=== PATIENT | male | born 1955 | race Caucasian/White ===

== ENCOUNTER 2017-01-04 13:04 | Inpatient (IN) | payer MEDICAID ==
[~2017-01-04] VITALS: Ht 177.8 cm; Wt 81.7 kg
[~2017-01-04 13:04] MED LIST: ALBU0.086 INH; ALBU1AER INH; ASPI325T PO; CHLO.12%30 SSP; CLIN150 PO; DICL50 PO; GABA600T PO; GLUC10TA3 PO; IPRA17I INH; METF500 PO; METH500T3 PO; MS C60TA4 PO; SERT100 PO; TRAZ100 PO; Z.0.OXYGEN INH; ZOLO50TA PO
[2017-01-04] MEDS ORDERED: SODIUM CHLOR 0.9% 1000 ML INJ 1,000 ML IV SCH ×2 (13:16→17:00)
[2017-01-04 13:18] VITALS: BP 167/89; PULSE 115; RESP 20; TEMP 98.3; O2SAT 98
[2017-01-04 13:22] VITALS: O2SAT 99
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
[2017-01-04] MEDS ORDERED: ONDANSETRON HCL 4 MG/2 ML VIAL IVP ONE (13:30)
[2017-01-04] MEDS ORDERED: SODIUM CHLORIDE 0.9% FLUSH 10 ML FLUSH IV FLUSH PRN ×2 (13:30→16:30)
[2017-01-04] MEDS ORDERED: MORPHINE SULFATE 4 MG/ML INJ IV PUSH ONE (13:30)
--- NOTE | 2017-01-04 13:53 | RADRPT ---
EXAM DATE/TIME: 01/04/2017 13:48 [facility] COMPARISON: CHEST SINGLE AP, March 20, 2016, 5:01. EXTERNAL COMPARISON : INDICATIONS : Vomiting, short of breath for 2 days MEDICAL HISTORY : Chronic obstructive pulmonary disease. Diabetes mellitus type II. Hepatitis C. SURGICAL HISTORY : None. ENCOUNTER: Initial ACUITY: 2 days PAIN SCORE: 0/10 LOCATION: Bilateral chest FINDINGS: A single view of the chest demonstrates the lungs to be symmetrically aerated without evidence of mas s, infiltrate or effusion. The cardiomediastinal contours are unremarkable. Osseous structures are intact. CONCLUSION: No acute disease. Joaquin Osman MD on January 04, 2017 at 13:51 Board Certified Radiologist. This report was verified electronically.
[2017-01-04 13:57] LABS: BASOPHIL % 0.1 % (0.0-2.0); HEMATOCRIT 45.4 % (39.0-51.0); HEMO FLAGS DIFF FINAL; LYMPH % 11.9 % (9.0-44.0); LYMPHOCYTE # 1.5 TH/MM3 (1.0-4.8); MEAN CELL VOLUME 85.8 FL (80.0-100.0); MEAN CORPUSCULAR HEMOGLOBIN 28.1 PG (27.0-34.0); MEAN CORPUSCULAR HGB CONC 32.8 % (32.0-36.0); MONO % 2.6 % (0.0-8.0); NEUT % 85.4 % (16.0-70.0); PLATELET COUNT 338 TH/MM3 (150-450); RED BLOOD COUNT 5.29 MIL/MM3 (4.50-5.90); RED CELL DISTRIBUTION WIDTH 14.1 % (11.6-17.2); WHITE BLOOD COUNT 12.9 TH/MM3 (4.0-11.0)
[2017-01-04 14:04] LABS: APTT (PATIENT) 25.9 SEC (24.3-30.1); PROTHROMBIN TIME - PATIENT 10.9 SEC (9.8-11.6)
[2017-01-04 14:16] LABS: ALT (GPT) 87 U/L (12-78); ANION GAP 19 MEQ/L (5-15); AST (GOT) 43 U/L (15-37); BICARBONATE 19.5 MEQ/L (21.0-32.0); BLOOD UREA NITROGEN 22 MG/DL (7-18); CHLORIDE 94 MEQ/L (98-107); GLOMERULAR FILTRATION RATE 56 ML/MIN (>89); SODIUM (NA) 132 MEQ/L (136-145)
[2017-01-04 14:18] LABS: ALKALINE PHOSPHATASE 208 U/L (45-117); TOTAL BILIRUBIN ADULT 0.7 MG/DL (0.2-1.0)
[2017-01-04] MEDS ORDERED: CIPROFLOXACIN 400 MG PREMIX 200 ML IV ONE (14:45)
[2017-01-04] MEDS ORDERED: metroNIDAZOLE 500 MG INJ 100 ML IV ONE (14:45)
[2017-01-04] MEDS ORDERED: SODIUM CHLOR 0.9% 1000 ML INJ 1,000 ML IV ONE ×2 (14:45→16:00)
[2017-01-04] MEDS ORDERED: GLIP5TAB8 PO (15:04)
[2017-01-04] MEDS ORDERED: SERT-132 PO (15:04)
[2017-01-04] MEDS ORDERED: METF850T PO (15:04)
[2017-01-04] MEDS ORDERED: METH500T3 PO (15:04)
[2017-01-04] MEDS ORDERED: ALBU0.08 NEB (15:04)
[2017-01-04] MEDS ORDERED: ZOLO100T PO (15:04)
[2017-01-04] MEDS ORDERED: TRAZ100T4 PO (15:04)
[2017-01-04] MEDS ORDERED: IPRA17I INH (15:04)
[2017-01-04] MEDS ORDERED: ASPI325T PO (15:04)
[2017-01-04] MEDS ORDERED: ALBUAER3 INH (15:04)
[2017-01-04] MEDS ORDERED: MS C60TA2 PO (15:04)
[2017-01-04] MEDS ORDERED: GABA600T PO (15:06)
[2017-01-04] MEDS ORDERED: IOHEXOL 350 MG/ML 10 ML VIAL (for RAD DIAG) IV ONE (15:14)
--- NOTE | 2017-01-04 15:32 | RADRPT ---
EXAM DATE/TIME: 01/04/2017 15:07 [facility] COMPARISON: No previous studies available for comparison. INDICATIONS : Abdomen pain IV CONTRAST: 95 cc Omnipaque 350 (iohexol) IV ORAL CONTRAST: No oral contrast ingested. RADIATION DOSE: 9.96 CTDIvol (mGy) MEDICAL HISTORY : Hypertension. Pancreatitis. Hepatitis C.Diabetes SURGICAL HISTORY : Cholecystectomy. ENCOUNTER: Initial ACUITY: 2 days PAIN SCALE: 6/10 LOCATION: abdominal pain TECHNIQUE: Volumetric scanning of the abdomen and pelvis was performed. Using automated exposure control and ad justment of the mA and/or kV according to patient size, radiation dose was kept as low as reasonably achievable to obtain optimal diagnostic quality images. FINDINGS: LOWER LUNGS: There are tiny lung nodule seen in the lung bases bilaterally. LIVER: Homogeneous density without lesion. There is no dilation of the biliary tree. Gallbladder surgically absent.. SPLEEN: Normal size without lesion. PANCREAS: Within normal limits. KIDNEYS: Normal in size and shape. There is no mass, stone or hydronephrosis. ADRENAL GLANDS: Within normal limits. VASCULAR: No evidence of aortic aneurysm. No major vessel occlusion. Variant celiac anatomy with separate origi n of the splenic and hepatic vessels from the aorta. Mild patchy intimal calcification. BOWEL/MESENTERY: The stomach, small bowel, and colon demonstrate no acute abnormality. There is no free intraperitone al air or fluid. ABDOMINAL WALL: Within normal limits. RETROPERITONEUM: There is no lymphadenopathy. BLADDER: No wall thickening or mass. REPRODUCTIVE: Within normal limits. INGUINAL: There is no lymphadenopathy or hernia. MUSCULOSKELETAL: Within normal limits for patient age. CONCLUSION: Tiny lung base nodules. Further evaluation with CT chest recommended on an elective basis. No acute CT findings in the abdomen or pelvis. Андрей Cramer MD on January 04, 2017 at 15:27 Board Certified Radiologist. This report was verified electronically.
[2017-01-04 16:25] VITALS: BP 142/81; PULSE 105; RESP 18; O2SAT 96
[2017-01-04 16:25] LABS: BLOOD GAS BASE EXCESS -6.5 mmol/L (-2-2); BLOOD GAS CARBOXYHEMOGLOBIN 0.9 % (0-4); BLOOD GAS HCO3 18 mmol/L (22-26); BLOOD GAS O2 HGB SATURATION 96 % (90-100); BLOOD GAS OXYGEN CONTENT 17.5 Vol % (12.0-20.0); BLOOD GAS PCO2 32 mmHg (38-42); BLOOD GAS PO2 114 mmHG (61-120); BLOOD GAS TOTAL HGB 12.8 G/DL (12.0-16.0); CRITICAL VALUE NO; DRAW SITE RT RADIAL; LITER FLOW 1 L/M; NUMBER OF ARTERIAL PUNCTURES 1; OXYGEN DEVICE NASAL CANNULA; TEMP CORR TO 98.6; ULNAR PULSE PRESENT
[2017-01-04 16:26] LABS: STAT YES
[2017-01-04] MEDS ORDERED: ACETAMINOPHEN 325 MG TAB PO PRN (16:30)
[2017-01-04] MEDS ORDERED: NALOXONE HCL 0.4 MG/ML AMP IV PRN (16:30)
[2017-01-04] MEDS ORDERED: MAGNESIUM HYDROXIDE SUSP 30 ML CUP PO PRN (16:30)
[2017-01-04] MEDS ORDERED: ENOXAPARIN SODIUM 40 MG/0.4 ML SYRINGE SQ SCH (17:00)
[2017-01-04 17:47] LABS: BLOOD, URINE NEG (NEG); GLUCOSE,URINE 1000 mg/dL (NEG); KETONE, URINE 150 mg/dL (NEG); MUCUS URINE FEW /lpf (OCC); NITRITE,URINE NEG (NEG); PH, URINE 5.5 (5.0-8.5); URINE COLOR LIGHT-YELLOW (YELLW/STRAW)
[2017-01-04 17:50] LABS: COMMENT (UR) CULT NOT INDICATED; CULTURE IF INDICATED CULT NOT INDICATED
[2017-01-04] MEDS ORDERED: DEXTROSE 50% IN WATER 50 ML VIAL(D50) IV PUSH PRN (18:00)
[2017-01-04] MEDS ORDERED: GLUCAGON 1 MG/ML VIAL OTHER PRN (18:00)
--- NOTE | 2017-01-04 18:24 | EKG ---
Date Performed: 01/04/2017 Time Performed: 13:25:52 PTAGE: 61 years EKG: SINUS TACHYCARDIA POSSIBLE LEFT ATRIAL ENLARGEMENT POSSIBLE INFERIOR MYOCARDIAL INFARCTION ABNORMAL ECG PREVIOUS TRACING : 03/18/2016 05.04 No significant change from previous tracing noted. DOCTOR: Raudel Adames Interpretating Date/Time 01/04/2017 18:22:27
[2017-01-04] MEDS ORDERED: INSULIN ASPART 1,000 UNITS/10 ML VIAL SQ ONE (18:30)
[2017-01-04 19:24] VITALS: BP 162/80; PULSE 100; RESP 18; O2SAT 97
[2017-01-04 20:00] VITALS: BP 140/81; PULSE 106; RESP 17; TEMP 97.5; O2SAT 99
[2017-01-04] MEDS: ONDANSETRON HCL 4 MG/2 ML VIAL IVP PRN (20:00)
[2017-01-04] MEDS: INSULIN DETEMIR 100 UNITS/ML VIAL SQ SCH (20:48)
[2017-01-04] MEDS: METOCLOPRAMIDE HCL 10 MG/2 ML VIAL IV PUSH PRN (21:00)
[2017-01-04] MEDS ORDERED: INSULIN ASPART SUPPLEMENTAL SCALE SQ SCH (21:00)
[2017-01-04] MEDS: SODIUM CHLORIDE 0.9% FLUSH 10 ML FLUSH IV FLUSH SCH (21:00)
[2017-01-04 21:25] LABS: BICARBONATE 24.2 MEQ/L (21.0-32.0); POTASSIUM 3.6 MEQ/L (3.5-5.1)
--- NOTE | 2017-01-04 21:30 | HHI.HP ---
[facility] Primary Care Physician Miguel Garay MD Admission Diagnosis abdominal pain, intractable vomiting Diagnoses: (1) Abdominal pain (2) Hyponatremia (3) Increased anion gap metabolic acidosis (4) Type 2 diabetes mellitus Chief Complaint: nausea and vomiting with abdominal pain Travel History International Travel<30 Days: No Contact w/Intl Traveler <30 Da: No Traveled to Known Affected Are: No History of Present Illness Mr. Cortez is a 61 year-old male with a history of COPD including emphysema, asthma, and chronic bronchitis, pancreatitis, gastroesophageal reflux disease, nephrolithiasis, type 2 diabetes mellitus, depression, and anxiety who presented to the emergency room on 01/04/2017 complaining of right lower quadrant abdominal pain with vomiting. Chest x-ray in ER with no acute disease. Abdomen/pelvis CT with tiny lung base nodules noted. Further evaluation with CT chest recommended. No acute CT findings in the abdomen or pelvis. ABGs with mildly abnormal findings: Abnormalities included low HCO3 of 18, Kevin excess of -6.5, low pH at 7.36, and low PCO2 at 32 - likely chronic secondary to COPD. Beta hydroxybutyrate elevated at 9.74. Lactic acid normal at 1.3. Hyponatremia noted with sodium of 132, chloride 94, carbon dioxide somewhat low at 19.5, anion gap elevated at 19 , acute renal insufficiency: BUN elevated at 22, creatinine elevated at 1.33, and estimated GFR low at 56 - new compared to prior labs, glucose elevated at 308, calcium mildly elevated at 10.2, AST 43, ALT 87, alkaline phosphatase 208. Lipase was normal at 152. UA not consistent with UTI. Patient is seen in the CDU. He reports symptoms of nausea and vomiting with green emesis and lower abdominal pain present in both lower quadrants for 3 days. He denies constipation black or red stool, hematuria, dysuria, fever, chest pain, syncope, seizures, or blood clots: DVT, CVA, or PE. He reports symptoms are accompanied by generalized weakness. He reports chronic occasional shortness of breath and states he has been on home oxygen 2 liters via nasal cannula since 2004 for COPD. Denies any history of hypertension, CAD, CHF, or atrial fibrillation. Review of Systems Except as stated in HPI: all other systems reviewed are Neg Past Family Social History Past Medical History COPD: emphysema, asthma, and chronic bronchitis Pancreatitis GERD Nephrolithiasis Type 2 Diabetes Mellitus Depression Anxiety Hepatitis . Past Surgical History Right knee 1982 Cholecystectomy 2016 . Reported Medications Reported Meds & Active Scripts Active Reported Gabapentin 600 Mg Tab 600 Mg PO TID Albuterol Neb (Albuterol Sulfate) 2.5 Mg/3 Ml Neb 2.5 Mg NEB Q6HR PRN Proair Hfa 8.5 GM Inh (Albuterol Sulfate) 90 Mcg/Act Aer 2 Puff INH Q6H PRN 108 mcg/actuation Aspirin 325 Mg Tab 325 Mg PO DAILY Glipizide 5 Mg Tab 5 Mg PO BID Take 30 minutes before a meal Atrovent HFA 12.9 GM Inh (Ipratropium [place]) 17 Mcg/Act Aer 2 Puff INH QID Metformin (Metformin HCl) 850 Mg Tab 850 Mg PO TIDPC With meals Methocarbamol 500 Mg Tab 500 Mg PO TID Ms Contin (Morphine Sulfate) 60 Mg Tab 60 Mg PO Q12HR Sertraline (Sertraline HCl) 50 Mg Tab 50 Mg PO DAILY Zoloft (Sertraline HCl) 100 Mg Tab 100 Mg PO HS Trazodone (Trazodone HCl) 100 Mg Tab 200 Mg PO HS . Allergies: Coded Allergies: Penicillin (Verified Allergy, Severe, 01/04/17) Toradol (Verified Allergy, Severe, HALLUCINATES, 01/04/17) Active Ordered Medications Current Medications Morphine Sulfate (Morphine Inj) 2 mg ONCE ONCE IV PUSH Last administered on 13:30; Start 01/04/17 at 13:30; Stop 01/04/17 at 13:31; Status DC Ondansetron HCl 4 mg 4 mg ONCE ONCE IVP Last administered on 01/04/17 13:30; Start 01/04/17 at 13:30; Stop 01/04/17 at 13:31; Status DC Sodium Chloride (NS 1000 ml Inj) 1,000 ml @ 1,000 mls/hr Q1H IV Last administered on 01/04/17 13:16; Start 01/04/17 at 13:16; Stop 01/04/17 at 14:15; Status DC Sodium Chloride 2 ml 2 ml UNSCH PRN IV FLUSH FLUSH AFTER USING IV ACCESS; Start 01/04/17 at 13:30; Stop 01/04/17 at 16:21; Status DC Ciprofloxacin/ Dextrose 200 ml @ 200 mls/hr ONCE ONCE IV Last administered on 01/04/17 14:45; Start 01/04/17 at 14:45; Stop 01/04/17 at 15:44; Status DC Metronidazole 100 ml @ 100 mls/hr ONCE ONCE IV Last administered on 01/04/17 14:45; Start 01/04/17 at 14:45; Stop 01/04/17 at 15:44; Status DC Sodium Chloride (NS 1000 ml Inj) 1,000 ml @ 999 mls/hr BOLUS ONCE IV Last administered on 01/04/17 14:45; Start 01/04/17 at 14:45; Stop 01/04/17 at 15:45; Status DC Iohexol 95 ml 95 ml STK-MED ONCE IV Last administered on 01/04/17 15:14; Start 01/04/17 at 15:14; Stop 01/04/17 at 15:15; Status DC Sodium Chloride 1,000 ml @ 999 mls/hr BOLUS ONCE IV Last administered on 16:00; Start 01/04/17 at 16:00; Stop 01/04/17 at 17:00; Status DC Sodium Chloride (NS 1000 ml Inj) 1,000 ml @ 200 mls/hr Q5H IV Last administered on 01/04/17 17:00; Start 01/04/17 at 17:00 Sodium Chloride (NS Flush) 2 ml UNSCH PRN IV FLUSH FLUSH AFTER USING IV ACCESS ; Start 01/04/17 at 16:30 Sodium Chloride (NS Flush) 2 ml BID IV FLUSH ; Start 01/04/17 at 21:00 Acetaminophen (Tylenol) 650 mg Q4H PRN PO Fever, headache, pain 1-4; Start 01/04 at 16:30 Ondansetron HCl (Zofran Inj) 4 mg Q6H PRN IVP NAUSEA OR VOMITING Last administered on 01/04/17 20:00; Start 01/04/17 at 16:30 Magnesium Hydroxide (Milk Of Magnesia Liq) 30 ml Q12H PRN PO CONSTIPATION; Start 01/04/17 at 16:30 Enoxaparin Sodium (Lovenox Inj) 40 mg Q24H SQ Last administered on 01/04/17 17: 00; Start 01/04/17 at 17:00 Naloxone HCl (Narcan Inj) 0.4 mg UNSCH PRN IV SEE LABEL COMMENTS; Start at 16:30 Morphine Sulfate (Morphine Inj) 4 mg Q3H PRN IV PUSH PAIN SCALE 5 TO 10; Start 01/04/17 at 16:30 Dextrose (D50w (Vial) Inj) 25 ml UNSCH PRN IV PUSH HYPOGLYCEMIA-SEE COMMENTS; Start 01/04/17 at 18:00 Glucagon (Glucagon Inj) 1 mg UNSCH PRN OTHER HYPOGLYCEMIA-SEE COMMENTS; Start 01/04/17 at 18:00 Insulin Aspart (NovoLOG SUPPLEMENTAL SCALE) 1 ACHS SLIDING SCALE SQ ; Start 01/04/17 at 21:00 Insulin Aspart (NovoLOG INJ) 10 units ONCE ONCE SQ Last administered on 18:30; Start 01/04/17 at 18:30; Stop 01/04/17 at 18:31; Status DC Insulin Detemir (Levemir Inj) 10 units HS SQ Last administered on 01/04/17 20: 48; Start 01/04/17 at 21:00 Insulin Aspart (NovoLOG INJ) 4 units TIDAC SQ ; Start 01/05/17 at 08:00 Metoclopramide HCl (Reglan Inj) 5 mg Q8H PRN IV PUSH nausea Last administered on 01/04/17 21:00; Start 01/04/17 at 20:45 . Family History Brother from complications related to MS Brother with bipolar disorder . Social History Tobacco: Quit smoking at least 10 years ago Alcohol: Quit drinking alcohol 8 years ago - drinks socially now twice a year Illicit Drugs: Former marijuana use, No IVDA . Physical Exam Vital Signs Vital Signs Date Time Temp Pulse Resp B/P Pulse Ox O2 Delivery O2 Flow Rate FiO2 01/04/17 19:24 100 18 162/80 97 Nasal Cannula 2 01/04/17 16:25 105 18 142/81 96 Nasal Cannula 2 01/04/17 13:43 20 01/04/17 13:22 99 01/04/17 13:18 98.3 115 20 167/89 98 Room Air Physical Exam GENERAL: This is an older male patient, in no apparent distress. SKIN: Multiple small scabs scattered on extremities - patient reports from "bed bugs". Cool and dry. HEAD: Atraumatic. Normocephalic. EYES: No scleral icterus. No injection or drainage. ENT: Nose without bleeding, purulent drainage. NECK: Trachea midline. No JVD or lymphadenopathy. CARDIOVASCULAR: Tachycardic rate and rhythm without murmurs, gallops, or rubs. RESPIRATORY: Clear to auscultation. Breath sounds equal bilaterally. No wheezes , rales, or rhonchi. GASTROINTESTINAL: Abdomen soft, non-tender, nondistended. No guarding. MUSCULOSKELETAL: Extremities without clubbing, cyanosis, or edema. No calf tenderness. NEUROLOGICAL: Awake and alert. Motor and sensory grossly within normal limits. Normal speech. . Laboratory Laboratory Tests Test 01/04/17 01/04/17 01/04/17 01/04/17 13:30 16:21 16:45 17:00 White Blood Count 12.9 Red Blood Count 5.29 Hemoglobin 14.9 Hematocrit 45.4 Mean Corpuscular Volume 85.8 Mean Corpuscular Hemoglobin 28.1 Mean Corpuscular Hemoglobin 32.8 Concent Red Cell Distribution Width 14.1 Platelet Count 338 Mean Platelet Volume 8.3 Neutrophils (%) (Auto) 85.4 Lymphocytes (%) (Auto) 11.9 Monocytes (%) (Auto) 2.6 Eosinophils (%) (Auto) 0.0 Basophils (%) (Auto) 0.1 Neutrophils # (Auto) 11.0 Lymphocytes # (Auto) 1.5 Monocytes # (Auto) 0.3 Eosinophils # (Auto) 0.0 Basophils # (Auto) 0.0 CBC Comment DIFF FINAL Differential Comment Prothrombin Time 10.9 Prothromb Time International 1.0 Ratio Activated Partial 25.9 Thromboplast Time Sodium Level 132 Potassium Level 4.0 Chloride Level 94 Carbon Dioxide Level 19.5 Anion Gap 19 Blood Urea Nitrogen 22 Creatinine 1.30 Estimat Glomerular Filtration 56 Rate Random Glucose 308 Calcium Level 10.2 Total Bilirubin 0.7 Aspartate Amino Transf 43 (AST/SGOT) Alanine Aminotransferase 87 (ALT/SGPT) Alkaline Phosphatase 208 Total Protein 9.5 Albumin 4.5 Lipase 152 B-Hydroxybutyrate 9.74 Blood Gas Puncture Site RT RADIAL Blood Gas Patient Temperature 98.6 Blood Gas HCO3 18 Blood Gas Base Excess -6.5 Blood Gas Oxygen Saturation 96 Arterial Blood pH 7.36 Arterial Blood Partial 32 Pressure CO2 Arterial Blood Partial 114 Pressure O2 Arterial Blood Oxygen Content 17.5 Arterial Blood 0.9 Carboxyhemoglobin Arterial Blood Methemoglobin 1.0 Blood Gas Hemoglobin 12.8 Oxygen Delivery Device NASAL CANNULA Blood Gas Liter Flow 1 Lactic Acid Level 1.3 Urine Color LIGHT-YELLOW Urine Turbidity CLEAR Urine pH 5.5 Urine Specific [place] 1.044 Urine Protein NEG Urine Glucose (UA) 1000 Urine Ketones 150 Urine Occult Blood NEG Urine Nitrite NEG Urine Bilirubin NEG Urine Urobilinogen LESS THAN 2.0 Urine Leukocyte Esterase NEG Urine RBC LESS THAN 1 Urine WBC LESS THAN 1 Urine Mucus FEW Microscopic Urinalysis Comment CULT NOT INDICATED Result Diagram: 01/04/17 1330 01/04/17 1330 Imaging Last Impressions Chest X-Ray 01/04/17 1316 Signed Impressions: Service Date/Time: Wednesday, January 04, 2017 13:48 - CONCLUSION: No acute disease. Joaquin Osman MD Abdomen/Pelvis CT 01/04/17 1316 Signed Impressions: Service Date/Time: Wednesday, January 04, 2017 15:07 - CONCLUSION: Tiny lung base nodules. Further evaluation with CT chest recommended on an elective basis. No acute CT findings in the abdomen or pelvis. Андрей Cramer MD . Assessment and Plan Problem List: (1) Abdominal pain ICD Code: R10.9 Status: Acute (2) Increased anion gap metabolic acidosis ICD Code: E87.2 Status: Acute (3) Hyponatremia ICD Code: E87.1 Status: Acute (4) Type 2 diabetes mellitus ICD Code: E11.9 Status: Chronic (5) Lung nodule seen on imaging study ICD Code: R91.1 Status: Acute Assessment and Plan Mr. Cortez is a 61 year-old male with a history of COPD including emphysema, asthma, and chronic bronchitis, pancreatitis, gastroesophageal reflux disease, nephrolithiasis, diabetes mellitus, depression, and anxiety who presented to the emergency room on 01/04/2017 complaining of right lower quadrant abdominal pain with vomiting. Right lower quadrant abdominal pain - Leukocytosis with WBC 12.9 and neutrophilia noted repeat CBC in a.m. and follow trends - Admission UA is not consistent with UTI - Lipase normal at 152 - The patient received ciprofloxacin and metronidazole IV in the ER - Morphine 4 mg IV push every 3 hours as needed for pain - Zofran 4 mg IV every 6 hours as needed for nausea or vomiting - Clear liquid diet Anion Gap Metabolic Acidosis secondary to GI losses, dehydration, and impaired renal function - Beta hydroxybutyrate elevated at 9.74, carbon dioxide somewhat low at 19.5, anion gap elevated at 19 on admission - repeated BMP to r/o DKA - labs improved with IVF hydration - not DKA - glucose elevated at 308 initially; repeat 190 Hyponatremia - Sodium of 132 on admission - IV replacement with normal saline at 200 cc per hour - Recheck BMP shows sodium 137 Diabetes mellitus - Levemir 10 units subcutaneous daily at bedtime - Accu-Cheks with low-dose NovoLog sliding scale coverage subcutaneous q4h - Hypoglycemia protocol in place - Monitor trends and blood glucose and adjust treatment as needed Lung nodule on imaging study - Further evaluation with CT chest recommended on an outpatient basis DVT prophylaxis - Lovenox 40 mg subcutaneous every 24 hours Written by Mel Santana, acting as scribe for Dr. Christine on 01/04/17 at 21:29. .This note was transcribed by scribe [Mel Santana]. I, Dr. Sumanth Christine personally performed the history, physical exam, and medical decision making; and confirmed the accuracy of the information in the transcribed note. Authenticated by Dr. Sumanth Christine on 01/04/17 at 21:29. Discussed Condition With ER physician and patient . Physician Certification 2 Midnight Certification Type: Admission for Inpatient Services Order for Inpatient Services The services are ordered in accordance with Medicare regulations or non- Medicare payer requirements, as applicable. In the case of services not specified as inpatient-only, they are appropriately provided as inpatient services in accordance with the 2-midnight benchmark. Estimated LOS (days): 3 days is the estimated time the patient will need to remain in the hospital, assuming treatment plan goals are met and no additional complications. Post-Hospital Plan: Not yet determined Problem Qualifiers (1) Abdominal pain: Qualified Code: R10.31 - Right lower quadrant abdominal pain (2) Type 2 diabetes mellitus: Mel Santana January 04, 2017 21:30 Sumanth Christine MD January 05, 2017 04:49
[2017-01-04] MEDS ORDERED: DEXT 5%-NACL 0.9% 1000 ML INJ 1,000 ML IV SCH (22:00)
[2017-01-05] VITALS (7 sets, daily range): BP systolic 145–184; BP diastolic 74–92; PULSE 90–108; RESP 15–18; TEMP 98–98.6; O2SAT 96–100
[2017-01-05] MEDS ORDERED: ALBUTEROL SULFATE 90 MCG/ACT HFA 18 GM INHALER INH PRN (00:30)
[2017-01-05] MEDS ORDERED: SERTRALINE HCL 100 MG TAB PO SCH (00:30)
[2017-01-05] MEDS ORDERED: traZODone HCL 100 MG TAB PO SCH ×2 (00:30→21:00)
[2017-01-05] MEDS ORDERED: RESP: ALBUTEROL CONC 2.5 MG/0.5 ML NEB NEB PRN (00:45)
[2017-01-05] MEDS: ONDANSETRON HCL 4 MG/2 ML VIAL IVP PRN ×2 (05:09→09:57)
[2017-01-05 06:11] LABS: AUTOMATED NEUTROPHIL # 9.5 TH/MM3 (1.8-7.7); BASOPHIL % 0.4 % (0.0-2.0); EOSINOPHIL # 0.1 TH/MM3 (0-0.4); EOSINOPHIL % 0.6 % (0.0-4.0); HEMO FLAGS DIFF FINAL; LYMPH % 9.1 % (9.0-44.0); LYMPHOCYTE # 1.1 TH/MM3 (1.0-4.8); MEAN CELL VOLUME 84.3 FL (80.0-100.0); MEAN CORPUSCULAR HEMOGLOBIN 28.1 PG (27.0-34.0); MEAN CORPUSCULAR HGB CONC 33.3 % (32.0-36.0); MONO % 10.3 % (0.0-8.0); NEUT % 79.6 % (16.0-70.0); PLATELET COUNT 271 TH/MM3 (150-450); RED BLOOD COUNT 4.63 MIL/MM3 (4.50-5.90); RED CELL DISTRIBUTION WIDTH 14.1 % (11.6-17.2); WHITE BLOOD COUNT 11.9 TH/MM3 (4.0-11.0)
[2017-01-05 06:39] LABS: BICARBONATE 22.3 MEQ/L (21.0-32.0); POTASSIUM 3.5 MEQ/L (3.5-5.1)
[2017-01-05] MEDS ORDERED: INSULIN ASPART 1,000 UNITS/10 ML VIAL SQ SCH (08:00)
[2017-01-05] MEDS ORDERED: METHOCARBAMOL 500 MG TAB PO SCH (09:00)
[2017-01-05] MEDS ORDERED: SERTRALINE HCL 50 MG TAB PO SCH (09:00)
[2017-01-05] MEDS: IPRATROPIUM BROMIDE 17 MCG/ACT 12.9 GM INHALER INH SCH ×4 (09:00→21:00)
[2017-01-05] MEDS: GABAPENTIN 300 MG CAP PO SCH ×3 (09:57→18:00)
--- NOTE | 2017-01-05 09:58 | HHI.PR ---
Subjective Remarks Follow-up for nausea, vomiting, and RLQ pain. The patient complains of dry heaving overnight with persistent nausea, cannot tolerate clears. He continues to have sharp RLQ pain. The abdominal pain is worsened with dry heaving. The patient reports normal bowel movements. He denies any urinary problems and states this is not similar to past kidney stone pain. He denies any fevers, states he felt clammy last night. He does have a history of hepatitis C, not currently following gastroenterology. He denies alcohol use. Reports green vomitus yesterday. Objective Vitals Vital Signs Date Time Temp Pulse Resp B/P Pulse Ox O2 Delivery O2 Flow Rate FiO2 01/05/17 08:03 98 Nasal Cannula 2.00 01/05/17 04:00 98.6 108 15 184/90 99 01/05/17 00:00 98.5 102 16 156/79 98 01/04/17 20:00 97.5 106 17 140/81 99 01/04/17 19:24 100 18 162/80 97 Nasal Cannula 2 01/04/17 16:25 105 18 142/81 96 Nasal Cannula 2 01/04/17 13:43 20 01/04/17 13:22 99 01/04/17 13:18 98.3 115 20 167/89 98 Room Air I/O 01/04/17 01/04/17 01/04/17 01/05/17 01/05/17 01/05/17 07:00 15:00 23:00 07:00 15:00 23:00 Output Total 30 ml Balance -30 ml Emesis 30 ml Result Diagram: 01/05/17 0537 01/05/17 0527 Imaging Last Impressions Chest X-Ray 01/04/176 Signed Impressions: Service Date/Time: Wednesday, January 04, 2017 13:48 - CONCLUSION: No acute disease. Joaquin Osman MD Abdomen/Pelvis CT 01/04/176 Signed Impressions: Service Date/Time: Wednesday, January 04, 2017 15:07 - CONCLUSION: Tiny lung base nodules. Further evaluation with CT chest recommended on an elective basis. No acute CT findings in the abdomen or pelvis. Андрей Cramer MD Objective Remarks GENERAL: Well-developed well-nourished. In no acute distress. SKIN: Warm and dry. No lesions noted. HEENT: Normocephalic. Pupils equal and round. Mucous membranes pink and moist. CARDIOVASCULAR: Regular rate and rhythm. No murmur appreciated. RESPIRATORY: No accessory muscle use. Clear to auscultation. Breath sounds equal bilaterally. GASTROINTESTINAL: Abdomen soft, nondistended. Bowel sounds x4. Tender to palpation in the right lower quadrant and epigastric area. No rebound tenderness. MUSCULOSKELETAL: No obvious deformities. No clubbing or cyanosis. No edema. NEUROLOGICAL: Awake and alert. No focal neurological deficits. Moves upper and lower extremities spontaneously. Normal speech. PSYCHIATRIC: Appropriate mood and affect; insight and judgment normal. A/P Problem List: (1) Abdominal pain ICD Code: R10.9 Status: Acute (2) Increased anion gap metabolic acidosis ICD Code: E87.2 Status: Resolved (3) Hyponatremia ICD Code: E87.1 Status: Resolved (4) Type 2 diabetes mellitus ICD Code: E11.9 Status: Chronic (5) Lung nodule seen on imaging study ICD Code: R91.1 Status: Acute Assessment and Plan Mr. Cortez is a 61 year-old male with a history of COPD including emphysema, asthma, and chronic bronchitis, pancreatitis, gastroesophageal reflux disease, nephrolithiasis, diabetes mellitus, depression, and anxiety who presented to the emergency room on 01/04/2017 complaining of right lower quadrant abdominal pain with vomiting. Right lower quadrant abdominal pain Reviewed: Abdominal CT showed no acute CT findings in the abdomen or pelvis. Leukocytosis, afebrile. Lipase within normal limits. Elevated AST, ALT, alkaline phosphatase. - Morphine 4 mg IV push every 3 hours as needed for pain - Zofran 4 mg IV every 6 hours as needed for nausea or vomiting - Clear liquid diet - Repeat LFTs - Consult gastroenterology - IVF with D5 to prevent hypoglycemia as well as normal saline for volume loss Anion Gap Metabolic Acidosis secondary to GI losses, dehydration, and impaired renal function Beta hydroxybutyrate elevated at 9.74, carbon dioxide somewhat low at 19.5, anion gap elevated at 19 on admission - Repeat BMP shows improvement, anion gap has closed. Acute kidney injury - Creatinine 1.30, previously 0.77 on 03/21/16. Creatinine improved to 0.89 with IVF. Hyponatremia - Sodium of 132 on admission, improved to normal limits with IVF. Diabetes mellitus. With hyperglycemia likely reactive. - Levemir 10 units subcutaneous daily at bedtime - Hold oral hypoglycemics for now - Accu-Cheks with low-dose NovoLog sliding scale coverage subcutaneous q4h - Hypoglycemia protocol in place Incidental Lung nodule seen on abdominal CT - Radiologist recommended further evaluation with CT chest recommended on an elective basis DVT prophylaxis - Lovenox 40 mg subcutaneous every 24 hours Problem Qualifiers (1) Abdominal pain: Qualified Code: R10.31 - Right lower quadrant abdominal pain (2) Type 2 diabetes mellitus: Qualified Code: E11.65 - Type 2 diabetes mellitus with hyperglycemia, without long-term current use of insulin Herann Cannon January 05, 2017 09:58
[2017-01-05] MEDS: SODIUM CHLOR 0.9% 1000 ML INJ 1,000 ML IV SCH ×2 (10:46→20:46)
[2017-01-05] MEDS: D5-1/2 NS + KCL 20 MEQ INJ 1,000 ML IV SCH (10:46)
[2017-01-05] MEDS: MORPHINE SULFATE 60 MG CONTROLLED RELEASE TAB PO SCH ×2 (10:47→22:30)
[2017-01-05] MEDS: SODIUM CHLORIDE 0.9% FLUSH 10 ML FLUSH IV FLUSH SCH ×2 (10:47→21:00)
[2017-01-05 11:05] LABS: INDIRECT BILIRUBIN 0.3 MG/DL (0.0-0.8); TOTAL BILIRUBIN ADULT 0.5 MG/DL (0.2-1.0)
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
[2017-01-05] MEDS: METOCLOPRAMIDE HCL 10 MG/2 ML VIAL IV PUSH PRN ×2 (12:49→22:30)
[2017-01-05] MEDS: MORPHINE SULFATE 4 MG/ML INJ IV PUSH PRN (12:50)
[2017-01-05 15:57] LABS: TRANSFERRIN IRON PROFILE 305 MG/DL (200-360)
[2017-01-05 16:00] LABS: FERRITIN 108 NG/ML (26-388)
[2017-01-05] MEDS: INSULIN DETEMIR 100 UNITS/ML VIAL SQ SCH (21:00)
[2017-01-06] VITALS (10 sets, daily range): BP systolic 145–178; BP diastolic 78–89; PULSE 82–104; RESP 18–22; TEMP 97.7–98.8; O2SAT 94–99
[2017-01-06] MEDS: D5-1/2 NS + KCL 20 MEQ INJ 1,000 ML IV SCH (05:11)
[2017-01-06] MEDS: METOCLOPRAMIDE HCL 10 MG/2 ML VIAL IV PUSH PRN (05:11)
[2017-01-06] MEDS: MORPHINE SULFATE 4 MG/ML INJ IV PUSH PRN (05:39)
[2017-01-06] MEDS: SODIUM CHLOR 0.9% 1000 ML INJ 1,000 ML IV SCH ×2 (08:00→16:29)
[2017-01-06] MEDS ORDERED: RESP: ALBUTEROL 2.5 MG/3 ML NEB (PRN) INH ONE (08:08)
[2017-01-06] MEDS ORDERED: PROPOFOL 200 MG/20 ML AMP IV ONE (08:47)
--- NOTE | 2017-01-06 08:58 | GIPROC ---
[facility] [address] [facility]. [facility] [place], [address] EGD PROCEDURE REPORT EXAM DATE: 01/06/2017 PATIENT NAME: Ashutosh Cortez MR #: [id number] BIRTHDATE: 1955 ATTENDING: Noam Ware MD ORDER #: [id number] FURNACE ROOM SUPERVISOR: Doug Dotson Hogan, Darren, and Maria Guadalupe Sanchez STATUS: inpatient INDICATIONS: The patient is a 61 yr old male here for an EGD due to epigastric abdominal pain and history of esophageal reflux PROCEDURE PERFORMED: EGD w/ biopsy MEDICATIONS: None and Per Anesthesia. TOPICAL ANESTHETIC: CONSENT: The patient understands the risks and benefits of the procedure and understands that these risks include, but are not limited to: sedation, allergic reaction, infection, perforation and/or bleeding. Alternative means of evaluation and treatment include, among others: physical exam, x-rays, and/or surgical intervention. The patient elects to proceed with this endoscopic procedure. medical equipment was checked for proper function. Hand hygiene and appropriate measures for infection prevention was taken. After the risks, benefits and alternatives of the procedure were thoroughly explained, Informed consent was verified, confirmed and timeout was successfully executed by the treatment team. The patient was anesthetized with topical anesthesia and the Pentax [id number] and [id number] endoscope was introduced through the mouth and advanced to the second portion of the duodenum. Retroflexed views revealed no abnormalities The gastroscope was then slowly withdrawn and removed. ESOPHAGUS: There was LA Class A esophagitis noted. A biopsy was performed using cold forceps. Sample sent for histology. STOMACH: There was erythematous moderate gastritis in the gastric antrum. A biopsy was performed using cold forceps. Sample sent for histology. DUODENUM: The duodenal mucosa appeared normal in the bulb and second portion of the duodenum. ADVERSE EVENTS: There were no complications. IMPRESSIONS: 1. There was LA Class A esophagitis noted; biopsy was performed 2. There was erythematous gastritis in the gastric antrum; biopsy was performed 3. Normal duodenal mucosa in the bulb and second portion of the duodenum 4. Retroflexed views revealed no abnormalities RECOMMENDATIONS: 1. Await biopsy results. Biopsy results will not be ready for 7-10 days. If you don't hear from us in two weeks, call our office for biopsy results. 2. Anti-reflux regimen 3. Continue PPI 4. Avoid NSAIDS PATIENT CONDITION: stable DISPOSITION: Inpatient REPEAT EXAM: Return 1 year EGD pending biopsy results Noam Ware MD eSigned: Noam Ware MD 01/06/2017 8:58 AM cc: PATIENT NAME: Ashutosh Cortez Melisa MR#: [id number]
[2017-01-06] MEDS: IPRATROPIUM BROMIDE 17 MCG/ACT 12.9 GM INHALER INH SCH ×2 (09:00→21:00)
[2017-01-06] MEDS: SODIUM CHLORIDE 0.9% FLUSH 10 ML FLUSH IV FLUSH SCH ×2 (09:00→21:22)
[2017-01-06] MEDS: MORPHINE SULFATE 60 MG CONTROLLED RELEASE TAB PO SCH (09:00)
[2017-01-06] MEDS: GABAPENTIN 300 MG CAP PO SCH ×3 (09:36→16:12)
[2017-01-06] MEDS: SERTRALINE HCL 100 MG TAB PO SCH (09:36)
[2017-01-06] MEDS ORDERED: PNEUMOCOCCAL POLYVALENT INJ 25 MCG/0.5 ML SYR IM ONE (10:00)
[2017-01-06] MEDS ORDERED: INFLUENZA VIRUS VACCINE (QUADRIVALENT) 0.5 ML SYR IM ONE (10:00)
[2017-01-06] MEDS: ONDANSETRON HCL 4 MG/2 ML VIAL IVP PRN ×2 (10:08→21:23)
[2017-01-06] MEDS: INSULIN ASPART SUPPLEMENTAL SCALE SQ SCH ×3 (11:00→21:24)
[2017-01-06 12:02] LABS: AUTOMATED NEUTROPHIL # 4.8 TH/MM3 (1.8-7.7); BASOPHIL # 0.1 TH/MM3 (0-0.2); BASOPHIL % 0.8 % (0.0-2.0); EOSINOPHIL # 0.2 TH/MM3 (0-0.4); HEMATOCRIT 39.5 % (39.0-51.0); HEMO FLAGS DIFF FINAL; LYMPH % 28.4 % (9.0-44.0); LYMPHOCYTE # 2.3 TH/MM3 (1.0-4.8); MEAN CELL VOLUME 83.8 FL (80.0-100.0); MEAN CORPUSCULAR HEMOGLOBIN 29.6 PG (27.0-34.0); MEAN CORPUSCULAR HGB CONC 35.3 % (32.0-36.0); NEUT % 58.8 % (16.0-70.0); PLATELET COUNT 284 TH/MM3 (150-450); RED BLOOD COUNT 4.72 MIL/MM3 (4.50-5.90); RED CELL DISTRIBUTION WIDTH 14.1 % (11.6-17.2); WHITE BLOOD COUNT 8.1 TH/MM3 (4.0-11.0)
[2017-01-06 12:31] LABS: ALKALINE PHOSPHATASE 159 U/L (45-117); ALT (GPT) 151 U/L (12-78); ANION GAP 10 MEQ/L (5-15); AST (GOT) 179 U/L (15-37); BICARBONATE 27.3 MEQ/L (21.0-32.0); BLOOD UREA NITROGEN 10 MG/DL (7-18); CHLORIDE 99 MEQ/L (98-107); GLOMERULAR FILTRATION RATE 81 ML/MIN (>89); POTASSIUM 3.3 MEQ/L (3.5-5.1); SODIUM (NA) 136 MEQ/L (136-145); TOTAL BILIRUBIN ADULT 1.6 MG/DL (0.2-1.0)
[2017-01-06] MEDS ORDERED: POTASSIUM CHLORIDE 20 MEQ CONTROLLED RELEASE TAB PO ONE (14:00)
--- NOTE | 2017-01-06 14:42 | HHI.PR ---
Subjective Remarks Follow-up for abdominal pain. Patient seen after EGD today. The patient reports his abdominal pain is a little bit better today. He does complain of some acid reflux. He denies any further vomiting. He was able to tolerate some fruit for lunch. He states he had a normal bowel movement overnight. He states that he was taken off of Oramorph 1 year ago, and has not been following with pain management since then. Objective Vitals Vital Signs Date Time Temp Pulse Resp B/P Pulse Ox O2 Delivery O2 Flow Rate FiO2 01/06/17 12:00 97.9 92 20 178/86 95 01/06/17 09:06 82 18 166/83 100 01/06/17 09:00 82 16 143/76 99 01/06/17 08:56 98.0 84 16 129/71 97 01/06/17 08:02 98.3 82 20 174/83 95 01/06/17 08:00 98.3 82 20 174/83 95 01/06/17 06:30 85 01/06/17 04:38 98.6 104 20 168/89 94 01/06/17 04:00 98.0 92 18 170/83 98 01/06/17 00:50 98.8 89 18 145/78 99 01/05/17 20:44 97 Nasal Cannula 2.00 01/05/17 20:11 98.6 90 18 178/84 99 01/05/17 17:27 98.0 91 18 145/74 96 I/O 01/05/17 01/05/17 01/05/17 01/06/17 01/06/17 01/06/17 07:00 15:00 23:00 07:00 15:00 23:00 Intake Total 0 ml 150 ml Output Total 500 ml 0 ml Balance -500 ml 0 ml 150 ml Intake Oral 0 ml IV Total 150 ml Output Urine Total 500 ml 0 ml Stool Total 0 ml Result Diagram: 01/06/17 1132 01/06/17 1132 Imaging Last Impressions Chest X-Ray 01/04/17 1316 Signed Impressions: Service Date/Time: Wednesday, January 04, 2017 13:48 - CONCLUSION: No acute disease. Joaquin Osman MD Abdomen/Pelvis CT 01/04/17 1316 Signed Impressions: Service Date/Time: Xiang, January 04, 2017 15:07 - CONCLUSION: Tiny lung base nodules. Further evaluation with CT chest recommended on an elective basis. No acute CT findings in the abdomen or pelvis. Андрей Cramer MD Objective Remarks GENERAL: Well-developed well-nourished. In no acute distress. SKIN: Warm and dry. No lesions noted. HEENT: Normocephalic. Pupils equal and round. Mucous membranes pink and moist. CARDIOVASCULAR: Regular rate and rhythm. No murmur appreciated. RESPIRATORY: No accessory muscle use. Clear to auscultation. Breath sounds equal bilaterally. GASTROINTESTINAL: Abdomen soft, mild epigastric TTP, nondistended. Bowel sounds x4. MUSCULOSKELETAL: No obvious deformities. No clubbing or cyanosis. No edema. NEUROLOGICAL: Awake and alert. No focal neurological deficits. Moves upper and lower extremities spontaneously. Normal speech. PSYCHIATRIC: Appropriate mood and affect; insight and judgment normal. A/P Problem List: (1) Abdominal pain ICD Code: R10.9 Status: Acute (2) Increased anion gap metabolic acidosis ICD Code: E87.2 Status: Resolved (3) Hyponatremia ICD Code: E87.1 Status: Resolved (4) Type 2 diabetes mellitus ICD Code: E11.9 Status: Chronic (5) Lung nodule seen on imaging study ICD Code: R91.1 Status: Acute Assessment and Plan Mr. Cortez is a 61 year-old male with a history of COPD including emphysema, asthma, and chronic bronchitis, pancreatitis, gastroesophageal reflux disease, nephrolithiasis, diabetes mellitus, depression, and anxiety who presented to the emergency room on 01/04/2017 complaining of right lower quadrant abdominal pain with vomiting. Right lower quadrant abdominal pain Reviewed: Abdominal CT showed no acute CT findings in the abdomen or pelvis. Leukocytosis, afebrile. Lipase within normal limits. Elevated AST, ALT, alkaline phosphatase initially improved 5/2, but increased again today 5/3 with increasing bilirubin. - Morphine 4 mg IV push every 3 hours as needed for pain - Antiemetics as needed - Repeat LFTs - Consulted gastroenterology, performed EGD which showed esophagitis and gastritis - IVF, decrease - Diet as tolerated per GI Anion Gap Metabolic Acidosis secondary to GI losses, dehydration, and impaired renal function Beta hydroxybutyrate elevated at 9.74, carbon dioxide somewhat low at 19.5, anion gap elevated at 19 on admission - Repeat BMP shows improvement, anion gap has closed. - Resolved Acute kidney injury - Creatinine 1.30, previously 0.77 on 03/21/16. Creatinine improved to normal limits with IVF. Hyponatremia - Sodium of 132 on admission, improved to normal limits with IVF. Diabetes mellitus. With hyperglycemia, likely reactive. - Resume her glipizide - Hold home metformin for now - Accu-Cheks with low-dose NovoLog sliding scale coverage subcutaneous q4h - Hypoglycemia protocol in place Incidental Lung nodule seen on abdominal CT - Radiologist recommended further evaluation with CT chest recommended on an elective basis Suspect serotonin syndrome with hypertension/tachycardia with multiple high doses of antidepressants - Decreased sertraline and trazodone Hypertension BP has been labile and not well controlled. Possibly secondary to medication effect as above. - Clonidine as needed for now Hypokalemia, mild Potassium 3.3 - Replace orally - Follow up labs DVT prophylaxis - Lovenox held for GI procedure. - SCDs Discharge Planning Follow-up repeat LFTs and GI recommendations. Problem Qualifiers (1) Abdominal pain: Qualified Code: R10.31 - Right lower quadrant abdominal pain (2) Type 2 diabetes mellitus: Qualified Code: E11.65 - Type 2 diabetes mellitus with hyperglycemia, without long-term current use of insulin Hernan Cannon January 06, 2017 14:42 Reno Hawk MD January 06, 2017 21:37
[2017-01-06 15:20] LABS: ANA SCREEN NEG (NEG)
[2017-01-06] MEDS: cloNIDine HCL 0.1 MG TAB PO PRN (16:13)
[2017-01-06] MEDS: traZODone HCL 100 MG TAB PO SCH (21:22)
[2017-01-06] MEDS: glipiZIDE 5 MG TAB PO SCH (21:22)
[2017-01-06] MEDS: TIOTROPIUM BROMIDE 18 MCG INH INH SCH (22:39)
[2017-01-07] VITALS (9 sets, daily range): BP systolic 133–186; BP diastolic 66–87; PULSE 74–93; RESP 16–20; TEMP 97.5–98.9; O2SAT 95–96
[2017-01-07] MEDS: INSULIN ASPART SUPPLEMENTAL SCALE SQ SCH ×4 (05:43→21:00)
[2017-01-07] MEDS: MORPHINE SULFATE 4 MG/ML INJ IV PUSH PRN (06:10)
[2017-01-07 07:45] LABS: BICARBONATE 26.4 MEQ/L (21.0-32.0); INDIRECT BILIRUBIN 0.5 MG/DL (0.0-0.8); POTASSIUM 3.4 MEQ/L (3.5-5.1); TOTAL BILIRUBIN ADULT 0.8 MG/DL (0.2-1.0)
[2017-01-07] MEDS: SODIUM CHLORIDE 0.9% FLUSH 10 ML FLUSH IV FLUSH SCH ×2 (09:00→20:01)
[2017-01-07] MEDS: SERTRALINE HCL 100 MG TAB PO SCH (10:10)
[2017-01-07] MEDS: glipiZIDE 5 MG TAB PO SCH ×2 (10:10→20:00)
[2017-01-07] MEDS: GABAPENTIN 300 MG CAP PO SCH ×3 (10:10→16:27)
[2017-01-07] MEDS ORDERED: PANT40TA3 PO (11:29)
--- NOTE | 2017-01-07 11:32 | HHI.DCPOC ---
Discharge Care Plan Diagnosis: (1) Gastritis (2) Esophagitis (3) Elevated blood pressure (4) Type 2 diabetes mellitus Goals to Promote Your Health * To prevent worsening of your condition and complications * To maintain your health at the optimal level Directions to Meet Your Goals Take your medications as prescribed Follow your dietary instruction Follow activity as directed Keep your appointments as scheduled Take your immunizations and boosters as scheduled If your symptoms worsen call your PCP, if no PCP go to Urgent Care Center or Emergency Room Smoking is Dangerous to Your Health. Avoid second hand smoke Call the 24-hour hour crisis hotline for domestic abuse at Gricel Rios PA-C January 07, 2017 11:32
[2017-01-07] MEDS ORDERED: PANTOPRAZOLE SODIUM 40 MG VIAL IV PUSH ONE (11:45)
--- NOTE | 2017-01-07 11:45 | HHI.DS ---
cc: Noam Ware MD Discharge Summary Admission Date January 04, 2017 at 5:34 pm Discharge Date: January 07, 2017 Admitting Diagnosis abdominal pain, intractable vomiting (1) Abdominal pain ICD Code: R10.9 Diagnosis: Principal (2) Increased anion gap metabolic acidosis ICD Code: E87.2 Diagnosis: Secondary (3) Hyponatremia ICD Code: E87.1 Diagnosis: Secondary (4) Type 2 diabetes mellitus ICD Code: E11.9 Diagnosis: Secondary (5) Lung nodule seen on imaging study ICD Code: R91.1 Diagnosis: Secondary (6) Gastritis ICD Code: K29.70 Diagnosis: Principal (7) Esophagitis ICD Code: K20.9 Diagnosis: Principal (8) Elevated blood pressure ICD Code: I10 Diagnosis: Secondary Procedures EGD 01/06/[address] Ware showed esophagitis, gastritis. Brief History - From Admission Mr. Cortez is a 61 year-old male with a history of COPD including emphysema, asthma, and chronic bronchitis, pancreatitis, gastroesophageal reflux disease, nephrolithiasis, type 2 diabetes mellitus, depression, and anxiety who presented to the emergency room on 01/04/2017 complaining of right lower quadrant abdominal pain with vomiting. Chest x-ray in ER with no acute disease. Abdomen/pelvis CT with tiny lung base nodules noted. Further evaluation with CT chest recommended. No acute CT findings in the abdomen or pelvis. ABGs with mildly abnormal findings: Abnormalities included low HCO3 of 18, Kevin excess of -6.5, low pH at 7.36, and low PCO2 at 32 - likely chronic secondary to COPD. Beta hydroxybutyrate elevated at 9.74. Lactic acid normal at 1.3. Hyponatremia noted with sodium of 132, chloride 94, carbon dioxide somewhat low at 19.5, anion gap elevated at 19 , acute renal insufficiency: BUN elevated at 22, creatinine elevated at 1.33, and estimated GFR low at 56 - new compared to prior labs, glucose elevated at 308, calcium mildly elevated at 10.2, AST 43, ALT 87, alkaline phosphatase 208. Lipase was normal at 152. UA not consistent with UTI. Patient is seen in the CDU. He reports symptoms of nausea and vomiting with green emesis and lower abdominal pain present in both lower quadrants for 3 days. He denies constipation black or red stool, hematuria, dysuria, fever, chest pain, syncope, seizures, or blood clots: DVT, CVA, or PE. He reports symptoms are accompanied by generalized weakness. He reports chronic occasional shortness of breath and states he has been on home oxygen 2 liters via nasal cannula since 2004 for COPD. Denies any history of hypertension, CAD, CHF, or atrial fibrillation. CBC/BMP: 01/06/17 1132 01/07/17 0630 Significant Findings Laboratory Tests Test 01/04/17 01/04/17 01/04/17 01/04/17 13:30 16:21 17:00 20:20 White Blood Count 12.9 TH/MM3 (4.0-11.0) Neutrophils (%) (Auto) 85.4 % (16.0-70.0) Neutrophils # (Auto) 11.0 TH/MM3 (1.8-7.7) Sodium Level 132 MEQ/L (136-145) Chloride Level 94 MEQ/L (98-107) Carbon Dioxide Level 19.5 MEQ/L (21.0-32.0) Anion Gap 19 MEQ/L (5-15) Blood Urea Nitrogen 22 MG/DL (7-18) Estimat Glomerular Filtration 56 ML/MIN (>89) 54 ML/MIN (>89) Rate Random Glucose 308 MG/DL 190 MG/DL (74-106) (74-106) Calcium Level 10.2 MG/DL (8.5-10.1) Aspartate Amino Transf 43 U/L (15-37) (AST/SGOT) Alanine Aminotransferase 87 U/L (12-78) (ALT/SGPT) Alkaline Phosphatase 208 U/L (45-117) Total Protein 9.5 GM/DL (6.4-8.2) B-Hydroxybutyrate 9.74 MMOL/L (0.00-0.39) Blood Gas HCO3 18 mmol/L (22-26) Blood Gas Base Excess -6.5 mmol/L (-2-2) Arterial Blood pH 7.36 (7.380-7.420) Arterial Blood Partial 32 mmHg (38-42) Pressure CO2 Urine Specific [place] 1.044 (1.002-1.035) Urine Glucose (UA) 1000 mg/dL (NEG) Urine Ketones 150 mg/dL (NEG) Urine Mucus FEW /lpf (OCC) Creatinine 1.34 MG/DL (0.60-1.30) Test 01/05/17 01/05/17 01/05/17 01/06/17 05:27 05:37 14:45 00:01 Estimat Glomerular Filtration 87 ML/MIN (>89) Rate Random Glucose 240 MG/DL (74-106) Alkaline Phosphatase 147 U/L (45-117) White Blood Count 11.9 TH/MM3 (4.0-11.0) Neutrophils (%) (Auto) 79.6 % (16.0-70.0) Monocytes (%) (Auto) 10.3 % (0.0-8.0) Neutrophils # (Auto) 9.5 TH/MM3 (1.8-7.7) Monocytes # (Auto) 1.2 TH/MM3 (0-0.9) Vxeti-2-Usrdmjezkbu 200 mg/dL (100 - 190) Hepatitis C Antibody REACTIVE (NEGATIVE) Test 01/06/17 01/07/17 11:32 06:30 Monocytes (%) (Auto) 9.0 % (0.0-8.0) Potassium Level 3.3 MEQ/L 3.4 MEQ/L (3.5-5.1) (3.5-5.1) Estimat Glomerular Filtration 81 ML/MIN (>89) Rate Random Glucose 218 MG/DL (74-106) Total Bilirubin 1.6 MG/DL (0.2-1.0) Aspartate Amino Transf 179 U/L (15-37) 159 U/L (15-37) (AST/SGOT) Alanine Aminotransferase 151 U/L (12-78) 167 U/L (12-78) (ALT/SGPT) Alkaline Phosphatase 159 U/L 154 U/L (45-117) (45-117) Direct Bilirubin 0.3 MG/DL (0.0-0.2) Imaging Last Impressions Chest X-Ray 01/04/17 1316 Signed Impressions: Service Date/Time: Wednesday, January 04, 2017 13:48 - CONCLUSION: No acute disease. Joaquin Osman MD Abdomen/Pelvis CT 01/04/17 1316 Signed Impressions: Service Date/Time: Wednesday, January 04, 2017 15:07 - CONCLUSION: Tiny lung base nodules. Further evaluation with CT chest recommended on an elective basis. No acute CT findings in the abdomen or pelvis. Андрей Cramer MD PE at Discharge GENERAL: Well-developed well-nourished middle aged male patient in [facility]. SKIN: Warm and dry. No lesions noted. HEENT: Normocephalic. Pupils equal and round. Mucous membranes pink and moist. CARDIOVASCULAR: Regular rate and rhythm. No murmur appreciated. RESPIRATORY: No accessory muscle use. Clear to auscultation. Breath sounds equal bilaterally. GASTROINTESTINAL: Abdomen soft, nontender, nondistended. Bowel sounds x4. MUSCULOSKELETAL: No obvious deformities. No clubbing or cyanosis. No edema. NEUROLOGICAL: Awake and alert. No focal neurological deficits. Moves upper and lower extremities spontaneously. Normal speech. PSYCHIATRIC: Appropriate mood and affect; insight and judgment normal. Pt update on day of discharge Follow up for esophagitis, gastritis. The patient reports feeling much better today. He tolerated dinner last night and breakfast this morning. Denies any abdominal pain. Denies any nausea/vomiting overnight. He feels ready for discharge. Hospital Course Mr. Cortez is a 61 year-old male with a history of COPD including emphysema, asthma, and chronic bronchitis, pancreatitis, gastroesophageal reflux disease, nephrolithiasis, diabetes mellitus, depression, and anxiety who presented to the emergency room on 01/04/2017 complaining of right lower quadrant abdominal pain with vomiting. RLQ abdominal pain with elevated LFTs: Reviewed: Abdominal CT showed no acute CT findings in the abdomen or pelvis. Leukocytosis, afebrile. Lipase within normal limits. Elevated AST, ALT, alkaline phosphatase improved. Given IV Morphine prn and IV Zofran prn. Consulted GI, EGD 01/06/17 showed esophagitis/ gastritis, biopsies taken. Started on PPI. Advanced diet, patient tolerated well. Symptoms resolved. Anion Gap Metabolic Acidosis: secondary to GI losses, dehydration, and impaired renal function. Beta hydroxybutyrate elevated at 9.74, carbon dioxide somewhat low at 19.5, anion gap elevated at 19 on admission. Repeat BMP shows improvement , anion gap has closed. Resolved. Acute kidney injury: Creatinine 1.30, previously 0.77 on 03/21/16. Creatinine improved to normal limits with IVF. Hyponatremia: Sodium of 132 on admission, improved to normal limits with IVF. Diabetes mellitus. With hyperglycemia, likely reactive. Resumed home glipizide. Held metformin while in hospital. Monitored Accu-Cheks and covered with low-dose NovoLog SSI. Incidental Lung nodule seen on abdominal CT: Radiologist recommended further evaluation with CT chest recommended on an elective basis Suspect serotonin syndrome with hypertension/tachycardia with multiple high doses of antidepressants: Decreased sertraline and trazodone. Hypertension: BP has been labile and not well controlled. Possibly secondary to medication effect as above. Clonidine prn. Started on Norvasc 5mg daily. Discharge when SBP < 160. Hypokalemia, mild: Potassium 3.3. Replaced orally Discussed with Dr. Hawk. Pt Condition on Discharge: Stable Discharge Disposition: Discharge Home Discharge Time: > 30 minutes Discharge Instructions DIET: Follow Instructions for: Diabetic Diet Activities you can perform: Regular-No Restrictions Follow up Referrals: Gastroenterology - 10 Days with Noam Ware MD PCP Follow-up - 1 Week with Miguel Garay MD New Medications: Amlodipine (Amlodipine) 5 Mg Tab 5 MG PO DAILY Blood Pressure Management #30 Ref 0 TAB Pantoprazole (Pantoprazole) 40 Mg Tab 40 MG PO DAILY gastritis #30 Ref 0 TAB Continued Medications: Albuterol 8.5 GM Inh (Proair Hfa 8.5 GM Inh) 90 Mcg/Act Aer 2 PUFF INH Q6H 108 mcg/actuation PRN SHORTNESS OF BREATH #1 Ref 0 INHALER Albuterol Neb (Albuterol Neb) 2.5 Mg/3 Ml Neb 2.5 MG NEB Q6HR PRN SHORTNESS OF BREATH #60 Ref 0 NEBULE Aspirin (Aspirin) 325 Mg Tab 325 MG PO DAILY #30 Ref 0 TAB Gabapentin (Gabapentin) 600 Mg Tab 600 MG PO TID #90 Ref 0 TAB Glipizide (Glipizide) 5 Mg Tab 5 MG PO BID Take 30 minutes before a meal Blood Sugar Management #60 Ref 0 TAB Ipratropium HFA 12.9 GM Inh (Atrovent HFA 12.9 GM Inh) 17 Mcg/Act Aer 2 PUFF INH QID Shortness of Breath #1 Ref 0 INHALER Metformin (Metformin) 850 Mg Tab 850 MG PO TIDPC With meals Blood Sugar Management Ref 0 TAB Methocarbamol (Methocarbamol) 500 Mg Tab 500 MG PO TID Muscle Spasm #90 Ref 0 TAB Sertraline (Zoloft) 100 Mg Tab 100 MG PO HS #30 Ref 0 TAB Trazodone (Trazodone) 100 Mg Tab 200 MG PO HS Control Depression #30 Ref 0 TAB Discontinued Medications: Sertraline (Sertraline) 50 Mg Tab 50 MG PO DAILY #30 Ref 0 TAB Gricel Rios PA-C January 07, 2017 11:45
[2017-01-07] MEDS ORDERED: POTASSIUM CHLORIDE 20 MEQ CONTROLLED RELEASE TAB PO ONE (12:00)
[2017-01-07] MEDS: cloNIDine HCL 0.1 MG TAB PO PRN ×2 (12:46→20:00)
[2017-01-07] MEDS ORDERED: AMLO5TAB2 PO (13:57)
[2017-01-07] MEDS ORDERED: amLODIPine BESYLATE 5 MG TAB PO ONE (14:00)
[2017-01-07] MEDS: traZODone HCL 100 MG TAB PO SCH (20:00)
[2017-01-07] MEDS: TIOTROPIUM BROMIDE 18 MCG INH INH SCH (20:33)
[2017-01-08] VITALS (7 sets, daily range): BP systolic 130–173; BP diastolic 63–83; PULSE 78–96; RESP 17–20; TEMP 97–98.8; O2SAT 94–97
[2017-01-08] MEDS: INSULIN ASPART SUPPLEMENTAL SCALE SQ SCH ×4 (05:56→20:33)
[2017-01-08] MEDS: GABAPENTIN 300 MG CAP PO SCH ×3 (08:02→17:07)
[2017-01-08] MEDS: SERTRALINE HCL 100 MG TAB PO SCH (08:02)
[2017-01-08] MEDS: glipiZIDE 5 MG TAB PO SCH ×2 (08:03→20:32)
[2017-01-08] MEDS: SODIUM CHLORIDE 0.9% FLUSH 10 ML FLUSH IV FLUSH SCH ×2 (08:03→20:32)
[2017-01-08] MEDS ORDERED: amLODIPine BESYLATE 5 MG TAB PO SCH (09:00)
[2017-01-08 09:31] LABS: AUTOMATED NEUTROPHIL # 5.7 TH/MM3 (1.8-7.7); BASOPHIL # 0.1 TH/MM3 (0-0.2); BASOPHIL % 1.1 % (0.0-2.0); EOSINOPHIL # 0.4 TH/MM3 (0-0.4); EOSINOPHIL % 3.8 % (0.0-4.0); HEMATOCRIT 43.7 % (39.0-51.0); HEMO FLAGS DIFF FINAL; LYMPH % 29.6 % (9.0-44.0); LYMPHOCYTE # 2.9 TH/MM3 (1.0-4.8); MEAN CELL VOLUME 84.7 FL (80.0-100.0); MEAN CORPUSCULAR HEMOGLOBIN 29.2 PG (27.0-34.0); MEAN CORPUSCULAR HGB CONC 34.5 % (32.0-36.0); MONO % 7.2 % (0.0-8.0); NEUT % 58.3 % (16.0-70.0); PLATELET COUNT 279 TH/MM3 (150-450); RED BLOOD COUNT 5.15 MIL/MM3 (4.50-5.90); RED CELL DISTRIBUTION WIDTH 14.3 % (11.6-17.2); WHITE BLOOD COUNT 9.7 TH/MM3 (4.0-11.0)
[2017-01-08 09:44] LABS: BICARBONATE 26.1 MEQ/L (21.0-32.0); INDIRECT BILIRUBIN 0.5 MG/DL (0.0-0.8); MAGNESIUM 2.1 MG/DL (1.5-2.5); POTASSIUM 3.5 MEQ/L (3.5-5.1); TOTAL BILIRUBIN ADULT 0.7 MG/DL (0.2-1.0)
--- NOTE | 2017-01-08 12:34 | HHI.PR ---
Subjective Remarks Follow up for esophagitis/gastritis, and uncontrolled hypertension. The patient was discharged yesterday however discharge was held secondary to increased blood pressures. The patient's blood pressure did improve overnight however now elevated again this morning before morning medications. The patient denies any medical complaints. Denies any headache, lightheadedness, dizziness, chest pain or shortness of breath. Denies any abdominal pain, nausea/vomiting. He's tolerating oral intake. He wants to go home. Objective Vitals Vital Signs Date Time Temp Pulse Resp B/P Pulse Ox O2 Delivery O2 Flow Rate FiO2 01/08/17 09:07 Room Air 01/08/17 08:00 97.9 96 18 173/83 97 01/08/17 04:00 98.4 86 17 130/63 95 01/08/17 00:00 98.1 78 18 156/74 94 01/07/17 22:40 77 144/67 01/07/17 21:22 89 161/81 01/07/17 20:16 84 01/07/17 20:00 Room Air 01/07/17 19:40 98.7 88 20 168/81 96 176/81 01/07/17 16:00 98.9 82 16 177/87 96 I/O 01/07/17 01/07/17 01/07/17 01/08/17 01/08/17 01/08/17 07:00 15:00 23:00 07:00 15:00 23:00 Intake Total 822 ml 360 ml 240 ml 240 ml Balance 822 ml 360 ml 240 ml 240 ml Intake Oral 240 ml 360 ml 240 ml 240 ml IV Total 582 ml # Voids 2 2 0 0 # Bowel Movements 0 0 0 0 Result Diagram: 01/08/17 0821 01/08/17 0820 Imaging Last Impressions Chest X-Ray 01/04/17 1316 Signed Impressions: Service Date/Time: Wednesday, January 04, 2017 13:48 - CONCLUSION: No acute disease. Joaquin Osman MD Abdomen/Pelvis CT 01/04/17 1316 Signed Impressions: Service Date/Time: Wednesday, January 04, 2017 15:07 - CONCLUSION: Tiny lung base nodules. Further evaluation with CT chest recommended on an elective basis. No acute CT findings in the abdomen or pelvis. Андрей Cramer MD Objective Remarks GENERAL: Well-developed well-nourished middle aged male patient in [facility]. SKIN: Warm and dry. No lesions noted. HEENT: Normocephalic. Pupils equal and round. Mucous membranes pink and moist. CARDIOVASCULAR: Regular rate and rhythm. No murmur appreciated. RESPIRATORY: No accessory muscle use. Clear to auscultation. Breath sounds equal bilaterally. GASTROINTESTINAL: Abdomen soft, nontender, nondistended. Bowel sounds x4. MUSCULOSKELETAL: No obvious deformities. No clubbing or cyanosis. No edema. NEUROLOGICAL: Awake and alert. No focal neurological deficits. Moves upper and lower extremities spontaneously. Normal speech. PSYCHIATRIC: Appropriate mood and affect; insight and judgment normal. Procedures EGD 01/06/[address] Ware showed esophagitis, gastritis. Medications and IVs Current Medications Medications (Trade) Dose Ordered Sig/Lb Route Start Time Stop Time Status Last Admin (NS Flush) 2 ml UNSCH PRN IV FLUSH 01/04/17 16:30 (NS Flush) 2 ml BID IV FLUSH 01/04/17 21:00 01/08/17 08:03 (Tylenol) 650 mg Q4H PRN PO 01/04/17 16:30 (Zofran Inj) 4 mg Q6H PRN IVP 01/04/17 16:30 01/06/17 21:23 (Milk Of Magnesia Liq) 30 ml Q12H PRN PO 01/04/17 16:30 (Lovenox Inj) 40 mg Q24H SQ 01/04/17 17:00 Hold 01/04/17 17:00 (Narcan Inj) 0.4 mg UNSCH PRN IV 01/04/17 16:30 (Morphine Inj) 4 mg Q3H PRN IV PUSH 01/04/17 16:30 01/07/17 06:10 (D50w (Vial) Inj) 25 ml UNSCH PRN IV PUSH 01/04/17 18:00 (Glucagon Inj) 1 mg UNSCH PRN OTHER 01/04/17 18:00 (NovoLOG INJ) 4 units TIDAC SQ 01/05/17 08:00 Hold (Reglan Inj) 5 mg Q8H PRN IV PUSH 01/04/17 20:45 01/06/17 05:11 (Ventolin Hfa Inh) 2 puff Q6H PRN INH 01/05/17 00:30 (Neurontin) 600 mg TID PO 01/05/17 09:00 01/08/17 12:06 (Robaxin) 500 mg TID PO 01/05/17 09:00 Hold (Zoloft) 100 mg DAILY PO 01/06/17 09:00 01/08/17 08:02 (Desyrel) 100 mg HS PO 01/06/17 21:00 01/07/17 20:00 (Catapres) 0.1 mg Q6H PRN PO 01/06/17 14:45 01/07/17 20:00 (Glucotrol) 5 mg BID PO 01/06/17 21:00 01/08/17 08:03 (Spiriva Inh) 18 mcg Q24H INH 01/06/17 22:00 01/07/17 20:33 (Norvasc) 5 mg DAILY PO 01/08/17 09:00 01/08/17 08:03 A/P Problem List: (1) Abdominal pain ICD Code: R10.9 Status: Acute (2) Increased anion gap metabolic acidosis ICD Code: E87.2 Status: Resolved (3) Hyponatremia ICD Code: E87.1 Status: Resolved (4) Type 2 diabetes mellitus ICD Code: E11.9 Status: Chronic (5) Lung nodule seen on imaging study ICD Code: R91.1 Status: Acute Assessment and Plan Mr. Cortez is a 61 year-old male with a history of COPD including emphysema, asthma, and chronic bronchitis, pancreatitis, gastroesophageal reflux disease, nephrolithiasis, diabetes mellitus, depression, and anxiety who presented to the emergency room on 01/04/2017 complaining of right lower quadrant abdominal pain with vomiting. Esophagitis/Gastritis: patient presented with RLQ abdominal pain with elevated LFTs. Abdominal CT showed no acute CT findings in the abdomen or pelvis. Leukocytosis, afebrile. Lipase wnl. Elevated AST, ALT, alkaline phosphatase, now improved. Given IV Morphine prn and IV Zofran prn. Consulted GI, EGD 01/06/17 showed esophagitis/gastritis, biopsies taken. Started on PPI. Advanced diet, patient tolerated well. Symptoms resolved. Anion Gap Metabolic Acidosis: secondary to GI losses, dehydration, and impaired renal function. Beta hydroxybutyrate elevated at 9.74, carbon dioxide somewhat low at 19.5, anion gap elevated at 19 on admission. Repeat BMP shows improvement , anion gap has closed. Resolved. Acute kidney injury: Creatinine 1.30, previously 0.77 on 03/21/16. Creatinine improved to normal limits with IVF. Hyponatremia: Sodium of 132 on admission, improved to normal limits with IVF. Diabetes mellitus. With hyperglycemia, likely reactive. Resumed home glipizide. Held metformin while in hospital. Monitored Accu-Cheks and covered with low-dose NovoLog SSI. Incidental Lung nodule seen on abdominal CT: Radiologist recommended further evaluation with CT chest recommended on an elective basis. Suspect serotonin syndrome with hypertension/tachycardia with multiple high doses of antidepressants: Decreased sertraline and trazodone. Hypertension: BP has been labile and not well controlled. Possibly secondary to medication effect as above. Clonidine prn. Started on Norvasc 5mg daily. Discharge when SBP < 160. Hypokalemia, mild: Potassium 3.3. Replaced orally Discussed with Dr. Hawk. Discharge Planning Discharge held yesterday secondary to elevated blood pressure. Please see discharge summary from yesterday 01/07. Problem Qualifiers (1) Abdominal pain: Qualified Code: R10.31 - Right lower quadrant abdominal pain (2) Type 2 diabetes mellitus: Qualified Code: E11.65 - Type 2 diabetes mellitus with hyperglycemia, without long-term current use of insulin Gricel Rios PA-C January 08, 2017 12:34
[2017-01-08] MEDS ORDERED: PANTOPRAZOLE SOD 40 MG DELAYED RELEASE TAB PO SCH (13:00)
[2017-01-08 15:53] LABS: MITOCHONDRIAL ABS LESS THAN 20.0 U (())
[2017-01-08] MEDS: cloNIDine HCL 0.1 MG TAB PO PRN (16:00)
[2017-01-08] MEDS: traZODone HCL 100 MG TAB PO SCH (20:32)
[2017-01-08] MEDS: TIOTROPIUM BROMIDE 18 MCG INH INH SCH (20:33)
== END 2017-01-08 22:06 | disposition home or self-care (01) | DRG 391 ==
LOC: NEPE 13:04 → NEDA 16:20 → OBSVTOIN 17:34 → NEPHCDU 20:57 → N04B 01-06 04:54
PROVIDERS: ADMIT Family Medicine; ATTEND Family Medicine
PROC: 0DB68ZX Excision of Stomach, Via Natural or Artificial Opening Endoscopic, Diagnostic (ICD-10-PCS; 2017-01-06)
PROC: 0DB58ZX Excision of Esophagus, Via Natural or Artificial Opening Endoscopic, Diagnostic (ICD-10-PCS; principal; 2017-01-06 08:02)
DX: R10.31 Right lower quadrant pain (principal); K85.90 Acute pancreatitis without necrosis or infection, unspecified; N17.9 Acute kidney failure, unspecified; E87.2 Acidosis; E87.1 Hypo-osmolality and hyponatremia; K29.70 Gastritis, unspecified, without bleeding; E11.65 Type 2 diabetes mellitus with hyperglycemia; K21.0 Gastro-esophageal reflux disease with esophagitis; Z79.4 Long term (current) use of insulin; R91.1 Solitary pulmonary nodule; J44.9 Chronic obstructive pulmonary disease, unspecified; Z87.442 Personal history of urinary calculi; F41.8 Other specified anxiety disorders; B19.20 Unspecified viral hepatitis C without hepatic coma; E86.0 Dehydration; E87.6 Hypokalemia; I10 Essential (primary) hypertension; J45.909 Unspecified asthma, uncomplicated; Z79.82 Long term (current) use of aspirin; Z87.891 Personal history of nicotine dependence; Z99.81 Dependence on supplemental oxygen; F12.90 Cannabis use, unspecified, uncomplicated
CPT/HCPCS: 36600; 71010; 74177; 80048; 80053; 80069; 80074; 80076; 81001; 82010; 82103; 82390; 82728; 82805; 82948; 83520; 83540; 83550; 83605; 83690; 83735; 85025; 85610; 85730; 86038; 86256; 88305; 88312; 90732; 93005; 96361; 96365; 96375; C9113; J0744; J1650; J1815; J2270; J2405; J2765; J3480; J7030; J7042; J7611; J7613; Q9967

== ENCOUNTER 2017-05-31 15:12 | Inpatient (IN) | payer MEDICAID ==
[~2017-05-31 15:12] MED LIST changes: +ALBU0.08 NEB; -ALBU0.086 INH; -ALBU1AER INH; +ALBUAER3 INH; +AMLO5TAB2 PO; -CHLO.12%30 SSP; -CLIN150 PO; -DICL50 PO; +GLIP5TAB8 PO; -GLUC10TA3 PO; -METF500 PO; +METF850T PO; -MS C60TA4 PO; +PANT40TA3 PO; -SERT100 PO; -TRAZ100 PO; +TRAZ100T4 PO; -Z.0.OXYGEN INH; +ZOLO100T PO; -ZOLO50TA PO
[2017-05-31 15:43] VITALS: BP 113/56; PULSE 74; RESP 14; TEMP 98.1; O2SAT 97
[2017-05-31 18:06] VITALS: BP 130/60; PULSE 77; RESP 13; O2SAT 96
[2017-05-31] MEDS ORDERED: TRAZ100T6 PO (18:06)
[2017-05-31 19:17] LABS: BLOOD, URINE MOD (NEG); GLUCOSE,URINE NEG (NEG); KETONE, URINE NEG (NEG); NITRITE,URINE NEG (NEG); PH, URINE 5.5 (5.0-8.5); SQUAMOUS EPITHELIAL CELL URINE <1 /hpf (0-5); URINE COLOR YELLOW (YELLW/STRAW)
[2017-05-31 19:18] LABS: COMMENT (UR) CATH-CULT NOT IND; CULTURE IF INDICATED CATH CULTURE NOT IND
[2017-05-31 19:29] LABS: AUTOMATED NEUTROPHIL # 10.3 TH/MM3 (1.8-7.7); BASOPHIL # 0.1 TH/MM3 (0-0.2); BASOPHIL % 0.5 % (0.0-2.0); EOSINOPHIL # 0.8 TH/MM3 (0-0.4); EOSINOPHIL % 5.6 % (0.0-4.0); HEMATOCRIT 40.9 % (39.0-51.0); HEMO FLAGS DIFF FINAL; LYMPH % 18.9 % (9.0-44.0); LYMPHOCYTE # 2.9 TH/MM3 (1.0-4.8); MEAN CELL VOLUME 84.8 FL (80.0-100.0); MEAN CORPUSCULAR HEMOGLOBIN 28.2 PG (27.0-34.0); MEAN CORPUSCULAR HGB CONC 33.2 % (32.0-36.0); MONO % 7.1 % (0.0-8.0); NEUT % 67.9 % (16.0-70.0); PLATELET COUNT 396 TH/MM3 (150-450); RED BLOOD COUNT 4.82 MIL/MM3 (4.50-5.90); RED CELL DISTRIBUTION WIDTH 13.8 % (11.6-17.2); WHITE BLOOD COUNT 15.2 TH/MM3 (4.0-11.0)
[2017-05-31 19:45] LABS: ANION GAP 10 MEQ/L (5-15); AST (GOT) 357 U/L (15-37); BICARBONATE 26.2 MEQ/L (21.0-32.0); BLOOD UREA NITROGEN 44 MG/DL (7-18); CHLORIDE 102 MEQ/L (98-107); GLOMERULAR FILTRATION RATE 52 ML/MIN (>89); POTASSIUM 3.8 MEQ/L (3.5-5.1); SODIUM (NA) 138 MEQ/L (136-145)
[2017-05-31 19:51] VITALS: BP 114/61; PULSE 77; RESP 20; O2SAT 100
[2017-05-31 20:11] LABS: ALKALINE PHOSPHATASE 171 U/L (45-117); ALT (GPT) 108 U/L (12-78); CREATINE KINASE 10404 U/L (39-308); TOTAL BILIRUBIN ADULT 0.6 MG/DL (0.2-1.0)
[2017-05-31] MEDS ORDERED: IOHEXOL 350 MG/ML 10 ML VIAL (for RAD DIAG) IVCONTRAST ONE (20:37)
[2017-05-31 20:40] LABS: CKMB 179.8 NG/ML (0.5-3.6)
--- NOTE | 2017-05-31 20:44 | RADRPT ---
EXAM DATE/TIME: 05/31/2017 20:18 [facility] COMPARISON: CT BRAIN W/O CONTRAST, February 06, 2011, 20:57. INDICATIONS : Trauma, fall today. Altered mental status. RADIATION DOSE: 52.83 CTDIvol (mGy) MEDICAL HISTORY : Chronic obstructive pulmonary disease. Hepatitis C. Pancreatitis. SURGICAL HISTORY : Cholecystectomy. ENCOUNTER: Initial ACUITY: 1 day PAIN SCALE: Non-responsive LOCATION: Bilateral head TECHNIQUE: Multiple contiguous axial images were obtained of the head. Using automated exposure control and adj ustment of the mA and/or kV according to patient size, radiation dose was kept as low as reasonably a chievable to obtain optimal diagnostic quality images. DICOM format image data is available electro nically for review and comparison. FINDINGS: CEREBRUM: The ventricles are normal. No evidence of midline shift, mass lesion, hemorrhage or acute infarction . No extra-axial fluid collections are seen. POSTERIOR FOSSA: The cerebellum and brainstem are intact. The 4th ventricle is midline. The cerebellopontine angle i s unremarkable. EXTRACRANIAL: There is a right parietal scalp soft tissue swelling at the high convexity. SKULL: The calvaria is intact. No evidence of skull fracture. CONCLUSION: Right parietal scalp soft tissue swelling. No fracture or acute intracranial abnormality is identifie d. Андрей Hearn MD on May 31, 2017 at 20:40 Board Certified Radiologist. This report was verified electronically.
[2017-05-31] MEDS ORDERED: SODIUM CHLOR 0.9% 1000 ML INJ 1,000 ML IV SCH ×2 (20:45)
--- NOTE | 2017-05-31 20:49 | RADRPT ---
EXAM DATE/TIME: 05/31/2017 20:24 [facility] COMPARISON: CT ABDOMEN & PELVIS W CONTRAST, January 04, 2017, 15:07. INDICATIONS : Trauma, fall today. IV CONTRAST: 87 cc Omnipaque 350 (iohexol) IV ORAL CONTRAST: No oral contrast ingested. RADIATION DOSE: 16.11 CTDIvol (mGy) MEDICAL HISTORY : Hepatitis C. Pancreatitis. Chronic obstructive pulmonary disease. SURGICAL HISTORY : Cholecystectomy. ENCOUNTER: Initial ACUITY: 1 day PAIN SCALE: Non-responsive LOCATION: Bilateral abodmen TECHNIQUE: Volumetric scanning of the abdomen and pelvis was performed. Using automated exposure control and ad justment of the mA and/or kV according to patient size, radiation dose was kept as low as reasonably achievable to obtain optimal diagnostic quality images. DICOM format image data is available electro nically for review and comparison. FINDINGS: LOWER LUNGS: No acute abnormality is identified. LIVER: Homogeneous density without lesion. There is stable prominence of the central intrahepatic bile duct s in this patient post cholecystectomy. There are clips in the gallbladder fossa. SPLEEN: Normal size without lesion. PANCREAS: There multiple punctate calcifications are upper pancreas. No mass is visualized. KIDNEYS: Normal in size and shape. There is no mass, stone or hydronephrosis. There is a stable incidental 8 mm low-density lesion in the left mid kidney that is too small to characterize. ADRENAL GLANDS: Within normal limits. VASCULAR: There is no aortic aneurysm. There is severe atherosclerotic disease. BOWEL/MESENTERY: The stomach, small bowel, and colon demonstrate no acute abnormality. There is no free intraperitone al air or fluid. Appendix is normal. ABDOMINAL WALL: Within normal limits. RETROPERITONEUM: There is no lymphadenopathy. BLADDER: No wall thickening or mass. REPRODUCTIVE: Within normal limits. INGUINAL: There is no lymphadenopathy or hernia. MUSCULOSKELETAL: There are degenerative changes of the lumbar spine but no acute osseous abnormality is identified. Th ere is subcutaneous edema along the right gluteal region. It is most severe along the superior medial right gluteal cleft. CONCLUSION: 1. Right gluteal region subcutaneous edema with severe inflammatory change along the medial right sup erior gluteal cleft. 2. No other acute finding is identified in the abdomen or pelvis. Андрей Hearn MD on May 31, 2017 at 20:43 Board Certified Radiologist. This report was verified electronically.
--- NOTE | 2017-05-31 20:52 | RADRPT ---
EXAM DATE/TIME: 05/31/2017 20:18 [facility] COMPARISON: No previous studies available for comparison. INDICATIONS : Trauma, fall today. RADIATION DOSE: 42.82 CTDIvol (mGy) MEDICAL HISTORY : Pancreatitis. Hepatitis C. Chronic obstructive pulmonary disease. SURGICAL HISTORY : Cholecystectomy. ENCOUNTER: Initial ACUITY: 1 day PAIN SCALE: Non-responsive LOCATION: Bilateral neck TECHNIQUE: Volumetric scanning of the cervical spine was performed. Multiplanar reconstructions in the sagittal, coronal and oblique axial planes were performed. Using automated exposure control and adjustment o f the mA and/or kV according to patient size, radiation dose was kept as low as reasonably achievable to obtain optimal diagnostic quality images. DICOM format image data is available electronically f or review and comparison. FINDINGS: There is normal sagittal spine alignment of the cervical spine. No anterolisthesis or retrolisthesis is present. The atlantoaxial relationship is within normal limits. There is no prevertebral soft tiss ue swelling present. No fracture or dislocation is identified. There is degenerative disc disease at C3-C4 through C6-C7. There is left facet arthrosis at C4-C5. The visualized portions of the posterior fossa, paraspinous soft tissues, and upper lung zones demons trate no acute abnormality. CONCLUSION: No acute cervical spine abnormality is identified. There is degenerative disc disease at multiple lev els. Андрей Hearn MD on May 31, 2017 at 20:48 Board Certified Radiologist. This report was verified electronically.
--- NOTE | 2017-05-31 20:55 | RADRPT ---
EXAM DATE/TIME: 05/31/2017 20:24 [facility] COMPARISON: No previous studies available for comparison. INDICATIONS : Trauma, fall today. RADIATION DOSE: ; Reconstructed from previous dataset, no dose MEDICAL HISTORY : Pancreatitis. Hepatitis C. Chronic obstructive pulmonary disease. SURGICAL HISTORY : Cholecystectomy. ENCOUNTER: Initial ACUITY: 1 day PAIN SCALE: Non-responsive LOCATION: Bilateral lower back TECHNIQUE: Volumetric scanning of the lumbar spine was performed. Multiplanar reconstructions in the sagittal, coronal and oblique axial planes were performed. Using automated exposure control and adjustment of the mA and/or kV according to patient size, radiation dose was kept as low as reasonably achievable t o obtain optimal diagnostic quality images. DICOM format image data is available electronically for review and comparison. FINDINGS: VERTEBRAE: Normal vertebral body height. No fracture is visualized. ALIGNMENT: No anterolisthesis or retrolisthesis. T12-L1: No disc herniation, canal stenosis, or neural foraminal stenosis. L1-L2: No disc herniation, canal stenosis, or neural foraminal stenosis. L2-L3: No disc herniation, canal stenosis, or neural foraminal stenosis. L3-L4: There is a mild diffuse disc bulge. No canal stenosis or neural foraminal stenosis is present. L4-L5: Mild decreased disc height with vacuum disc. There is a diffuse disc bulge. No spinal canal stenosis is present. There is mild to moderate right neural foraminal narrowing. L5-S1: Mild diffuse disc bulge. No spinal canal stenosis or neural foraminal stenosis is visualized. CONCLUSION: No acute lumbar spine abnormality is identified. There are degenerative changes, as above. Андрей Hearn MD on May 31, 2017 at 20:51 Board Certified Radiologist. This report was verified electronically.
[2017-05-31] MEDS ORDERED: VANCOMYCIN INJ 1,000 MG in SODIUM CHLOR 0.9% 250 ML INJ 250 ML IV ONE (21:00)
--- NOTE | 2017-05-31 21:06 | PD ---
HPI Chief Complaint: Fall Time Seen by Provider: 18:04 Travel History International Travel<30 days: No Contact w/Intl Traveler<30days: No Traveled to known affect area: No History of Present Illness HPI This is a 61-year-old male who presents to the emergency department having had his fall last evening. He tried to help her when he fell down with her and was on the floor for a substantial amount of time. He is unable to tell me how long he was on the floor for. He says he's fallen several times this week. He is a very poor historian and he is fairly somnolent on exam. PFSH Past Medical History Hx Anticoagulant Therapy: Yes (ASPIRIN 81 MG DAILY) Arthritis: No Asthma: No Autoimmune Disease: No Blood Disorders: No Anxiety: Yes Depression: No Heart Rhythm Problems: No Cancer: No Cardiovascular Problems: No High Cholesterol: No Chemotherapy: No Chest Pain: No Congestive Heart Failure: No COPD: Yes Cerebrovascular Accident: No Diabetes: No Diminished Hearing: No Endocrine: No Gastrointestinal Disorders: No GERD: No Glaucoma: No Genitourinary: No Headaches: Yes Hepatitis: Yes (C) Hiatal Hernia: No Hypertension: Yes Immune Disorder: No Implanted Vascular Access Dvce: No Kidney Stones: No Musculoskeletal: No Neurologic: No Psychiatric: Yes Reproductive: No Respiratory: Yes Immunizations Current: Yes Migraines: No Myocardial Infarction: No Pancreatitis: Yes Radiation Therapy: No Renal Failure: No Seizures: No Sickle Cell Disease: No Sleep Apnea: No Thyroid Disease: No Ulcer: No PNEUMOCCOCAL Vaccine (Year): 2 ?: Not Past Surgical History Abdominal Surgery: Yes (gall bladder out last year and still hurts) AICD: No Arteriovenous Shunt: No Cardiac Surgery: No Cholecystectomy: Yes Ear Surgery: No Endocrine Surgery: No Eye Surgery: No Genitourinary Surgery: No Gynecologic Surgery: No Insulin Pump: No Joint Replacement: No Neurologic Surgery: No Oral Surgery: No Pacemaker: No Thoracic Surgery: No Other Surgery: Yes (right knee surg in 1981) Social History Alcohol Use: No Tobacco Use: No Substance Use: Yes (MARIJUANA ) Allergies-Medications (Allergen,Severity, Reaction): Coded Allergies: ketorolac (Unverified Allergy, Severe, HALLUCINATES, 04/20/17) penicillin G (Unverified Allergy, Severe, 04/20/17) Reported Meds & Prescriptions Reported Meds & Active Scripts Active Amlodipine (Amlodipine Besylate) 5 Mg Tab 5 Mg PO DAILY Pantoprazole (Pantoprazole Sodium) 40 Mg Tab 40 Mg PO DAILY Reported Trazodone (Trazodone HCl) 100 Mg Tablet 200 Mg PO HS Gabapentin 600 Mg Tab 600 Mg PO TID Albuterol Neb (Albuterol Sulfate) 2.5 Mg/3 Ml Neb 2.5 Mg NEB Q6HR PRN Proair Hfa 8.5 GM Inh (Albuterol Sulfate) 90 Mcg/Act Aer 2 Puff INH Q6H PRN 108 mcg/actuation Aspirin 325 Mg Tab 325 Mg PO DAILY Glipizide 5 Mg Tab 5 Mg PO BID Take 30 minutes before a meal Atrovent HFA 12.9 GM Inh (Ipratropium [place]) 17 Mcg/Act Aer 2 Puff INH QID Metformin (Metformin HCl) 850 Mg Tab 850 Mg PO TIDPC With meals Methocarbamol 500 Mg Tab 500 Mg PO TID Zoloft (Sertraline HCl) 100 Mg Tab 100 Mg PO HS Review of Systems ROS Limitations: Poor Historian Physical Exam Narrative GENERAL: Disheveled, frail elderly male SKIN: Scabbed old-appearing hematoma on the right occiput. Large area involving the right gluteal fold with purulent drainage, macerated tissue and surrounding erythema and induration not extending to the rectal area HEAD: Atraumatic. Normocephalic. EYES: Pupils equal and round. No injection or drainage. ENT: Moist mucous membranes NECK: Trachea midline. CARDIOVASCULAR: Regular rate and rhythm. No murmur appreciated. RESPIRATORY: Clear to auscultation. Breath sounds equal bilaterally. GASTROINTESTINAL: Abdomen soft, non-tender, nondistended. MUSCULOSKELETAL: No obvious deformities. NEUROLOGICAL: Oriented to person and place but not time. Slow to answer questions and tangential. No obvious cranial nerve deficits. Moving all extremities. Data Data Last Documented VS Vital Signs Date Time Temp Pulse Resp B/P (MAP) Pulse Ox O2 Delivery O2 Flow Rate FiO2 05/31/17 19:51 77 20 114/61 (78) 100 Room Air 05/31/17 15:[address] Brain W/O Iv Contrast(Rout) (05/31/17 ) Ct Cerv Spine W/O Contrast (05/31/17 ) Complete Blood Count With Diff (05/31/17 18:11) Comprehensive Metabolic Panel (05/31/17 18:11) Creatine Kinase (Cpk) (05/31/17 18:11) Urinalysis - C+S If Indicated (05/31/17 18:11) Cath For Specimen (05/31/17 18:11) Electrocardiogram (05/31/17 ) Ct Abd/Pel W Iv Contrast(Rout) (05/31/17 ) Ct Lumb Spine W/O Contrast (05/31/17 ) Drug Screen, Random Urine (05/31/17 18:20) CKMB (05/31/17 18:35) CKMB% (05/31/17 18:35) Iohexol 350 Inj (Omnipaque 350 Inj) (05/31/17 20:37) Sodium Chlor 0.9% 1000 Ml Inj (Ns 1000 M (05/31/17 20:45) Sodium Chlor 0.9% 1000 Ml Inj (Ns 1000 M (05/31/17 20:45) Urinary Catheter Insert/Apply (05/31/17 20:45) Blood Culture (05/31/17 20:45) Lactic Acid Sepsis Protocol (05/31/17 20:45) Vancomycin Inj (Vancomycin Inj) (05/31/17 21:00) Labs Laboratory Tests Test 05/31/17 18:25 05/31/17 18:35 Urine Color YELLOW Urine Turbidity HAZY Urine pH 5.5 Urine Specific [place] 1.022 Urine Protein 30 mg/dL Urine Glucose (UA) NEG mg/dL Urine Ketones NEG mg/dL Urine Occult Blood MOD Urine Nitrite NEG Urine Bilirubin NEG Urine Urobilinogen LESS THAN 2.0 MG/DL Urine Leukocyte Esterase NEG Urine RBC LESS THAN 1 /hpf Urine WBC 2 /hpf Urine Squamous Epithelial Cells <1 /hpf Urine Sperm RARE Microscopic Urinalysis Comment CATH-CULT NOT IND White Blood Count 15.2 TH/MM3 Red Blood Count 4.82 MIL/MM3 Hemoglobin 13.6 GM/DL Hematocrit 40.9 % Mean Corpuscular Volume 84.8 FL Mean Corpuscular Hemoglobin 28.2 PG Mean Corpuscular Hemoglobin Concent 33.2 % Red Cell Distribution Width 13.8 % Platelet Count 396 TH/MM3 Mean Platelet Volume 8.7 FL Neutrophils (%) (Auto) 67.9 % Lymphocytes (%) (Auto) 18.9 % Monocytes (%) (Auto) 7.1 % Eosinophils (%) (Auto) 5.6 % Basophils (%) (Auto) 0.5 % Neutrophils # (Auto) 10.3 TH/MM3 Lymphocytes # (Auto) 2.9 TH/MM3 Monocytes # (Auto) 1.1 TH/MM3 Eosinophils # (Auto) 0.8 TH/MM3 Basophils # (Auto) 0.1 TH/MM3 CBC Comment DIFF FINAL Differential Comment Blood Urea Nitrogen 44 MG/DL Creatinine 1.40 MG/DL Random Glucose 88 MG/DL Total Protein 8.7 GM/DL Albumin 3.7 GM/DL Calcium Level 9.1 MG/DL Alkaline Phosphatase 171 U/L Aspartate Amino Transf (AST/SGOT) 357 U/L Alanine Aminotransferase (ALT/SGPT) 108 U/L Total Bilirubin 0.6 MG/DL Sodium Level 138 MEQ/L Potassium Level 3.8 MEQ/L Chloride Level 102 MEQ/L Carbon Dioxide Level 26.2 MEQ/L Anion Gap 10 MEQ/L Estimat Glomerular Filtration Rate 52 ML/MIN Total Creatine Kinase 27292 U/L Creatine Kinase MB 179.8 NG/ML Creatine Kinase MB % 1.7 % [facility] Medical Decision Making Medical Screen Exam Complete: Yes Emergency Medical Condition: Yes Interpretation(s) Leukocytosis Creatinine is 1.4 BUN is 44 CPK is 10,000 Urinalysis demonstrates blood but no red blood cells Last [address] 05/31/17 0000 Signed Impressions: Service Date/Time: Wednesday, May 31, 2017 20:18 - CONCLUSION: Right parietal scalp soft tissue swelling. No fracture or acute intracranial abnormality is identified. Андрей Hearn MD Cervical Spine CT 05/31/17 0000 Signed Impressions: Service Date/Time: Wednesday, May 31, 2017 20:18 - CONCLUSION: No acute cervical spine abnormality is identified. There is degenerative disc disease at multiple levels. Андрей Hearn MD Abdomen/Pelvis CT 05/31/17 0000 Signed Impressions: Service Date/Time: Wednesday, May 31, 2017 20:24 - CONCLUSION: 1. Right gluteal region subcutaneous edema with severe inflammatory change along the medial right superior gluteal cleft. 2. No other acute finding is identified in the abdomen or pelvis. Андрей Hearn MD Differential Diagnosis Intracranial hemorrhage, electrolyte abnormality, dehydration, rhabdomyolysis, urinary tract infection, abscess, cellulitis Narrative Course This is a 61-year-old male who presents to the emergency department having had a fall when he was trying to help his . He evidently was on the floor for some amount of time. He is very disheveled appearing. He has wounds at different stages on his body and has an old hematoma on the right forehead. He has a area of macerated tissue and inflammation along the right gluteal fold and he has skin breakdown over a large amount of the buttock area suggesting that he has not been very ambulatory. He doesn't provide much history. 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 This is obviously not a safe social situation. Labs demonstrate a leukocytosis. Electrolytes demonstrate acute kidney injury suggesting dehydration as well as a CPK of 10,000 consistent with rhabdomyolysis. Patient was given 2 L of IV fluid. CTs were obtained which demonstrated inflammation along the right gluteal fold with no obvious abscess. Patient was given a dose of IV antibiotics. He will be admitted for continued IV hydration. Diagnosis Primary Impression: Rhabdomyolysis Qualified Codes: M62.82 - Rhabdomyolysis Additional Impression: Gluteal cleft wound Qualified Codes: S31.819A - Unspecified open wound of right buttock, initial encounter Admitting Information Admitting Physician Requests: it Debra Birmingham MD May 31, 2017 21:06
[2017-05-31] MEDS ORDERED: MAGNESIUM HYDROXIDE SUSP 30 ML CUP PO PRN (21:30)
[2017-05-31] MEDS ORDERED: SODIUM CHLORIDE 0.9% FLUSH 10 ML FLUSH IV FLUSH PRN (21:30)
[2017-05-31] MEDS ORDERED: DEXTROSE 50% IN WATER 50 ML VIAL(D50) IV PUSH PRN (21:30)
[2017-05-31] MEDS ORDERED: SENNOSIDES 8.6 MG TAB PO PRN (21:30)
[2017-05-31] MEDS ORDERED: ONDANSETRON HCL 4 MG/2 ML VIAL IVP PRN (21:30)
[2017-05-31] MEDS ORDERED: NALOXONE HCL 0.4 MG/ML AMP IV PUSH PRN (21:30)
[2017-05-31] MEDS ORDERED: LACTULOSE SYRUP 20 GM/30 ML CUP PO PRN (21:30)
[2017-05-31] MEDS ORDERED: BISACODYL 10 MG SUPP RECTAL PRN (21:30)
[2017-05-31] MEDS ORDERED: GLUCAGON 1 MG/ML VIAL OTHER PRN (21:30)
[2017-05-31] MEDS ORDERED: ACETAMINOPHEN 325 MG TAB PO PRN (21:30)
[2017-05-31] MEDS ORDERED: RESP: ALBUTEROL 2.5 MG/3 ML NEB (PRN) NEB (21:30)
[2017-05-31] MEDS: SODIUM CHLOR 0.9% 1000 ML INJ 1,000 ML IV SCH ×2 (22:15)
[2017-05-31 22:25] VITALS: BP 119/58; PULSE 68; RESP 20; O2SAT 99
--- NOTE | 2017-05-31 22:46 | HHI.HP ---
[facility] Unknown Admission Diagnosis rhabdomyolysis Diagnoses: Chief Complaint: Patient found down. Travel History International Travel<30 Days: No Contact w/Intl Traveler <30 Da: No Traveled to Known Affected Are: No History of Present Illness 61-year-old male who presented to the emergency room after falling down and unable to get up. Patient is very lethargic and unable to provide any history. 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 Apparently she fell and he tried to help but fell on top of her and was unable to get up. He reports to the ED that he has been falling recently. Again he is very lethargic and unable to provide any history. It is worth noting is toxicology screen is positive for opiates, benzodiazepines, and marijuana. Past history obtain from the EMR. Review of Systems ROS Limitations: Altered Mental Status Unable to obtain accurate review of systems is the patient's current mental state. Past Family Social History Past Medical History COPD Type 2 Diabetes Mellitus Depression Anxiety Hypertension Past Surgical History Right knee surgery Cholecystectomy Reported Medications Reported Meds & Active Scripts Active Amlodipine (Amlodipine Besylate) 5 Mg Tab 5 Mg PO DAILY Pantoprazole (Pantoprazole Sodium) 40 Mg Tab 40 Mg PO DAILY Reported Trazodone (Trazodone HCl) 100 Mg Tablet 200 Mg PO HS Gabapentin 600 Mg Tab 600 Mg PO TID Albuterol Neb (Albuterol Sulfate) 2.5 Mg/3 Ml Neb 2.5 Mg NEB Q6HR PRN Proair Hfa 8.5 GM Inh (Albuterol Sulfate) 90 Mcg/Act Aer 2 Puff INH Q6H PRN 108 mcg/actuation Aspirin 325 Mg Tab 325 Mg PO DAILY Glipizide 5 Mg Tab 5 Mg PO BID Take 30 minutes before a meal Atrovent HFA 12.9 GM Inh (Ipratropium [place]) 17 Mcg/Act Aer 2 Puff INH QID Metformin (Metformin HCl) 850 Mg Tab 850 Mg PO TIDPC With meals Methocarbamol 500 Mg Tab 500 Mg PO TID Zoloft (Sertraline HCl) 100 Mg Tab 100 Mg PO HS Allergies: Coded Allergies: ketorolac (Unverified Allergy, Severe, HALLUCINATES, 04/20/17) penicillin G (Unverified Allergy, Severe, 04/20/17) Family History Unable to obtain due to the patient's current condition. Social History Unable to obtain. His tox screen is positive for benzos, opiates, and cannabinoids. Physical Exam Vital Signs Vital Signs Date Time Temp Pulse Resp B/P (MAP) Pulse Ox O2 Delivery O2 Flow Rate FiO2 05/31/17 22:25 68 20 119/58 (78) 99 Room Air 05/31/17 19:51 77 20 114/61 (78) 100 Room Air 05/31/17 18:06 77 13 130/60 (83) 96 Aerosol Mask 05/31/17 15:43 98.1 74 14 113/56 (75) 97 Physical Exam GENERAL: Disheveled male. Lethargic. Complains of pain all over. SKIN: Right inner gluteal area is indurated with open sores EYES: Pupils equal round and reactive. ENT: Nose without drainage. Uvula midline. Airway patent. NECK: Trachea midline. No JVD or lymphadenopathy. Supple, nontender, no meningeal signs. CARDIOVASCULAR: Regular rate and rhythm without murmurs, gallops, or rubs. RESPIRATORY: Clear to auscultation. Breath sounds equal bilaterally. No wheezes , rales, or rhonchi. GASTROINTESTINAL: Abdomen soft, non-tender, nondistended. No guarding. MUSCULOSKELETAL: Extremities without clubbing, cyanosis, or edema. NEUROLOGICAL: Lethargic. Does not follow commands. Laboratory Laboratory Tests Test 05/31/17 18:25 05/31/17 18:35 05/31/17 21:45 Urine Color YELLOW Urine Turbidity HAZY Urine pH 5.5 Urine Specific [place] 1.022 Urine Protein 30 Urine Glucose (UA) NEG Urine Ketones NEG Urine Occult Blood MOD Urine Nitrite NEG Urine Bilirubin NEG Urine Urobilinogen LESS THAN 2.0 Urine Leukocyte Esterase NEG Urine RBC LESS THAN 1 Urine WBC 2 Urine Squamous Epithelial Cells <1 Urine Sperm RARE Microscopic Urinalysis Comment CATH-CULT NOT IND White Blood Count 15.2 Red Blood Count 4.82 Hemoglobin 13.6 Hematocrit 40.9 Mean Corpuscular Volume 84.8 Mean Corpuscular Hemoglobin 28.2 Mean Corpuscular Hemoglobin Concent 33.2 Red Cell Distribution Width 13.8 Platelet Count 396 Mean Platelet Volume 8.7 Neutrophils (%) (Auto) 67.9 Lymphocytes (%) (Auto) 18.9 Monocytes (%) (Auto) 7.1 Eosinophils (%) (Auto) 5.6 Basophils (%) (Auto) 0.5 Neutrophils # (Auto) 10.3 Lymphocytes # (Auto) 2.9 Monocytes # (Auto) 1.1 Eosinophils # (Auto) 0.8 Basophils # (Auto) 0.1 CBC Comment DIFF FINAL Differential Comment Blood Urea Nitrogen 44 Creatinine 1.40 Random Glucose 88 Total Protein 8.7 Albumin 3.7 Calcium Level 9.1 Alkaline Phosphatase 171 Aspartate Amino Transf (AST/SGOT) 357 Alanine Aminotransferase (ALT/SGPT) 108 Total Bilirubin 0.6 Sodium Level 138 Potassium Level 3.8 Chloride Level 102 Carbon Dioxide Level 26.2 Anion Gap 10 Estimat Glomerular Filtration Rate 52 Total Creatine Kinase 96989 Creatine Kinase MB 179.8 Creatine Kinase MB % 1.7 Lactic Acid Level 0.8 Date/Time Source Procedure Growth Status 05/31/17 21:45 Blood Peripheral Aerobic Blood Culture Pending Received 05/31/17 21:45 Blood Peripheral Anaerobic Blood Culture Pending Received Result Diagram: 05/31/17 1835 05/31/17 1835 Caprini VTE Risk Assessment Caprini VTE Risk Assessment: Mod/High Risk (score >= 2) Caprini Risk Assessment Model Point Value = 1 Point Value = 2 Point Value = 3 Point Value = 5 Age 41-60 Minor surgery BMI > 25 kg/m2 Swollen legs Varicose veins or History of unexplained or recurrent spontaneous Oral contraceptives or hormone replacement Sepsis (< 1 month) Serious lung disease, including pneumonia (< 1 month) Abnormal pulmonary function Acute myocardial infarction Congestive heart failure (< 1 month) History of inflammatory bowel disease Medical patient at bed rest Age 61-74 Arthroscopic surgery Major open surgery (> 45 min) Laparoscopic surgery (> 45 min) Malignancy Confined to bed (> 72 hours) Immobilizing plaster cast Central venous access Age >= 75 History of VTE Family history of VTE Factor V Leiden Prothrombin [id number] Lupus anticoagulant Anticardiolipin antibodies Elevated serum homocysteine Heparin-induced thrombocytopenia Other congenital or acquired thrombophilia Stroke (< 1 month) Elective arthroplasty Hip, pelvis, or leg fracture Acute spinal cord injury (< 1 month) Prophylaxis Regimen Total Risk Factor Score Risk Level Prophylaxis Regimen 0-1 Low Early ambulation 2 Moderate Order ONE of the following: *Sequential Compression Device (SCD) *Heparin 5000 units SQ BID 3-4 Higher Order ONE of the following medications: *Heparin 5000 units SQ TID *Enoxaparin/Lovenox 40 mg SQ daily (WT < 150 kg, CrCl > 30 mL/min) *Enoxaparin/Lovenox 30 mg SQ daily (WT < 150 kg, CrCl > 10-29 mL/min) *Enoxaparin/Lovenox 30 mg SQ BID (WT < 150 kg, CrCl > 30 mL/min) AND/OR *Sequential Compression Device (SCD) 5 or more Highest Order ONE of the following medications: *Heparin 5000 units SQ TID (Preferred with Epidurals) *Enoxaparin/Lovenox 40 mg SQ daily (WT < 150 kg, CrCl > 30 mL/min) *Enoxaparin/Lovenox 30 mg SQ daily (WT < 150 kg, CrCl > 10-29 mL/min) *Enoxaparin/Lovenox 30 mg SQ BID (WT < 150 kg, CrCl > 30 mL/min) AND *Sequential Compression Device (SCD) Assessment and Plan Problem List: (1) Rhabdomyolysis ICD Code: M62.82 - Rhabdomyolysis Status: Acute (2) Gluteal cleft wound ICD Code: S31.809A - Unspecified open wound of unspecified buttock, initial encounter Status: Acute (3) Type 2 diabetes mellitus ICD Code: E11.9 - Type 2 diabetes mellitus without complications Status: Chronic Assessment and Plan 61-year-old male who was found down admitted for rhabdomyolysis, acute renal failure, and no acute encephalopathy. Rhabdomyolysis: Secondary to fall and immobilization. Imaging including lumbar , head, and cervical CT did not show any acute abnormalities. - Aggressive hydration with IV fluid. - Repeat CK in a.m. Acute encephalopathy: I suspect polypharmacy. This may have been contributing to his recurrent falls as well. - Hold all sedating medications. Continue to monitor. - Head CT is negative. Acute kidney injury: Likely secondary to dehydration/prerenal azotemia. - IV fluid as above. Follow renal functions. Right gluteal wound: There is open drainage and the area is indurated. CT scan did not reveal a discrete abscess. - Continue IV vancomycin. Monitor closely, this may turn into an abscess or may need debridement - Consult wound care nurse. Diabetes: Sliding scale insulin with Accu-Cheks Hypertension: Resume home dose amlodipine GI prophylaxis: Stool softener PRN constipation. 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 She is currently in the hospital as well. There were both found down. It is becoming apparent the patient and his may no longer be able to live independently. Case management consulted. Discussed Condition With Dr. Birmingham. Physician Certification 2 Midnight Certification Type: Admission for Inpatient Services Order for Inpatient Services The services are ordered in accordance with Medicare regulations or non- Medicare payer requirements, as applicable. In the case of services not specified as inpatient-only, they are appropriately provided as inpatient services in accordance with the 2-midnight benchmark. Estimated LOS (days): 5 days is the estimated time the patient will need to remain in the hospital, assuming treatment plan goals are met and no additional complications. Post-Hospital Plan: Not yet determined Problem Qualifiers (1) Rhabdomyolysis: Qualified Codes: M62.82 - Rhabdomyolysis (2) Gluteal cleft wound: Qualified Codes: S31.819A - Unspecified open wound of right buttock, initial encounter Margarita Gómez MD May 31, 2017 22:46
[2017-06-01] VITALS (7 sets, daily range): BP systolic 104–139; BP diastolic 58–69; PULSE 66–83; RESP 17–20; TEMP 97.1–98.2; O2SAT 94–99
[2017-06-01] MEDS: SODIUM CHLOR 0.9% 1000 ML INJ 1,000 ML IV SCH ×7 (02:15→22:48)
[2017-06-01] MEDS ORDERED: Vancomycin Consult Pharmacy 1 EA OTHER SCH (03:30)
[2017-06-01] MEDS: INSULIN ASPART SUPPLEMENTAL SCALE SQ SCH ×4 (08:00→21:00)
[2017-06-01] MEDS ORDERED: ASPIRIN 325 MG TAB PO SCH (09:00)
[2017-06-01] MEDS ORDERED: VANCOMYCIN INJ 1,000 MG in SODIUM CHLOR 0.9% 250 ML INJ 250 ML IV SCH (09:00)
[2017-06-01] MEDS: VANCOMYCIN INJ 1,250 MG in SODIUM CHLOR 0.9% 250 ML INJ 250 ML IV SCH ×2 (09:32→22:47)
[2017-06-01] MEDS: amLODIPine BESYLATE 5 MG TAB PO SCH (09:33)
[2017-06-01] MEDS: ASPIRIN 325 MG TAB PO SCH (09:33)
[2017-06-01] MEDS: SODIUM CHLORIDE 0.9% FLUSH 10 ML FLUSH IV FLUSH SCH ×2 (09:33→21:00)
[2017-06-01] MEDS: PANTOPRAZOLE SOD 40 MG DELAYED RELEASE TAB PO SCH (09:33)
--- NOTE | 2017-06-01 10:13 | PD.WCN.NOT ---
Wound Consult Description: Received consult from Doctor Gómez for wound management of sacrum Communicated with: EZEQUIEL Grace and Doctor Gómez Recommendation: Please cleanse wound to R buttock and gluteal cleft with normal saline or wound cleanser and pat dry. Apply Maxorb eaxtra AG over wound bed and cover with ABD pad and tape or bordered gauze. Please apply skin prep to periwound before applying adhesives to skin.Change dressing daily or PRN if saturated or dislodged. until seen by General surgery for possible I&D Patient will probably need I&D of wound Additional Information: Patient seen on for evaluation of wound management of sacrum. Patient is laying on regular hospital [place] rom bed positioned on R side. Removed bordered gauze and foam dressing in place over wound to reveal full thickness wound with ~40% yellow tissue and ~60% pink tissue.Periwound presents with induration, erythema, and heat with slight fluctuance from 12 to 7 o'clock. Wound is actively draining a moderate amount cloudy sero-sanguinous drainage with mild odor. Cleansed wound with normal saline and left open to air for now. Dressing supplies ordered for patient from [facility]. ultra sorb pad in place under patient for drainage and incontinence management. EZEQUIEL Grace to apply dressing when supplies obtained.Patient will need possible I&D of wound. Dorina Kirkpatrick [facility] Jun 01, 2017 10:13
--- NOTE | 2017-06-01 12:12 | EKG ---
Date Performed: 05/31/2017 Time Performed: 18:18:23 PTAGE: 61 years EKG: Sinus rhythm NORMAL ECG Compared to prior tracing no significant change PREVIOUS TRACING : 01/04/2017 13.25 DOCTOR: Mehrdad Evans Interpretating Date/Time 06/01/2017 12:09:56
[2017-06-01 15:22] LABS: BASOPHIL # 0.1 TH/MM3 (0-0.2); BASOPHIL % 0.5 % (0.0-2.0); EOSINOPHIL # 0.6 TH/MM3 (0-0.4); EOSINOPHIL % 5.2 % (0.0-4.0); HEMATOCRIT 38.5 % (39.0-51.0); HEMO FLAGS DIFF FINAL; LYMPH % 13.9 % (9.0-44.0); LYMPHOCYTE # 1.5 TH/MM3 (1.0-4.8); MEAN CELL VOLUME 85.2 FL (80.0-100.0); MEAN CORPUSCULAR HEMOGLOBIN 28.5 PG (27.0-34.0); MEAN CORPUSCULAR HGB CONC 33.4 % (32.0-36.0); MONO % 6.4 % (0.0-8.0); PLATELET COUNT 325 TH/MM3 (150-450); RED BLOOD COUNT 4.52 MIL/MM3 (4.50-5.90); RED CELL DISTRIBUTION WIDTH 13.9 % (11.6-17.2); WHITE BLOOD COUNT 10.7 TH/MM3 (4.0-11.0)
--- NOTE | 2017-06-01 15:50 | HHI.PR ---
Subjective Remarks Follow-up rhabdomyolysis, buttock wound. The patient has no complaints today. He is angry about his diet. He reports that he is having pain from the buttock wound. Denies cough, dyspnea, chest pain. Objective Vitals Vital Signs Date Time Temp Pulse Resp B/P (MAP) Pulse Ox O2 Delivery O2 Flow Rate FiO2 06/01/17 08:00 68 06/01/17 08:00 97.3 66 18 127/67 (87) 97 06/01/17 04:25 76 06/01/17 04:00 97.2 81 17 122/60 (80) 99 06/01/17 00:00 97.1 75 18 104/58 (73) 94 06/01/17 00:00 68 05/31/17 22:25 68 20 119/58 (78) 99 Room Air 05/31/17 19:51 77 20 114/61 (78) 100 Room Air 05/31/17 18:06 77 13 130/60 (83) 96 Aerosol Mask I/O 05/31/17 05/31/17 05/31/17 06/01/17 06/01/17 06/01/17 07:00 15:00 23:00 07:00 15:00 23:00 Intake Total 1970 ml Output Total 90 ml Balance 1880 ml Intake Oral 720 ml IV Total 1250 ml Output Urine Total 90 ml Result Diagram: 06/01/17 1415 05/31/17 1835 Imaging Last Impressions Lumbar Spine CT 05/31/17 0000 Signed Impressions: Service Date/Time: Wednesday, May 31, 2017 20:24 - CONCLUSION: No acute lumbar spine abnormality is identified. There are degenerative changes, as above. Андрей Hearn MD Head CT 05/31/17 0000 Signed Impressions: Service Date/Time: Wednesday, May 31, 2017 20:18 - CONCLUSION: Right parietal scalp soft tissue swelling. No fracture or acute intracranial abnormality is identified. Андрей Hearn MD Cervical Spine CT 05/31/17 0000 Signed Impressions: Service Date/Time: Wednesday, May 31, 2017 20:18 - CONCLUSION: No acute cervical spine abnormality is identified. There is degenerative disc disease at multiple levels. Андрей Hearn MD Abdomen/Pelvis CT 05/31/17 0000 Signed Impressions: Service Date/Time: Wednesday, May 31, 2017 20:24 - CONCLUSION: 1. Right gluteal region subcutaneous edema with severe inflammatory change along the medial right superior gluteal cleft. 2. No other acute finding is identified in the abdomen or pelvis. Андрей Hearn MD Objective Remarks General: No acute distress. Heart: Regular rate and rhythm. No murmur. Lungs: Clear to auscultation bilaterally. No wheezes, rales, or rhonchi. Breathing is nonlabored. Abdomen: Soft, nontender, nondistended. Extremities: No lower extremity edema. Psych: Alert and oriented. Skin: Large area of erythema and induration overlying the right buttock. The wound is draining serosanguineous fluid and pus. There is an area of fluctuance as well. Procedures None Urinary Catheter: No Vascular Central Line Catheter: No A/P Problem List: (1) Rhabdomyolysis ICD Code: M62.82 - Rhabdomyolysis Status: Acute (2) Gluteal cleft wound ICD Code: S31.809A - Unspecified open wound of unspecified buttock, initial encounter Status: Acute (3) Type 2 diabetes mellitus ICD Code: E11.9 - Type 2 diabetes mellitus without complications Status: Chronic Assessment and Plan 1. Rhabdomyolysis: Secondary to fall and immobilization. Continue IV fluid hydration. Monitor CK. 2. Acute encephalopathy: Likely secondary to polypharmacy. Sedating medications on hold. Head CT negative. 3. Acute kidney injury: Likely secondary to dehydration. Continue IV fluids. 4. Right buttock wound: Appreciate wound care recommendations. General surgery consultation for potential incision and drainage of abscess. Continue IV antibiotics. 5. Diabetes mellitus: Monitor Accu-Cheks and cover with sliding scale insulin. 6. Hypertension: Continue amlodipine. 7. DVT prophylaxis: SCDs. Discharge Planning Patient will likely need fdc facility at discharge. Problem Qualifiers (1) Rhabdomyolysis: Qualified Codes: M62.82 - Rhabdomyolysis (2) Gluteal cleft wound: Qualified Codes: S31.819A - Unspecified open wound of right buttock, initial encounter Byron Ruggiero MD Jun 01, 2017 15:50
[2017-06-01 15:51] LABS: BICARBONATE 26.8 MEQ/L (21.0-32.0); INDIRECT BILIRUBIN 0.2 MG/DL (0.0-0.8); POTASSIUM 4.4 MEQ/L (3.5-5.1); TOTAL BILIRUBIN ADULT 0.4 MG/DL (0.2-1.0)
[2017-06-01 16:11] LABS: CKMB 77.1 NG/ML (0.5-3.6)
[2017-06-01] MEDS: MORPHINE SULFATE 4 MG/ML INJ IV PUSH PRN ×2 (16:11→22:46)
[2017-06-01] MEDS: SERTRALINE HCL 100 MG TAB PO SCH (22:47)
[2017-06-01 23:49] LABS: MRSA PCR POSITIVE (NEGATIVE); STAPH AUREUS PCR POSITIVE (NEGATIVE)
[2017-06-02] VITALS (7 sets, daily range): BP systolic 128–168; BP diastolic 62–78; PULSE 73–85; RESP 16–20; TEMP 96.2–97.9; O2SAT 97–98
[2017-06-02] MEDS: SODIUM CHLOR 0.9% 1000 ML INJ 1,000 ML IV SCH ×6 (02:15→22:15)
[2017-06-02 07:32] LABS: AUTOMATED NEUTROPHIL # 7.2 TH/MM3 (1.8-7.7); BASOPHIL # 0.1 TH/MM3 (0-0.2); BASOPHIL % 1.2 % (0.0-2.0); EOSINOPHIL # 0.6 TH/MM3 (0-0.4); EOSINOPHIL % 5.6 % (0.0-4.0); HEMATOCRIT 37.9 % (39.0-51.0); HEMO FLAGS DIFF FINAL; LYMPH % 20.6 % (9.0-44.0); LYMPHOCYTE # 2.2 TH/MM3 (1.0-4.8); MEAN CORPUSCULAR HEMOGLOBIN 28.8 PG (27.0-34.0); MEAN CORPUSCULAR HGB CONC 33.9 % (32.0-36.0); MONO % 5.7 % (0.0-8.0); NEUT % 66.9 % (16.0-70.0); PLATELET COUNT 350 TH/MM3 (150-450); RED BLOOD COUNT 4.46 MIL/MM3 (4.50-5.90); RED CELL DISTRIBUTION WIDTH 13.7 % (11.6-17.2); WHITE BLOOD COUNT 10.8 TH/MM3 (4.0-11.0)
[2017-06-02 07:54] LABS: ALKALINE PHOSPHATASE 160 U/L (45-117); ALT (GPT) 93 U/L (12-78); ANION GAP 7 MEQ/L (5-15); AST (GOT) 197 U/L (15-37); BICARBONATE 25.9 MEQ/L (21.0-32.0); BLOOD UREA NITROGEN 7 MG/DL (7-18); CHLORIDE 106 MEQ/L (98-107); CREATINE KINASE 3925 U/L (39-308); GLOMERULAR FILTRATION RATE 123 ML/MIN (>89); MAGNESIUM 1.9 MG/DL (1.5-2.5); SODIUM (NA) 139 MEQ/L (136-145); TOTAL BILIRUBIN ADULT 0.3 MG/DL (0.2-1.0)
[2017-06-02 08:20] LABS: CKMB 25.6 NG/ML (0.5-3.6)
[2017-06-02] MEDS: SODIUM CHLORIDE 0.9% FLUSH 10 ML FLUSH IV FLUSH SCH ×2 (09:00→21:00)
[2017-06-02] MEDS: ASPIRIN 325 MG TAB PO SCH (09:41)
[2017-06-02] MEDS: PANTOPRAZOLE SOD 40 MG DELAYED RELEASE TAB PO SCH (09:41)
[2017-06-02] MEDS: amLODIPine BESYLATE 5 MG TAB PO SCH (09:42)
[2017-06-02] MEDS ORDERED: PHARMACY ORDERED LAB ONE (09:45)
[2017-06-02] MEDS: MORPHINE SULFATE 4 MG/ML INJ IV PUSH PRN ×4 (09:49→21:41)
[2017-06-02] MEDS: VANCOMYCIN INJ 1,250 MG in SODIUM CHLOR 0.9% 250 ML INJ 250 ML IV SCH (09:58)
--- NOTE | 2017-06-02 10:47 | HHI.PR ---
Subjective Remarks Follow-up rhabdomyolysis, buttock wound/abscess. Patient having significant pain in the stool. Denies chest pain, dyspnea, nausea, vomiting. Objective Vitals Vital Signs Date Time Temp Pulse Resp B/P (MAP) Pulse Ox O2 Delivery O2 Flow Rate FiO2 06/02/17 08:00 96.3 74 16 149/64 (92) 98 06/02/17 04:00 96.2 73 18 133/62 (85) 97 06/02/17 00:00 97.5 78 18 140/67 (91) 98 06/01/17 20:00 97.5 79 17 138/69 (92) 94 06/01/17 16:00 98.2 83 20 133/62 (85) 98 06/01/17 12:00 97.8 75 18 139/63 (88) 98 I/O 06/01/17 06/01/17 06/01/17 06/02/17 06/02/17 06/02/17 07:00 15:00 23:00 07:00 15:00 23:00 Intake Total 1970 ml 262.5 ml 3416 ml Output Total 90 ml 1100 ml Balance 1880 ml 262.5 ml 3416 ml -1100 ml Intake Oral 720 ml IV Total 1250 ml 262.5 ml 3416 ml Output Urine Total 90 ml 1100 ml Result Diagram: 06/02/17 0600 06/02/17 0600 Imaging Last Impressions Lumbar Spine CT 05/31/17 0000 Signed Impressions: Service Date/Time: Wednesday, May 31, 2017 20:24 - CONCLUSION: No acute lumbar spine abnormality is identified. There are degenerative changes, as above. Андрей Hearn MD Head CT 05/31/17 0000 Signed Impressions: Service Date/Time: Wednesday, May 31, 2017 20:18 - CONCLUSION: Right parietal scalp soft tissue swelling. No fracture or acute intracranial abnormality is identified. Андрей Hearn MD Cervical Spine CT 05/31/17 0000 Signed Impressions: Service Date/Time: Wednesday, May 31, 2017 20:18 - CONCLUSION: No acute cervical spine abnormality is identified. There is degenerative disc disease at multiple levels. Андрей Hearn MD Abdomen/Pelvis CT 05/31/17 0000 Signed Impressions: Service Date/Time: Wednesday, May 31, 2017 20:24 - CONCLUSION: 1. Right gluteal region subcutaneous edema with severe inflammatory change along the medial right superior gluteal cleft. 2. No other acute finding is identified in the abdomen or pelvis. Андрей Hearn MD Objective Remarks General: No acute distress. Heart: Regular rate and rhythm. No murmur. Lungs: Clear to auscultation bilaterally. No wheezes, rales, or rhonchi. Breathing is nonlabored. Abdomen: Soft, nontender, nondistended. Extremities: No lower extremity edema. Psych: Alert and oriented. Skin: Large area of erythema and induration overlying the right buttock. The wound is draining serosanguineous fluid and pus. There is an area of fluctuance as well. Procedures None Urinary Catheter: No Vascular Central Line Catheter: No A/P Problem List: (1) Rhabdomyolysis ICD Code: M62.82 - Rhabdomyolysis Status: Acute (2) Gluteal cleft wound ICD Code: S31.809A - Unspecified open wound of unspecified buttock, initial encounter Status: Acute (3) Type 2 diabetes mellitus ICD Code: E11.9 - Type 2 diabetes mellitus without complications Status: Chronic Assessment and Plan 1. Rhabdomyolysis: Secondary to fall and immobilization. Continue IV fluid hydration. CK trending down. 2. Acute encephalopathy: Likely secondary to polypharmacy. Sedating medications on hold. Head CT negative. 3. Acute kidney injury: Likely secondary to dehydration. Continue IV fluids. Improved. 4. Right buttock wound: Appreciate wound care recommendations. General surgery consultation for potential incision and drainage of abscess is pending. Continue IV antibiotics. 5. Diabetes mellitus: Monitor Accu-Cheks and cover with sliding scale insulin. 6. Hypertension: Continue amlodipine. 7. DVT prophylaxis: SCDs. Discharge Planning Patient will likely need residential facility at discharge. Problem Qualifiers (1) Rhabdomyolysis: Qualified Codes: M62.82 - Rhabdomyolysis (2) Gluteal cleft wound: Qualified Codes: S31.819A - Unspecified open wound of right buttock, initial encounter Byron Ruggiero MD Jun 02, 2017 10:47
[2017-06-02] MEDS: INSULIN ASPART SUPPLEMENTAL SCALE SQ SCH ×4 (12:00→21:49)
[2017-06-02] MEDS: GABAPENTIN 300 MG CAP PO SCH ×2 (12:06→17:19)
[2017-06-02] MEDS: SERTRALINE HCL 100 MG TAB PO SCH (21:39)
[2017-06-02] MEDS: VANCOMYCIN INJ 1,500 MG in SODIUM CHLORID 0.9% 500 ML INJ 500 ML IV SCH (21:51)
[2017-06-03] VITALS (7 sets, daily range): BP systolic 146–175; BP diastolic 74–82; PULSE 69–87; RESP 17–20; TEMP 97.3–98.3; O2SAT 97–99
[2017-06-03] MEDS: SODIUM CHLOR 0.9% 1000 ML INJ 1,000 ML IV SCH ×4 (02:15→20:39)
[2017-06-03] MEDS: MORPHINE SULFATE 4 MG/ML INJ IV PUSH PRN ×5 (05:05→22:43)
[2017-06-03 07:42] LABS: AUTOMATED NEUTROPHIL # 6.8 TH/MM3 (1.8-7.7); BASOPHIL # 0.1 TH/MM3 (0-0.2); BASOPHIL % 0.7 % (0.0-2.0); EOSINOPHIL # 0.3 TH/MM3 (0-0.4); EOSINOPHIL % 3.3 % (0.0-4.0); HEMATOCRIT 39.8 % (39.0-51.0); HEMO FLAGS DIFF FINAL; LYMPH % 22.9 % (9.0-44.0); LYMPHOCYTE # 2.3 TH/MM3 (1.0-4.8); MEAN CELL VOLUME 84.8 FL (80.0-100.0); MEAN CORPUSCULAR HEMOGLOBIN 28.8 PG (27.0-34.0); MEAN CORPUSCULAR HGB CONC 33.9 % (32.0-36.0); MONO % 6.1 % (0.0-8.0); PLATELET COUNT 400 TH/MM3 (150-450); RED BLOOD COUNT 4.69 MIL/MM3 (4.50-5.90); RED CELL DISTRIBUTION WIDTH 13.8 % (11.6-17.2); WHITE BLOOD COUNT 10.1 TH/MM3 (4.0-11.0)
[2017-06-03] MEDS: INSULIN ASPART SUPPLEMENTAL SCALE SQ SCH ×4 (08:00→20:38)
[2017-06-03 08:06] LABS: BICARBONATE 25.6 MEQ/L (21.0-32.0)
[2017-06-03 08:38] LABS: CKMB 10.7 NG/ML (0.5-3.6)
[2017-06-03] MEDS: SODIUM CHLORIDE 0.9% FLUSH 10 ML FLUSH IV FLUSH SCH ×2 (09:00→20:27)
[2017-06-03] MEDS: VANCOMYCIN INJ 1,500 MG in SODIUM CHLORID 0.9% 500 ML INJ 500 ML IV SCH ×2 (09:28→20:37)
[2017-06-03] MEDS: amLODIPine BESYLATE 5 MG TAB PO SCH (09:30)
[2017-06-03] MEDS: PANTOPRAZOLE SOD 40 MG DELAYED RELEASE TAB PO SCH (09:30)
[2017-06-03] MEDS: GABAPENTIN 300 MG CAP PO SCH ×3 (09:30→18:10)
[2017-06-03] MEDS: ASPIRIN 325 MG TAB PO SCH (09:30)
--- NOTE | 2017-06-03 09:41 | HHI.PR ---
Subjective Remarks Patient doing well. Overall pain control. States that he had no problems urinating and did not need a Payne catheter in the past prior to this admission. He does not know why he developed the buttocks other than a recent fall outside hospital. He denies having sedentary lifestyle although his is wheelchair bound. He does ambulate with assistance of a walker. He is tolerating oral liquids however does not have a good appetite. Objective Vitals Vital Signs Date Time Temp Pulse Resp B/P (MAP) Pulse Ox O2 Delivery O2 Flow Rate FiO2 06/03/17 04:16 72 06/03/17 04:00 97.7 72 17 175/80 (111) 99 06/03/17 00:00 69 06/03/17 00:00 97.3 72 17 159/74 (102) 98 06/02/17 20:08 85 06/02/17 20:00 97.9 79 18 164/66 (98) 98 06/02/17 16:00 96.6 80 20 128/66 (86) 97 06/02/17 12:00 96.5 85 16 168/78 (108) 98 I/O 06/02/17 06/02/17 06/02/17 06/03/17 06/03/17 06/03/17 07:00 15:00 23:00 07:00 15:00 23:00 Intake Total 240 ml Output Total 1100 ml 1000 ml 2250 ml Balance -1100 ml -760 ml -2250 ml Intake Oral 240 ml Output Urine Total 1100 ml 1000 ml 2250 ml # Voids 1 # Bowel Movements 1 Result Diagram: 06/03/17 0555 06/03/17 0555 Other Results Item Value Date Time Bedside Blood Glucose 160 mg/dl 06/02/17 2149 Bedside Blood Glucose 161 mg/dl 06/02/17 1726 Objective Remarks GENERAL: This is a well-nourished, well-developed patient, in no apparent distress. CARDIOVASCULAR: Regular rate and rhythm RESPIRATORY: Clear to auscultation. Breath sounds equal bilaterally. No wheezes , rales, or rhonchi. GASTROINTESTINAL: Abdomen soft, non-tender, nondistended. Normal active bowel sounds : Payne catheter in place MUSCULOSKELETAL: Extremities without clubbing, cyanosis, no edema NEURO: Alert & Oriented x4 to person, place, time, situation. Moves all ext x4 SKIN: Right gluteal discoloration and redness erythema with no significant drainage seen. Procedures None Urinary Catheter: Yes Assessment to: Remove (urinary retention on admission with greater than 1000 cc. Bladder training and trial of removal today) Date of Insertion: May 31, 2017 A/P Problem List: (1) Rhabdomyolysis ICD Code: M62.82 - Rhabdomyolysis Status: Acute (2) Gluteal cleft wound ICD Code: S31.809A - Unspecified open wound of unspecified buttock, initial encounter Status: Acute (3) Type 2 diabetes mellitus ICD Code: E11.9 - Type 2 diabetes mellitus without complications Status: Chronic Assessment and Plan 1. Acute Rhabdomyolysis: Secondary to fall and immobilization. Continue IV fluid hydration. CK trending down. 2. Acute encephalopathy on presentation now resolved: Likely secondary to polypharmacy. Sedating medications on hold. Head CT negative. 3. Acute kidney injury, now resolved: Likely secondary to dehydration. Continue IV fluids for rhabdomyolysis. Improved. 4. Right buttock wound with sacral decubitus stage II: Appreciate wound care recommendations. General surgery consultation for potential incision and drainage of abscess is currently pending. Continue IV antibiotics, vancomycin until finally culture results.. 5. Diabetes mellitus, type II: Overall adequate glycemic control, Monitor Accu- Cheks and cover with sliding scale insulin. 6. Hypertension, essential, overall control: Continue amlodipine. 7. 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 Urinary retention present on admission with Payne catheter inserted. CT abdomen and pelvis show no obstruction- bladder training and attempted removal Payne catheter today. 9. DVT prophylaxis: SCDs, add Lovenox. Discontinue telemetry today. Discharge Planning Will need home health care versus fdc facility upon discharge. Problem Qualifiers (1) Rhabdomyolysis: Qualified Codes: M62.82 - Rhabdomyolysis (2) Gluteal cleft wound: Qualified Codes: S31.819A - Unspecified open wound of right buttock, initial encounter Shikha Kaba MD Jun 03, 2017 09:41
--- NOTE | 2017-06-03 14:19 | PD.CAR.PN ---
CVT Progress Note Subjective/Hospital Course: 61-year-old male with multiple medical problems including diabetes mellitus renal insufficiency status post fall and prolonged immobilization at the time of the accident. Patient is currently in the hospital recovering from the above. I'm consulted regarding a wound of the right buttock Patient indeed has a right buttock lesion that measures about 2 x 1" in diameter and this is actually an abrasion that was fairly deep and obviously got infected in the process considering its location Bottom of the wound is granulating however there is some inflamed purulent material on the surface There is no fluctuance and there is nothing to drain here but patient does need good wound care Patient should shower twice a day get wound and surrounding area wet wash it with soap and water and scrub it with the sponge surface of the scrub brush to remove all the devitalized tissue Dress dry with bacitracin and gauze Objective: Vital Signs Date Time Temp Pulse Resp B/P (MAP) Pulse Ox O2 Delivery O2 Flow Rate FiO2 06/03/17 12:17 97.8 77 20 174/82 (112) 98 06/03/17 08:00 98.3 75 20 155/76 (102) 97 06/03/17 04:16 72 06/03/17 04:00 97.7 72 17 175/80 (111) 99 06/03/17 00:00 69 06/03/17 00:00 97.3 72 17 159/74 (102) 98 06/02/17 20:08 85 06/02/17 20:00 97.9 79 18 164/66 (98) 98 06/02/17 16:00 96.6 80 20 128/66 (86) 97 Labs: Laboratory Tests Test 06/03/17 05:55 White Blood Count 10.1 TH/MM3 (4.0-11.0) Red Blood Count 4.69 MIL/MM3 (4.50-5.90) Hemoglobin 13.5 GM/DL (13.0-17.0) Hematocrit 39.8 % (39.0-51.0) Mean Corpuscular Volume 84.8 FL (80.0-100.0) Mean Corpuscular Hemoglobin 28.8 PG (27.0-34.0) Mean Corpuscular Hemoglobin Concent 33.9 % (32.0-36.0) Red Cell Distribution Width 13.8 % (11.6-17.2) Platelet Count 400 TH/MM3 (150-450) Mean Platelet Volume 8.1 FL (7.0-11.0) Neutrophils (%) (Auto) 67.0 % (16.0-70.0) Lymphocytes (%) (Auto) 22.9 % (9.0-44.0) Monocytes (%) (Auto) 6.1 % (0.0-8.0) Eosinophils (%) (Auto) 3.3 % (0.0-4.0) Basophils (%) (Auto) 0.7 % (0.0-2.0) Neutrophils # (Auto) 6.8 TH/MM3 (1.8-7.7) Lymphocytes # (Auto) 2.3 TH/MM3 (1.0-4.8) Monocytes # (Auto) 0.6 TH/MM3 (0-0.9) Eosinophils # (Auto) 0.3 TH/MM3 (0-0.4) Basophils # (Auto) 0.1 TH/MM3 (0-0.2) CBC Comment DIFF FINAL Differential Comment Blood Urea Nitrogen 6 MG/DL (7-18) Creatinine 0.68 MG/DL (0.60-1.30) Random Glucose 150 MG/DL (74-106) Calcium Level 8.2 MG/DL (8.5-10.1) Sodium Level 139 MEQ/L (136-145) Potassium Level 4.0 MEQ/L (3.5-5.1) Chloride Level 106 MEQ/L (98-107) Carbon Dioxide Level 25.6 MEQ/L (21.0-32.0) Anion Gap 7 MEQ/L (5-15) Estimat Glomerular Filtration Rate 119 ML/MIN (>89) Total Creatine Kinase 2257 U/L (39-308) Creatine Kinase MB 10.7 NG/ML (0.5-3.6) Creatine Kinase MB % 0.5 % (0.0-4.0) Result Diagram: 06/03/17 0555 06/03/17 0555 Marcela Wilson MD Jun 03, 2017 14:19
[2017-06-03] MEDS: SERTRALINE HCL 100 MG TAB PO SCH (20:37)
[2017-06-03] MEDS: BACITRACIN TOP OINT 15 GM TUBE TOPICAL SCH (20:37)
[2017-06-04] VITALS (7 sets, daily range): BP systolic 149–188; BP diastolic 68–86; PULSE 66–92; RESP 16–20; TEMP 97.2–98.9; O2SAT 97–100
[2017-06-04] MEDS: SODIUM CHLOR 0.9% 1000 ML INJ 1,000 ML IV SCH ×6 (02:15→10:50)
[2017-06-04] MEDS: MORPHINE SULFATE 4 MG/ML INJ IV PUSH PRN ×2 (04:35→09:01)
[2017-06-04] MEDS: SODIUM CHLORIDE 0.9% FLUSH 10 ML FLUSH IV FLUSH SCH ×2 (07:46→19:24)
[2017-06-04] MEDS: INSULIN ASPART SUPPLEMENTAL SCALE SQ SCH ×4 (09:00→21:02)
[2017-06-04] MEDS: BACITRACIN TOP OINT 15 GM TUBE TOPICAL SCH ×2 (09:04→19:25)
[2017-06-04] MEDS: PANTOPRAZOLE SOD 40 MG DELAYED RELEASE TAB PO SCH (09:04)
[2017-06-04] MEDS: ASPIRIN 325 MG TAB PO SCH (09:04)
[2017-06-04] MEDS: GABAPENTIN 300 MG CAP PO SCH ×3 (09:04→17:25)
[2017-06-04] MEDS: amLODIPine BESYLATE 5 MG TAB PO SCH (09:04)
[2017-06-04] MEDS ORDERED: PHARMACY ORDERED LAB ONE (09:45)
[2017-06-04 10:44] LABS: CKMB 6.3 NG/ML (0.5-3.6)
[2017-06-04] MEDS: VANCOMYCIN INJ 1,500 MG in SODIUM CHLORID 0.9% 500 ML INJ 500 ML IV SCH ×2 (10:48→10:50)
--- NOTE | 2017-06-04 10:55 | HHI.PR ---
Subjective Remarks Patient reports no significant pain in doing well. He will prefer to go back home with home health care rather than going to a custodial facility as he needs to pay his bills. He also states that his who is wheelchair- bound is currently hospitalized and feels she likely will be placed in a custodial facility. Objective Vitals Vital Signs Date Time Temp Pulse Resp B/P (MAP) Pulse Ox O2 Delivery O2 Flow Rate FiO2 06/04/17 09:35 16 06/04/17 08:00 98.2 76 16 158/86 (110) 100 06/04/17 04:00 71 06/04/17 04:00 97.2 68 20 167/70 (102) 97 06/04/17 00:51 67 06/04/17 00:00 98.9 70 20 149/68 (95) 98 06/03/17 20:00 98.3 87 20 162/76 (104) 98 06/03/17 16:51 97.5 82 20 146/74 (98) 98 06/03/17 12:17 97.8 77 20 174/82 (112) 98 I/O 06/03/17 06/03/17 06/03/17 06/04/17 06/04/17 06/04/17 07:00 15:00 23:00 07:00 15:00 23:00 Intake Total 590 ml 220 ml 1000 ml Output Total 2250 ml 1250 ml 720 ml Balance -2250 ml -660 ml -500 ml 1000 ml Intake Oral 590 ml 220 ml IV Total 1000 ml Output Urine Total 2250 ml 1250 ml 720 ml # Voids 2 2 # Bowel Movements 0 0 Result Diagram: 06/03/17 0555 06/03/17 0555 Other Results Microbiology Date/Time Source Procedure Growth Status 05/31/17 21:45 Blood Peripheral Aerobic Blood Culture - Preliminary NO GROWTH IN 3 DAYS Resulted 05/31/17 21:45 Blood Peripheral Anaerobic Blood Culture - Preliminary NO GROWTH IN 3 DAYS Resulted 06/02/17 21:15 Wound Buttock Gram Stain - Final Resulted 06/02/17 21:15 Wound Buttock Wound Culture Pending Resulted Imaging Last Impressions Lumbar Spine CT 05/31/17 0000 Signed Impressions: Service Date/Time: Wednesday, May 31, 2017 20:24 - CONCLUSION: No acute lumbar spine abnormality is identified. There are degenerative changes, as above. Андрей Hearn MD Head CT 05/31/17 0000 Signed Impressions: Service Date/Time: Wednesday, May 31, 2017 20:18 - CONCLUSION: Right parietal scalp soft tissue swelling. No fracture or acute intracranial abnormality is identified. Андрей Hearn MD Cervical Spine CT 05/31/17 0000 Signed Impressions: Service Date/Time: Wednesday, May 31, 2017 20:18 - CONCLUSION: No acute cervical spine abnormality is identified. There is degenerative disc disease at multiple levels. Андрей Hearn MD Abdomen/Pelvis CT 05/31/17 0000 Signed Impressions: Service Date/Time: Wednesday, May 31, 2017 20:24 - CONCLUSION: 1. Right gluteal region subcutaneous edema with severe inflammatory change along the medial right superior gluteal cleft. 2. No other acute finding is identified in the abdomen or pelvis. Андрей Hearn MD Objective Remarks GENERAL: This is a well-nourished, well-developed patient, in no apparent distress. CARDIOVASCULAR: Regular rate and rhythm RESPIRATORY: Clear to auscultation. Breath sounds equal bilaterally. No wheezes , rales, or rhonchi. GASTROINTESTINAL: Abdomen soft, non-tender, nondistended. Normal active bowel sounds : Payne catheter in place MUSCULOSKELETAL: Extremities without clubbing, cyanosis, no edema NEURO: Alert & Oriented x4 to person, place, time, situation. Moves all ext x4 SKIN: Right gluteal discoloration and redness erythema with no significant drainage seen. Procedures None Date of Insertion: May 31, 2017 A/P Problem List: (1) Rhabdomyolysis ICD Code: M62.82 - Rhabdomyolysis Status: Acute (2) Gluteal cleft wound ICD Code: S31.809A - Unspecified open wound of unspecified buttock, initial encounter Status: Acute (3) Type 2 diabetes mellitus ICD Code: E11.9 - Type 2 diabetes mellitus without complications Status: Chronic Assessment and Plan 1. Acute Rhabdomyolysis: Secondary to fall and immobilization. Improved on IV fluid hydration. CK continues to trending down. 2. Acute encephalopathy on presentation now resolved: Likely secondary to polypharmacy. Sedating medications on hold. Head CT negative. 3. Acute kidney injury, now resolved: Likely secondary to dehydration. IV fluids for rhabdomyolysis. Improved. 4. Right buttock wound with sacral decubitus stage II: Appreciate wound care recommendations. General surgery consulted and felt that there is no indication to debris at this time and continue with local wound care. Continue IV antibiotics, vancomycin until finally culture results are available we'll switch to by mouth Bactrim and have patient follow-up as an outpatient.. 5. Diabetes mellitus, type II: Overall adequate glycemic control, Monitor Accu- Cheks and cover with sliding scale insulin. 6. Hypertension, essential, overall control: Continue amlodipine. 7. 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 Urinary retention present on admission with Payne catheter inserted. CT abdomen and pelvis show no obstruction- completed bladder training successful and removal Payne was completed with patient voiding without difficulty at this time. 9. DVT prophylaxis: SCDs, add Lovenox. Discharge Planning Discharge to home with home health care. Continue local wound care. Problem Qualifiers (1) Rhabdomyolysis: Qualified Codes: M62.82 - Rhabdomyolysis (2) Gluteal cleft wound: Qualified Codes: S31.819A - Unspecified open wound of right buttock, initial encounter Shikha Kaba MD Jun 04, 2017 10:54
[2017-06-04] MEDS ORDERED: SULF1TAB23 PO (11:04)
--- NOTE | 2017-06-04 11:08 | HHI.DS ---
Discharge Summary Admission Date May 31, 2017 at 22:07 Discharge Date: Jun 04, 2017 Admitting Diagnosis rhabdomyolysis (1) Encephalopathy acute ICD Code: G93.40 - Encephalopathy, unspecified Diagnosis: Principal Status: Resolved (2) Rhabdomyolysis ICD Code: M62.82 - Rhabdomyolysis Diagnosis: Principal Status: Resolved (3) Gluteal cleft wound ICD Code: S31.809A - Unspecified open wound of unspecified buttock, initial encounter Diagnosis: Secondary Status: Acute (4) Type 2 diabetes mellitus ICD Code: E11.9 - Type 2 diabetes mellitus without complications Diagnosis: Secondary Status: Chronic Procedures None Brief History - From Admission Obtained from admitting physician's history and physical 61-year-old male who presented to the emergency room after falling down and unable to get up. Patient is very lethargic and unable to provide any history. 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 Apparently she fell and he tried to help but fell on top of her and was unable to get up. He reports to the ED that he has been falling recently. Again he is very lethargic and unable to provide any history. It is worth noting is toxicology screen is positive for opiates, benzodiazepines, and marijuana. Past history obtain from the EMR. CBC/BMP: 06/03/17 0555 06/03/17 0555 Significant Findings Laboratory Tests Test 06/01/17 14:15 06/01/17 19:45 06/02/17 06:00 06/02/17 09:50 Hemoglobin 12.9 GM/DL (13.0-17.0) 12.8 GM/DL (13.0-17.0) Hematocrit 38.5 % (39.0-51.0) 37.9 % (39.0-51.0) Neutrophils (%) (Auto) 74.0 % (16.0-70.0) Eosinophils (%) (Auto) 5.2 % (0.0-4.0) 5.6 % (0.0-4.0) Neutrophils # (Auto) 8.0 TH/MM3 (1.8-7.7) Eosinophils # (Auto) 0.6 TH/MM3 (0-0.4) 0.6 TH/MM3 (0-0.4) Blood Urea Nitrogen 19 MG/DL (7-18) Random Glucose 139 MG/DL (74-106) 130 MG/DL (74-106) Albumin 2.6 GM/DL (3.4-5.0) 2.6 GM/DL (3.4-5.0) Calcium Level 7.8 MG/DL (8.5-10.1) 7.9 MG/DL (8.5-10.1) Alkaline Phosphatase 172 U/L (45-117) 160 U/L (45-117) Aspartate Amino Transf (AST/SGOT) 290 U/L (15-37) 197 U/L (15-37) Alanine Aminotransferase (ALT/SGPT) 110 U/L (12-78) 93 U/L (12-78) Anion Gap 4 MEQ/L (5-15) Total Creatine Kinase 6249 U/L (39-308) 3925 U/L (39-308) Creatine Kinase MB 77.1 NG/ML (0.5-3.6) 25.6 NG/ML (0.5-3.6) Red Blood Count 4.46 MIL/MM3 (4.50-5.90) Vancomycin Level Trough 11.4 MCG/ML (5.0-10.0) Test 06/03/17 05:55 06/04/17 09:15 Blood Urea Nitrogen 6 MG/DL (7-18) Random Glucose 150 MG/DL (74-106) Calcium Level 8.2 MG/DL (8.5-10.1) Total Creatine Kinase 2257 U/L (39-308) 1153 U/L (39-308) Creatine Kinase MB 10.7 NG/ML (0.5-3.6) 6.3 NG/ML (0.5-3.6) Vancomycin Level Trough 13.6 MCG/ML (5.0-10.0) Imaging Last Impressions Lumbar Spine CT 05/31/17 0000 Signed Impressions: Service Date/Time: Wednesday, May 31, 2017 20:24 - CONCLUSION: No acute lumbar spine abnormality is identified. There are degenerative changes, as above. Андрей Haern MD Head CT 05/31/17 0000 Signed Impressions: Service Date/Time: Wednesday, May 31, 2017 20:18 - CONCLUSION: Right parietal scalp soft tissue swelling. No fracture or acute intracranial abnormality is identified. Андрей Hearn MD Cervical Spine CT 05/31/17 0000 Signed Impressions: Service Date/Time: Wednesday, May 31, 2017 20:18 - CONCLUSION: No acute cervical spine abnormality is identified. There is degenerative disc disease at multiple levels. Андрей Hearn MD Abdomen/Pelvis CT 05/31/17 0000 Signed Impressions: Service Date/Time: Wednesday, May 31, 2017 20:24 - CONCLUSION: 1. Right gluteal region subcutaneous edema with severe inflammatory change along the medial right superior gluteal cleft. 2. No other acute finding is identified in the abdomen or pelvis. Андрей Hearn MD PE at Discharge GENERAL: This is a well-nourished, well-developed patient, in no apparent distress. CARDIOVASCULAR: Regular rate and rhythm RESPIRATORY: Clear to auscultation. Breath sounds equal bilaterally. No wheezes , rales, or rhonchi. GASTROINTESTINAL: Abdomen soft, non-tender, nondistended. Normal active bowel sounds : Payne catheter in place MUSCULOSKELETAL: Extremities without clubbing, cyanosis, no edema NEURO: Alert & Oriented x4 to person, place, time, situation. Moves all ext x4 SKIN: Right gluteal discoloration and redness erythema with no significant drainage seen. Hospital Course These are the medical issues addressed during this hospitalization: 1. Acute Rhabdomyolysis on presentation: Secondary to fall and immobilization. Improved on IV fluid hydration. CK continues to trending down. 2. Acute encephalopathy on presentation now resolved: Likely secondary to polypharmacy. Sedating medications on hold and recommend to stop home trazodone upon discharge. Head CT negative. 3. Acute kidney injury, now resolved: Likely secondary to dehydration. IV fluids for rhabdomyolysis. Improved. 4. Right buttock infected wound with sacral decubitus stage II: Appreciate wound care recommendations. General surgery consulted and felt that there is no indication to debris at this time and continue with local wound care. IV vancomycin was given to her hospitalization and final cultures are still pending on the day of discharge. Will send patient home on by mouth Bactrim and follow-up with final culture with primary care physician. 5. Diabetes mellitus, type II: Overall adequate glycemic control, Monitor Accu- Cheks and cover with sliding scale insulin. 6. Hypertension, essential, overall control: Continue amlodipine. 7. 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 Urinary retention present on admission with Payne catheter inserted. CT abdomen and pelvis show no obstruction- completed bladder training successful and removal Payne was completed with patient voiding without difficulty at this time prior to discharge. At this time patient has gained maximum benefit from hospitalization and will be discharged to home with home health care for follow-up with wound. He is counseled on importance of wound care and control his blood sugar, improve nutrition for improved wound healing outcomes. Pt Condition on Discharge: Good Discharge Disposition: Disch w/ Home Health Serv Discharge Time: <= 30 minutes Discharge Instructions DIET: Follow Instructions for: Heart Healthy Diet Activities you can perform: Regular-No Restrictions Follow up Referrals: PCP Follow-up New Medications: Sulfamethoxazole-Trimethoprim (Sulfamethoxazole-Trimethoprim) 800-160 Mg Tab 1 TAB PO BID for Infection, #14 TAB 0 Refills Continued Medications: Albuterol 8.5 GM Inh (Proair Hfa 8.5 GM Inh) 90 Mcg/Act Aer 2 PUFF INH Q6H PRN for SHORTNESS OF BREATH, #1 INHALER 0 Refills 108 mcg/actuation Albuterol Neb (Albuterol Neb) 2.5 Mg/3 Ml Neb 2.5 MG NEB Q6HR PRN for SHORTNESS OF BREATH, #60 NEBULE 0 Refills Amlodipine (Amlodipine) 5 Mg Tab 5 MG PO DAILY for Blood Pressure Management, #30 TAB 0 Refills Aspirin (Aspirin) 325 Mg Tab 325 MG PO DAILY, #30 TAB 0 Refills Gabapentin (Gabapentin) 600 Mg Tab 600 MG PO TID, #90 TAB 0 Refills Glipizide (Glipizide) 5 Mg Tab 5 MG PO BID for Blood Sugar Management, #60 TAB 0 Refills Take 30 minutes before a meal Ipratropium HFA 12.9 GM Inh (Atrovent HFA 12.9 GM Inh) 17 Mcg/Act Aer 2 PUFF INH QID for Shortness of Breath, #1 INHALER 0 Refills Metformin (Metformin) 850 Mg Tab 850 MG PO TIDPC for Blood Sugar Management, TAB 0 Refills With meals Methocarbamol (Methocarbamol) 500 Mg Tab 500 MG PO TID for Muscle Spasm, #90 TAB 0 Refills Pantoprazole (Pantoprazole) 40 Mg Tab 40 MG PO DAILY for gastritis, #30 TAB 0 Refills Sertraline (Zoloft) 100 Mg Tab 100 MG PO HS, #30 TAB 0 Refills Discontinued Medications: Trazodone (Trazodone) 100 Mg Tablet 200 MG PO HS for Control Depression, #30 TAB 0 Refills Shikha Kaba MD Jun 04, 2017 11:08
[2017-06-04] MEDS ORDERED: NALOXONE HCL 0.4 MG/ML AMP IV PUSH PRN (12:30)
[2017-06-04] MEDS: ACETAMINOPHEN/HYDROcodone 325 MG/7.5 MG TAB PO PRN ×2 (13:58→21:02)
[2017-06-04] MEDS ORDERED: ACETAMINOPHEN 325 MG TAB PO PRN (14:00)
[2017-06-04] MEDS: SULFAMETHOXAZOLE-TRIMETHOPRIM DS 800-160 MG TAB PO SCH ×2 (14:00→19:24)
[2017-06-04] MEDS ORDERED: ACETAMINOPHEN/HYDROcodone 325 MG/5 MG TAB PO PRN (14:00)
--- NOTE | 2017-06-04 14:23 | HHI.FF ---
Face to Face Verification Diagnosis: (1) Encephalopathy acute (2) Gluteal cleft wound Home Health Nursing Order: Wound care and dressing changes Instructions: Please cleanse wound to R buttock and gluteal cleft with normal saline or wound cleanser and pat dry. Apply Maxorb eaxtra AG over wound bed and cover with ABD pad and tape or bordered gauze. Please apply skin prep to periwound before applying adhesives to skin.Change dressing daily or PRN if saturated or dislodged. I have seen patient Ashutosh Cortez Jr on 06/04/17. My clinical findings support the need for the requested home health care services because: Infection w/ risk of complications I certify that my clinical findings support that this patient is homebound because: Unsteady gait/balance Shikha Kaba MD Jun 04, 2017 14:23
[2017-06-04] MEDS: ALPRAZolam 0.25 MG TAB PO PRN (18:50)
[2017-06-04] MEDS: SERTRALINE HCL 100 MG TAB PO SCH (19:24)
[2017-06-05] VITALS: BP 145/73; PULSE 85; RESP 18; TEMP 99.3; O2SAT 97
[2017-06-05] MEDS: ACETAMINOPHEN/HYDROcodone 325 MG/7.5 MG TAB PO PRN ×5 (03:27→22:38)
[2017-06-05 04:00] VITALS: BP 156/88; PULSE 98; RESP 19; TEMP 97.2; O2SAT 97
[2017-06-05 08:00] VITALS: BP 151/87; PULSE 95; RESP 19; TEMP 99.6; O2SAT 98
[2017-06-05] MEDS: PANTOPRAZOLE SOD 40 MG DELAYED RELEASE TAB PO SCH (08:12)
[2017-06-05] MEDS: ASPIRIN 325 MG TAB PO SCH (08:13)
[2017-06-05] MEDS: amLODIPine BESYLATE 5 MG TAB PO SCH (08:13)
[2017-06-05] MEDS: SULFAMETHOXAZOLE-TRIMETHOPRIM DS 800-160 MG TAB PO SCH ×2 (08:13→20:12)
[2017-06-05] MEDS: GABAPENTIN 300 MG CAP PO SCH ×3 (08:13→16:49)
[2017-06-05] MEDS: SODIUM CHLORIDE 0.9% FLUSH 10 ML FLUSH IV FLUSH SCH ×2 (08:14→20:12)
[2017-06-05] MEDS: BACITRACIN TOP OINT 15 GM TUBE TOPICAL SCH ×2 (08:14→20:13)
[2017-06-05] MEDS: ALPRAZolam 0.25 MG TAB PO PRN ×2 (08:23→20:12)
[2017-06-05] MEDS: INSULIN ASPART SUPPLEMENTAL SCALE SQ SCH ×4 (09:21→20:12)
--- NOTE | 2017-06-05 09:45 | HHI.PR ---
Subjective Remarks Patient discharged yesterday. However, of could not be arranged. He reports feeling better today except for persistent back pain. Reports feeling stronger. Objective Vitals Vital Signs Date Time Temp Pulse Resp B/P (MAP) Pulse Ox O2 Delivery O2 Flow Rate FiO2 06/05/17 08:00 99.6 95 19 151/87 (108) 98 06/05/17 04:00 97.2 98 19 156/88 (110) 97 06/05/17 00:00 99.3 85 18 145/73 (97) 97 06/04/17 20:00 98.8 66 19 165/77 (106) 97 06/04/17 16:00 98.3 92 16 188/84 (118) 97 06/04/17 15:06 16 06/04/17 12:33 98.1 87 16 174/85 (114) 100 I/O 06/04/17 06/04/17 06/04/17 06/05/17 06/05/17 06/05/17 07:00 15:00 23:00 07:00 15:00 23:00 Intake Total 220 ml 1000 ml 700 ml 240 ml Output Total 720 ml 800 ml Balance -500 ml 1000 ml -100 ml 240 ml Intake Oral 220 ml 700 ml 240 ml IV Total 1000 ml Output Urine Total 720 ml 800 ml # Voids 2 1 # Bowel Movements 0 1 Result Diagram: 06/03/17 0555 06/05/17 0614 Objective Remarks GENERAL: This is a well-nourished, well-developed patient, in no apparent distress. CARDIOVASCULAR: Regular rate and rhythm RESPIRATORY: Clear to auscultation. Breath sounds equal bilaterally. No wheezes , rales, or rhonchi. GASTROINTESTINAL: Abdomen soft, non-tender, nondistended. Normal active bowel sounds : Payne catheter in place MUSCULOSKELETAL: Extremities without clubbing, cyanosis, no edema NEURO: Alert & Oriented x4 to person, place, time, situation. Moves all ext x4 SKIN: Right gluteal discoloration and redness erythema with no significant drainage seen. Procedures None Date of Insertion: May 31, 2017 A/P Problem List: (1) Encephalopathy acute ICD Code: G93.40 - Encephalopathy, unspecified Status: Resolved (2) Rhabdomyolysis ICD Code: M62.82 - Rhabdomyolysis Status: Resolved (3) Gluteal cleft wound ICD Code: S31.809A - Unspecified open wound of unspecified buttock, initial encounter Status: Acute (4) Type 2 diabetes mellitus ICD Code: E11.9 - Type 2 diabetes mellitus without complications Status: Chronic Assessment and Plan 61-year-old male with: 1. Acute Rhabdomyolysis: Secondary to fall and immobilization. Improved on IV fluid hydration. CK continues to trending down. 2. Acute encephalopathy on presentation now resolved: Likely secondary to polypharmacy. Sedating medications on hold. Head CT negative. Patient is now back at baseline. 3. Acute kidney injury, now resolved: Likely secondary to dehydration. IV fluids for rhabdomyolysis. Improved. 4. Right buttock wound with sacral decubitus stage II: Appreciate wound care recommendations. General surgery consulted and felt that there is no indication to debride at this time and continue with local wound care. Patient received IV vancomycin. Cultures grew MRSA, he was switched to Bactrim. We'll continue wound care outpatient with home health. 5. Diabetes mellitus, type II: Overall adequate glycemic control, Monitor Accu- Cheks and cover with sliding scale insulin. 6. Hypertension, essential, overall control: Continue amlodipine. 7. 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 Urinary retention present on admission with Payne catheter inserted. CT abdomen and pelvis show no obstruction- completed bladder training successful and removal Payne was completed with patient voiding without difficulty at this time. 9. DVT prophylaxis: SCDs, add Lovenox. Discharge Planning Discharge once home health care arrangements are made. Problem Qualifiers (1) Rhabdomyolysis: Qualified Codes: M62.82 - Rhabdomyolysis (2) Gluteal cleft wound: Qualified Codes: S31.819A - Unspecified open wound of right buttock, initial encounter Margarita Gómez MD Jun 05, 2017 09:45
[2017-06-05 12:38] VITALS: BP 149/80; PULSE 97; RESP 19; TEMP 98.7; O2SAT 100
[2017-06-05 16:16] VITALS: BP 137/80; PULSE 99; RESP 19; TEMP 98.2; O2SAT 100
[2017-06-05 20:00] VITALS: BP 151/71; PULSE 87; RESP 17; TEMP 99.3; O2SAT 97
[2017-06-05] MEDS: SERTRALINE HCL 100 MG TAB PO SCH (20:12)
[2017-06-06] VITALS: BP 152/83; PULSE 88; RESP 18; TEMP 98.7; O2SAT 96
[2017-06-06] MEDS: ACETAMINOPHEN/HYDROcodone 325 MG/7.5 MG TAB PO PRN ×5 (02:49→21:44)
[2017-06-06 04:00] VITALS: BP 153/86; PULSE 80; RESP 17; TEMP 97.9; O2SAT 97
[2017-06-06 07:30] VITALS: BP 157/80; PULSE 86; RESP 20; TEMP 98.5; O2SAT 99
[2017-06-06] MEDS: INSULIN ASPART SUPPLEMENTAL SCALE SQ SCH ×4 (08:00→21:54)
[2017-06-06] MEDS: SULFAMETHOXAZOLE-TRIMETHOPRIM DS 800-160 MG TAB PO SCH ×2 (08:50→21:44)
[2017-06-06] MEDS: PANTOPRAZOLE SOD 40 MG DELAYED RELEASE TAB PO SCH (08:50)
[2017-06-06] MEDS: amLODIPine BESYLATE 5 MG TAB PO SCH (08:50)
[2017-06-06] MEDS: ASPIRIN 325 MG TAB PO SCH (08:50)
[2017-06-06] MEDS: GABAPENTIN 300 MG CAP PO SCH ×3 (08:50→21:43)
[2017-06-06] MEDS: SODIUM CHLORIDE 0.9% FLUSH 10 ML FLUSH IV FLUSH SCH ×2 (08:51→21:45)
[2017-06-06] MEDS: BACITRACIN TOP OINT 15 GM TUBE TOPICAL SCH ×2 (08:52→21:46)
[2017-06-06] MEDS: ALPRAZolam 0.25 MG TAB PO PRN ×2 (10:23→21:53)
[2017-06-06 11:45] VITALS: BP 150/77; PULSE 82; RESP 20; TEMP 97.5; O2SAT 97
--- NOTE | 2017-06-06 11:56 | HHI.PR ---
Subjective Remarks Follow up on patient with rhabdomyolysis, encephalopathy. Patient discharged on 06/04 but held pending placement. Patient seen and examined. Patient complaining he has only gotten a few hours of sleep for the past 3 nights. States he takes Trazodone 200mg nightly at home. He denies any other medical complaints outside of persistent back pain. Denies any fever or chills. Denies any CP, dyspnea, N/V or abdominal pain. Reports normal BM yesterday. Urinating without any difficulties. He is upset because his is admitted at [place] as well due to recent stroke. Objective Vitals Vital Signs Date Time Temp Pulse Resp B/P (MAP) Pulse Ox O2 Delivery O2 Flow Rate FiO2 06/06/17 10:00 16 06/06/17 07:30 98.5 86 20 157/80 (105) 99 06/06/17 04:00 97.9 80 17 153/86 (108) 97 06/06/17 00:00 98.7 88 18 152/83 (106) 96 06/05/17 20:00 99.3 87 17 151/71 (97) 97 06/05/17 16:16 98.2 99 19 137/80 (99) 100 06/05/17 12:38 98.7 97 19 149/80 (103) 100 I/O 06/05/17 06/05/17 06/05/17 06/06/17 06/06/17 06/06/17 07:00 15:00 23:00 07:00 15:00 23:00 Intake Total 240 ml 1174 ml 480 ml Balance 240 ml 1174 ml 480 ml Intake Oral 240 ml 1174 ml 480 ml # Voids 1 6 2 Result Diagram: 06/03/17 0555 06/05/17 0614 Imaging Last Impressions Lumbar Spine CT 05/31/17 0000 Signed Impressions: Service Date/Time: Wednesday, May 31, 2017 20:24 - CONCLUSION: No acute lumbar spine abnormality is identified. There are degenerative changes, as above. Андрей Hearn MD Head CT 05/31/17 0000 Signed Impressions: Service Date/Time: Wednesday, May 31, 2017 20:18 - CONCLUSION: Right parietal scalp soft tissue swelling. No fracture or acute intracranial abnormality is identified. Андрей Hearn MD Cervical Spine CT 05/31/17 0000 Signed Impressions: Service Date/Time: Wednesday, May 31, 2017 20:18 - CONCLUSION: No acute cervical spine abnormality is identified. There is degenerative disc disease at multiple levels. Андрей Hearn MD Abdomen/Pelvis CT 05/31/17 0000 Signed Impressions: Service Date/Time: Wednesday, May 31, 2017 20:24 - CONCLUSION: 1. Right gluteal region subcutaneous edema with severe inflammatory change along the medial right superior gluteal cleft. 2. No other acute finding is identified in the abdomen or pelvis. Андрей Hearn MD Objective Remarks GENERAL: Well-nourished, well-developed patient in NAD. Lying in hospital bed watching TV. Awake and alert. SKIN: Warm and dry. Right gluteal discoloration and erythema. HEAD: Normocephalic. Atraumatic. EYES: EOMI. No scleral icterus. No injection or drainage. ENT: No nasal bleeding or discharge. Mucous membranes pink and moist. NECK: Supple. Trachea midline. CARDIOVASCULAR: Regular rate and rhythm. S1, S2 noted. No murmur appreciated. RESPIRATORY: No accessory muscle use. Mild expiratory wheezing. GASTROINTESTINAL: Abdomen soft, non-tender, nondistended. Normoactive bowel sounds x4. MUSCULOSKELETAL: No obvious deformities. Extremities without clubbing, cyanosis , or edema. NEUROLOGICAL: Awake and alert. Able to move all extremities. Normal speech. Procedures None Medications and IVs Current Medications Medications (Trade) Dose Ordered Sig/Lb Route Start Time Stop Time Status Last Admin (Albuterol Neb) 2.5 mg Q6HR NEB PRN NEB 05/31/17 21:30 06/05/17 03:48 (Norvasc) 5 mg DAILY PO 06/01/17 09:00 06/06/17 08:50 (Protonix) 40 mg DAILY PO 06/01/17 09:00 06/06/17 08:50 (Zoloft) 100 mg HS PO 06/01/17 21:00 06/05/17 20:12 (NS Flush) 2 ml UNSCH PRN IV FLUSH 05/31/17 21:30 (NS Flush) 2 ml BID IV FLUSH 06/01/17 09:00 06/06/17 08:51 (Tylenol) 650 mg Q4H PRN PO 05/31/17 21:30 06/01/17 00:05 (Zofran Inj) 4 mg Q6H PRN IVP 05/31/17 21:30 06/01/17 04:00 (Milk Of Magnesia Liq) 30 ml Q12H PRN PO 05/31/17 21:30 (Senokot) 17.2 mg Q12H PRN PO 05/31/17 21:30 06/02/17 17:20 (Dulcolax Supp) 10 mg DAILY PRN RECTAL 05/31/17 21:30 (Lactulose Liq) 30 ml DAILY PRN PO 05/31/17 21:30 (D50w (Vial) Inj) 50 ml UNSCH PRN IV PUSH 05/31/17 21:30 (Glucagon Inj) 1 mg UNSCH PRN OTHER 05/31/17 21:30 (NovoLOG SUPPLEMENTAL SCALE) 1 ACHS SLIDING SCALE SQ 06/01/17 08:00 06/05/17 20:12 (Aspirin) 325 mg DAILY PO 06/01/17 09:00 06/06/17 08:50 (Neurontin) 600 mg TID PO 06/02/17 13:00 06/06/17 08:50 (Baciguent Oint) 1 applic BID TOPICAL 06/03/17 21:00 06/06/17 08:52 (Bactrim Ds 800-160 Mg) 1 tab Q12HR PO 06/04/17 14:00 06/06/17 08:50 (Tylenol) 650 mg Q6H PRN PO 06/04/17 14:00 ([place] 5-325 Mg) 1 tab Q4H PRN PO 06/04/17 14:00 ([place] 7.5-325 Mg) 1 tab Q4H PRN PO 06/04/17 12:30 06/06/17 08:51 (Narcan Inj) 0.4 mg UNSCH PRN IV PUSH 06/04/17 12:30 (Xanax) 0.25 mg Q12H PRN PO 06/04/17 19:00 06/06/17 10:23 (Flu (Quadrivalent) Vaccine Inj) 0.5 ml ONCE ONCE IM 06/07/17 10:00 06/07/17 10:01 Date of Insertion: May 31, 2017 A/P Problem List: (1) Encephalopathy acute ICD Code: G93.40 - Encephalopathy, unspecified Status: Resolved (2) Rhabdomyolysis ICD Code: M62.82 - Rhabdomyolysis Status: Resolved (3) Gluteal cleft wound ICD Code: S31.809A - Unspecified open wound of unspecified buttock, initial encounter Status: Acute (4) Type 2 diabetes mellitus ICD Code: E11.9 - Type 2 diabetes mellitus without complications Status: Chronic Assessment and Plan 61-year-old male with: 1. Acute Rhabdomyolysis: Secondary to fall and immobilization. Improved on IV fluid hydration. CK continues to trending down. 2. Acute encephalopathy on presentation now resolved: Likely secondary to polypharmacy. Sedating medications on hold. Head CT negative. Patient is now back at baseline. 3. Acute kidney injury, now resolved: Likely secondary to dehydration. IV fluids for rhabdomyolysis. Improved. 4. Right buttock wound with sacral decubitus stage II: Appreciate wound care recommendations. General surgery consulted and felt that there is no indication for debridement at this time and continue with local wound care. Patient received IV vancomycin. Cultures grew MRSA, he was switched to Bactrim. We'll continue wound care outpatient with home health. 5. Diabetes mellitus, type II: Monitor Accu-Cheks and cover with sliding scale insulin. Received 12u coverage yesterday. Resume home meds of Glipizide and Metformin but at lower dose. 6. Hypertension, essential: Fair control. Increase Amlodipine to 10mg daily. 7. 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 Urinary retention present on admission with Payne catheter inserted. CT abdomen and pelvis show no obstruction- completed bladder training successful and removal Payne was completed with patient voiding without difficulty at this time. 9. Insomnia: Trial of Benadryl 10. DVT prophylaxis: SCDs, Lovenox. Discussed with patient and Dr. Gómez Discharge Planning Pending [facility] arrangements Problem Qualifiers (1) Rhabdomyolysis: Qualified Codes: M62.82 - Rhabdomyolysis (2) Gluteal cleft wound: Qualified Codes: S31.819A - Unspecified open wound of right buttock, initial encounter Doris Stearns Jun 06, 2017 11:56
[2017-06-06] MEDS ORDERED: amLODIPine BESYLATE 5 MG TAB PO ONE (14:00)
[2017-06-06] MEDS ORDERED: diphenhydrAMINE HCL 25 MG CAP PO PRN (14:00)
[2017-06-06 15:50] VITALS: BP 137/78; PULSE 83; RESP 20; TEMP 97.6; O2SAT 100
[2017-06-06] MEDS: ENOXAPARIN SODIUM 40 MG/0.4 ML SYRINGE SQ SCH (17:00)
[2017-06-06] MEDS: metFORMIN HCL 500 MG TAB PO SCH (18:30)
[2017-06-06 20:00] VITALS: BP 137/73; PULSE 86; RESP 18; TEMP 98.1; O2SAT 98
[2017-06-06] MEDS: SERTRALINE HCL 100 MG TAB PO SCH (21:43)
[2017-06-07] VITALS: BP 139/82; PULSE 77; RESP 17; TEMP 97.6; O2SAT 97
[2017-06-07 04:00] VITALS: BP 153/93; PULSE 96; RESP 18; TEMP 97.6; O2SAT 97
[2017-06-07] MEDS: ACETAMINOPHEN/HYDROcodone 325 MG/7.5 MG TAB PO PRN ×5 (05:17→23:21)
[2017-06-07 08:00] VITALS: BP 147/81; PULSE 76; RESP 19; TEMP 97.4; O2SAT 98
[2017-06-07] MEDS: INSULIN ASPART SUPPLEMENTAL SCALE SQ SCH ×4 (08:00→21:00)
[2017-06-07] MEDS: BACITRACIN TOP OINT 15 GM TUBE TOPICAL SCH ×2 (09:00→21:00)
[2017-06-07] MEDS: SODIUM CHLORIDE 0.9% FLUSH 10 ML FLUSH IV FLUSH SCH ×2 (09:00→23:21)
[2017-06-07] MEDS: glipiZIDE 5 MG TAB PO SCH (09:26)
[2017-06-07] MEDS: metFORMIN HCL 500 MG TAB PO SCH (09:26)
[2017-06-07] MEDS: GABAPENTIN 300 MG CAP PO SCH ×3 (09:26→18:00)
[2017-06-07] MEDS: SULFAMETHOXAZOLE-TRIMETHOPRIM DS 800-160 MG TAB PO SCH ×2 (09:26→23:20)
[2017-06-07] MEDS: PANTOPRAZOLE SOD 40 MG DELAYED RELEASE TAB PO SCH (09:26)
[2017-06-07] MEDS: ASPIRIN 325 MG TAB PO SCH (09:26)
[2017-06-07] MEDS ORDERED: INFLUENZA VIRUS VACCINE (QUADRIVALENT) 0.5 ML SYR IM ONE (10:00)
--- NOTE | 2017-06-07 10:30 | HHI.PR ---
Subjective Remarks Follow up on patient with rhabdomyolysis, encephalopathy. Patient discharged on 06/04 but held pending authorization for [facility]. Discussed with CM this am. Patient seen and examined. Denies any new complaints. Patient states he has used Symbicort in the past but unable to tolerate due to high blood sugars. Objective Vitals Vital Signs Date Time Temp Pulse Resp B/P (MAP) Pulse Ox O2 Delivery O2 Flow Rate FiO2 06/07/17 08:00 97.4 76 19 147/81 (103) 98 06/07/17 04:00 97.6 96 18 153/93 (113) 97 06/07/17 00:00 97.6 77 17 139/82 (101) 97 06/06/17 20:00 98.1 86 18 137/73 (94) 98 06/06/17 15:50 97.6 83 20 137/78 (97) 100 06/06/17 11:45 97.5 82 20 150/77 (101) 97 I/O 06/06/17 06/06/17 06/06/17 06/07/17 06/07/17 06/07/17 07:00 15:00 23:00 07:00 15:00 23:00 Intake Total 480 ml 600 ml 240 ml Balance 480 ml 600 ml 240 ml Intake Oral 480 ml 600 ml 240 ml # Voids 2 5 2 # Bowel Movements 1 Result Diagram: 06/03/17 0555 06/05/17 0614 Imaging Last Impressions Lumbar Spine CT 05/31/17 0000 Signed Impressions: Service Date/Time: Wednesday, May 31, 2017 20:24 - CONCLUSION: No acute lumbar spine abnormality is identified. There are degenerative changes, as above. Андрей Hearn MD Head CT 05/31/17 0000 Signed Impressions: Service Date/Time: Wednesday, May 31, 2017 20:18 - CONCLUSION: Right parietal scalp soft tissue swelling. No fracture or acute intracranial abnormality is identified. Андрей Hearn MD Cervical Spine CT 05/31/17 0000 Signed Impressions: Service Date/Time: Wednesday, May 31, 2017 20:18 - CONCLUSION: No acute cervical spine abnormality is identified. There is degenerative disc disease at multiple levels. Андрей Hearn MD Abdomen/Pelvis CT 05/31/17 0000 Signed Impressions: Service Date/Time: Wednesday, May 31, 2017 20:24 - CONCLUSION: 1. Right gluteal region subcutaneous edema with severe inflammatory change along the medial right superior gluteal cleft. 2. No other acute finding is identified in the abdomen or pelvis. Андрей Hearn MD Objective Remarks GENERAL: Well-nourished, well-developed patient in NAD. Awake and alert. Sitting up in hospital bed watching TV. SKIN: Warm and dry. Right gluteal discoloration and erythema. HEAD: Normocephalic. Atraumatic. EYES: EOMI. No scleral icterus. No injection or drainage. ENT: No nasal bleeding or discharge. Mucous membranes pink and moist. NECK: Supple. Trachea midline. CARDIOVASCULAR: Regular rate and rhythm. S1, S2 noted. No murmur appreciated. RESPIRATORY: No accessory muscle use. Mild expiratory wheezing. GASTROINTESTINAL: Abdomen soft, non-tender, nondistended. Normoactive bowel sounds x4. MUSCULOSKELETAL: No obvious deformities. Extremities without clubbing, cyanosis , or edema. NEUROLOGICAL: Awake and alert. Able to move all extremities. Normal speech. Procedures None Medications and IVs Current Medications Medications (Trade) Dose Ordered Sig/Lb Route Start Time Stop Time Status Last Admin (Albuterol Neb) 2.5 mg Q6HR NEB PRN NEB 05/31/17 21:30 06/05/17 03:48 (Protonix) 40 mg DAILY PO 06/01/17 09:00 06/07/17 09:26 (Zoloft) 100 mg HS PO 06/01/17 21:00 06/06/17 21:43 (NS Flush) 2 ml UNSCH PRN IV FLUSH 05/31/17 21:30 (NS Flush) 2 ml BID IV FLUSH 06/01/17 09:00 06/06/17 21:45 (Tylenol) 650 mg Q4H PRN PO 05/31/17 21:30 06/01/17 00:05 (Zofran Inj) 4 mg Q6H PRN IVP 05/31/17 21:30 06/01/17 04:00 (Milk Of Magnesia Liq) 30 ml Q12H PRN PO 05/31/17 21:30 (Senokot) 17.2 mg Q12H PRN PO 05/31/17 21:30 06/02/17 17:20 (Dulcolax Supp) 10 mg DAILY PRN RECTAL 05/31/17 21:30 (Lactulose Liq) 30 ml DAILY PRN PO 05/31/17 21:30 (D50w (Vial) Inj) 50 ml UNSCH PRN IV PUSH 05/31/17 21:30 (Glucagon Inj) 1 mg UNSCH PRN OTHER 05/31/17 21:30 (NovoLOG SUPPLEMENTAL SCALE) 1 ACHS SLIDING SCALE SQ 06/01/17 08:00 06/06/17 21:54 (Aspirin) 325 mg DAILY PO 06/01/17 09:00 06/07/17 09:26 (Neurontin) 600 mg TID PO 06/02/17 13:00 06/07/17 09:26 (Baciguent Oint) 1 applic BID TOPICAL 06/03/17 21:00 06/06/17 21:46 (Bactrim Ds 800-160 Mg) 1 tab Q12HR PO 06/04/17 14:00 06/07/17 09:26 (Tylenol) 650 mg Q6H PRN PO 06/04/17 14:00 ([place] 5-325 Mg) 1 tab Q4H PRN PO 06/04/17 14:00 ([place] 7.5-325 Mg) 1 tab Q4H PRN PO 06/04/17 12:30 06/07/17 09:25 (Narcan Inj) 0.4 mg UNSCH PRN IV PUSH 06/04/17 12:30 (Xanax) 0.25 mg Q12H PRN PO 06/04/17 19:00 06/06/17 21:53 (Norvasc) 10 mg DAILY PO 06/07/17 09:00 06/07/17 09:27 (Glucophage) 500 mg BIDPC PO 06/06/17 18:00 06/07/17 09:26 (Glucotrol) 5 mg DAILYAC PO 06/07/17 08:00 06/07/17 09:26 (Benadryl) 25 mg HS PRN PO 06/06/17 14:00 (Lovenox Inj) 40 mg Q24H SQ 06/06/17 15:00 06/06/17 17:00 Date of Insertion: May 31, 2017 A/P Problem List: (1) Encephalopathy acute ICD Code: G93.40 - Encephalopathy, unspecified Status: Resolved (2) Rhabdomyolysis ICD Code: M62.82 - Rhabdomyolysis Status: Resolved (3) Gluteal cleft wound ICD Code: S31.809A - Unspecified open wound of unspecified buttock, initial encounter Status: Acute (4) Type 2 diabetes mellitus ICD Code: E11.9 - Type 2 diabetes mellitus without complications Status: Chronic Assessment and Plan 61-year-old male with: 1. Acute Rhabdomyolysis: Secondary to fall and immobilization. Improved on IV fluid hydration. CK continues to trend down. Continue to encourage po intake. 2. Acute encephalopathy on presentation now resolved: Likely secondary to polypharmacy. Sedating medications on hold. Head CT negative. Patient is now back at baseline. 3. Acute kidney injury, now resolved: Likely secondary to dehydration. IV fluids for rhabdomyolysis. Improved. 4. Right buttock wound with sacral decubitus stage II: Appreciate wound care recommendations. General surgery consulted and felt that there is no indication for debridement at this time and continue with local wound care. Patient received IV vancomycin. Cultures grew MRSA, he was switched to Bactrim. We'll continue wound care outpatient with home health. 5. Diabetes mellitus, type II: Monitor Accu-Cheks and cover with sliding scale insulin. Continue Glipizide and Metformin. 6. Hypertension, essential: Improved with increase in Amlodipine to 10mg daily. Continue 7. Moderate malnutrition due to beater out strength weakness and overall diminished functional capacity, poor intake, albumin 2.6 8. Urinary retention present on admission with Payne catheter inserted. CT abdomen and pelvis show no obstruction- completed bladder training successful and removal Payne was completed with patient voiding without difficulty at this time. 9. Insomnia: Trial of Benadryl 10. COPD: mild wheezing noted on exam. Begin Duonebs scheduled q6h while awake. 11. DVT prophylaxis: SCDs, Lovenox. Discussed with patient, JAX, RN and Dr. Gómez Discharge Planning Pending [facility] arrangements Problem Qualifiers (1) Rhabdomyolysis: Qualified Codes: M62.82 - Rhabdomyolysis (2) Gluteal cleft wound: Qualified Codes: S31.819A - Unspecified open wound of right buttock, initial encounter Doris Stearns Jun 07, 2017 10:30
[2017-06-07 12:00] VITALS: BP 147/78; PULSE 84; RESP 19; TEMP 97.9; O2SAT 97
[2017-06-07] MEDS: ALPRAZolam 0.25 MG TAB PO PRN ×2 (12:11→23:20)
[2017-06-07] MEDS: ENOXAPARIN SODIUM 40 MG/0.4 ML SYRINGE SQ SCH (14:28)
[2017-06-07 16:48] VITALS: BP 119/74; PULSE 76; RESP 19; TEMP 97.6; O2SAT 96
[2017-06-07] MEDS: metFORMIN HCL 850 MG TAB PO SCH (18:00)
[2017-06-07] MEDS: RESP: ALBUTEROL 2.5 MG/IPRATROPIUM 0.5 MG NEB (SCH) NEB (20:57)
[2017-06-07 21:06] VITALS: BP 127/77; PULSE 89; RESP 18; TEMP 98.6; O2SAT 97
[2017-06-07] MEDS: SERTRALINE HCL 100 MG TAB PO SCH (23:20)
[2017-06-08] VITALS (7 sets, daily range): BP systolic 112–152; BP diastolic 68–76; PULSE 82–112; RESP 16–17; TEMP 97–98.4; O2SAT 94–100
[2017-06-08] MEDS: ACETAMINOPHEN/HYDROcodone 325 MG/7.5 MG TAB PO PRN ×5 (05:06→21:54)
[2017-06-08] MEDS: RESP: ALBUTEROL 2.5 MG/IPRATROPIUM 0.5 MG NEB (SCH) NEB ×3 (08:00→20:00)
[2017-06-08] MEDS: INSULIN ASPART SUPPLEMENTAL SCALE SQ SCH ×4 (09:00→21:00)
[2017-06-08] MEDS: SODIUM CHLORIDE 0.9% FLUSH 10 ML FLUSH IV FLUSH SCH ×2 (09:00→21:55)
[2017-06-08] MEDS: PANTOPRAZOLE SOD 40 MG DELAYED RELEASE TAB PO SCH (09:01)
[2017-06-08] MEDS: GABAPENTIN 300 MG CAP PO SCH ×3 (09:01→17:34)
[2017-06-08] MEDS: SULFAMETHOXAZOLE-TRIMETHOPRIM DS 800-160 MG TAB PO SCH ×2 (09:01→21:54)
[2017-06-08] MEDS: glipiZIDE 5 MG TAB PO SCH (09:01)
[2017-06-08] MEDS: ASPIRIN 325 MG TAB PO SCH (09:01)
[2017-06-08] MEDS: BACITRACIN TOP OINT 15 GM TUBE TOPICAL SCH ×2 (09:02→21:00)
[2017-06-08] MEDS: metFORMIN HCL 850 MG TAB PO SCH ×2 (09:02→17:34)
--- NOTE | 2017-06-08 10:29 | HHI.PR ---
Subjective Remarks Follow up on patient with rhabdomyolysis, encephalopathy. Patient discharged on 06/04 but held due to continued pending authorization for [facility]. Discussed with Dr. Gómez this morning who stated he has spoken to case management this AM addressing duration of wound care tx Patient seen and examined. Requesting to be discharged today as he has "bills pt to pay and if I don't I will be homeless." is hospitalized and "it's just us down here" and therefore can't otherwise make payment. Requesting night time dose of gabapentin 600 mg, pt stated he has neuropathy from diabetes and takes that medication four times a day. Lesions noted on pt's legs. He stated they are from "bed bug bites" over two months ago. He reported intermittent itching. Denies any new complaints. Discussed with RN (Eliza) no acute issues noted overnight or since start of shift. Objective Vitals Vital Signs Date Time Temp Pulse Resp B/P (MAP) Pulse Ox O2 Delivery O2 Flow Rate FiO2 06/08/17 08:58 97.4 86 16 152/76 (101) 100 06/08/17 06:14 16 06/08/17 04:00 97.0 91 17 140/68 (92) 97 06/08/17 00:00 98.1 82 17 139/69 (92) 94 06/07/17 21:06 98.6 89 18 127/77 (94) 97 06/07/17 16:48 97.6 76 19 119/74 (89) 96 06/07/17 12:00 97.9 84 19 147/78 (101) 97 I/O 06/07/17 06/07/17 06/07/17 06/08/17 06/08/17 06/08/17 07:00 15:00 23:00 07:00 15:00 23:00 Intake Total 240 ml 711 ml Balance 240 ml 711 ml Intake Oral 240 ml 711 ml # Voids 2 3 # Bowel Movements 1 Result Diagram: 06/05/17 0614 Objective Remarks GENERAL: Patient encountered laying a bed awake, NAD SKIN: Warm and dry. Healing lesions noted bilaterally, at the knee and below. HEAD: Normocephalic. EYES: No scleral icterus. No injection or drainage. NECK: Supple, trachea midline. No lymphadenopathy. CARDIOVASCULAR: Regular rate and rhythm without murmurs, gallops, or rubs. RESPIRATORY: Breath sounds equal bilaterally. No wheezes rhonchi or crackles. No accessory muscle use. GASTROINTESTINAL: Abdomen soft, non-tender, nondistended. MUSCULOSKELETAL: No cyanosis, or edema. PSYCHIATRIC: Appropriate mood and affect; insight and judgment normal. Patient was pleasant and cooperative. Speech clear and fluent. Patient evidenced mild anxiety when speaking about pain his bills and possibly being homeless if his financial obligations were not met today. Procedures None Medications and IVs Current Medications Medications (Trade) Dose Ordered Sig/Lb Route Start Time Stop Time Status Last Admin (Albuterol Neb) 2.5 mg Q6HR NEB PRN NEB 05/31/17 21:30 06/05/17 03:48 (Protonix) 40 mg DAILY PO 06/01/17 09:00 06/08/17 09:01 (Zoloft) 100 mg HS PO 06/01/17 21:00 06/07/17 23:20 (NS Flush) 2 ml UNSCH PRN IV FLUSH 05/31/17 21:30 (NS Flush) 2 ml BID IV FLUSH 06/01/17 09:00 06/07/17 23:21 (Tylenol) 650 mg Q4H PRN PO 05/31/17 21:30 06/01/17 00:05 (Zofran Inj) 4 mg Q6H PRN IVP 05/31/17 21:30 06/01/17 04:00 (Milk Of Magnesia Liq) 30 ml Q12H PRN PO 05/31/17 21:30 (Senokot) 17.2 mg Q12H PRN PO 05/31/17 21:30 06/02/17 17:20 (Dulcolax Supp) 10 mg DAILY PRN RECTAL 05/31/17 21:30 (Lactulose Liq) 30 ml DAILY PRN PO 05/31/17 21:30 (D50w (Vial) Inj) 50 ml UNSCH PRN IV PUSH 05/31/17 21:30 (Glucagon Inj) 1 mg UNSCH PRN OTHER 05/31/17 21:30 (NovoLOG SUPPLEMENTAL SCALE) 1 ACHS SLIDING SCALE SQ 06/01/17 08:00 06/07/17 12:16 (Aspirin) 325 mg DAILY PO 06/01/17 09:00 06/08/17 09:01 (Neurontin) 600 mg TID PO 06/02/17 13:00 06/08/17 09:01 (Baciguent Oint) 1 applic BID TOPICAL 06/03/17 21:00 06/08/17 09:02 (Bactrim Ds 800-160 Mg) 1 tab Q12HR PO 06/04/17 14:00 06/08/17 09:01 (Tylenol) 650 mg Q6H PRN PO 06/04/17 14:00 ([place] 5-325 Mg) 1 tab Q4H PRN PO 06/04/17 14:00 ([place] 7.5-325 Mg) 1 tab Q4H PRN PO 06/04/17 12:30 06/08/17 09:06 (Narcan Inj) 0.4 mg UNSCH PRN IV PUSH 06/04/17 12:30 (Xanax) 0.25 mg Q12H PRN PO 06/04/17 19:00 06/07/17 23:20 (Norvasc) 10 mg DAILY PO 06/07/17 09:00 06/08/17 09:02 (Glucotrol) 5 mg DAILYAC PO 06/07/17 08:00 06/08/17 09:01 (Benadryl) 25 mg HS PRN PO 06/06/17 14:00 (Lovenox Inj) 40 mg Q24H SQ 06/06/17 15:00 06/07/17 14:28 (Glucophage) 850 mg BIDPC PO 06/07/17 18:00 06/08/17 09:02 (Duoneb Neb) 1 ampule Q6HR WHILE AWAKE NEB NEB 06/07/17 14:00 06/07/17 20:57 Urinary Catheter: No Date of Insertion: May 31, 2017 A/P Problem List: (1) Encephalopathy acute ICD Code: G93.40 - Encephalopathy, unspecified Status: Resolved (2) Rhabdomyolysis ICD Code: M62.82 - Rhabdomyolysis Status: Resolved (3) Gluteal cleft wound ICD Code: S31.809A - Unspecified open wound of unspecified buttock, initial encounter Status: Acute (4) Type 2 diabetes mellitus ICD Code: E11.9 - Type 2 diabetes mellitus without complications Status: Chronic Assessment and Plan 61-year-old male who presented to the emergency room after falling down and unable to get up. Patient is very lethargic and unable to provide any history. 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 Apparently she fell and he tried to help but fell on top of her and was unable to get up. He reports to the ED that he has been falling recently. Again he is very lethargic and unable to provide any history. It is worth noting is toxicology screen is positive for opiates, benzodiazepines, and marijuana. Acute encephalopathy: Resolved. Diabetes: Gabapentin 600 mg by mouth at bedtime added to his regimen. Blood glucose ranged from 85 to 223. Patient received 3 units of supplemental insulin over the past 24 hours. Right buttock wound and sacral decubitus stage II: To receive home health care for this issue. COPD: Accepted one nebulizer treatment yesterday declined treatment this morning. 1. Acute Rhabdomyolysis: Secondary to fall and immobilization. Improved on IV fluid hydration. CK continues to trend down. Continue to encourage po intake. 2. Acute encephalopathy on presentation now resolved: Likely secondary to polypharmacy. Sedating medications on hold. Head CT negative. Patient is now back at baseline. 3. Acute kidney injury, now resolved: Likely secondary to dehydration. IV fluids for rhabdomyolysis. Improved. 4. Right buttock wound with sacral decubitus stage II: Appreciate wound care recommendations. General surgery consulted and felt that there is no indication for debridement at this time and continue with local wound care. Patient received IV vancomycin. Cultures grew MRSA, he was switched to Bactrim. We'll continue wound care outpatient with home health. 5. Diabetes mellitus, type II: Monitor Accu-Cheks and cover with sliding scale insulin. Continue Glipizide and Metformin. 6. Hypertension, essential: Improved with increase in Amlodipine to 10mg daily. Continue 7. 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 Urinary retention present on admission with Payne catheter inserted. CT abdomen and pelvis show no obstruction- completed bladder training successful and removal Payne was completed with patient voiding without difficulty at this time. 9. Insomnia: Trial of Benadryl 10. COPD: mild wheezing noted on exam. Begin Duonebs scheduled q6h while awake. 11. DVT prophylaxis: SCDs, Lovenox. Discussed with patient,RN and Dr. Gómez Discharge Planning Pending [facility] arrangements. Pt is voicing desire to be discharged today in-order to pay bills and is afraid if he doesn;t pay his rent he will be homeless. 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 Jun 08, 2017 10:29
[2017-06-08] MEDS: ALPRAZolam 0.25 MG TAB PO PRN ×2 (10:55→23:49)
[2017-06-08] MEDS: ENOXAPARIN SODIUM 40 MG/0.4 ML SYRINGE SQ SCH (13:50)
[2017-06-08] MEDS ORDERED: GABAPENTIN 300 MG CAP PO ONE (21:00)
[2017-06-08] MEDS: SERTRALINE HCL 100 MG TAB PO SCH (21:54)
[2017-06-09] VITALS: BP 151/74; PULSE 85; RESP 17; TEMP 97; O2SAT 95
[2017-06-09] MEDS: ACETAMINOPHEN/HYDROcodone 325 MG/7.5 MG TAB PO PRN ×3 (03:24→14:26)
[2017-06-09 04:00] VITALS: BP 141/74; PULSE 84; RESP 17; TEMP 97; O2SAT 96
[2017-06-09 07:50] VITALS: BP 146/74; PULSE 106; RESP 20; TEMP 98; O2SAT 99
[2017-06-09] MEDS: RESP: ALBUTEROL 2.5 MG/IPRATROPIUM 0.5 MG NEB (SCH) NEB ×2 (07:50→13:38)
[2017-06-09] MEDS: SODIUM CHLORIDE 0.9% FLUSH 10 ML FLUSH IV FLUSH SCH (08:23)
[2017-06-09] MEDS: INSULIN ASPART SUPPLEMENTAL SCALE SQ SCH ×3 (08:23→17:48)
[2017-06-09] MEDS: SULFAMETHOXAZOLE-TRIMETHOPRIM DS 800-160 MG TAB PO SCH ×2 (08:25→18:25)
[2017-06-09] MEDS: PANTOPRAZOLE SOD 40 MG DELAYED RELEASE TAB PO SCH (08:25)
[2017-06-09] MEDS: glipiZIDE 5 MG TAB PO SCH (08:25)
[2017-06-09] MEDS: GABAPENTIN 300 MG CAP PO SCH ×2 (08:25→12:01)
[2017-06-09] MEDS: metFORMIN HCL 850 MG TAB PO SCH ×2 (08:25→17:49)
[2017-06-09] MEDS: ASPIRIN 325 MG TAB PO SCH (08:25)
[2017-06-09] MEDS: BACITRACIN TOP OINT 15 GM TUBE TOPICAL SCH (08:26)
[2017-06-09 11:50] VITALS: BP 142/68; PULSE 83; RESP 20; TEMP 97.6; O2SAT 98
[2017-06-09] MEDS: ALPRAZolam 0.25 MG TAB PO PRN (12:00)
[2017-06-09 13:40] VITALS: O2SAT 98
[2017-06-09 14:24] LABS: BICARBONATE 28.2 MEQ/L (21.0-32.0); POTASSIUM 4.4 MEQ/L (3.5-5.1)
[2017-06-09] MEDS: ENOXAPARIN SODIUM 40 MG/0.4 ML SYRINGE SQ SCH (14:26)
--- NOTE | 2017-06-09 15:24 | HHI.PR ---
Subjective Remarks Follow up on patient with rhabdomyolysis, encephalopathy. Patient discharged on 06/04 but held due to continued pending authorization for [facility]. Patient seen and examined. Pt questioning when he will be discharged. information shared as noted by CM this morning. Pt noted evening dose of gabapentin was helpful. He did report foot pain last evening which was from eating "no sugar added ice cream." Denies any new complaints. Pt denied cough, fever, NVD, chest/abdominal pain, bowel or bladder issues. Shortness of breath was endorsed. Anxiety was reported due to his financial situation wanting to get his bills paid. Discussed with RN (Eliza) no acute issues noted overnight or since start of shift. Objective Vitals Vital Signs Date Time Temp Pulse Resp B/P (MAP) Pulse Ox O2 Delivery O2 Flow Rate FiO2 06/09/17 13:40 98 06/09/17 11:50 97.6 83 20 142/68 (92) 98 06/09/17 07:50 98.0 106 20 146/74 (98) 99 06/09/17 05:18 16 06/09/17 04:00 97.0 84 17 141/74 (96) 96 06/09/17 00:00 97.0 85 17 151/74 (99) 95 06/08/17 20:09 96 06/08/17 20:00 98.4 90 17 131/72 (91) 97 06/08/17 16:00 97.5 112 16 112/74 (87) 99 I/O 06/08/17 06/08/17 06/08/17 06/09/17 06/09/17 06/09/17 07:00 15:00 23:00 07:00 15:00 23:00 Intake Total 720 ml 600 ml Output Total 300 ml Balance 420 ml 600 ml Intake Oral 720 ml 600 ml Output Urine Total 300 ml # Voids 2 2 # Bowel Movements 1 Result Diagram: 06/09/17 1250 Imaging Last Impressions Lumbar Spine CT 05/31/17 0000 Signed Impressions: Service Date/Time: Wednesday, May 31, 2017 20:24 - CONCLUSION: No acute lumbar spine abnormality is identified. There are degenerative changes, as above. Андрей Hearn MD Head CT 05/31/17 0000 Signed Impressions: Service Date/Time: Wednesday, May 31, 2017 20:18 - CONCLUSION: Right parietal scalp soft tissue swelling. No fracture or acute intracranial abnormality is identified. Андрей Hearn MD Cervical Spine CT 05/31/17 0000 Signed Impressions: Service Date/Time: Wednesday, May 31, 2017 20:18 - CONCLUSION: No acute cervical spine abnormality is identified. There is degenerative disc disease at multiple levels. Андрей Hearn MD Abdomen/Pelvis CT 05/31/17 0000 Signed Impressions: Service Date/Time: Wednesday, May 31, 2017 20:24 - CONCLUSION: 1. Right gluteal region subcutaneous edema with severe inflammatory change along the medial right superior gluteal cleft. 2. No other acute finding is identified in the abdomen or pelvis. Андрей Hearn MD Objective Remarks GENERAL: Patient encountered laying a bed awake, NAD SKIN: Warm and dry. Healing lesions noted bilaterally, at the knee and below to the ankles. Multiple tattoos noted. HEAD: Normocephalic. EYES: No scleral icterus. No injection or drainage. NECK: Supple, trachea midline. No lymphadenopathy. CARDIOVASCULAR: Regular rate and rhythm without murmurs, gallops, or rubs. RESPIRATORY: Breath sounds equal bilaterally. No wheezes rhonchi or crackles. No accessory muscle use. GASTROINTESTINAL: Abdomen soft, non-tender, nondistended. MUSCULOSKELETAL: No cyanosis, or edema. PSYCHIATRIC: Anxious mood and affect; insight and judgment normal. Patient was pleasant and cooperative. Speech clear and fluent. Patient evidenced mild anxiety when speaking about pain his bills and possibly being homeless if his financial obligations were not soon met. Pt alert and oriented x3. Procedures None Medications and IVs Current Medications Medications (Trade) Dose Ordered Sig/Lb Route Start Time Stop Time Status Last Admin (Albuterol Neb) 2.5 mg Q6HR NEB PRN NEB 05/31/17 21:30 06/05/17 03:48 (Protonix) 40 mg DAILY PO 06/01/17 09:00 06/09/17 08:25 (Zoloft) 100 mg HS PO 06/01/17 21:00 06/08/17 21:54 (NS Flush) 2 ml UNSCH PRN IV FLUSH 05/31/17 21:30 (NS Flush) 2 ml BID IV FLUSH 06/01/17 09:00 06/08/17 21:55 (Tylenol) 650 mg Q4H PRN PO 05/31/17 21:30 06/01/17 00:05 (Zofran Inj) 4 mg Q6H PRN IVP 05/31/17 21:30 06/01/17 04:00 (Milk Of Magnesia Liq) 30 ml Q12H PRN PO 05/31/17 21:30 (Senokot) 17.2 mg Q12H PRN PO 05/31/17 21:30 06/02/17 17:20 (Dulcolax Supp) 10 mg DAILY PRN RECTAL 05/31/17 21:30 (Lactulose Liq) 30 ml DAILY PRN PO 05/31/17 21:30 (D50w (Vial) Inj) 50 ml UNSCH PRN IV PUSH 05/31/17 21:30 (Glucagon Inj) 1 mg UNSCH PRN OTHER 05/31/17 21:30 (NovoLOG SUPPLEMENTAL SCALE) 1 ACHS SLIDING SCALE SQ 06/01/17 08:00 06/07/17 12:16 (Aspirin) 325 mg DAILY PO 06/01/17 09:00 06/09/17 08:25 (Neurontin) 600 mg TID PO 06/02/17 13:00 06/09/17 12:01 (Baciguent Oint) 1 applic BID TOPICAL 06/03/17 21:00 06/09/17 08:26 (Bactrim Ds 800-160 Mg) 1 tab Q12HR PO 06/04/17 14:00 06/09/17 08:25 (Tylenol) 650 mg Q6H PRN PO 06/04/17 14:00 ([place] 5-325 Mg) 1 tab Q4H PRN PO 06/04/17 14:00 ([place] 7.5-325 Mg) 1 tab Q4H PRN PO 06/04/17 12:30 06/09/17 14:26 (Narcan Inj) 0.4 mg UNSCH PRN IV PUSH 06/04/17 12:30 (Xanax) 0.25 mg Q12H PRN PO 06/04/17 19:00 06/09/17 12:00 (Norvasc) 10 mg DAILY PO 06/07/17 09:00 06/09/17 08:25 (Glucotrol) 5 mg DAILYAC PO 06/07/17 08:00 06/09/17 08:25 (Benadryl) 25 mg HS PRN PO 06/06/17 14:00 (Lovenox Inj) 40 mg Q24H SQ 06/06/17 15:00 06/09/17 14:26 (Glucophage) 850 mg BIDPC PO 06/07/17 18:00 06/09/17 08:25 (Duoneb Neb) 1 ampule Q6HR WHILE AWAKE NEB NEB 06/07/17 14:00 06/09/17 13:38 Urinary Catheter: No Date of Insertion: May 31, 2017 A/P Problem List: (1) Encephalopathy acute ICD Code: G93.40 - Encephalopathy, unspecified Status: Resolved (2) Rhabdomyolysis ICD Code: M62.82 - Rhabdomyolysis Status: Resolved (3) Gluteal cleft wound ICD Code: S31.809A - Unspecified open wound of unspecified buttock, initial encounter Status: Acute (4) Type 2 diabetes mellitus ICD Code: E11.9 - Type 2 diabetes mellitus without complications Status: Chronic Assessment and Plan 61-year-old male who presented to the emergency room after falling down and unable to get up. Patient is very lethargic and unable to provide any history. 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 Apparently she fell and he tried to help but fell on top of her and was unable to get up. He reports to the ED that he has been falling recently. Again he is very lethargic and unable to provide any history. It is worth noting is toxicology screen is positive for opiates, benzodiazepines, and marijuana. Rhabdomyolysis:Resolved. Creatinine kinase 75. Diabetes: Blood glucose ranged from 91 to 181. Patient received no units of supplemental insulin over the past 24 hours. Right buttock wound and sacral decubitus stage II: To receive home health care for this issue. COPD: Accepted 3 nebulizer treatments over past 24 hours, one this morning. 1. Acute Rhabdomyolysis: Secondary to fall and immobilization. Improved on IV fluid hydration. CK continues to trend down. Continue to encourage po intake. 2. Acute encephalopathy on presentation now resolved: Likely secondary to polypharmacy. Sedating medications on hold. Head CT negative. Patient is now back at baseline. 3. Acute kidney injury, now resolved: Likely secondary to dehydration. IV fluids for rhabdomyolysis. Improved. 4. Right buttock wound with sacral decubitus stage II: Appreciate wound care recommendations. General surgery consulted and felt that there is no indication for debridement at this time and continue with local wound care. Patient received IV vancomycin. Cultures grew MRSA, he was switched to Bactrim. We'll continue wound care outpatient with home health. 5. Diabetes mellitus, type II: Monitor Accu-Cheks and cover with sliding scale insulin. Continue Glipizide and Metformin. 6. Hypertension, essential: Improved with increase in Amlodipine to 10mg daily. Continue 7. 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 Urinary retention present on admission with Payne catheter inserted. CT abdomen and pelvis show no obstruction- completed bladder training successful and removal Payne was completed with patient voiding without difficulty at this time. 9. Insomnia: Trial of Benadryl 10. COPD: mild wheezing noted on exam. Begin Duonebs scheduled q6h while awake. 11. DVT prophylaxis: SCDs, Lovenox. Discussed with patient,RN and Dr. Gómez Discharge Planning Pending [facility] arrangements. Pt is voicing desire to be discharged as soon as possible in-order to pay bills and is afraid if he doesn't pay his rent he will be homeless. CM note reports [facility] authorization approved but there is not an agency available. CM following. Problem Qualifiers (1) Rhabdomyolysis: Qualified Codes: M62.82 - Rhabdomyolysis (2) Gluteal cleft wound: Qualified Codes: S31.819A - Unspecified open wound of right buttock, initial encounter (3) Type 2 diabetes mellitus: Qualified Codes: E11.42 - Type 2 diabetes mellitus with diabetic polyneuropathy ; Z79.4 - half-way (current) use of insulin Hugo Bullard Jr. Jun 09, 2017 15:24
[2017-06-09 15:42] VITALS: BP 128/69; PULSE 92; RESP 20; TEMP 96.2; O2SAT 95
[2017-06-09] MEDS ORDERED: GABAPENTIN 300 MG CAP PO SCH (18:00)
== END 2017-06-09 18:30 | disposition home health service (06) | DRG 682 ==
LOC: NEDAMB 15:12 → UNDOADMIN 22:07 → NEDA 22:07 → HOCA 23:38
PROVIDERS: ADMIT Family Medicine; ATTEND Family Medicine
PROC: 0T9B70Z Drainage of Bladder with Drainage Device, Via Natural or Artificial Opening (ICD-10-PCS; principal; 2017-05-31)
DX: N17.9 Acute kidney failure, unspecified (principal); G92 Toxic encephalopathy; E44.0 Moderate protein-calorie malnutrition; M62.82 Rhabdomyolysis; L89.152 Pressure ulcer of sacral region, stage 2; E11.29 Type 2 diabetes mellitus with other diabetic kidney complication; L02.31 Cutaneous abscess of buttock; E86.0 Dehydration; R33.9 Retention of urine, unspecified; I10 Essential (primary) hypertension; J44.9 Chronic obstructive pulmonary disease, unspecified; G47.00 Insomnia, unspecified; E11.40 Type 2 diabetes mellitus with diabetic neuropathy, unspecified; W19.XXXA Unspecified fall, initial encounter; R29.6 Repeated falls; F32.9 Major depressive disorder, single episode, unspecified; F41.9 Anxiety disorder, unspecified; Z23 Encounter for immunization; Z79.84 Long term (current) use of oral hypoglycemic drugs; Z88.0 Allergy status to penicillin
CPT/HCPCS: 51702; 70450; 72125; 72131; 74177; 80048; 80053; 80076; 80202; 80307; 81001; 82550; 82552; 82565; 82948; 83605; 83735; 84443; 85025; 86403; 87040; 87070; 87147; 87186; 87205; 87640; 87641; 90686; 93005; 94640; 94664; 96365; J1650; J1815; J2270; J2405; J3370; J7030; J7040; J7050; J7613; Q2038; Q9967

== ENCOUNTER 2017-06-15 13:09 | Observation (INO) | payer MEDICAID ==
[~2017-06-15] VITALS: Ht 177.8 cm; Wt 90.0 kg
[~2017-06-15 13:09] MED LIST changes: +SULF1TAB23 PO; -TRAZ100T4 PO
[2017-06-15 13:26] VITALS: BP 164/80; PULSE 108; RESP 18; TEMP 97.8; O2SAT 97
[2017-06-15 13:45] VITALS: BP_SYST 147; BP_SYST 158; BP_DIAS 68; BP_DIAS 73; PULSE 106; RESP 17; O2SAT 98
[2017-06-15] MEDS ORDERED: SODIUM CHLORIDE 0.9% FLUSH 10 ML FLUSH IVF PRN (13:45)
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
[2017-06-15 14:26] LABS: AUTOMATED NEUTROPHIL # 7.3 TH/MM3 (1.8-7.7); BASOPHIL # 0.1 TH/MM3 (0-0.2); BASOPHIL % 1.1 % (0.0-2.0); EOSINOPHIL # 0.5 TH/MM3 (0-0.4); HEMATOCRIT 38.3 % (39.0-51.0); HEMO FLAGS DIFF FINAL; LYMPH % 25.6 % (9.0-44.0); MEAN CELL VOLUME 84.8 FL (80.0-100.0); MEAN CORPUSCULAR HEMOGLOBIN 28.8 PG (27.0-34.0); MEAN CORPUSCULAR HGB CONC 33.9 % (32.0-36.0); NEUT % 63.3 % (16.0-70.0); PLATELET COUNT 320 TH/MM3 (150-450); RED BLOOD COUNT 4.51 MIL/MM3 (4.50-5.90); RED CELL DISTRIBUTION WIDTH 14.8 % (11.6-17.2); WHITE BLOOD COUNT 11.6 TH/MM3 (4.0-11.0)
--- NOTE | 2017-06-15 14:30 | RADRPT ---
EXAM DATE/TIME: 06/15/2017 14:09 [facility] COMPARISON: CHEST SINGLE AP, January 04, 2017, 13:48. INDICATIONS : Chest pain post fall. MEDICAL HISTORY : None. SURGICAL HISTORY : None. ENCOUNTER: Initial ACUITY: 1 day PAIN SCORE: 6/10 LOCATION: Bilateral chest FINDINGS: A single view of the chest demonstrates the lungs to be symmetrically aerated without evidence of mas s, infiltrate or effusion. The cardiomediastinal contours are unremarkable. Osseous structures are intact. CONCLUSION: 1. No acute cardiopulmonary disease. No significant pneumothorax or significantly displace rib fractu res. Amaury Chowdhury MD on June 15, 2017 at 14:27 Board Certified Radiologist. This report was verified electronically.
[2017-06-15 14:44] LABS: ANION GAP 8 MEQ/L (5-15); BICARBONATE 21.9 MEQ/L (21.0-32.0); BLOOD UREA NITROGEN 14 MG/DL (7-18); CHLORIDE 109 MEQ/L (98-107); GLOMERULAR FILTRATION RATE 100 ML/MIN (>89); MAGNESIUM 1.7 MG/DL (1.5-2.5); SODIUM (NA) 139 MEQ/L (136-145)
[2017-06-15 14:45] LABS: ALCOHOL LESS THAN 3 MG/DL (0-5); POTASSIUM 4.3 MEQ/L (3.5-5.1)
[2017-06-15 14:48] LABS: APTT (PATIENT) 23.3 SEC (24.3-30.1); PROTHROMBIN TIME - PATIENT 10.7 SEC (9.8-11.6)
[2017-06-15 14:50] LABS: CREATINE KINASE 86 U/L (39-308)
[2017-06-15 15:36] VITALS: BP 173/84; PULSE 99; RESP 17; TEMP 97.8; O2SAT 98
[2017-06-15] MEDS ORDERED: SODIUM CHLORIDE 0.9% FLUSH 10 ML FLUSH IV FLUSH PRN (16:00)
[2017-06-15] MEDS ORDERED: NALOXONE HCL 0.4 MG/ML AMP IV PUSH PRN (16:00)
[2017-06-15] MEDS ORDERED: SENNOSIDES 8.6 MG TAB PO PRN (16:00)
[2017-06-15] MEDS ORDERED: LACTULOSE SYRUP 20 GM/30 ML CUP PO PRN (16:00)
[2017-06-15] MEDS ORDERED: ACETAMINOPHEN 325 MG TAB PO PRN (16:00)
[2017-06-15] MEDS ORDERED: BISACODYL 10 MG SUPP RECTAL PRN (16:00)
[2017-06-15] MEDS ORDERED: MAGNESIUM HYDROXIDE SUSP 30 ML CUP PO PRN (16:00)
[2017-06-15] MEDS ORDERED: SODIUM CHLOR 0.9% 1000 ML INJ 1,000 ML IV SCH (16:00)
[2017-06-15] MEDS ORDERED: ONDANSETRON HCL 4 MG/2 ML VIAL IVP PRN (16:00)
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
[2017-06-15] MEDS ORDERED: DOCUSATE SODIUM 50 MG/SENNA 8.6 MG TAB PO SCH (21:00)
[2017-06-15] MEDS ORDERED: SODIUM CHLORIDE 0.9% FLUSH 10 ML FLUSH IV FLUSH SCH (21:00)
--- NOTE | 2017-06-17 00:04 | EKG ---
Date Performed: 06/15/2017 Time Performed: 13:22:34 PTAGE: 61 years EKG: SINUS TACHYCARDIA POSSIBLE LEFT ATRIAL ENLARGEMENT POSSIBLE INFERIOR MYOCARDIAL INFARCTION ABNORMAL ECG Compared to the PREVIOUS TRACING from 05/31/17, criteria for possible inferior myocardial infarction is n ew DOCTOR: Taj Chung Interpretating Date/Time 06/17/2017 00:03:48
== END 2017-06-15 17:01 | disposition left against medical advice (07) ==
LOC: NEPC 13:09 → NEDA 16:05
PROVIDERS: ADMIT Family Medicine; ATTEND Family Medicine
DX: R07.89 Other chest pain (principal); M54.5 Low back pain; G89.29 Other chronic pain; R00.0 Tachycardia, unspecified; R55 Syncope and collapse; R40.0 Somnolence; R94.31 Abnormal electrocardiogram [ECG] [EKG]; J44.9 Chronic obstructive pulmonary disease, unspecified; E11.9 Type 2 diabetes mellitus without complications; F41.9 Anxiety disorder, unspecified; I10 Essential (primary) hypertension; B19.20 Unspecified viral hepatitis C without hepatic coma; Z79.899 Other long term (current) drug therapy; Z79.82 Long term (current) use of aspirin; Z79.84 Long term (current) use of oral hypoglycemic drugs; V89.2XXA Person injured in unspecified motor-vehicle accident, traffic, initial encounter
CPT/HCPCS: 71010; 80048; 80307; 82550; 83735; 84484; 85025; 85610; 85730; 93005; G0378

== ENCOUNTER 2017-07-01 20:29 | Emergency (ER) | payer MEDICAID ==
[~2017-07-01] VITALS: Ht 177.8 cm; Wt 90.0 kg
[2017-07-01 20:36] VITALS: BP 165/110; PULSE 95; RESP 18; TEMP 98; O2SAT 98
[2017-07-01] MEDS ORDERED: CIME200T23 PO ×2 (20:46)
[2017-07-01] MEDS ORDERED: TRAZ1TAB45 PO ×2 (20:46)
[2017-07-01] MEDS ORDERED: SODIUM CHLOR 0.9% 1000 ML INJ 1,000 ML IV SCH ×2 (20:52)
[2017-07-01] MEDS ORDERED: SODIUM CHLORIDE 0.9% FLUSH 10 ML FLUSH IV FLUSH PRN ×2 (21:00)
[2017-07-01] MEDS ORDERED: ONDANSETRON HCL 4 MG/2 ML VIAL IVP ONE ×2 (21:00)
--- NOTE | 2017-07-01 21:14 | PD ---
HPI Chief Complaint: Abdominal Pain Time Seen by Provider: 20:48 Travel History International Travel<30 days: No Contact w/Intl Traveler<30days: No Traveled to known affect area: No History of Present Illness HPI Patient comes in complaining of epigastric abdominal pain ongoing for 2 days. Pain is sharp stabbing like in nature and radiates superiorly. Patient states he's been vomiting [place] green bile. Patient states some similar happen to him and was told he had an infection of his abdomen and had to be on IV antibiotics. Patient denies any fevers, diarrhea, melena, chest pain, shortness of breath, back pain, or loss change in bowel or bladder. Patient denies doing anything for this states he's been trying to deal with it. Denies anything making it better or worse. PFSH Past Medical History Hx Anticoagulant Therapy: Yes (ASA) Arthritis: No Asthma: No Autoimmune Disease: No Blood Disorders: No Anxiety: Yes Depression: No Heart Rhythm Problems: No Cancer: No Cardiovascular Problems: Yes High Cholesterol: No Chemotherapy: No Chest Pain: No Congestive Heart Failure: No COPD: Yes Cerebrovascular Accident: No Diabetes: Yes Patient Takes Glucophage: Yes Diminished Hearing: No Endocrine: No Gastrointestinal Disorders: No GERD: No Glaucoma: No Genitourinary: No Headaches: Yes Hepatitis: Yes (C) Hiatal Hernia: No Hypertension: Yes Immune Disorder: No Implanted Vascular Access Dvce: No Kidney Stones: No Musculoskeletal: No Neurologic: No Psychiatric: Yes Reproductive: No Respiratory: Yes Immunizations Current: Yes Migraines: No Myocardial Infarction: No Pancreatitis: Yes Radiation Therapy: No Renal Failure: No Seizures: No Sickle Cell Disease: No Sleep Apnea: No Thyroid Disease: No Ulcer: No Influenza Vaccination: Yes PNEUMOCCOCAL Vaccine (Year): 2 Past Surgical History Abdominal Surgery: Yes (gall bladder removal 2016) AICD: No Arteriovenous Shunt: No Cardiac Surgery: No Cholecystectomy: Yes Ear Surgery: No Endocrine Surgery: No Eye Surgery: No Genitourinary Surgery: No Gynecologic Surgery: No Insulin Pump: No Joint Replacement: No Neurologic Surgery: No Oral Surgery: No Pacemaker: No Thoracic Surgery: No Other Surgery: Yes (right knee surg in 1981) Social History Alcohol Use: Yes (OCC) Tobacco Use: No Substance Use: Yes (MARIJUANA ONCE DAILY ) Allergies-Medications (Allergen,Severity, Reaction): Coded Allergies: penicillin G (Verified Allergy, Severe, RASH, 06/15/17) ketorolac (Unverified Adverse Reaction, Severe, HALLUCINATES, 06/04/17) Reported Meds & Prescriptions Reported Meds & Active Scripts Active Zofran Odt (Ondansetron Odt) 4 Mg Tab 4 Mg SL Q6HR PRN Reported Trazodone (Trazodone HCl) 150 Mg Tablet 150 Mg PO HS Tagamet Hb (Cimetidine) 200 Mg Tab Unknown Dose PO BID Gabapentin 600 Mg Tab 600 Mg PO QID Albuterol Neb (Albuterol Sulfate) 2.5 Mg/3 Ml Neb 2.5 Mg NEB Q6HR PRN Proair Hfa 8.5 GM Inh (Albuterol Sulfate) 90 Mcg/Act Aer 2 Puff INH Q6H PRN 108 mcg/actuation Aspirin 325 Mg Tab 325 Mg PO DAILY Glipizide 5 Mg Tab 5 Mg PO BID Take 30 minutes before a meal Atrovent HFA 12.9 GM Inh (Ipratropium [place]) 17 Mcg/Act Aer 2 Puff INH QID Metformin (Metformin HCl) 850 Mg Tab 850 Mg PO BIDPC With meals Methocarbamol 500 Mg Tab 500 Mg PO TID Zoloft (Sertraline HCl) 100 Mg Tab 100 Mg PO HS Review of Systems Except as stated in HPI: all other systems reviewed are Neg Physical Exam Narrative GENERAL: Well-developed, overly nourished, in no acute distress, and non-ill appearing. SKIN: Focused skin assessment warm and dry. HEAD: Atraumatic. Normocephalic. EYES: Pupils equal and round. EOMI. No scleral icterus. No injection or drainage. ENT: No nasal bleeding or discharge. Mucous membranes pink and moist. NECK: Trachea midline. Supple. No nuclear rigidity. CARDIOVASCULAR: Regular rate and rhythm. No murmur appreciated. RESPIRATORY: No accessory muscle use. No respiratory distress. Clear to auscultation. Breath sounds equal bilaterally. GASTROINTESTINAL: Abdomen soft, nondistended, and no guarding. Hepatic and splenic margins not palpable. Normal bowel sounds 4. No pulsatile mass. Patient reports tenderness to palpation throughout the abdomen but greatest in the epigastric. MUSCULOSKELETAL: No obvious deformities. No clubbing. No cyanosis. No edema. Full range of motion. NEUROLOGICAL: Awake and alert. No obvious cranial nerve deficits. Motor grossly within normal limits. Normal speech. PSYCHIATRIC: Appropriate mood and affect; insight and judgment normal. Data Data Last Documented VS Vital Signs Date Time Temp Pulse Resp B/P (MAP) Pulse Ox O2 Delivery O2 Flow Rate FiO2 07/02/17 00:36 97 18 180/87 (118) 99 07/01/17 20:36 98.0 Orders Orders Complete Blood Count With Diff (07/01/17 20:52) Comprehensive Metabolic Panel (07/01/17 20:52) Lipase (07/01/17 20:52) Prothrombin Time / Inr (Pt) (07/01/17 20:52) Act Partial Throm Time (Ptt) (07/01/17 20:52) Ct Abd/Pel W Iv Contrast(Rout) (07/01/17 20:52) Iv Access Insert/Monitor (07/01/17 20:52) Ecg Monitoring (07/01/17 20:52) Oximetry (07/01/17 20:52) Ondansetron Inj (Zofran Inj) (07/01/17 21:00) Sodium Chlor 0.9% 1000 Ml Inj (Ns 1000 M (07/01/17 20:52) Sodium Chloride 0.9% Flush (Ns Flush) (07/01/17 21:00) Chest, Single Ap (07/01/17 ) Electrocardiogram (07/01/17 ) Iohexol 350 Inj (Omnipaque 350 Inj) (07/01/17 22:09) Famotidine Inj (Pepcid Inj) (07/01/17 22:45) Al-Mag Hy-Si 40-40-4 Mg/Ml Liq (Mag-Al P (07/01/17 22:45) Lidocaine 2% Viscous (Xylocaine 2% Visco (07/01/17 22:45) Morphine Inj (Morphine Inj) (07/01/17 23:00) Metoclopramide Inj (Reglan Inj) (07/01/17 23:00) Morphine Inj (Morphine Inj) (07/02/17 00:00) Ed Discharge Order (07/01/17 23:59) Labs Laboratory Tests Test 07/01/17 20:50 White Blood Count 6.2 TH/MM3 Red Blood Count 5.06 MIL/MM3 Hemoglobin 14.7 GM/DL Hematocrit 42.9 % Mean Corpuscular Volume 84.7 FL Mean Corpuscular Hemoglobin 28.9 PG Mean Corpuscular Hemoglobin Concent 34.2 % Red Cell Distribution Width 14.7 % Platelet Count 262 TH/MM3 Mean Platelet Volume 9.0 FL Neutrophils (%) (Auto) 61.2 % Lymphocytes (%) (Auto) 30.8 % Monocytes (%) (Auto) 6.3 % Eosinophils (%) (Auto) 0.7 % Basophils (%) (Auto) 1.0 % Neutrophils # (Auto) 3.8 TH/MM3 Lymphocytes # (Auto) 1.9 TH/MM3 Monocytes # (Auto) 0.4 TH/MM3 Eosinophils # (Auto) 0.0 TH/MM3 Basophils # (Auto) 0.1 TH/MM3 CBC Comment DIFF FINAL Differential Comment Prothrombin Time 10.8 SEC Prothromb Time International Ratio 1.0 RATIO Activated Partial Thromboplast Time 25.3 SEC Blood Urea Nitrogen 17 MG/DL Creatinine 1.08 MG/DL Random Glucose 235 MG/DL Total Protein 9.1 GM/DL Albumin 4.6 GM/DL Calcium Level 10.2 MG/DL Alkaline Phosphatase 140 U/L Aspartate Amino Transf (AST/SGOT) 74 U/L Alanine Aminotransferase (ALT/SGPT) 128 U/L Total Bilirubin 0.5 MG/DL Sodium Level 136 MEQ/L Potassium Level 3.9 MEQ/L Chloride Level 102 MEQ/L Carbon Dioxide Level 22.9 MEQ/L Anion Gap 11 MEQ/L Estimat Glomerular Filtration Rate 70 ML/MIN Lipase 124 U/L MDM Medical Decision Making Medical Screen Exam Complete: Yes Emergency Medical Condition: Yes Interpretation(s) EKG reviewed by Dr. Birmingham shows normal sinus rhythm with ventricular rate of 64. No STEMI. Last Impressions Chest X-Ray 07/01/17 0000 Signed Impressions: Service Date/Time: June 20:56 - CONCLUSION: No acute disease. Андрей Cramer MD CT abdomen and pelvis her by the radiologist shows: Minimal occasional fluid distention of small bowel. Otherwise no acute focal findings. Differential Diagnosis Pancreatitis, pneumonia, small bowel obstruction, diverticulitis, electrolyte abnormality, gastritis, colitis, other Narrative Course Patient seen and examined. Initial laboratory radiology studies were ordered. Patient was given Zofran for nausea and hydrated with IV fluids. Patient was signed out to Dr. Birmingham at the end of my shift. Please see her documentation for final diagnosis and disposition. Med/Other Pt SpecificInfo: Prescription(s) given Scripts Ondansetron Odt (Zofran Odt) 4 Mg Tab 4 MG SL Q6HR Y for Nausea/Vomiting, #12 TAB 0 Refills Prov: Debra Birmingham MD 07/01/17 Moi Denson Jul 01, 2017 21:14
[2017-07-01 21:35] LABS: AUTOMATED NEUTROPHIL # 3.8 TH/MM3 (1.8-7.7); BASOPHIL # 0.1 TH/MM3 (0-0.2); EOSINOPHIL % 0.7 % (0.0-4.0); HEMATOCRIT 42.9 % (39.0-51.0); HEMOGLOBIN 14.7 GM/DL (13.0-17.0); LYMPH % 30.8 % (9.0-44.0); LYMPHOCYTE # 1.9 TH/MM3 (1.0-4.8); MEAN CELL VOLUME 84.7 FL (80.0-100.0); MEAN CORPUSCULAR HEMOGLOBIN 28.9 PG (27.0-34.0); MEAN CORPUSCULAR HGB CONC 34.2 % (32.0-36.0); MONO % 6.3 % (0.0-8.0); MONOCYTE # 0.4 TH/MM3 (0-0.9); NEUT % 61.2 % (16.0-70.0); PLATELET COUNT 262 TH/MM3 (150-450); RED BLOOD COUNT 5.06 MIL/MM3 (4.50-5.90); RED CELL DISTRIBUTION WIDTH 14.7 % (11.6-17.2); WHITE BLOOD COUNT 6.2 TH/MM3 (4.0-11.0)
[2017-07-01 21:38] LABS: PROTHROMBIN TIME - PATIENT 10.8 SEC (9.8-11.6)
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
[2017-07-01 21:52] LABS: ALBUMIN 4.6 GM/DL (3.4-5.0); AST (GOT) 74 U/L (15-37); BICARBONATE 22.9 MEQ/L (21.0-32.0); BLOOD UREA NITROGEN 17 MG/DL (7-18); CALCIUM 10.2 MG/DL (8.5-10.1); CHLORIDE 102 MEQ/L (98-107); CREATININE 1.08 MG/DL (0.60-1.30); GLOMERULAR FILTRATION RATE 70 ML/MIN (>89); GLUCOSE,RANDOM 235 MG/DL (74-106); LIPASE 124 U/L (73-393); SODIUM (NA) 136 MEQ/L (136-145)
[2017-07-01 21:53] LABS: ALT (GPT) 128 U/L (12-78)
[2017-07-01 21:56] LABS: ALKALINE PHOSPHATASE 140 U/L (45-117); TOTAL BILIRUBIN ADULT 0.5 MG/DL (0.2-1.0); TOTAL PROTEIN 9.1 GM/DL (6.4-8.2)
[2017-07-01] MEDS ORDERED: IOHEXOL 350 MG/ML 10 ML VIAL (for RAD DIAG) IVCONTRAST ONE ×2 (22:09)
--- NOTE | 2017-07-01 22:42 | RADRPT ---
EXAM DATE/TIME: 07/01/2017 22:06 [facility] COMPARISON: CT ABDOMEN & PELVIS W CONTRAST, May 31, 2017, 20:24. CHEST SINGLE AP, July 01, 2017, 20:56. INDICATIONS : Abdominal pain. IV CONTRAST: 100 cc Omnipaque 350 (iohexol) IV ORAL CONTRAST: No oral contrast ingested. RADIATION DOSE: 9.70 CTDIvol (mGy) MEDICAL HISTORY : Pancreatitis. Hepatitis C. Diabetes mellitus type 2. SURGICAL HISTORY : None. ENCOUNTER: Initial ACUITY: 1 day PAIN SCALE: 5/10 LOCATION: abdomen TECHNIQUE: Volumetric scanning of the abdomen and pelvis was performed. Using automated exposure control and ad justment of the mA and/or kV according to patient size, radiation dose was kept as low as reasonably achievable to obtain optimal diagnostic quality images. DICOM format image data is available electro nically for review and comparison. FINDINGS: LOWER LUNGS: The visualized lower lungs are clear. LIVER: Homogeneous density without lesion. There is no dilation of the biliary tree. Gallbladder surgically absent.. SPLEEN: Normal size without lesion. PANCREAS: Speckled calcifications consistent with sequela of chronic pancreatitis, mainly in the head and uncin ate region there is. KIDNEYS: Normal in size and shape. There is no mass, stone or hydronephrosis. ADRENAL GLANDS: Within normal limits. VASCULAR: There is no aortic aneurysm. BOWEL/MESENTERY: Slight nonspecific fluid distention of a loop of small bowel in the low central and right paramedian abdomen. Colon is unremarkable throughout. ABDOMINAL WALL: Within normal limits. RETROPERITONEUM: There is no lymphadenopathy. BLADDER: No wall thickening or mass. REPRODUCTIVE: Within normal limits. INGUINAL: There is no lymphadenopathy or hernia. MUSCULOSKELETAL: Within normal limits for patient age. CONCLUSION: Minimal occasional fluid distention of small bowel. Otherwise no acute focal findings. Андрей Cramer MD on July 01, 2017 at 22:35 Board Certified Radiologist. This report was verified electronically.
[2017-07-01] MEDS ORDERED: ALUMINUM/MAGNESIUM/SIMETH 30 ML CUP PO ONE ×2 (22:45)
[2017-07-01] MEDS ORDERED: FAMOTIDINE 20 MG/2 ML VIAL IV PUSH ONE ×2 (22:45)
[2017-07-01] MEDS ORDERED: LIDOCAINE VISCOUS 2% SOLN 15 ML UDC PO ONE ×2 (22:45)
[2017-07-01] MEDS ORDERED: ZOFR4TAB3 SL ×2 (22:52)
--- NOTE | 2017-07-01 22:55 | EKG ---
Date Performed: 07/01/2017 Time Performed: 21:08:52 PTAGE: 61 years EKG: Sinus rhythm NORMAL ECG PREVIOUS TRACING : 06/15/2017 13.22 Compared to the previous tracing rate has decreased DOCTOR: Taj Chung Interpretating Date/Time 07/01/2017 22:54:22
[2017-07-01] MEDS ORDERED: METOCLOPRAMIDE HCL 10 MG/2 ML VIAL IV PUSH ONE ×2 (23:00)
[2017-07-01] MEDS ORDERED: MORPHINE SULFATE 4 MG/ML INJ IV PUSH ONE ×2 (23:00)
[2017-07-02] MEDS ORDERED: MORPHINE SULFATE 4 MG/ML INJ IV PUSH ONE ×2
[2017-07-02 00:36] VITALS: BP 180/87
--- NOTE | 2017-07-02 05:59 | PD ---
Data Data Last Documented VS Vital Signs Date Time Temp Pulse Resp B/P (MAP) Pulse Ox O2 Delivery O2 Flow Rate FiO2 07/02/17 00:36 97 18 180/87 (118) 99 07/01/17 20:36 98.0 Orders Orders Complete Blood Count With Diff (07/01/17 20:52) Comprehensive Metabolic Panel (07/01/17 20:52) Lipase (07/01/17 20:52) Prothrombin Time / Inr (Pt) (07/01/17 20:52) Act Partial Throm Time (Ptt) (07/01/17 20:52) Ct Abd/Pel W Iv Contrast(Rout) (07/01/17 20:52) Iv Access Insert/Monitor (07/01/17 20:52) Ecg Monitoring (07/01/17 20:52) Oximetry (07/01/17 20:52) Ondansetron Inj (Zofran Inj) (07/01/17 21:00) Sodium Chlor 0.9% 1000 Ml Inj (Ns 1000 M (07/01/17 20:52) Sodium Chloride 0.9% Flush (Ns Flush) (07/01/17 21:00) Chest, Single Ap (07/01/17 ) Electrocardiogram (07/01/17 ) Iohexol 350 Inj (Omnipaque 350 Inj) (07/01/17 22:09) Famotidine Inj (Pepcid Inj) (07/01/17 22:45) Al-Mag Hy-Si 40-40-4 Mg/Ml Liq (Mag-Al P (07/01/17 22:45) Lidocaine 2% Viscous (Xylocaine 2% Visco (07/01/17 22:45) Morphine Inj (Morphine Inj) (07/01/17 23:00) Metoclopramide Inj (Reglan Inj) (07/01/17 23:00) Morphine Inj (Morphine Inj) (07/02/17 00:00) Ed Discharge Order (07/01/17 23:59) Labs Laboratory Tests Test 07/01/17 20:50 White Blood Count 6.2 TH/MM3 Red Blood Count 5.06 MIL/MM3 Hemoglobin 14.7 GM/DL Hematocrit 42.9 % Mean Corpuscular Volume 84.7 FL Mean Corpuscular Hemoglobin 28.9 PG Mean Corpuscular Hemoglobin Concent 34.2 % Red Cell Distribution Width 14.7 % Platelet Count 262 TH/MM3 Mean Platelet Volume 9.0 FL Neutrophils (%) (Auto) 61.2 % Lymphocytes (%) (Auto) 30.8 % Monocytes (%) (Auto) 6.3 % Eosinophils (%) (Auto) 0.7 % Basophils (%) (Auto) 1.0 % Neutrophils # (Auto) 3.8 TH/MM3 Lymphocytes # (Auto) 1.9 TH/MM3 Monocytes # (Auto) 0.4 TH/MM3 Eosinophils # (Auto) 0.0 TH/MM3 Basophils # (Auto) 0.1 TH/MM3 CBC Comment DIFF FINAL Differential Comment Prothrombin Time 10.8 SEC Prothromb Time International Ratio 1.0 RATIO Activated Partial Thromboplast Time 25.3 SEC Blood Urea Nitrogen 17 MG/DL Creatinine 1.08 MG/DL Random Glucose 235 MG/DL Total Protein 9.1 GM/DL Albumin 4.6 GM/DL Calcium Level 10.2 MG/DL Alkaline Phosphatase 140 U/L Aspartate Amino Transf (AST/SGOT) 74 U/L Alanine Aminotransferase (ALT/SGPT) 128 U/L Total Bilirubin 0.5 MG/DL Sodium Level 136 MEQ/L Potassium Level 3.9 MEQ/L Chloride Level 102 MEQ/L Carbon Dioxide Level 22.9 MEQ/L Anion Gap 11 MEQ/L Estimat Glomerular Filtration Rate 70 ML/MIN Lipase 124 U/L MDM Supervised Visit with VONDA: Yes Narrative Course The history, exam, and medical decision-making in the associated midlevel provider note were completed with my assistance. I reviewed and agree with the findings presented. I attest that I had a [id number] encounter with the patient on the same day, and personally performed and documented my assessment and findings in the medical record. *My assessment and Findings: This is a 61-year-old male who has a history of diabetes and marijuana use who presents to the emergency department with abdominal discomfort and vomiting. Labs are all reassuring. CT abdomen and pelvis demonstrates some fluid distention of the bowel but no obstruction. Patient was given IV fluids, antiemetics and pain control. I suspect his symptoms are due to either diabetic gastroparesis or cannabis hyperemesis syndrome. He feels much better and I think is appropriate for outpatient management. Diagnosis Primary Impression: Enteritis Patient Instructions: Narcotic given in the ED, Enteritis (ED) Departure Forms: Tests/Procedures Additional Instruction: Follow-up with your primary care physician in one to 5 days for reevaluation. Take all medication as prescribed. Drink plenty of non-caffeinated and nonalcoholic fluids. Return to the emergency department if symptoms get worse. Scripts Ondansetron Odt (Zofran Odt) 4 Mg Tab 4 MG SL Q6HR Y for Nausea/Vomiting, #12 TAB 0 Refills Prov: Debra Birmingham MD 07/01/17 Disposition: 01 DISCHARGE HOME Debra Birmingham MD Jul 02, 2017 05:59
[2017-07-14] MEDS ORDERED: ZOLO100T PO ×2 (10:59)
[2017-07-14] MEDS ORDERED: TRAZ300T2 PO ×2 (10:59)
[2017-07-14] MEDS ORDERED: REGL10TA5 PO ×2 (14:52)
== END 2017-07-02 00:37 | disposition home or self-care (01) ==
LOC: NEPE 20:29
DX: K52.9 Noninfective gastroenteritis and colitis, unspecified (principal); F12.90 Cannabis use, unspecified, uncomplicated
CPT/HCPCS: 71010; 74177; 80053; 83690; 85025; 85610; 85730; 93005; 96361; 96374; 96375; 99285; J2270; J2405; J2765; J7030; Q9967

== ENCOUNTER 2017-07-14 10:46 | Emergency (ER) | payer MEDICAID ==
[~2017-07-14] VITALS: Ht 180.3 cm; Wt 80.0 kg
[~2017-07-14 10:46] MED LIST changes: -AMLO5TAB2 PO; +ASPI-183 PO; -ASPI325T PO; +CIME200T23 PO; -PANT40TA3 PO; -SULF1TAB23 PO; +TRAZ1TAB14 PO; +ZOFR4TAB3 SL
[2017-07-14] MEDS ORDERED: IOHEXOL 350 MG/ML 10 ML VIAL (for RAD DIAG) IVCONTRAST ONE (10:47)
[2017-07-14] MEDS ORDERED: TRAZ300T2 PO (10:59)
[2017-07-14] MEDS ORDERED: ZOLO100T PO (10:59)
[2017-07-14 11:01] VITALS: BP 169/79; PULSE 102; RESP 18; TEMP 98.5; O2SAT 100
[2017-07-14] MEDS ORDERED: SODIUM CHLOR 0.9% 1000 ML INJ 1,000 ML IV SCH ×2 (11:19→12:13)
[2017-07-14] MEDS ORDERED: MORPHINE SULFATE 4 MG/ML INJ IV PUSH ONE (11:30)
[2017-07-14] MEDS ORDERED: ALUMINUM/MAGNESIUM/SIMETH 30 ML CUP PO ONE (11:30)
[2017-07-14] MEDS ORDERED: LIDOCAINE VISCOUS 2% SOLN 15 ML UDC PO ONE (11:30)
[2017-07-14] MEDS ORDERED: METOCLOPRAMIDE HCL 10 MG/2 ML VIAL IV PUSH ONE ×2 (11:30→15:00)
[2017-07-14 11:31] VITALS: RESP 18; O2SAT 100
[2017-07-14] MEDS ORDERED: RESP: ALBUTEROL 2.5 MG/3 ML NEB (SCH) INH ONE (11:45)
[2017-07-14 11:47] LABS: AUTOMATED NEUTROPHIL # 9.8 TH/MM3 (1.8-7.7); BASOPHIL % 0.4 % (0.0-2.0); HEMO FLAGS DIFF FINAL; LYMPH % 12.6 % (9.0-44.0); LYMPHOCYTE # 1.5 TH/MM3 (1.0-4.8); MEAN CELL VOLUME 85.2 FL (80.0-100.0); MEAN CORPUSCULAR HEMOGLOBIN 28.6 PG (27.0-34.0); MEAN CORPUSCULAR HGB CONC 33.6 % (32.0-36.0); MONO % 2.5 % (0.0-8.0); NEUT % 84.5 % (16.0-70.0); PLATELET COUNT 237 TH/MM3 (150-450); RED BLOOD COUNT 5.28 MIL/MM3 (4.50-5.90); RED CELL DISTRIBUTION WIDTH 15.2 % (11.6-17.2); WHITE BLOOD COUNT 11.6 TH/MM3 (4.0-11.0)
--- NOTE | 2017-07-14 11:48 | PD ---
HPI Chief Complaint: GI Complaint Time Seen by Provider: 11:13 Travel History International Travel<30 days: No Contact w/Intl Traveler<30days: No Traveled to known affect area: No History of Present Illness HPI 61-year-old male that presents to the ED for evaluation of nausea and vomiting and abdominal pain. Patient has a history of diabetes and has been seen here multiple times for similar episodes. Patient does smoke marijuana and has been found to abuse opiates and benzos. He denies any of this. He states that for the past 3 days he had a lot of nausea and vomiting. He is not able to keep anything down. He cannot even keep his medications down for his diabetes. Per patient's Zofran doesn't work for him and he states the last and he was here he was given something to make him better. He is questioning why he wasn't given that medication instead of the Zofran that was given to him. He states that he has some abdominal discomfort which is 4 out of 10. His been throwing up green stuff. He denies any diarrhea. No bowel movement issues. No fevers chills or sweats. No trauma. No new food. No recent travel. No chest pain but states having some shortness of breath and he does have a history of COPD. Unclear if he has follow-up outpatient likely not. PFSH Past Medical History Hx Anticoagulant Therapy: Yes (ASA) Arthritis: No Asthma: No Autoimmune Disease: No Blood Disorders: No Anxiety: Yes Depression: No Heart Rhythm Problems: No Cancer: No Cardiovascular Problems: Yes High Cholesterol: No Chemotherapy: No Chest Pain: No Congestive Heart Failure: No COPD: Yes Cerebrovascular Accident: No Diabetes: Yes Patient Takes Glucophage: Yes Diminished Hearing: No Endocrine: No Gastrointestinal Disorders: No GERD: No Glaucoma: No Genitourinary: No Headaches: Yes Hepatitis: Yes (C) Hiatal Hernia: No Hypertension: Yes Immune Disorder: No Implanted Vascular Access Dvce: No Kidney Stones: No Musculoskeletal: No Neurologic: No Psychiatric: Yes Reproductive: No Respiratory: Yes Immunizations Current: Yes Migraines: No Myocardial Infarction: No Pancreatitis: Yes Radiation Therapy: No Renal Failure: No Seizures: No Sickle Cell Disease: No Sleep Apnea: No Thyroid Disease: No Ulcer: No PNEUMOCCOCAL Vaccine (Year): 2 Past Surgical History Abdominal Surgery: Yes (gall bladder removal 2015) AICD: No Arteriovenous Shunt: No Cardiac Surgery: No Cholecystectomy: Yes Ear Surgery: No Endocrine Surgery: No Eye Surgery: No Genitourinary Surgery: No Gynecologic Surgery: No Insulin Pump: No Joint Replacement: No Neurologic Surgery: No Oral Surgery: No Pacemaker: No Thoracic Surgery: No Other Surgery: Yes (right knee surg in 1981) Social History Alcohol Use: Yes (OCC) Tobacco Use: No Substance Use: Yes (MARIJUANA ONCE DAILY ) Allergies-Medications (Allergen,Severity, Reaction): Coded Allergies: penicillin G (Verified Allergy, Severe, RASH, 07/14/17) ketorolac (Unverified Adverse Reaction, Severe, HALLUCINATES, 07/14/17) Reported Meds & Prescriptions Reported Meds & Active Scripts Active Zofran Odt (Ondansetron Odt) 4 Mg Tab 4 Mg SL Q6HR PRN Reported Trazodone (Trazodone HCl) 300 Mg Tab 200 Mg PO HS Zoloft (Sertraline HCl) 100 Mg Tab 100 Mg PO BID Tagamet Hb (Cimetidine) 200 Mg Tab Unknown Dose PO BID Gabapentin 600 Mg Tab 600 Mg PO QID Albuterol Neb (Albuterol Sulfate) 2.5 Mg/3 Ml Neb 2.5 Mg NEB Q6HR PRN Proair Hfa 8.5 GM Inh (Albuterol Sulfate) 90 Mcg/Act Aer 2 Puff INH Q6H PRN 108 mcg/actuation Aspirin 325 Mg Tab 325 Mg PO DAILY Glipizide 5 Mg Tab 5 Mg PO BID Take 30 minutes before a meal Atrovent HFA 12.9 GM Inh (Ipratropium [place]) 17 Mcg/Act Aer 2 Puff INH QID Metformin (Metformin HCl) 850 Mg Tab 850 Mg PO BIDPC With meals Methocarbamol 500 Mg Tab 500 Mg PO TID Review of Systems Except as stated in HPI: all other systems reviewed are Neg Physical Exam Narrative GENERAL: SKIN: Warm and dry. HEAD: Atraumatic. Normocephalic. EYES: Pupils equal and round. No scleral icterus. No injection or drainage. ENT: No nasal bleeding or discharge. Mucous membranes pink and moist. Tongue is midline. No uvula deviation. NECK: Trachea midline. No JVD. CARDIOVASCULAR: Regular rate and rhythm. No murmurs, S3, S4. RESPIRATORY: No accessory muscle use. Clear to auscultation. Breath sounds equal bilaterally. GASTROINTESTINAL: Abdomen soft, non-tender, nondistended. Hepatic and splenic margins not palpable. MUSCULOSKELETAL: Extremities without clubbing, cyanosis, or edema. No obvious deformities. Full range of motion of the upper and lower extremities bilaterally. 2+ pulses bilaterally. NEUROLOGICAL: Awake and alert. No obvious cranial nerve deficits. Motor grossly within normal limits. Five out of 5 muscle strength in the arms and legs. Normal speech. PSYCHIATRIC: Appropriate mood and affect; insight and judgment normal. Data Data Last Documented VS Vital Signs Date Time Temp Pulse Resp B/P (MAP) Pulse Ox O2 Delivery O2 Flow Rate FiO2 07/14/17 14:37 97 18 179/77 (111) 98 Room Air 07/14/17 11:01 98.5 Orders Orders Complete Blood Count With Diff (07/14/17 11:19) Comprehensive Metabolic Panel (07/14/17 11:19) Lipase (07/14/17 11:19) Lactic Acid (07/14/17 11:19) Urinalysis - C+S If Indicated (07/14/17 11:19) Iv Access Insert/Monitor (07/14/17 11:19) Ecg Monitoring (07/14/17 11:19) Oximetry (07/14/17 11:19) Morphine Inj (Morphine Inj) (07/14/17 11:30) Sodium Chlor 0.9% 1000 Ml Inj (Ns 1000 M (07/14/17 11:19) Al-Mag Hy-Si 40-40-4 Mg/Ml Liq (Mag-Al P (07/14/17 11:30) Lidocaine 2% Viscous (Xylocaine 2% Visco (07/14/17 11:30) Chest, Single Ap (07/14/17 ) Metoclopramide Inj (Reglan Inj) (07/14/17 11:30) Albuterol Neb (Albuterol Neb) (07/14/17 11:45) Creatine Kinase (Cpk) (07/14/17 11:47) Sodium Chlor 0.9% 1000 Ml Inj (Ns 1000 M (07/14/17 12:13) Ct Abd/Pel W Iv Contrast(Rout) (07/14/17 ) Iohexol 350 Inj (Omnipaque 350 Inj) (07/14/17 10:47) Sodium Chlor 0.9% 1000 Ml Inj (Ns 1000 M (07/14/17 13:45) Ed Discharge Order (07/14/17 14:51) Metoclopramide Inj (Reglan Inj) (07/14/17 15:00) Labs Laboratory Tests Test 07/14/17 11:00 07/14/17 11:24 07/14/17 14:00 White Blood Count 11.6 TH/MM3 Red Blood Count 5.28 MIL/MM3 Hemoglobin 15.1 GM/DL Hematocrit 45.0 % Mean Corpuscular Volume 85.2 FL Mean Corpuscular Hemoglobin 28.6 PG Mean Corpuscular Hemoglobin Concent 33.6 % Red Cell Distribution Width 15.2 % Platelet Count 237 TH/MM3 Mean Platelet Volume 8.8 FL Neutrophils (%) (Auto) 84.5 % Lymphocytes (%) (Auto) 12.6 % Monocytes (%) (Auto) 2.5 % Eosinophils (%) (Auto) 0.0 % Basophils (%) (Auto) 0.4 % Neutrophils # (Auto) 9.8 TH/MM3 Lymphocytes # (Auto) 1.5 TH/MM3 Monocytes # (Auto) 0.3 TH/MM3 Eosinophils # (Auto) 0.0 TH/MM3 Basophils # (Auto) 0.0 TH/MM3 CBC Comment DIFF FINAL Differential Comment Blood Urea Nitrogen 22 MG/DL Creatinine 1.22 MG/DL Random Glucose 312 MG/DL Total Protein 8.6 GM/DL Albumin 4.4 GM/DL Calcium Level 10.0 MG/DL Alkaline Phosphatase 111 U/L Aspartate Amino Transf (AST/SGOT) 65 U/L Alanine Aminotransferase (ALT/SGPT) 123 U/L Total Bilirubin 0.6 MG/DL Sodium Level 135 MEQ/L Potassium Level 4.2 MEQ/L Chloride Level 98 MEQ/L Carbon Dioxide Level 26.2 MEQ/L Anion Gap 11 MEQ/L Estimat Glomerular Filtration Rate 60 ML/MIN Lipase 152 U/L Lactic Acid Level 2.5 mmol/L Urine Color LIGHT-YELLOW Urine Turbidity CLEAR Urine pH 8.0 Urine Specific [place] 1.044 Urine Protein TRACE mg/dL Urine Glucose (UA) 1000 mg/dL Urine Ketones 40 mg/dL Urine Occult Blood NEG Urine Nitrite NEG Urine Bilirubin NEG Urine Urobilinogen LESS THAN 2.0 MG/DL Urine Leukocyte Esterase NEG Urine RBC 1 /hpf Urine WBC LESS THAN 1 /hpf Microscopic Urinalysis Comment CULT NOT INDICATED MDM Medical Decision Making Medical Screen Exam Complete: Yes Emergency Medical Condition: Yes Medical Record Reviewed: Yes Interpretation(s) CBC & BMP Diagram 07/14/17 11:00 Total Protein 8.6 H, Albumin 4.4, Calcium Level 10.0, Alkaline Phosphatase 111, Aspartate Amino Transf (AST/SGOT) 65 H, Alanine Aminotransferase (ALT/SGPT) 123 H, Total Bilirubin 0.6 Urine negative. Lactic acid 2.5. Last Impressions Chest X-Ray 07/14/17 0000 Signed Impressions: Service Date/Time: Friday, July 14, 2017 12:06 - CONCLUSION: No evidence of acute cardiopulmonary disease. Андрей Campbell MD Abdomen/Pelvis CT 07/14/17 0000 Signed Impressions: Service Date/Time: Friday, July 14, 2017 13:12 - CONCLUSION: 1. Normal appendix. 2. No acute CT findings in the abdomen or pelvis. 3. Stable ancillary findings, as above. Amaury Chowdhury MD Differential Diagnosis Nausea and vomiting versus esophagitis versus acute abdomen versus gastroparesis versus marijuana induced nausea and vomiting versus chronic pain versus normal exam versus gastritis Narrative Course 61-year-old male that presents to the ED for evaluation of nausea and vomiting. Patient was properly examined and was found to have signs and symptoms of unclear etiology at this time. He does have a history of this in the past has been here 3 times for this before. Labs and imaging were ordered. Patient was given IV fluids and Reglan and morphine which is what was given to him last time. This appeared to work last time for him. Labs and imaging showed no sign of acute disease. Patient did have slightly elevated lactic acid 2.5. My attending was made aware of this and recommended CT. CT was done and was negative. Urine was negative. No signs of infection at this time. Per the previous providers note last week they were concerned about gastroparesis or possible marijuana related emesis. He does take marijuana and he does have diabetes. He had improvement of symptoms were Reglan last time and he had improvement of symptoms today again with Reglan. Suspected this may be gastroparesis. I did discuss this in length with the patient. Patient understands that he does not need antibiotics at this time and he has not infection. He was told to keep hydrated. Follow with PCP. Get GI evaluation. Patient was given Reglan prescription as the Zofran is not helping him and this should help with his symptoms. Patient tolerated by mouth challenge and feels improved. This was discussed in my attending Dr. Mccoy who agrees with discharge. See ED for any worsening symptoms. Diagnosis Primary Impression: Diabetic gastroparesis Patient Instructions: General Instructions, Narcotic given in the ED Additional Instructions: Take medication as prescribed. Drink plenty of fluids. See ED worsening symptoms. Follow with GI specialist. Med/Other Pt SpecificInfo: Prescription(s) given Scripts Metoclopramide (Reglan) 10 Mg Tab 10 MG PO QID Y for NAUSEA, #20 TAB 0 Refills Prov: Shanelle Mccoy MD 07/14/17 Disposition: 01 DISCHARGE HOME Condition: Stable Sonny Engel Jul 14, 2017 11:48
[2017-07-14 12:04] LABS: ALKALINE PHOSPHATASE 111 U/L (45-117); TOTAL BILIRUBIN ADULT 0.6 MG/DL (0.2-1.0)
[2017-07-14 12:15] LABS: ALT (GPT) 123 U/L (12-78); ANION GAP 11 MEQ/L (5-15); AST (GOT) 65 U/L (15-37); BICARBONATE 26.2 MEQ/L (21.0-32.0); BLOOD UREA NITROGEN 22 MG/DL (7-18); CHLORIDE 98 MEQ/L (98-107); GLOMERULAR FILTRATION RATE 60 ML/MIN (>89); POTASSIUM 4.2 MEQ/L (3.5-5.1); SODIUM (NA) 135 MEQ/L (136-145)
--- NOTE | 2017-07-14 12:21 | RADRPT ---
EXAM DATE/TIME: 07/14/2017 12:06 [facility] COMPARISON: CHEST SINGLE AP, July 01, 2017, 20:56. INDICATIONS : Chest pain and shortness of breath. MEDICAL HISTORY : Chronic obstructive pulmonary disease. Pancreatitis. Hepatitis C. Diabetes mellitus type 2. SURGICAL HISTORY : None. ENCOUNTER: Initial ACUITY: 1 day PAIN SCORE: 4/10 LOCATION: Bilateral chest FINDINGS: A single view of the chest demonstrates the lungs to be symmetrically aerated without evidence of mas s, infiltrate or effusion. The cardiomediastinal contours are unremarkable. Osseous structures are intact. CONCLUSION: No evidence of acute cardiopulmonary disease. Андрей Campbell MD on July 14, 2017 at 12:19 Board Certified Radiologist. This report was verified electronically.
[2017-07-14] MEDS ORDERED: SODIUM CHLOR 0.9% 1000 ML INJ 1,000 ML IV ONE (13:45)
--- NOTE | 2017-07-14 14:07 | RADRPT ---
EXAM DATE/TIME: 07/14/2017 13:12 [facility] COMPARISON: CT ABDOMEN & PELVIS W CONTRAST, July 01, 2017, 22:06. INDICATIONS : Nausea, vomiting, and abdominal pain for three days. IV CONTRAST: 95 cc Omnipaque 350 (iohexol) IV ORAL CONTRAST: No oral contrast ingested. RADIATION DOSE: 9.03 CTDIvol (mGy) MEDICAL HISTORY : Chronic obstructive pulmonary disease. Pancreatitis. Hepatitis C.Diabetes SURGICAL HISTORY : Cholecystectomy. ENCOUNTER: Initial ACUITY: 1 day PAIN SCALE: 4/10 LOCATION: Right upper quadrant abdomen TECHNIQUE: Volumetric scanning of the abdomen and pelvis was performed. Using automated exposure control and ad justment of the mA and/or kV according to patient size, radiation dose was kept as low as reasonably achievable to obtain optimal diagnostic quality images. DICOM format image data is available electro nically for review and comparison. FINDINGS: LOWER LUNGS: The visualized lower lungs are clear. LIVER: Homogeneous density without lesion. There is no dilation of the biliary tree. Status post cholecyste ctomy. Mild common bile duct dilatation likely due to reservoir effect. SPLEEN: Normal size without lesion. PANCREAS: Scattered calcifications in the pancreatic head may reflect sequela of prior pancreatitis. KIDNEYS: Kidneys demonstrate symmetrical enhancement without evidence for radiopaque renal calculi or hydronep hrosis. Scattered bilateral subcentimeter hypodense cystic lesions are too small to characterize. ADRENAL GLANDS: Within normal limits. VASCULAR: There is no aortic aneurysm. BOWEL/MESENTERY: The stomach, small bowel, and colon demonstrate no acute abnormality. Appendix is visualized and nor mal in appearance. Minimal sigmoid diverticulosis. There is no free intraperitoneal air or fluid. ABDOMINAL WALL: Within normal limits. RETROPERITONEUM: There is no lymphadenopathy. BLADDER: No wall thickening or mass. REPRODUCTIVE: Within normal limits. INGUINAL: There is no lymphadenopathy or hernia. MUSCULOSKELETAL: Within normal limits for patient age. CONCLUSION: 1. Normal appendix. 2. No acute CT findings in the abdomen or pelvis. 3. Stable ancillary findings, as above. Amaury Chowdhury MD on July 14, 2017 at 13:49 Board Certified Radiologist. This report was verified electronically.
[2017-07-14 14:25] LABS: BLOOD, URINE NEG (NEG); GLUCOSE,URINE 1000 mg/dL (NEG); KETONE, URINE 40 mg/dL (NEG); NITRITE,URINE NEG (NEG); URINE COLOR LIGHT-YELLOW (YELLW/STRAW)
[2017-07-14 14:31] LABS: COMMENT (UR) CULT NOT INDICATED; CULTURE IF INDICATED CULT NOT INDICATED
[2017-07-14 14:37] VITALS: BP 179/77; PULSE 97; RESP 18; O2SAT 98
[2017-07-14] MEDS ORDERED: REGL10TA5 PO (14:52)
[2017-07-14 16:12] VITALS: BP 168/79; PULSE 80
[2017-07-14 19:29] VITALS: BP 179/90; PULSE 107; RESP 17; O2SAT 99
== END 2017-07-14 19:36 | disposition home or self-care (01) ==
LOC: NEPE 10:46
DX: E11.43 Type 2 diabetes mellitus with diabetic autonomic (poly)neuropathy (principal); K31.84 Gastroparesis; J44.9 Chronic obstructive pulmonary disease, unspecified; F12.90 Cannabis use, unspecified, uncomplicated; Z79.84 Long term (current) use of oral hypoglycemic drugs
CPT/HCPCS: 71010; 74177; 80053; 81001; 82550; 83605; 83690; 85025; 94664; 96361; 96374; 96375; 99285; J2270; J2765; J7030; J7613; Q9967

== ENCOUNTER 2017-12-10 13:51 | Inpatient (IN) | payer MEDICAID, MEDICARE ==
[~2017-12-10] VITALS: Ht 177.8 cm; Wt 79.0 kg
[~2017-12-10 13:51] MED LIST changes: +REGL10TA5 PO; -TRAZ1TAB14 PO; +TRAZ300T2 PO
[2017-12-10 14:24] VITALS: BP 176/87; PULSE 115; RESP 15; O2SAT 100
[2017-12-10] MEDS ORDERED: SODIUM CHLORID 0.9% 500 ML INJ 500 ML IV ONE (14:30)
[2017-12-10] MEDS ORDERED: SODIUM CHLORIDE 0.9% FLUSH 10 ML FLUSH IV FLUSH PRN ×2 (14:30→18:15)
[2017-12-10] MEDS ORDERED: FAMOTIDINE 20 MG/2 ML VIAL IV PUSH ONE (14:30)
[2017-12-10 14:32] VITALS: RESP 14; TEMP 98.9; O2SAT 100
--- NOTE | 2017-12-10 14:35 | PD ---
HPI Chief Complaint: Abdominal Pain Time Seen by Provider: 14:28 Travel History International Travel<30 days: No Contact w/Intl Traveler<30days: No Traveled to known affect area: No History of Present Illness HPI 62-year-old male patient with history of alcohol use, pancreatitis, hepatitis C , diabetes, gastroparesis, presents to the ER today after drinking alcohol several days ago, started having nausea, vomiting, loose stools, and upper abdominal pains. He denies any fevers, chest pains, shortness of breath, or other symptoms. He had been given Zofran IV fluids by EMS. Patient also states he has a nodule on his lower back area that has popped up were last few days and several nodules on the buttocks. Modifying Factors: None Associated Signs & Symptoms: Nausea, vomiting, loose stools, upper abdominal pains Risk Factors: Drinking alcohol, history of pancreatitis PFSH Past Medical History Hx Anticoagulant Therapy: Yes (ASA) Arthritis: No Asthma: No Autoimmune Disease: No Blood Disorders: No Anxiety: Yes Depression: No Heart Rhythm Problems: No Cancer: No Cardiovascular Problems: Yes High Cholesterol: No Chemotherapy: No Chest Pain: No Congestive Heart Failure: No COPD: Yes Cerebrovascular Accident: No Diabetes: Yes Patient Takes Glucophage: Yes (12/10/17) Diminished Hearing: No Endocrine: No Gastrointestinal Disorders: No GERD: No Glaucoma: No Genitourinary: No Headaches: Yes Hepatitis: Yes (C) Hiatal Hernia: No Hypertension: Yes Immune Disorder: No Implanted Vascular Access Dvce: No Kidney Stones: No Musculoskeletal: No Neurologic: No Psychiatric: Yes Reproductive: No Respiratory: Yes Immunizations Current: Yes Migraines: No Myocardial Infarction: No Pancreatitis: Yes Radiation Therapy: No Renal Failure: No Seizures: No Sickle Cell Disease: No Sleep Apnea: No Thyroid Disease: No Ulcer: No PNEUMOCCOCAL Vaccine (Year): 2 Past Surgical History Abdominal Surgery: Yes (gall bladder removal 2015) AICD: No Arteriovenous Shunt: No Cardiac Surgery: No Cholecystectomy: Yes Ear Surgery: No Endocrine Surgery: No Eye Surgery: No Genitourinary Surgery: No Gynecologic Surgery: No Insulin Pump: No Joint Replacement: No Neurologic Surgery: No Oral Surgery: No Pacemaker: No Thoracic Surgery: No Other Surgery: Yes (right knee surg in 1981) Social History Alcohol Use: Yes (BEER ON WEDNESDAY) Tobacco Use: No Substance Use: Yes (MARIJUANA YESTERDAY) Allergies-Medications (Allergen,Severity, Reaction): Coded Allergies: penicillin G (Verified Allergy, Severe, RASH, 07/14/17) ketorolac (Unverified Adverse Reaction, Severe, HALLUCINATES, 07/14/17) Reported Meds & Prescriptions Reported Meds & Active Scripts Active Reglan (Metoclopramide HCl) 10 Mg Tab 10 Mg PO QID PRN Zofran Odt (Ondansetron Odt) 4 Mg Tab 4 Mg SL Q6HR PRN Reported Trazodone (Trazodone HCl) 300 Mg Tab 200 Mg PO HS Zoloft (Sertraline HCl) 100 Mg Tab 100 Mg PO BID Tagamet Hb (Cimetidine) 200 Mg Tab Unknown Dose PO BID Gabapentin 600 Mg Tab 600 Mg PO QID Albuterol Neb (Albuterol Sulfate) 2.5 Mg/3 Ml Neb 2.5 Mg NEB Q6HR PRN Proair Hfa 8.5 GM Inh (Albuterol Sulfate) 90 Mcg/Act Aer 2 Puff INH Q6H PRN 108 mcg/actuation Aspirin 325 Mg Tab 325 Mg PO DAILY Glipizide 5 Mg Tab 5 Mg PO BID Take 30 minutes before a meal Atrovent HFA 12.9 GM Inh (Ipratropium [place]) 17 Mcg/Act Aer 2 Puff INH QID Metformin (Metformin HCl) 850 Mg Tab 850 Mg PO BIDPC With meals Methocarbamol 500 Mg Tab 500 Mg PO TID Review of Systems Except as stated in HPI: all other systems reviewed are Neg Physical Exam Narrative GENERAL: Well-developed elderly male patient currently in moderate distress. Awake and oriented 3. SKIN: Focused skin assessment warm/dry. He has several 1-2 cm nodules with erythema overlying the sacral area and left buttocks area which is tender to palpation. There is no underlying fluctuance. HEAD: Atraumatic. Normocephalic. EYES: Pupils equal and round. No scleral icterus. No injection or drainage. ENT: No nasal bleeding or discharge. Mucous membranes pink and moist. NECK: Trachea midline. No JVD. Supple. CARDIOVASCULAR: Regular rate and rhythm. No murmur appreciated. RESPIRATORY: No accessory muscle use. Clear to auscultation. Breath sounds equal bilaterally. GASTROINTESTINAL: Abdomen soft, epigastric and right-sided abdominal tenderness without guarding or rebound, nondistended. Hepatic and splenic margins not palpable. MUSCULOSKELETAL: No obvious deformities. No clubbing. No cyanosis. No edema. NEUROLOGICAL: Awake and alert. No obvious cranial nerve deficits. Motor grossly within normal limits. Normal speech. PSYCHIATRIC: Appropriate mood and affect; insight and judgment normal. Data Data Last Documented VS Vital Signs Date Time Temp Pulse Resp B/P (MAP) Pulse Ox O2 Delivery O2 Flow Rate FiO2 12/10/17 17:51 111 18 141/91 (108) 100 Nasal Cannula 2.00 12/10/17 14:32 98.9 Orders Orders Complete Blood Count With Diff (12/10/17 14:28) Comprehensive Metabolic Panel (12/10/17 14:28) Lipase (12/10/17 14:28) Urinalysis - C+S If Indicated (12/10/17 14:28) Iv Access Insert/Monitor (12/10/17 14:28) Ecg Monitoring (12/10/17 14:28) Oximetry (12/10/17 14:28) Sodium Chloride 0.9% Flush (Ns Flush) (12/10/17 14:30) Famotidine Inj (Pepcid Inj) (12/10/17 14:30) Sodium Chlorid 0.9% 500 Ml Inj (Ns 500 M (12/10/17 14:30) Electrocardiogram (12/10/17 ) Ct Abd/Pel W Iv Contrast(Rout) (12/10/17 15:26) Metoclopramide Inj (Reglan Inj) (12/10/17 15:45) Blood Culture (12/10/17 17:13) Vancomycin Inj (Vancomycin Inj) (12/10/17 17:13) Admit Order (Ed Use Only) (12/10/17 17:57) Labs Laboratory Tests Test 12/10/17 14:44 12/10/17 15:00 White Blood Count 14.1 TH/MM3 Red Blood Count 4.76 MIL/MM3 Hemoglobin 13.7 GM/DL Hematocrit 40.6 % Mean Corpuscular Volume 85.4 FL Mean Corpuscular Hemoglobin 28.9 PG Mean Corpuscular Hemoglobin Concent 33.8 % Red Cell Distribution Width 14.4 % Platelet Count 258 TH/MM3 Mean Platelet Volume 8.5 FL Neutrophils (%) (Auto) 82.5 % Lymphocytes (%) (Auto) 11.9 % Monocytes (%) (Auto) 5.3 % Eosinophils (%) (Auto) 0.0 % Basophils (%) (Auto) 0.3 % Neutrophils # (Auto) 11.6 TH/MM3 Lymphocytes # (Auto) 1.7 TH/MM3 Monocytes # (Auto) 0.7 TH/MM3 Eosinophils # (Auto) 0.0 TH/MM3 Basophils # (Auto) 0.0 TH/MM3 CBC Comment DIFF FINAL Differential Comment Blood Urea Nitrogen 30 MG/DL Creatinine 1.21 MG/DL Random Glucose 170 MG/DL Total Protein 8.4 GM/DL Albumin 4.1 GM/DL Calcium Level 9.1 MG/DL Alkaline Phosphatase 74 U/L Aspartate Amino Transf (AST/SGOT) 73 U/L Alanine Aminotransferase (ALT/SGPT) 96 U/L Total Bilirubin 0.5 MG/DL Sodium Level 134 MEQ/L Potassium Level 3.9 MEQ/L Chloride Level 100 MEQ/L Carbon Dioxide Level 16.9 MEQ/L Anion Gap 17 MEQ/L Estimat Glomerular Filtration Rate 61 ML/MIN Lipase 148 U/L Urine Color YELLOW Urine Turbidity CLEAR Urine pH 5.5 Urine Specific [place] 1.023 Urine Protein 30 mg/dL Urine Glucose (UA) 70 mg/dL Urine Ketones 80 mg/dL Urine Occult Blood TRACE Urine Nitrite NEG Urine Bilirubin NEG Urine Urobilinogen LESS THAN 2.0 MG/DL Urine Leukocyte Esterase NEG Urine WBC LESS THAN 1 /hpf Urine Hyaline Casts 10 /lpf Urine Mucus FEW /lpf Microscopic Urinalysis Comment CULT NOT INDICATED MDM Medical Decision Making Medical Screen Exam Complete: Yes Emergency Medical Condition: Yes Medical Record Reviewed: Yes Interpretation(s) Laboratory Tests Test 12/10/17 14:44 12/10/17 15:00 White Blood Count 14.1 TH/MM3 (4.0-11.0) Neutrophils (%) (Auto) 82.5 % (16.0-70.0) Neutrophils # (Auto) 11.6 TH/MM3 (1.8-7.7) Blood Urea Nitrogen 30 MG/DL (7-18) Random Glucose 170 MG/DL (74-106) Total Protein 8.4 GM/DL (6.4-8.2) Aspartate Amino Transf (AST/SGOT) 73 U/L (15-37) Alanine Aminotransferase (ALT/SGPT) 96 U/L (12-78) Sodium Level 134 MEQ/L (136-145) Carbon Dioxide Level 16.9 MEQ/L (21.0-32.0) Anion Gap 17 MEQ/L (5-15) Estimat Glomerular Filtration Rate 61 ML/MIN (>89) Urine Protein 30 mg/dL (NEG-TRACE) Urine Glucose (UA) 70 mg/dL (NEG) Urine Ketones 80 mg/dL (NEG) Urine Occult Blood TRACE (NEG) Urine Mucus FEW /lpf (OCC) Last 24 hours Impressions Abdomen/Pelvis CT 12/10/17 1526 Signed Impressions: Service Date/Time: Sunday, December 10, 2017 16:26 - CONCLUSION: 1. Negative CT abdomen and pelvis with contrast. Dennis Contreras MD Differential Diagnosis Gastritis versus pancreatitis versus gastroenteritis versus hepatitis versus dehydration versus metabolic issues versus gastroparesis Narrative Course Lab work shows significant leukocytosis and CAT scan has been ordered for further evaluation, CAT scan did not acute intra-abdominal processes. Patient was still quite nauseous and had to be given IV fluids, Reglan, for further treatment of his nausea and vomiting. Lipase is fairly unremarkable. At this point, my plan would be to admit him for nausea and vomiting as well as for suspected sepsis. I think the sepsis may be secondary to the skin lesions, these appear to be infected skin nodules. Vancomycin IV was added. The plan would be to admit him for further treatment. Case is discussed with Dr. Bolton for admission. Diagnosis Primary Impression: Diabetic gastroparesis Additional Impressions: Staph skin infection Sepsis Admitting Information Admitting Physician Requests: Admit Jm Ng MD Dec 10, 2017 14:35
[2017-12-10 15:05] LABS: AUTOMATED NEUTROPHIL # 11.6 TH/MM3 (1.8-7.7); BASOPHIL % 0.3 % (0.0-2.0); HEMATOCRIT 40.6 % (39.0-51.0); HEMOGLOBIN 13.7 GM/DL (13.0-17.0); LYMPH % 11.9 % (9.0-44.0); LYMPHOCYTE # 1.7 TH/MM3 (1.0-4.8); MEAN CELL VOLUME 85.4 FL (80.0-100.0); MEAN CORPUSCULAR HEMOGLOBIN 28.9 PG (27.0-34.0); MEAN CORPUSCULAR HGB CONC 33.8 % (32.0-36.0); MEAN PLATELET VOLUME 8.5 FL (7.0-11.0); MONO % 5.3 % (0.0-8.0); MONOCYTE # 0.7 TH/MM3 (0-0.9); NEUT % 82.5 % (16.0-70.0); PLATELET COUNT 258 TH/MM3 (150-450); RED BLOOD COUNT 4.76 MIL/MM3 (4.50-5.90); RED CELL DISTRIBUTION WIDTH 14.4 % (11.6-17.2); WHITE BLOOD COUNT 14.1 TH/MM3 (4.0-11.0)
[2017-12-10 15:38] LABS: ALKALINE PHOSPHATASE 74 U/L (45-117); ALT (GPT) 96 U/L (12-78); TOTAL BILIRUBIN ADULT 0.5 MG/DL (0.2-1.0); TOTAL PROTEIN 8.4 GM/DL (6.4-8.2)
[2017-12-10] MEDS ORDERED: METOCLOPRAMIDE HCL 10 MG/2 ML VIAL IV PUSH ONE (15:45)
[2017-12-10 15:57] LABS: ALBUMIN 4.1 GM/DL (3.4-5.0); AST (GOT) 73 U/L (15-37); BICARBONATE 16.9 MEQ/L (21.0-32.0); BLOOD UREA NITROGEN 30 MG/DL (7-18); CALCIUM 9.1 MG/DL (8.5-10.1); CHLORIDE 100 MEQ/L (98-107); CREATININE 1.21 MG/DL (0.60-1.30); GLOMERULAR FILTRATION RATE 61 ML/MIN (>89); GLUCOSE,RANDOM 170 MG/DL (74-106); SODIUM (NA) 134 MEQ/L (136-145)
[2017-12-10 16:08] LABS: BILIRUBIN, URINE NEG (NEG); BLOOD, URINE TRACE (NEG); GLUCOSE,URINE 70 mg/dL (NEG); HYALINE CAST, URINE 10 /lpf (RARE); KETONE, URINE 80 mg/dL (NEG); MUCUS URINE FEW /lpf (OCC); NITRITE,URINE NEG (NEG); PH, URINE 5.5 (5.0-8.5); URINE COLOR YELLOW (YELLW/STRAW); URINE LEUKOCYTE ESTERASE NEG (NEG)
[2017-12-10] MEDS ORDERED: IOHEXOL 350 MG/ML 10 ML VIAL (for RAD DIAG) IVCONTRAST ONE (16:26)
--- NOTE | 2017-12-10 16:45 | RADRPT ---
EXAM DATE/TIME: 12/10/2017 16:26 [place] COMPARISON: CT ABDOMEN & PELVIS W CONTRAST, July 14, 2017, 13:12. INDICATIONS : Mid right abdominal pain, nausea,vomiting, diarrhea. IV CONTRAST: 100 cc Omnipaque 350 (iohexol) IV ORAL CONTRAST: No oral contrast ingested. RADIATION DOSE: 6.39 CTDIvol (mGy) MEDICAL HISTORY : Cardiovascular disease. Pancreatitis. Diabetes,Hep C SURGICAL HISTORY : None. ENCOUNTER: Initial ACUITY: 4 - 6 days PAIN SCALE: 6/10 LOCATION: Right upper quadrant abdominal TECHNIQUE: Volumetric scanning of the abdomen and pelvis was performed. Using automated exposure control and ad justment of the mA and/or kV according to patient size, radiation dose was kept as low as reasonably achievable to obtain optimal diagnostic quality images. DICOM format image data is available electro nically for review and comparison. FINDINGS: LOWER LUNGS: The visualized lower lungs are clear. LIVER: Homogeneous density without lesion. There is no dilation of the biliary tree. Cholecystectomy. SPLEEN: Normal size without lesion. PANCREAS: Within normal limits. KIDNEYS: Normal in size and shape. There is no mass, stone or hydronephrosis. Stable subcentimeter cysts. ADRENAL GLANDS: Within normal limits. VASCULAR: There is no aortic aneurysm. BOWEL/MESENTERY: No dilated loops of small or large bowel. No evidence of free fluid. The appendix is identified in the right lower quadrant inferior to the cecum and has a normal size and appearance. ABDOMINAL WALL: Within normal limits. RETROPERITONEUM: There is no lymphadenopathy. BLADDER: No wall thickening or mass. REPRODUCTIVE: Within normal limits. INGUINAL: There is no lymphadenopathy or hernia. MUSCULOSKELETAL: Within normal limits for patient age. CONCLUSION: 1. Negative CT abdomen and pelvis with contrast. Dennis Contreras MD on December 10, 2017 at 16:40 Board Certified Radiologist. This report was verified electronically.
[2017-12-10] MEDS ORDERED: VANCOMYCIN INJ 1,000 MG in SODIUM CHLOR 0.9% 250 ML INJ 250 ML IV STA (17:13)
[2017-12-10 17:51] VITALS: BP 141/91; PULSE 111; RESP 18; O2SAT 100
[2017-12-10 19:04] VITALS: BP 155/93; PULSE 116; RESP 16; O2SAT 100
[2017-12-10] MEDS ORDERED: MEDI220T PO (19:08)
[2017-12-10] MEDS ORDERED: LORA-392 PO (19:08)
[2017-12-10] MEDS ORDERED: BISACODYL 10 MG SUPP RECTAL PRN (19:15)
[2017-12-10] MEDS ORDERED: SENNOSIDES 8.6 MG TAB PO PRN (19:15)
[2017-12-10] MEDS ORDERED: MAGNESIUM HYDROXIDE SUSP 30 ML CUP PO PRN (19:15)
[2017-12-10] MEDS ORDERED: ACETAMINOPHEN 325 MG TAB PO PRN (19:15)
[2017-12-10] MEDS ORDERED: LACTULOSE SYRUP 20 GM/30 ML CUP PO PRN (19:15)
[2017-12-10] MEDS ORDERED: NALOXONE HCL 0.4 MG/ML AMP IV PUSH PRN (19:15)
[2017-12-10 20:00] VITALS: BP 188/82; PULSE 120; RESP 18; TEMP 97.9; O2SAT 100
[2017-12-10] MEDS: SODIUM CHLOR 0.9% 1000 ML INJ 1,000 ML IV SCH (21:40)
[2017-12-10] MEDS: SODIUM CHLORIDE 0.9% FLUSH 10 ML FLUSH IV FLUSH SCH (21:40)
[2017-12-10] MEDS: ONDANSETRON HCL 4 MG/2 ML VIAL IVP PRN (21:41)
[2017-12-10] MEDS: INSULIN ASPART SUPPLEMENTAL SCALE SQ SCH (21:43)
[2017-12-10] MEDS ORDERED: GLUCAGON 1 MG/ML VIAL OTHER PRN (21:45)
[2017-12-10] MEDS ORDERED: DEXTROSE 50% IN WATER 50 ML VIAL(D50) IV PUSH PRN (21:45)
[2017-12-10] MEDS ORDERED: ACETAMINOPHEN/HYDROcodone 325 MG/5 MG TAB PO ONE (22:15)
[2017-12-10] MEDS ORDERED: RESP: ALBUTEROL 2.5 MG/IPRATROPIUM 0.5 MG NEB (PRN) NEB (22:15)
[2017-12-10] MEDS ORDERED: METOCLOPRAMIDE HCL 10 MG TAB PO PRN (22:15)
[2017-12-10] MEDS ORDERED: diphenhydrAMINE HCL 50 MG/ML VIAL IV PUSH ONE (22:15)
--- NOTE | 2017-12-10 22:28 | HHI.HP ---
HPI Service [facility] Primary Care Physician No Primary Care Physician Admission Diagnosis Skin lesions/sepsis/nausea and vomiting Diagnoses: Chief Complaint: Nausea, vomiting, and diarrhea Travel History International Travel<30 Days: No Contact w/Intl Traveler <30 Da: No Traveled to Known Affected Are: No History of Present Illness Mr. Cortez is a 62-year-old male with a past medical history of diabetes mellitus, COPD, pancreatitis, hepatitis C, and hypertension who presented to the emergency room complaining of nausea, vomiting, and diarrhea. Abdomen/ pelvis CT with IV contrast was negative. Labs were remarkable for leukocytosis with WBC of 14.1 with neutrophilia and patient had infected looking skin lesions along with tachycardia. He is admitted to the hospitalist service for medical management of sepsis secondary to infected skin lesions and gastroparesis. Mr. Cortez is seen in his hospital room. He states he has been having nausea and vomiting since 12/06/2017; he reports nausea and vomiting is related to gastroparesis and is relieved with Reglan more so than Zofran. He also had some diarrhea on 12/07 and 12/08 but none since. He reports painful lesion on his sacrum. He reports his pain as aching and 7 out of 10. He reports some mild relief with [place] administered earlier. Review of Systems Except as stated in HPI: all other systems reviewed are Neg Past Family Social History Past Medical History COPD: emphysema, asthma, and chronic bronchitis Pancreatitis GERD Nephrolithiasis Type 2 Diabetes Mellitus Depression Anxiety Hepatitis . Past Surgical History Right knee 1982 Cholecystectomy 2015 . Reported Medications Reported Meds & Active Scripts Active Reglan (Metoclopramide HCl) 10 Mg Tab 10 Mg PO QID PRN Reported Ativan (Lorazepam) 0.5 Mg Tab 0.5 Mg PO BID PRN Naproxen Sodium 220 Mg Tab 220 Mg PO BID PRN Trazodone (Trazodone HCl) 300 Mg Tab 200 Mg PO HS Zoloft (Sertraline HCl) 100 Mg Tab 100 Mg PO BID Tagamet Hb (Cimetidine) 200 Mg Tab Unknown Dose PO BID Gabapentin 600 Mg Tab 600 Mg PO QID Albuterol Neb (Albuterol Sulfate) 2.5 Mg/3 Ml Neb 2.5 Mg NEB Q6HR PRN Proair Hfa 8.5 GM Inh (Albuterol Sulfate) 90 Mcg/Act Aer 2 Puff INH Q6H PRN 108 mcg/actuation Aspirin 325 Mg Tab 325 Mg PO DAILY Glipizide 5 Mg Tab 5 Mg PO BID Take 30 minutes before a meal Atrovent HFA 12.9 GM Inh (Ipratropium [place]) 17 Mcg/Act Aer 2 Puff INH QID Metformin (Metformin HCl) 850 Mg Tab 850 Mg PO BIDPC With meals Methocarbamol 500 Mg Tab 500 Mg PO TID . Allergies: Coded Allergies: penicillin G (Verified Allergy, Severe, RASH, 07/14/17) ketorolac (Unverified Adverse Reaction, Severe, HALLUCINATES, 07/14/17) Family History Brother from complications related to MS Brother with bipolar disorder . Social History Tobacco: Quit smoking at least 10 years ago Alcohol: Quit drinking alcohol 8 years ago - drinks socially now twice a year Illicit Drugs: Former marijuana use, No IVDA . Physical Exam Vital Signs Vital Signs Date Time Temp Pulse Resp B/P (MAP) Pulse Ox O2 Delivery O2 Flow Rate FiO2 12/10/17 20:00 97.9 120 18 188/82 (117) 100 12/10/17 19:42 12/10/17 19:04 116 16 155/93 (113) 100 Nasal Cannula 2.00 12/10/17 17:51 111 18 141/91 (108) 100 Nasal Cannula 2.00 12/10/17 14:32 98.9 14 100 Nasal Cannula 2.00 12/10/17 14:24 115 15 176/87 (116) 100 Physical Exam Constitutional: This is a thin, unkempt older male patient, in no apparent distress. Integumentary: left of sacrum has a dime-sized, nodular yellow lesion with surrounding erythema but no fluctuance and there is a healing lesion on the inferior left buttock without signs of infection. There are several scars on his buttocks from previously healed lesions. HEAD: Atraumatic. Normocephalic. EYES: No scleral icterus. No injection or drainage. ENT: Nose without bleeding, purulent drainage. NECK: Trachea midline. No JVD. CARDIOVASCULAR: Tachycardic without murmurs, gallops, or rubs. RESPIRATORY: Bilateral diminished breath sounds at bases. No wheezes, rales, or rhonchi. GASTROINTESTINAL: Abdomen soft, non-tender, nondistended. No guarding. MUSCULOSKELETAL: Extremities without clubbing, cyanosis, or edema. No calf tenderness. NEUROLOGICAL: Awake and alert. Motor and sensory grossly within normal limits. Normal speech. PSYCHIATRIC: appears calm at the time of my examination. . Laboratory Laboratory Tests Test 12/10/17 14:44 12/10/17 15:00 White Blood Count 14.1 Red Blood Count 4.76 Hemoglobin 13.7 Hematocrit 40.6 Mean Corpuscular Volume 85.4 Mean Corpuscular Hemoglobin 28.9 Mean Corpuscular Hemoglobin Concent 33.8 Red Cell Distribution Width 14.4 Platelet Count 258 Mean Platelet Volume 8.5 Neutrophils (%) (Auto) 82.5 Lymphocytes (%) (Auto) 11.9 Monocytes (%) (Auto) 5.3 Eosinophils (%) (Auto) 0.0 Basophils (%) (Auto) 0.3 Neutrophils # (Auto) 11.6 Lymphocytes # (Auto) 1.7 Monocytes # (Auto) 0.7 Eosinophils # (Auto) 0.0 Basophils # (Auto) 0.0 CBC Comment DIFF FINAL Differential Comment Blood Urea Nitrogen 30 Creatinine 1.21 Random Glucose 170 Total Protein 8.4 Albumin 4.1 Calcium Level 9.1 Alkaline Phosphatase 74 Aspartate Amino Transf (AST/SGOT) 73 Alanine Aminotransferase (ALT/SGPT) 96 Total Bilirubin 0.5 Sodium Level 134 Potassium Level 3.9 Chloride Level 100 Carbon Dioxide Level 16.9 Anion Gap 17 Estimat Glomerular Filtration Rate 61 Lipase 148 Urine Color YELLOW Urine Turbidity CLEAR Urine pH 5.5 Urine Specific [place] 1.023 Urine Protein 30 Urine Glucose (UA) 70 Urine Ketones 80 Urine Occult Blood TRACE Urine Nitrite NEG Urine Bilirubin NEG Urine Urobilinogen LESS THAN 2.0 Urine Leukocyte Esterase NEG Urine WBC LESS THAN 1 Urine Hyaline Casts 10 Urine Mucus FEW Microscopic Urinalysis Comment CULT NOT INDICATED Date/Time Source Procedure Growth Status 12/10/17 17:25 Blood Peripheral Aerobic Blood Culture Pending Received 12/10/17 17:25 Blood Peripheral Anaerobic Blood Culture Pending Received Result Diagram: 12/10/17 1444 12/10/17 1444 Imaging Last Impressions Abdomen/Pelvis CT 12/10/17 1526 Signed Impressions: Service Date/Time: Sunday, December 10, 2017 16:26 - CONCLUSION: 1. Negative CT abdomen and pelvis with contrast. Dennis Contreras MD . Caprini VTE Risk Assessment Caprini VTE Risk Assessment: Mod/High Risk (score >= 2) Caprini Risk Assessment Model Point Value = 1 Point Value = 2 Point Value = 3 Point Value = 5 Age 41-60 Minor surgery BMI > 25 kg/m2 Swollen legs Varicose veins or History of unexplained or recurrent spontaneous Oral contraceptives or hormone replacement Sepsis (< 1 month) Serious lung disease, including pneumonia (< 1 month) Abnormal pulmonary function Acute myocardial infarction Congestive heart failure (< 1 month) History of inflammatory bowel disease Medical patient at bed rest Age 61-74 Arthroscopic surgery Major open surgery (> 45 min) Laparoscopic surgery (> 45 min) Malignancy Confined to bed (> 72 hours) Immobilizing plaster cast Central venous access Age >= 75 History of VTE Family history of VTE Factor V Leiden Prothrombin [id number] Lupus anticoagulant Anticardiolipin antibodies Elevated serum homocysteine Heparin-induced thrombocytopenia Other congenital or acquired thrombophilia Stroke (< 1 month) Elective arthroplasty Hip, pelvis, or leg fracture Acute spinal cord injury (< 1 month) Prophylaxis Regimen Total Risk Factor Score Risk Level Prophylaxis Regimen 0-1 Low Early ambulation 2 Moderate Order ONE of the following: *Sequential Compression Device (SCD) *Heparin 5000 units SQ BID 3-4 Higher Order ONE of the following medications: *Heparin 5000 units SQ TID *Enoxaparin/Lovenox 40 mg SQ daily (WT < 150 kg, CrCl > 30 mL/min) *Enoxaparin/Lovenox 30 mg SQ daily (WT < 150 kg, CrCl > 10-29 mL/min) *Enoxaparin/Lovenox 30 mg SQ BID (WT < 150 kg, CrCl > 30 mL/min) AND/OR *Sequential Compression Device (SCD) 5 or more Highest Order ONE of the following medications: *Heparin 5000 units SQ TID (Preferred with Epidurals) *Enoxaparin/Lovenox 40 mg SQ daily (WT < 150 kg, CrCl > 30 mL/min) *Enoxaparin/Lovenox 30 mg SQ daily (WT < 150 kg, CrCl > 10-29 mL/min) *Enoxaparin/Lovenox 30 mg SQ BID (WT < 150 kg, CrCl > 30 mL/min) AND *Sequential Compression Device (SCD) Assessment and Plan Assessment and Plan Mr. Cortez is a 62-year-old male with a past medical history of diabetes mellitus, COPD, pancreatitis, hepatitis C, and hypertension who presented to the emergency room complaining of nausea, vomiting, and diarrhea. Abdomen/ pelvis CT with IV contrast was negative. Labs were remarkable for leukocytosis with WBC of 14.1 with neutrophilia and patient had infected looking skin lesions along with tachycardia. He is admitted to the hospitalist service for medical management of sepsis secondary to infected skin lesions and gastroparesis. Sepsis with suspected infected skin lesions (left of sacrum has a dime-sized, nodular yellow lesion with surrounding erythema but no fluctuance and there is a healing lesion on the inferior left buttock without signs of infection) -Tachycardia with HR 110's, 120's, leukocytosis with neutrophilia and suspected infection source -continue IV Vancomycin -monitor CBC -patient reports wounds have reduced in size since this a.m. -Hydroxyzine 25 mg q4h PRN pruritis (complaining of pain and itching of wounds - monitor for improvement Gastroparesis with nausea and vomiting -Reglan 10 mg IV q8h PRN for n/v and add Zofran PRN for N/V Mild metabolic acidosis suspected secondary to dehydration from nausea vomiting and diarrhea -Carbon dioxide is 16.9 and anion gap is 17 on admission -Will check STAT bmp to re-evaluate and betahydroxybuterate to assist in evaluation for DKA (which is a low index of suspicion) -IVF hydration with NS at 100 cc/hr -Zofran 4 mg IV q6h PRN nausea/vomiting COPD -Duonebulizers q4h PRN sob/wheezing -Monitor oxygen saturation and supplemental oxygen as needed Type 2 Diabetes Mellitus - Accu-Cheks before meals and at bedtime with low-dose NovoLog sliding scale coverage - Hypoglycemia protocol - Monitor trends and blood glucose readings and adjust treatments as indicated Anxiety - resume home ativan, zoloft, and trazodone Transaminitis likely related to hepatitis C -AST 73 and ALT 96 -Repeat in a.m. and follow trends DVT prophylaxis - Heparin 5000 units subq q24h . Discussed Condition With Dr. Bolton, patient, and RN . Physician Certification 2 Midnight Certification Type: Admission for Inpatient Services Order for Inpatient Services The services are ordered in accordance with Medicare regulations or non- Medicare payer requirements, as applicable. In the case of services not specified as inpatient-only, they are appropriately provided as inpatient services in accordance with the 2-midnight benchmark. Estimated LOS (days): 2 days is the estimated time the patient will need to remain in the hospital, assuming treatment plan goals are met and no additional complications. Post-Hospital Plan: [place] Mel Santana Dec 10, 2017 22:28
[2017-12-10 22:46] LABS: BICARBONATE 21.2 MEQ/L (21.0-32.0); CALCIUM 8.6 MG/DL (8.5-10.1); CREATININE 0.98 MG/DL (0.60-1.30)
[2017-12-10] MEDS: SERTRALINE HCL 100 MG TAB PO SCH (23:12)
[2017-12-10] MEDS: FAMOTIDINE 20 MG TAB PO SCH (23:12)
[2017-12-10] MEDS: LORazepam 0.5 MG TAB PO PRN (23:13)
[2017-12-10] MEDS: hydrOXYzine HCL 25 MG TAB PO PRN (23:13)
[2017-12-10] MEDS: HEPARIN SODIUM - SQ 10,000 UNITS/ML VIAL SQ SCH (23:13)
[2017-12-10] MEDS: traZODone HCL 100 MG TAB PO SCH (23:17)
[2017-12-11] VITALS (7 sets, daily range): BP systolic 137–177; BP diastolic 70–84; PULSE 96–120; RESP 16–18; TEMP 98–99.2; O2SAT 98–100
[2017-12-11] MEDS ORDERED: Vancomycin Consult Pharmacy 1 EA OTHER SCH (01:00)
[2017-12-11] MEDS ORDERED: METOCLOPRAMIDE HCL 10 MG/2 ML VIAL IV PUSH PRN (01:15)
[2017-12-11] MEDS: VANCOMYCIN INJ 1,200 MG in SODIUM CHLOR 0.9% 250 ML INJ 250 ML IV SCH ×2 (05:50→19:02)
[2017-12-11] MEDS: hydrOXYzine HCL 25 MG TAB PO PRN (05:51)
[2017-12-11] MEDS: SODIUM CHLOR 0.9% 1000 ML INJ 1,000 ML IV SCH (05:51)
[2017-12-11] MEDS: glipiZIDE 5 MG TAB PO SCH ×2 (05:59→16:09)
[2017-12-11] MEDS: ACETAMINOPHEN/HYDROcodone 325 MG/5 MG TAB PO PRN ×4 (05:59→21:00)
[2017-12-11] MEDS: HEPARIN SODIUM - SQ 10,000 UNITS/ML VIAL SQ SCH ×3 (05:59→20:47)
[2017-12-11] MEDS: INSULIN ASPART SUPPLEMENTAL SCALE SQ SCH ×4 (08:00→20:49)
[2017-12-11 08:57] LABS: AUTOMATED NEUTROPHIL # 8.7 TH/MM3 (1.8-7.7); BASOPHIL # 0.1 TH/MM3 (0-0.2); BASOPHIL % 0.8 % (0.0-2.0); EOSINOPHIL % 0.3 % (0.0-4.0); HEMATOCRIT 40.7 % (39.0-51.0); LYMPH % 17.4 % (9.0-44.0); LYMPHOCYTE # 2.1 TH/MM3 (1.0-4.8); MEAN CELL VOLUME 84.7 FL (80.0-100.0); MEAN CORPUSCULAR HEMOGLOBIN 29.1 PG (27.0-34.0); MEAN CORPUSCULAR HGB CONC 34.3 % (32.0-36.0); MEAN PLATELET VOLUME 8.3 FL (7.0-11.0); MONO % 7.6 % (0.0-8.0); MONOCYTE # 0.9 TH/MM3 (0-0.9); NEUT % 73.9 % (16.0-70.0); PLATELET COUNT 226 TH/MM3 (150-450); RED BLOOD COUNT 4.81 MIL/MM3 (4.50-5.90); RED CELL DISTRIBUTION WIDTH 14.4 % (11.6-17.2); WHITE BLOOD COUNT 11.8 TH/MM3 (4.0-11.0)
[2017-12-11] MEDS: GABAPENTIN 300 MG CAP PO SCH ×4 (08:57→20:47)
[2017-12-11] MEDS: FAMOTIDINE 20 MG TAB PO SCH ×2 (08:57→20:47)
[2017-12-11] MEDS: METHOCARBAMOL 500 MG TAB PO SCH ×3 (08:57→17:01)
[2017-12-11] MEDS: ASPIRIN 325 MG TAB PO SCH (08:57)
[2017-12-11] MEDS: SERTRALINE HCL 100 MG TAB PO SCH ×2 (08:57→20:47)
[2017-12-11] MEDS: SODIUM CHLORIDE 0.9% FLUSH 10 ML FLUSH IV FLUSH SCH ×2 (08:58→20:46)
[2017-12-11] MEDS ORDERED: SERTRALINE HCL 100 MG TAB PO SCH (09:00)
[2017-12-11 09:11] LABS: ALBUMIN 3.9 GM/DL (3.4-5.0); ALT (GPT) 111 U/L (12-78); AST (GOT) 76 U/L (15-37); BICARBONATE 20.4 MEQ/L (21.0-32.0); BLOOD UREA NITROGEN 16 MG/DL (7-18); CALCIUM 8.5 MG/DL (8.5-10.1); CHLORIDE 100 MEQ/L (98-107); CREATININE 0.92 MG/DL (0.60-1.30); GLOMERULAR FILTRATION RATE 83 ML/MIN (>89); GLUCOSE,RANDOM 150 MG/DL (74-106); SODIUM (NA) 134 MEQ/L (136-145)
[2017-12-11 09:13] LABS: ALKALINE PHOSPHATASE 73 U/L (45-117); TOTAL BILIRUBIN ADULT 0.7 MG/DL (0.2-1.0); TOTAL PROTEIN 8.1 GM/DL (6.4-8.2)
[2017-12-11] MEDS: ONDANSETRON HCL 4 MG/2 ML VIAL IVP PRN (12:29)
--- NOTE | 2017-12-11 12:48 | HHI.PR ---
Subjective Remarks Follow up abdominal pain, nausea/vomiting. Patient reports significant nausea today. Just received Zofran. Objective Vitals Vital Signs Date Time Temp Pulse Resp B/P (MAP) Pulse Ox O2 Delivery O2 Flow Rate FiO2 12/11/17 12:00 98.8 97 18 160/77 (104) 98 12/11/17 11:27 98 Nasal Cannula 2.00 12/11/17 08:00 99.1 120 18 169/82 (111) 100 12/11/17 04:00 98.2 96 16 148/73 (98) 99 12/11/17 00:00 98.4 104 18 177/84 (115) 99 12/10/17 20:00 97.9 120 18 188/82 (117) 100 12/10/17 19:42 12/10/17 19:04 116 16 155/93 (113) 100 Nasal Cannula 2.00 12/10/17 17:51 111 18 141/91 (108) 100 Nasal Cannula 2.00 12/10/17 14:32 98.9 14 100 Nasal Cannula 2.00 12/10/17 14:24 115 15 176/87 (116) 100 I/O 12/10/17 12/10/17 12/10/17 12/11/17 12/11/17 12/11/17 07:00 15:00 23:00 07:00 15:00 23:00 Intake Total 750 ml 480 ml Output Total 0 ml Balance 750 ml 480 ml Intake Oral 480 ml IV Total 750 ml Output Urine Total 0 ml # Bowel Movements 0 Result Diagram: 12/11/17 0710 12/11/17 0710 Imaging Last Impressions Abdomen/Pelvis CT 12/10/17 1526 Signed Impressions: Service Date/Time: Sunday, December 10, 2017 16:26 - CONCLUSION: 1. Negative CT abdomen and pelvis with contrast. Dennis Contreras MD Objective Remarks General: Thin disheveled male in no acute distress. Appears uncomfortable. Heart: Tachycardic. No murmur. Lungs: Clear to auscultation bilaterally. No wheezes, rales, or rhonchi. Breathing is nonlabored. Abdomen: Soft, nontender, nondistended. Extremities: No lower extremity edema. Psych: Alert and oriented. Neuro: Speech is normal. No focal deficits noted. Procedures None Urinary Catheter: No Vascular Central Line Catheter: No A/P Assessment and Plan 1. Sepsis: Secondary to infected skin lesions. Patient presented with tachycardia, leukocytosis. Continue vancomycin. WBCs are trending down. Consult wound care. 2. Gastroparesis nausea and vomiting: Continue Reglan, Zofran as needed. Consult GI. 3. Metabolic acidosis: Likely secondary to dehydration from nausea/vomiting/ diarrhea. Improving. Monitor labs. Continue IV fluids. 4. COPD: Bronchodilators as needed. Continue supplemental oxygen. 5. Hypokalemia: Supplement potassium. Recheck labs in the morning. 6. Diabetes mellitus type 2: Monitor Accu-Cheks and cover with sliding scale insulin. 7. Anxiety: Continue Ativan, Zoloft, trazodone. 8. Transaminitis: AST and ALT increasing. Likely secondary to hepatitis C. Consult GI. 9. DVT prophylaxis: Heparin. Discharge Planning Pending clinical improvement. Byron Ruggiero MD Dec 11, 2017 12:48
[2017-12-11] MEDS: POTASSIUM CHLOR 10 MEQ PREMIX 100 ML IV SCH ×4 (15:00→20:40)
--- NOTE | 2017-12-11 15:08 | PD.CONS ---
HPI History of Present Illness This is a 62 year [id number] male with a past medical history of diabetes mellitus, COPD, pancreatitis, hepatitis C ( tx naive), and hypertension who presented to the emergency room complaining of nausea, vomiting, and diarrhea since Wednesday. Abdomen/pelvis CT with IV contrast was negative. Labs were remarkable for leukocytosis. Pt had EGD on 01/06/17 [place] class A esophagitis, bx done acute esophagitis with marked inflammatory changes, gastritis, bx done (+ ) for H-pylori, normal duodenal mucosa repeat in one yr, not sure if he was treated for this or not. He never had colonoscopy before. He has multiple lesions on lower extremities, he attributes to bed bugs. Pt denies recent sick contact or travel or abx use, reports one episode of bloody stools. LFts are high but this is chronic. He is not daily drinker. He is with hx of gastroparesis not any tx for this. (Karen Huffman) PFSH Past Medical History COPD: emphysema, asthma, and chronic bronchitis Pancreatitis GERD Nephrolithiasis Type 2 Diabetes Mellitus Depression Anxiety Hepatitis . Past Surgical History Right knee 1982 Cholecystectomy 2016 . (Karen Huffman) Coded Allergies: penicillin G (Verified Allergy, Severe, RASH, 07/14/17) ketorolac (Unverified Adverse Reaction, Severe, HALLUCINATES, 07/14/17) Medications Current Medications Medications (Trade) Dose Ordered Sig/Lb Route Start Time Stop Time Status Last Admin (NS Flush) 2 ml UNSCH PRN IV FLUSH 12/10/17 18:15 (NS Flush) 2 ml BID IV FLUSH 12/10/17 21:00 12/11/17 08:58 (Tylenol) 650 mg Q4H PRN PO 12/10/17 19:15 12/10/17 21:40 (Zofran Inj) 4 mg Q6H PRN IVP 12/10/17 19:15 12/11/17 12:29 (Narcan Inj) 0.4 mg UNSCH PRN IV PUSH 12/10/17 19:15 (Milk Of Magnesia Liq) 30 ml Q12H PRN PO 12/10/17 19:15 (Senokot) 17.2 mg Q12H PRN PO 12/10/17 19:15 (Dulcolax Supp) 10 mg DAILY PRN RECTAL 12/10/17 19:15 (Lactulose Liq) 30 ml DAILY PRN PO 12/10/17 19:15 (D50w (Vial) Inj) 50 ml UNSCH PRN IV PUSH 12/10/17 21:45 (Glucagon Inj) 1 mg UNSCH PRN OTHER 12/10/17 21:45 (NovoLOG SUPPLEMENTAL SCALE) 1 ACHS SLIDING SCALE SQ 12/10/17 21:43 (Duoneb Neb) 1 ampule Q4HR NEB PRN NEB 12/10/17 22:15 (Aspirin) 325 mg DAILY PO 12/11/17 09:00 12/11/17 08:57 (Neurontin) 600 mg QID PO 12/11/17 09:00 12/11/17 12:23 (Glucotrol) 5 mg BIDAC PO 12/11/17 07:00 12/11/17 05:59 (Ativan) 0.5 mg BID PRN PO 12/10/17 22:15 12/10/17 23:13 (Robaxin) 500 mg TID PO 12/11/17 09:00 12/11/17 12:23 (Reglan) 10 mg QID PRN PO 12/10/17 22:15 Future Hold 12/10/17 23:13 (Desyrel) 200 mg HS PO 12/10/17 22:15 12/10/17 23:17 (Atarax) 25 mg Q4H PRN PO 12/10/17 22:15 12/11/17 05:51 (Zoloft) 100 mg BID PO 12/10/17 22:30 12/11/17 08:57 (Pepcid) 20 mg BID PO 12/10/17 22:30 12/11/17 08:57 (Heparin Inj) 5,000 units Q8HR SQ 12/10/17 22:30 12/11/17 05:59 Pharmacy Profile Note 0 ml @ 0 mls/hr UNSCH OTHER 12/11/17 01:00 Vancomycin HCl 1200 mg/Sodium Chloride 262 ml @ 250 mls/hr Q12H IV 12/11/17 05:00 12/11/17 05:50 Miscellaneous Information SPECIFIC LAB TO BE DRAWN:VANCOMYCIN TROUGH DATE TO... ONCE ONCE .XX 12/12/17 04:45 12/12/17 04:46 (Reglan Inj) 10 mg Q8H PRN IV PUSH 12/11/17 01:15 12/11/17 05:51 ([place] 5-325 Mg) 1 tab Q4H PRN PO 12/11/17 02:30 12/11/17 12:23 Potassium Chloride/Sodium Chloride 1,000 ml @ 84 mls/hr [id number] IV 12/11/17 13:00 Potassium Chloride 100 ml @ 100 mls/hr Q1H IV 12/11/17 13:00 12/11/17 15:59 Family History Brother from complications related to MS Brother with bipolar disorder . Social History Tobacco: Quit smoking at least 10 years ago Alcohol: Quit drinking alcohol 8 years ago - drinks socially now twice a year Illicit Drugs: Former marijuana use, No IVDA . (Karen Huffman) Review of Systems Constitutional: COMPLAINS OF: Change in appetite Endocrine: DENIES: Polyuria Eyes: DENIES: Double Vision Ears, nose, mouth, throat: DENIES: Hoarseness Respiratory: DENIES: Shortness of breath Cardiovascular: DENIES: Lower Extremity Edema Gastrointestinal: COMPLAINS OF: Abdominal pain, Bloody stools, Diarrhea, Nausea , Vomiting, Anorexia, DENIES: Black stools, Constipation, Difficulty Swallowing , Odynophagia, Swelling of Abdomen, Heartburn, Hematemesis Genitourinary: DENIES: Hematuria Musculoskeletal: DENIES: Neck pain Integumentary: COMPLAINS OF: Rash, DENIES: Jaundice Neurologic: DENIES: Abnormal gait (Karen Huffman) GI Exam Vitals I&O Vital Signs Date Time Temp Pulse Resp B/P (MAP) Pulse Ox O2 Delivery O2 Flow Rate FiO2 12/11/17 12:00 98.8 97 18 160/77 (104) 98 12/11/17 11:27 98 Nasal Cannula 2.00 12/11/17 08:00 99.1 120 18 169/82 (111) 100 12/11/17 04:00 98.2 96 16 148/73 (98) 99 12/11/17 00:00 98.4 104 18 177/84 (115) 99 12/10/17 20:00 97.9 120 18 188/82 (117) 100 12/10/17 19:42 12/10/17 19:04 116 16 155/93 (113) 100 Nasal Cannula 2.00 12/10/17 17:51 111 18 141/91 (108) 100 Nasal Cannula 2.00 I/O 12/10/17 12/10/17 12/10/17 12/11/17 12/11/17 12/11/17 07:00 15:00 23:00 07:00 15:00 23:00 Intake Total 750 ml 480 ml Output Total 0 ml Balance 750 ml 480 ml Intake Oral 480 ml IV Total 750 ml Output Urine Total 0 ml # Bowel Movements 0 Imaging Last Impressions Abdomen/Pelvis CT 12/10/17 1526 Signed Impressions: Service Date/Time: Sunday, December 10, 2017 16:26 - CONCLUSION: 1. Negative CT abdomen and pelvis with contrast. Dennis Contreras MD Laboratory Test 12/10/17 15:00 12/10/17 22:17 12/11/17 07:10 Urine Color YELLOW Urine Turbidity CLEAR Urine pH 5.5 Urine Specific [place] 1.023 Urine Protein 30 mg/dL Urine Glucose (UA) 70 mg/dL Urine Ketones 80 mg/dL Urine Occult Blood TRACE Urine Nitrite NEG Urine Bilirubin NEG Urine Urobilinogen LESS THAN 2.0 MG/DL Urine Leukocyte Esterase NEG Urine WBC LESS THAN 1 /hpf Urine Hyaline Casts 10 /lpf Urine Mucus FEW /lpf Microscopic Urinalysis Comment CULT NOT INDICATED Blood Urea Nitrogen 22 MG/DL 16 MG/DL Creatinine 0.98 MG/DL 0.92 MG/DL Random Glucose 117 MG/DL 150 MG/DL Calcium Level 8.6 MG/DL 8.5 MG/DL Sodium Level 136 MEQ/L 134 MEQ/L Potassium Level 3.2 MEQ/L 3.1 MEQ/L Chloride Level 100 MEQ/L 100 MEQ/L Carbon Dioxide Level 21.2 MEQ/L 20.4 MEQ/L Anion Gap 15 MEQ/L 14 MEQ/L Estimat Glomerular Filtration Rate 78 ML/MIN 83 ML/MIN Lactic Acid Level 0.7 mmol/L B-Hydroxybutyrate 3.70 MMOL/L White Blood Count 11.8 TH/MM3 Red Blood Count 4.81 MIL/MM3 Hemoglobin 14.0 GM/DL Hematocrit 40.7 % Mean Corpuscular Volume 84.7 FL Mean Corpuscular Hemoglobin 29.1 PG Mean Corpuscular Hemoglobin Concent 34.3 % Red Cell Distribution Width 14.4 % Platelet Count 226 TH/MM3 Mean Platelet Volume 8.3 FL Neutrophils (%) (Auto) 73.9 % Lymphocytes (%) (Auto) 17.4 % Monocytes (%) (Auto) 7.6 % Eosinophils (%) (Auto) 0.3 % Basophils (%) (Auto) 0.8 % Neutrophils # (Auto) 8.7 TH/MM3 Lymphocytes # (Auto) 2.1 TH/MM3 Monocytes # (Auto) 0.9 TH/MM3 Eosinophils # (Auto) 0.0 TH/MM3 Basophils # (Auto) 0.1 TH/MM3 CBC Comment DIFF FINAL Differential Comment Total Protein 8.1 GM/DL Albumin 3.9 GM/DL Alkaline Phosphatase 73 U/L Aspartate Amino Transf (AST/SGOT) 76 U/L Alanine Aminotransferase (ALT/SGPT) 111 U/L Total Bilirubin 0.7 MG/DL Date/Time Source Procedure Growth Status 12/10/17 17:25 Blood Peripheral Aerobic Blood Culture - Preliminary NO GROWTH IN 1 DAY Resulted 12/10/17 17:25 Blood Peripheral Anaerobic Blood Culture - Preliminary NO GROWTH IN 1 DAY Resulted Physical Examination HEENT: normocephalic; atraumatic; no jaundice. CHEST: Chest is clear to auscultation and percussion. CARDIAC: Regular rate and rhythm with no murmur gallop or rubs. ABDOMEN: Soft, nondistended, nontender; no hepatosplenomegaly; bowel sounds are present in all four quadrants. EXTREMITIES: No clubbing, cyanosis, or edema. SKIN: Normal; no rash; no jaundice. PELLET PRESS OPERATOR: No focal deficits; alert and oriented times three. (Nathanael,Karen PROJECT MANAGER/DESIGN MANAGER) Assessment and Plan Plan - Nausea, vomiting, and diarrhea for few days- nausea, vomiting, and diarrhea since Wednesday. Abdomen/pelvis CT with IV contrast was negative. Labs were remarkable for leukocytosis. Pt had EGD on 01/06/17 [place] class A esophagitis, bx done acute esophagitis with marked inflammatory changes, gastritis, bx done (+ ) for H-pylori, normal duodenal mucosa repeat in one yr, not sure if he was treated for this or not. He never had colonoscopy before. Pt denies recent sick contact or travel or abx use, reports one episode of bloody stools.He is with hx of gastroparesis not any tx for this. - hepatitis C ( tx naive) - Leukocytosis- trending down, on abx - Hx of pancreatitis- lipase wnl, cT negative, he is s/p cholecystectomy - LFts are high but this is chronic. He is not daily drinker. previous liver work up negative except (+) hep-C - He has multiple lesions on lower extremities, he attributes to bed bugs. per attending - COPD per attending Plan: - DANIAL - EGD/colonoscopy on Wednesday - Obtain consents - Cont. Reglan - Stools studies - Cont. supportive care - Pt seen and examined by Dr. Ware and myself and this note is written on his behalf. (Karen Huffman) Physician Comments Seen and examined with PROJECT MANAGER/DESIGN MANAGER, egd/colonoscopy on wednesday if able to do prep. Continue reglan/zofran and protonix. Thank you (Noam Ware MD) Karen Huffman Dec 11, 2017 15:08 Noam Ware MD Dec 11, 2017 17:18
[2017-12-11] MEDS: LORazepam 0.5 MG TAB PO PRN (18:14)
--- NOTE | 2017-12-11 18:39 | EKG ---
Date Performed: 12/10/2017 Time Performed: 14:36:11 PTAGE: 62 years EKG: SINUS TACHYCARDIA POSSIBLE LEFT ATRIAL ENLARGEMENT Compared to previous tracing, HR is fast er, and the atrial abnormality is slightly more prominent ABNORMAL RHYTHM ECG PREVIOUS TRACING : 07/01/17 @ 2108 DOCTOR: Jose Wise Interpretating Date/Time 12/11/2017 18:37:47
[2017-12-11] MEDS: NS + KCL 20 MEQ INJ 1,000 ML IV SCH ×2 (20:46→23:43)
[2017-12-11] MEDS: traZODone HCL 100 MG TAB PO SCH (20:58)
[2017-12-12] VITALS (9 sets, daily range): BP systolic 139–154; BP diastolic 64–76; PULSE 78–97; RESP 16–18; TEMP 97.6–98.7; O2SAT 99–100
[2017-12-12] MEDS: ACETAMINOPHEN/HYDROcodone 325 MG/5 MG TAB PO PRN ×5 (02:05→21:53)
[2017-12-12] MEDS ORDERED: PHARMACY ORDERED LAB ONE (04:45)
[2017-12-12] MEDS: VANCOMYCIN INJ 1,200 MG in SODIUM CHLOR 0.9% 250 ML INJ 250 ML IV SCH ×2 (05:52→17:01)
[2017-12-12] MEDS: HEPARIN SODIUM - SQ 10,000 UNITS/ML VIAL SQ SCH ×3 (05:52→22:00)
[2017-12-12] MEDS: LORazepam 0.5 MG TAB PO PRN ×2 (05:52→14:50)
[2017-12-12 06:09] LABS: AUTOMATED NEUTROPHIL # 6.2 TH/MM3 (1.8-7.7); BASOPHIL # 0.1 TH/MM3 (0-0.2); BASOPHIL % 0.9 % (0.0-2.0); EOSINOPHIL # 0.1 TH/MM3 (0-0.4); HEMATOCRIT 38.8 % (39.0-51.0); HEMOGLOBIN 13.3 GM/DL (13.0-17.0); LYMPH % 29.8 % (9.0-44.0); MEAN CELL VOLUME 85.8 FL (80.0-100.0); MEAN CORPUSCULAR HEMOGLOBIN 29.4 PG (27.0-34.0); MEAN CORPUSCULAR HGB CONC 34.3 % (32.0-36.0); MEAN PLATELET VOLUME 8.1 FL (7.0-11.0); MONO % 7.4 % (0.0-8.0); MONOCYTE # 0.7 TH/MM3 (0-0.9); NEUT % 60.9 % (16.0-70.0); PLATELET COUNT 210 TH/MM3 (150-450); RED BLOOD COUNT 4.53 MIL/MM3 (4.50-5.90); RED CELL DISTRIBUTION WIDTH 14.4 % (11.6-17.2); WHITE BLOOD COUNT 10.1 TH/MM3 (4.0-11.0)
[2017-12-12] MEDS: glipiZIDE 5 MG TAB PO SCH (06:58)
[2017-12-12] MEDS: ASPIRIN 325 MG TAB PO SCH (07:15)
[2017-12-12] MEDS: FAMOTIDINE 20 MG TAB PO SCH ×2 (07:15→21:53)
[2017-12-12] MEDS: SERTRALINE HCL 100 MG TAB PO SCH ×2 (07:15→22:01)
[2017-12-12] MEDS: GABAPENTIN 300 MG CAP PO SCH ×4 (07:15→21:53)
[2017-12-12] MEDS: METHOCARBAMOL 500 MG TAB PO SCH ×3 (07:15→17:01)
[2017-12-12] MEDS: SODIUM CHLORIDE 0.9% FLUSH 10 ML FLUSH IV FLUSH SCH ×2 (07:16→21:00)
[2017-12-12] MEDS: INSULIN ASPART SUPPLEMENTAL SCALE SQ SCH ×4 (07:16→22:00)
[2017-12-12 07:47] LABS: ALBUMIN 3.7 GM/DL (3.4-5.0); ALT (GPT) 204 U/L (12-78); AST (GOT) 223 U/L (15-37); BICARBONATE 26.8 MEQ/L (21.0-32.0); BLOOD UREA NITROGEN 16 MG/DL (7-18); CALCIUM 8.3 MG/DL (8.5-10.1); CHLORIDE 101 MEQ/L (98-107); CREATININE 0.95 MG/DL (0.60-1.30); GLOMERULAR FILTRATION RATE 80 ML/MIN (>89); GLUCOSE,RANDOM 83 MG/DL (74-106); MAGNESIUM 1.7 MG/DL (1.5-2.5); SODIUM (NA) 137 MEQ/L (136-145)
[2017-12-12 07:48] LABS: ALKALINE PHOSPHATASE 81 U/L (45-117); TOTAL BILIRUBIN ADULT 0.6 MG/DL (0.2-1.0); TOTAL PROTEIN 7.9 GM/DL (6.4-8.2); VANCOMYCIN TROUGH 10.4 MCG/ML (5.0-10.0)
--- NOTE | 2017-12-12 10:49 | HHI.PR ---
Subjective Remarks Follow up abdominal pain, nausea, vomiting. Patient states that he is feeling a little better today. He is tolerating some liquids. No diarrhea. Objective Vitals Vital Signs Date Time Temp Pulse Resp B/P (MAP) Pulse Ox O2 Delivery O2 Flow Rate FiO2 12/12/17 08:00 97.6 92 18 142/64 (90) 99 12/12/17 04:00 98.7 89 16 141/74 (96) 99 12/12/17 00:00 98.7 91 16 139/75 (96) 99 12/11/17 20:00 98.0 99 18 137/70 (92) 99 12/11/17 16:00 99.2 100 18 147/78 (101) 98 12/11/17 12:00 98.8 97 18 160/77 (104) 98 12/11/17 11:27 98 Nasal Cannula 2.00 I/O 12/11/17 12/11/17 12/11/17 12/12/17 12/12/17 12/12/17 07:00 15:00 23:00 07:00 15:00 23:00 Intake Total 480 ml Output Total 0 ml Balance 480 ml Intake Oral 480 ml Output Urine Total 0 ml # Bowel Movements 0 Result Diagram: 12/12/17 0535 12/12/17 0535 Imaging Last Impressions Abdomen/Pelvis CT 12/10/17 1526 Signed Impressions: Service Date/Time: Sunday, December 10, 2017 16:26 - CONCLUSION: 1. Negative CT abdomen and pelvis with contrast. Dennis Contreras MD Objective Remarks General: Thin disheveled male in no acute distress. Appears uncomfortable. Heart: Regular rate and rhythm. No murmur. Lungs: Clear to auscultation bilaterally. No wheezes, rales, or rhonchi. Breathing is nonlabored. Abdomen: Soft, nontender, nondistended. Extremities: No lower extremity edema. Psych: Alert and oriented. Neuro: Speech is normal. No focal deficits noted. Procedures None Urinary Catheter: No Vascular Central Line Catheter: No A/P Assessment and Plan 1. Sepsis: Secondary to infected skin lesions. Patient presented with tachycardia, leukocytosis. Continue vancomycin. Leukocytosis resolved. C ending. Onsult wound care. 2. Gastroparesis nausea and vomiting: Continue Reglan, Zofran as needed. Appreciate GI recommendations. 3. Metabolic acidosis: Likely secondary to dehydration from nausea/vomiting/ diarrhea. Improving. Monitor labs. Continue IV fluids. 4. COPD: Bronchodilators as needed. Continue supplemental oxygen. 5. Hypokalemia: Improved. 6. Diabetes mellitus type 2: Monitor Accu-Cheks and cover with sliding scale insulin. 7. Anxiety: Continue Ativan, Zoloft, trazodone. 8. Transaminitis: AST and ALT increasing. Likely secondary to hepatitis C. appreciate GI recommendations. 9. DVT prophylaxis: Heparin. Discharge Planning Pending clinical improvement. Byron Ruggiero MD Dec 12, 2017 10:49
[2017-12-12] MEDS ORDERED: RESP: ALBUTEROL 2.5 MG/3 ML NEB (PRN) NEB (11:00)
[2017-12-12] MEDS: NS + KCL 20 MEQ INJ 1,000 ML IV SCH (11:51)
[2017-12-12] MEDS: RESP: ALBUTEROL 2.5 MG/IPRATROPIUM 0.5 MG NEB (SCH) NEB ×3 (12:00→20:00)
--- NOTE | 2017-12-12 14:33 | HHI.GIFU ---
Subjective Remarks Patient's resting in the bed Positive epigastric and gastric tenderness with palpation No BM 4 days and notes diarrhea before that Afebrile No nausea no vomiting (Gabrielle Tidwell) Objective Vitals I&O Vital Signs Date Time Temp Pulse Resp B/P (MAP) Pulse Ox O2 Delivery O2 Flow Rate FiO2 12/12/17 12:44 99 Nasal Cannula 2.00 12/12/17 12:00 97.8 89 18 140/74 (96) 99 12/12/17 08:00 97.6 92 18 142/64 (90) 99 12/12/17 04:00 98.7 89 16 141/74 (96) 99 12/12/17 00:00 98.7 91 16 139/75 (96) 99 12/11/17 20:00 98.0 99 18 137/70 (92) 99 12/11/17 16:00 99.2 100 18 147/78 (101) 98 I/O 12/11/17 12/11/17 12/11/17 12/12/17 12/12/17 12/12/17 07:00 15:00 23:00 07:00 15:00 23:00 Intake Total 480 ml Output Total 0 ml Balance 480 ml Intake Oral 480 ml Output Urine Total 0 ml # Bowel Movements 0 Laboratory Laboratory Tests Test 12/12/17 05:35 White Blood Count 10.1 Red Blood Count 4.53 Hemoglobin 13.3 Hematocrit 38.8 Mean Corpuscular Volume 85.8 Mean Corpuscular Hemoglobin 29.4 Mean Corpuscular Hemoglobin Concent 34.3 Red Cell Distribution Width 14.4 Platelet Count 210 Mean Platelet Volume 8.1 Neutrophils (%) (Auto) 60.9 Lymphocytes (%) (Auto) 29.8 Monocytes (%) (Auto) 7.4 Eosinophils (%) (Auto) 1.0 Basophils (%) (Auto) 0.9 Neutrophils # (Auto) 6.2 Lymphocytes # (Auto) 3.0 Monocytes # (Auto) 0.7 Eosinophils # (Auto) 0.1 Basophils # (Auto) 0.1 CBC Comment DIFF FINAL Differential Comment Blood Urea Nitrogen 16 Creatinine 0.95 Random Glucose 83 Total Protein 7.9 Albumin 3.7 Calcium Level 8.3 Magnesium Level 1.7 Alkaline Phosphatase 81 Aspartate Amino Transf (AST/SGOT) 223 Alanine Aminotransferase (ALT/SGPT) 204 Total Bilirubin 0.6 Sodium Level 137 Potassium Level 3.5 Chloride Level 101 Carbon Dioxide Level 26.8 Anion Gap 9 Estimat Glomerular Filtration Rate 80 Vancomycin Level Trough 10.4 Date/Time Source Procedure Growth Status 12/10/17 17:25 Blood Peripheral Aerobic Blood Culture - Preliminary NO GROWTH IN 2 DAYS Resulted 12/10/17 17:25 Blood Peripheral Anaerobic Blood Culture - Preliminary NO GROWTH IN 2 DAYS Resulted Imaging Last Impressions Abdomen/Pelvis CT 12/10/17 1526 Signed Impressions: Service Date/Time: Sunday, December 10, 2017 16:26 - CONCLUSION: 1. Negative CT abdomen and pelvis with contrast. Dennis Contreras MD Physical Exam HEENT: Pupils round and reactive to light; normocephalic; atraumatic; no obvious jaundice NECK: Neck is supple, CHEST: Chest is clear without audible rhonchi or wheezing CARDIAC: Regular rate and rhythm ABDOMEN: Round, Soft, nondistended, epigastric and gastric tenderness no hepatosplenomegaly; bowel sounds are present in all four quadrants. EXTREMITIES: No clubbing, cyanosis, or edema. SKIN: Normal; no rash; no jaundice. CONVEYOR LOADER: No focal deficits; alert and oriented times three. (Gabrielle Tidwell) Assessment and Plan Plan - Nausea, vomiting, and diarrhea for few days- nausea, vomiting, and diarrhea since Wednesday. Abdomen/pelvis CT with IV contrast was negative. Labs were remarkable for leukocytosis. Pt had EGD on 01/06/17 [place] class A esophagitis, bx done acute esophagitis with marked inflammatory changes, gastritis, bx done (+ ) for H-pylori, normal duodenal mucosa repeat in one yr, not sure if he was treated for this or not. He never had colonoscopy before. Pt denies recent sick contact or travel or abx use, reports one episode of bloody stools.He is with hx of gastroparesis not any tx for this. - hepatitis C ( tx naive) - Leukocytosis- trending down, on abx - Hx of pancreatitis- lipase wnl, cT negative, he is s/p cholecystectomy - LFts are high but this is chronic. He is not daily drinker. previous liver work up negative except (+) hep-C - He has multiple lesions on lower extremities, he attributes to bed bugs. per attending - COPD per attending 12/10/17 CT of the abdomen and pelvis is unremarkable. 12/12/17 Patient's currently tolerating clear liquids well. continues to have epigastric and gastric tenderness, no nausea no vomiting, no dysphagia no obvious bleeding Hemoglobin 13.3 Plan: - Diet clear liquids today -GoLYTELY prep ordered - EGD/colonoscopy on Wednesday - Obtain consents - Hold ASA until after EGD colonoscopy - Reglan - Stools studies - Cont. supportive care - Pepcid - Anti-emetics Pt seen and examined by Dr. Ware and myself and this note is written on his behalf. (Gabrielle Tidwell) Physician Comments Seen and examined with REMINGTON, egd/colonoscopy planned for tomorrow. (Noam Ware MD) Gabrielle Tidwell Dec 12, 2017 14:33 Noam Ware MD Dec 12, 2017 17:38
[2017-12-12] MEDS ORDERED: PEG (High)/E-LYTE SOLN 4000 ML BTL PO ONE (16:00)
[2017-12-12] MEDS: BECLOMETHASONE DIPROPIONATE 40 MCG/ACT 8.7 GM INHALER INH SCH ×2 (17:01→21:55)
[2017-12-12] MEDS: traZODone HCL 100 MG TAB PO SCH (21:53)
[2017-12-13] VITALS (8 sets, daily range): BP systolic 118–159; BP diastolic 58–76; PULSE 75–102; RESP 16–18; TEMP 98–99.2; O2SAT 98–100
[2017-12-13] MEDS: NS + KCL 20 MEQ INJ 1,000 ML IV SCH (04:01)
[2017-12-13] MEDS: VANCOMYCIN INJ 1,200 MG in SODIUM CHLOR 0.9% 250 ML INJ 250 ML IV SCH ×2 (05:11→18:22)
[2017-12-13] MEDS: ACETAMINOPHEN/HYDROcodone 325 MG/5 MG TAB PO PRN ×2 (05:20→14:07)
[2017-12-13] MEDS: HEPARIN SODIUM - SQ 10,000 UNITS/ML VIAL SQ SCH ×2 (05:59→14:00)
[2017-12-13] MEDS ORDERED: CHLORHEXIDINE GLUCONATE 2 % 1 PACK (2 CLOTHS) TOPICAL PRN (06:30)
[2017-12-13] MEDS ORDERED: SODIUM CHLORID 0.9% 500 ML IV PRN (06:30)
[2017-12-13] MEDS ORDERED: POVIDONE IODINE 5% (ANTISEPSIS KIT) 4 APPLICATIONS EACH NARE PRN (06:30)
[2017-12-13] MEDS ORDERED: LACTATED RINGER'S 1000 ML IV PRN (06:30)
[2017-12-13] MEDS: INSULIN ASPART SUPPLEMENTAL SCALE SQ SCH ×4 (08:00→23:54)
[2017-12-13] MEDS: RESP: ALBUTEROL 2.5 MG/IPRATROPIUM 0.5 MG NEB (SCH) NEB ×4 (08:09→22:23)
[2017-12-13] MEDS: LORazepam 0.5 MG TAB PO PRN ×2 (08:47→18:29)
[2017-12-13] MEDS: ASPIRIN 325 MG TAB PO SCH (09:00)
[2017-12-13] MEDS: SODIUM CHLORIDE 0.9% FLUSH 10 ML FLUSH IV FLUSH SCH ×2 (09:00→21:00)
--- NOTE | 2017-12-13 09:44 | PD.WCN.NOT ---
Wound Consult Description: Received consult for wound management of sacral area from Doctor Ruggiero Communicated with: EZEQUIEL Valero [place] and call placed to attending physician. Recommendation: Please cleanse wound to sacral area with normal saline and pat dry. Apply Calazime skin protectant paste to intact skin surrounding opening. Apply Skin prep to intact skin before covering wound with bordered gauze. Change dressing daily until seen by general surgery for possible I&D of sacral lesion. Needs imaging of L axilla for possible abscesses. Additional Information: Patient seen on for evaluation of sacral wound management around 914. Patient turned to R side with the minimal assistance of technical writer and editor to reveal lesion to sacral area. Lesion presents with opening in center measuring ~0.3cm x~0.4cm x ~0.2cm.Opening in center of lesion is noted with 100% white tissue.Lesion presents with erythema and hard induration. Nothing is expressed from lesion, Lesion is tender to touch and when in contact with mattress. No active drainage or odor is noted. Wound was cleansed with normal saline and patted dry. Bilateral buttocks presents with diffuse scar tissue. 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 Applied Calazime skin protectant paste to unopened skin on lesion. Covered lesion with bordered gauze. Patient is also complaining of of indurated nodular areas to L axilla . Assessed L axilla. L axilla area presents with two intact nodular lesions with hard induration, that are tender to touch and erythematous. Left lesions open to air. Dorina Kirkpatrick [facility] Dec 13, 2017 09:44
--- NOTE | 2017-12-13 11:07 | HHI.PR ---
Subjective Remarks Follow up nausea/vomiting. Patient still having nausea. Also complaining of enlarged, painful lymph nodes in left axilla. Objective Vitals Vital Signs Date Time Temp Pulse Resp B/P (MAP) Pulse Ox O2 Delivery O2 Flow Rate FiO2 12/13/17 08:30 99.2 84 18 159/70 (99) 99 12/13/17 08:12 99 Nasal Cannula 2.00 12/13/17 04:00 98.7 75 16 120/76 (91) 100 12/13/17 00:00 98.0 80 16 118/58 (78) 100 12/12/17 20:00 98.5 95 16 140/70 (93) 100 12/12/17 16:00 97.9 78 18 154/76 (102) 99 12/12/17 12:44 99 Nasal Cannula 2.00 12/12/17 12:00 97.8 89 18 140/74 (96) 99 12/12/17 12:00 86 I/O 12/12/17 12/12/17 12/12/17 12/13/17 12/13/17 12/13/17 07:00 15:00 23:00 07:00 15:00 23:00 # Bowel Movements 2 Result Diagram: 12/12/17 0535 12/12/17 0535 Imaging Last Impressions Abdomen/Pelvis CT 12/10/17 1526 Signed Impressions: Service Date/Time: Sunday, December 10, 2017 16:26 - CONCLUSION: 1. Negative CT abdomen and pelvis with contrast. Dennis Contreras MD Objective Remarks General: Thin disheveled male in no acute distress. Appears uncomfortable. Heart: Regular rate and rhythm. No murmur. Lungs: Clear to auscultation bilaterally. No wheezes, rales, or rhonchi. Breathing is nonlabored. Abdomen: Soft, nontender, nondistended. Extremities: No lower extremity edema. Left axilla with enlarged tender lymphadenopathy. Psych: Alert and oriented. Neuro: Speech is normal. No focal deficits noted. Skin: Multiple lesions on extremities. Wound on sacral region. Procedures None Urinary Catheter: No Vascular Central Line Catheter: No A/P Assessment and Plan 1. Sepsis: Secondary to infected skin lesions. Patient presented with tachycardia, leukocytosis. Continue vancomycin. Leukocytosis resolved. Continue wound care. Consult infectious disease. 2. Gastroparesis nausea and vomiting: Continue Reglan, Zofran as needed. Appreciate GI recommendations. 3. Metabolic acidosis: Likely secondary to dehydration from nausea/vomiting/ diarrhea. Improving. Monitor labs. Continue IV fluids. 4. COPD: Bronchodilators as needed. Continue supplemental oxygen. 5. Hypokalemia: Improved. 6. Diabetes mellitus type 2: Monitor Accu-Cheks and cover with sliding scale insulin. 7. Anxiety: Continue Ativan, Zoloft, trazodone. 8. Transaminitis: AST and ALT increasing. Likely secondary to hepatitis C. appreciate GI recommendations. 9. DVT prophylaxis: Heparin. 10. Axillary lymphadenopathy, multiple skin lesions: Check ultrasound to evaluate for abscess. Consult general surgery. Discharge Planning Pending clinical improvement. Byron Ruggiero MD Dec 13, 2017 11:07
[2017-12-13] MEDS ORDERED: PROPOFOL 200 MG/20 ML AMP IV ONE (12:00)
[2017-12-13] MEDS ORDERED: LIDOCAINE HCL 1% PF 5 ML SYRINGE OTHER ONE (12:00)
--- NOTE | 2017-12-13 13:00 | PD.PROCEDR ---
GI Procedure PROCEDURE PERFORMED upper endoscopy with Bx, colonoscopy with Bx, snare polypectomy INDICATION FOR PROCEDURE Nausea, vomiting, diarrhea, abdominal pain PROCEDURE: The procedure, risks and benefits were discussed with Mr. Cortez and informed consent was obtained. Anesthesia sedated him with Diprivan. He was placed in the left lateral decubitus position. EGD: The Pentax videoscope was introduced through the oropharynx and advanced to the second portion of the duodenum under direct visualization. Retroflexion was performed in the stomach. Biopsy from the distal esophagus, biopsy from the antrum Colonoscopy: The Pentax videoscope was introduced through the rectum and advanced to cecum. Retroflexion was performed in the rectum. Colonic prep was good, 2 polyps removed by a snare from the cecum and sigmoid colon, random biopsy from the cecum and sigmoid area for diarrhea ESTIMATED BLOOD LOSS: None SPECIMENS REMOVED: Distal esophagus, antrum, polyp in the cecum, polyp in the sigmoid, random biopsy from the cecum and sigmoid for diarrhea COMPLICATIONS: None IMPRESSION: Short Yadav about 2 cm biopsy was done from the distal esophagus Gastritis biopsy from the antrum to rule out H. pylori Gastropathy mostly in the body of the stomach Duodenitis 8 mm polyp in the cecum removed by snare 8 mm polyp in the sigmoid removed via snare No other abnormality random biopsy for the diarrhea Nausea vomiting could be related to gastroparesis patient is diabetic PLAN: No NSAIDs Protonix 40 mg daily Await biopsy results Low residue small frequent diet Okay to discharge home from GI standpoint if no other issues Colonoscopy in 3 years Jackson Aponte MD Dec 13, 2017 13:00
--- NOTE | 2017-12-13 13:02 | HHI.GIFU ---
Subjective Remarks Junk laying in bed comfortably, no significant complaint at this time, nausea vomiting improved, had diarrhea with the prep, tolerated prep well for colonoscopy Objective Vitals I&O Vital Signs Date Time Temp Pulse Resp B/P (MAP) Pulse Ox O2 Delivery O2 Flow Rate FiO2 12/13/17 08:30 99.2 84 18 159/70 (99) 99 12/13/17 08:12 99 Nasal Cannula 2.00 12/13/17 04:00 98.7 75 16 120/76 (91) 100 12/13/17 00:00 98.0 80 16 118/58 (78) 100 12/12/17 20:00 98.5 95 16 140/70 (93) 100 12/12/17 16:00 97.9 78 18 154/76 (102) 99 I/O 12/12/17 12/12/17 12/12/17 12/13/17 12/13/17 12/13/17 07:00 15:00 23:00 07:00 15:00 23:00 # Bowel Movements 2 Laboratory Date/Time Source Procedure Growth Status 12/10/17 17:25 Blood Peripheral Aerobic Blood Culture - Preliminary NO GROWTH IN 3 DAYS Resulted 12/10/17 17:25 Blood Peripheral Anaerobic Blood Culture - Preliminary NO GROWTH IN 3 DAYS Resulted Physical Exam HEENT: Pupils round and reactive to light; normocephalic; atraumatic; no obvious jaundice NECK: Neck is supple, CHEST: Chest is clear without audible rhonchi or wheezing CARDIAC: Regular rate and rhythm ABDOMEN: Round, Soft, nondistended, epigastric and gastric tenderness no hepatosplenomegaly; bowel sounds are present in all four quadrants. EXTREMITIES: No clubbing, cyanosis, or edema. SKIN: Normal; no rash; no jaundice. 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 Assessment and Plan Plan - Nausea, vomiting, and diarrhea for few days- nausea, vomiting, and diarrhea since Wednesday. Abdomen/pelvis CT with IV contrast was negative. Labs were remarkable for leukocytosis. Pt had EGD on 01/06/17 [place] class A esophagitis, bx done acute esophagitis with marked inflammatory changes, gastritis, bx done (+ ) for H-pylori, normal duodenal mucosa repeat in one yr, not sure if he was treated for this or not. He never had colonoscopy before. Pt denies recent sick contact or travel or abx use, reports one episode of bloody stools.He is with hx of gastroparesis not any tx for this. - hepatitis C ( tx naive) - Leukocytosis- trending down, on abx - Hx of pancreatitis- lipase wnl, cT negative, he is s/p cholecystectomy - LFts are high but this is chronic. He is not daily drinker. previous liver work up negative except (+) hep-C - He has multiple lesions on lower extremities, he attributes to bed bugs. per attending - COPD per attending 12/10/17 CT of the abdomen and pelvis is unremarkable. 12/12/17 Patient's currently tolerating clear liquids well. continues to have epigastric and gastric tenderness, no nausea no vomiting, no dysphagia no obvious bleeding Hemoglobin 13.3 12/13/2017 patient is doing okay no significant problem today minimal discomfort, tolerated prep IMPRESSION: Short Yadav about 2 cm biopsy was done from the distal esophagus Gastritis biopsy from the antrum to rule out H. pylori Gastropathy mostly in the body of the stomach Duodenitis 8 mm polyp in the cecum removed by snare 8 mm polyp in the sigmoid removed via snare No other abnormality random biopsy for the diarrhea Nausea vomiting could be related to gastroparesis patient is diabetic PLAN: No NSAIDs Protonix 40 mg daily Await biopsy results Low residue small frequent diet Okay to discharge home from GI standpoint if no other issues Colonoscopy in 3 years Await stool studies Jackson Aponte MD Dec 13, 2017 13:02
[2017-12-13] MEDS: METHOCARBAMOL 500 MG TAB PO SCH ×3 (13:58→18:22)
[2017-12-13] MEDS: GABAPENTIN 300 MG CAP PO SCH ×3 (13:59→21:46)
[2017-12-13] MEDS: SERTRALINE HCL 100 MG TAB PO SCH ×2 (13:59→21:45)
[2017-12-13] MEDS ORDERED: MORPHINE SULFATE 2 MG/ML SYRINGE IV PUSH PRN (15:00)
[2017-12-13] MEDS ORDERED: oxyCODONE/ACETAMINOPHEN 5 MG/325 MG TAB PO PRN (15:00)
--- NOTE | 2017-12-13 15:53 | PD.CONS ---
cc: Martínez Baer MD [facility] Service General Surgery Consult Requested By Dr. Ruggiero Reason for Consult Evaluation of LEFT axillary nodules and sacral wound possible abscess Primary Care Physician No Primary Care Physician History of Present Illness This is a 62 year old male with a past medical history of diabetes mellitus, COPD, pancreatitis and hepatitis C. The patient came to the ED with complains of nausea, vomiting and diarrhea. He denies any recent known sick contacts. He denies any recent travel. He had an EGD/Colonoscopy which showed gastritis and duodenitis. The patient also complaints of LEFT axillary nodules and a sacral wound. He reports he has had on and off again problems with bed bugs for the past few years, the last infestation was about a month ago. The patient has had this sacral wound for about 8 months. It was evaluated by Dr. Mckeon in May 2017 where local wound care was suggested. An ultrasound of the LEFT axillary has been ordered but not yet completed. A General Surgery consultation has been requested. Review of Systems Constitutional: DENIES: Fatigue, Weight loss, Chills Endocrine: DENIES: Polydipsia, Polyuria, Polyphagia Eyes: DENIES: Diplopia, Eye inflammation Ears, nose, mouth, throat: DENIES: Hearing loss Respiratory: DENIES: Cough, Snoring Cardiovascular: DENIES: Palpitations Gastrointestinal: COMPLAINS OF: Abdominal pain, Diarrhea, Nausea, Vomiting Genitourinary: DENIES: Urgency Musculoskeletal: DENIES: Joint pain Integumentary: DENIES: Abnormal pigmentation Hematologic/lymphatic: COMPLAINS OF: Lymphadenopathy, DENIES: Bruising Immunologic/allergic: COMPLAINS OF: Urticaria Neurologic: DENIES: Headache, Localized weakness Psychiatric: DENIES: Mood changes, Depression, Hallucinations Past Family Social History Past Medical History Diabetes mellitus COPD Pancreatitis Hepatitis C Past Surgical History Laparoscopic cholecystectomy RIGHT knee surgery Reported Medications Atrovent Proair Albuterol Methocarbamol Aspirin Naproxen Gabapentin Zoloft Ativan Tagamet Reglan Metformin Glipizide Allergies: Coded Allergies: penicillin G (Verified Allergy, Severe, RASH, 07/14/17) ketorolac (Unverified Adverse Reaction, Severe, HALLUCINATES, 07/14/17) Active Ordered Medications Current Medications Medications (Trade) Dose Ordered Sig/Lb Route Start Time Stop Time Status Last Admin (NS Flush) 2 ml UNSCH PRN IV FLUSH 12/10/17 18:15 (NS Flush) 2 ml BID IV FLUSH 12/10/17 21:00 12/11/17 08:58 (Tylenol) 650 mg Q4H PRN PO 12/10/17 19:15 12/10/17 21:40 (Zofran Inj) 4 mg Q6H PRN IVP 12/10/17 19:15 12/11/17 12:29 (Narcan Inj) 0.4 mg UNSCH PRN IV PUSH 12/10/17 19:15 (Milk Of Magnesia Liq) 30 ml Q12H PRN PO 12/10/17 19:15 (Senokot) 17.2 mg Q12H PRN PO 12/10/17 19:15 (Dulcolax Supp) 10 mg DAILY PRN RECTAL 12/10/17 19:15 (Lactulose Liq) 30 ml DAILY PRN PO 12/10/17 19:15 (D50w (Vial) Inj) 50 ml UNSCH PRN IV PUSH 12/10/17 21:45 (Glucagon Inj) 1 mg UNSCH PRN OTHER 12/10/17 21:45 (NovoLOG SUPPLEMENTAL SCALE) 1 ACHS SLIDING SCALE SQ 12/10/17 21:43 12/12/17 22:00 (Aspirin) 325 mg DAILY PO 12/11/17 09:00 12/12/17 07:15 (Neurontin) 600 mg QID PO 12/11/17 09:00 12/13/17 13:59 (Glucotrol) 5 mg BIDAC PO 12/11/17 07:00 Future Hold 12/12/17 06:58 (Ativan) 0.5 mg BID PRN PO 12/10/17 22:15 12/13/17 08:47 (Robaxin) 500 mg TID PO 12/11/17 09:00 12/13/17 13:58 (Reglan) 10 mg QID PRN PO 12/10/17 22:15 Future Hold 12/10/17 23:13 (Desyrel) 200 mg HS PO 12/10/17 22:15 12/12/17 21:53 (Atarax) 25 mg Q4H PRN PO 12/10/17 22:15 12/11/17 05:51 (Zoloft) 100 mg BID PO 12/10/17 22:30 12/13/17 13:59 (Pepcid) 20 mg BID PO 12/10/17 22:30 12/12/17 21:53 (Heparin Inj) 5,000 units Q8HR SQ 12/10/17 22:30 12/12/17 14:51 Pharmacy Profile Note 0 ml @ 0 mls/hr UNSCH OTHER 12/11/17 01:00 Vancomycin HCl 1200 mg/Sodium Chloride 262 ml @ 250 mls/hr Q12H IV 12/11/17 05:00 12/13/17 05:11 (Reglan Inj) 10 mg Q8H PRN IV PUSH 12/11/17 01:15 12/11/17 05:51 Potassium Chloride/Sodium Chloride 1,000 ml @ 84 mls/hr [id number] IV 12/11/17 13:00 12/13/17 04:01 (Duoneb Neb) 1 ampule QID NEB NEB 12/12/17 12:00 12/13/17 08:09 (Qvar 40 Mcg Inh) 1 puff BID INH 12/12/17 11:00 12/12/17 21:55 (Albuterol Neb) 2.5 mg Q2HR NEB PRN NEB 12/12/17 11:00 Lactated Ringer's 1,000 ml @ 30 mls/hr Q24H PRN IV 12/13/17 06:30 12/16/17 06:29 Sodium Chloride 500 ml @ 30 mls/hr [id number] PRN IV 12/13/17 06:30 12/16/17 06:29 (Betadine 5% Antisepsis Kit) 1 applic FINGER BUFF SEWER PRN EACH NARE 12/13/17 06:30 12/16/17 06:29 (Chlorhexidine 2% Cloth) 3 pack FINGER BUFF SEWER PRN TOPICAL 12/13/17 06:30 12/16/17 06:29 Miscellaneous Information SPECIFIC LAB TO BE KASI... ONCE ONCE .XX 12/14/17 04:45 12/14/17 04:46 (Percocet 5-325 Mg) 1 tab Q4H PRN PO 12/13/17 15:00 (Percocet 7.5-325 Mg) 1 tab Q4H PRN PO 12/13/17 15:00 (Morphine Inj) 2 mg Q4H PRN IV PUSH 12/13/17 15:00 Family History Noncontributory Social History Denies tobacco use Occasional ETOH use Occasional marijuana use Physical Exam Vital Signs Vital Signs Date Time Temp Pulse Resp B/P (MAP) Pulse Ox O2 Delivery O2 Flow Rate FiO2 12/13/17 13:10 97.1 76 18 131/71 (91) 100 Room Air 12/13/17 12:00 98.8 75 18 141/69 (93) 99 12/13/17 08:30 99.2 84 18 159/70 (99) 99 12/13/17 08:12 99 Nasal Cannula 2.00 12/13/17 04:00 98.7 75 16 120/76 (91) 100 12/13/17 00:00 98.0 80 16 118/58 (78) 100 12/12/17 20:00 98.5 95 16 140/70 (93) 100 12/12/17 16:00 97.9 78 18 154/76 (102) 99 Physical Exam GENERAL: Relatively unkept 62 year old male sitting on the side of the bed in no acute distress. SKIN: LEFT axillary--- three separate palpable areas without any drainage; RIGHT sacrum--- quater size lesion---small opening in the middle without any drainage; hard induration around lesion. Several areas of healing lesions over gluteus. HEAD: Atraumatic. Normocephalic. EYES: Pupils equal and round. No scleral icterus. No injection or drainage. ENT: No nasal bleeding or discharge. Mucous membranes pink and moist. NECK: Trachea midline. CARDIOVASCULAR: Regular rate and rhythm. RESPIRATORY: No accessory muscle use. Clear to auscultation. Breath sounds equal bilaterally. GASTROINTESTINAL: Abdomen soft, non-tender, nondistended. MUSCULOSKELETAL: Extremities without clubbing, cyanosis, or edema. No obvious deformities. NEUROLOGICAL: Awake and alert. No obvious cranial nerve deficits. Motor grossly within normal limits. Five out of 5 muscle strength in the arms and legs. Normal speech. PSYCHIATRIC: Appropriate mood and affect; insight and judgment normal. Somewhat emotional at times. Laboratory Date/Time Source Procedure Growth Status 12/10/17 17:25 Blood Peripheral Aerobic Blood Culture - Preliminary NO GROWTH IN 3 DAYS Resulted 12/10/17 17:25 Blood Peripheral Anaerobic Blood Culture - Preliminary NO GROWTH IN 3 DAYS Resulted Result Diagram: 12/12/17 0535 12/12/17 0535 Assessment and Plan Assessment and Plan 62 year old male with LEFT axillary palpable nodules ----abscess vs lymphadenopathy; lower back wound -Diet as tolerated -Await US results -Will plan for I&D of LEFT axillary abscess and lower back abscess in OR tomorrow -NPO after MN -Hold heparin -Obtain consents -Discussed with Dr. Rios -Thank you for this consult; We will continue to follow Discussed Condition With Dr. Buffy Cortez Attending Statement The exam, history, and the medical decision-making described in the above note were completed with the assistance of the mid-level provider. I reviewed and agree with the findings presented. I attest that I had a [id number] encounter with the patient on the same day, and personally performed and documented my assessment and findings in the medical record. Patient seen, multiple areas of small abscess on buttock, with large abscess on lower back near sacrum, multiple small left axillary abscess d/w patient risks, benefits and alternatives to Incision and drainage in OR, packing and wound care after surgery patient wishes to proceed, will make NPO for possible OR tomorrow AM Cyn Sanchez/Heating Element Builder CORPORATE EXECUTIVE Dec 13, 2017 15:53 Martínez Baer MD Dec 15, 2017 20:29
[2017-12-13] MEDS: oxyCODONE/ACETAMINOPHEN 7.5 MG/325 MG TAB PO PRN ×2 (16:22→21:37)
--- NOTE | 2017-12-13 17:56 | MB ---
cc: Angelo Rios MD DATE: 12/13/2017 DATE OF CONSULTATION: 12/13/2017. REQUESTING PHYSICIAN: Dr. Ruggiero. REASON: Sepsis, multiple skin lesions. Questionable abscess versus lymphadenopathy at the left axilla. HISTORY OF PRESENT ILLNESS: This is a 62-year-old white male who was admitted to the hospital after presenting to the Emergency Department with abdominal pain on 12/10/2017. The patient has been evaluated by Gastroenterology. He underwent endoscopy and colonoscopy today. The patient's heart rate was 111 on admission and the white blood cell count was 14.1. He also presented with nausea and vomiting and loose stools and upper abdominal pains. The patient was noted to have multiple skin lesions, mostly excoriated at the legs and also he has lesions at the buttock and back and 1 nodular lesion at the left axilla. The patient denies chills or fever. He states that he gets occasional night sweats. An ultrasound of the left axilla has been ordered. Blood culture has no growth in 3 days. He is currently on IV vancomycin. His white blood cell count has decreased to 10.1. PAST MEDICAL HISTORY: COPD, gastroesophageal reflux disease, diabetes mellitus type 2, pancreatitis, hepatitis C, depression, kidney stones, anxiety, depression, cholecystectomy in 2016, right knee surgery, history of MRSA infection of buttock lesion. ALLERGIES: PENICILLIN and KETOROLAC. MEDICATIONS: 1. Vancomycin. 2. Percocet 7.5 p.r.n. 3. DuoNeb. 4. Beclomethasone inhaled. 5. Neurontin. 6. Aspirin. 7. Robaxin. 8. Zoloft. 9. Pepcid. 10. Desyrel. 11. Atarax. 12. Insulin. SOCIAL HISTORY: Former smoker. The patient no longer uses tobacco. Occasional alcohol. Positive marijuana use. The patient is . He was for 26 years until his in August 2017. REVIEW OF SYSTEMS: Negative on 10-point review. FAMILY HISTORY: Noncontributory. PHYSICAL EXAMINATION: GENERAL: This is a well-developed male who is in no acute distress. He is awake and alert and oriented. VITAL SIGNS: Include temperature 97.1, BP 131/71, respirations 18, heart rate 76. HEENT: Head is atraumatic. Extraocular movements grossly intact. No icterus. No nasal drainage. Oropharynx: Moist mucosa without lesions. NECK: Supple without adenopathy. LUNGS: Clear breath sounds bilaterally. HEART: Regular rate and rhythm without murmurs, rubs or gallops. ABDOMEN: Bowel sounds present. flat, nontender. Two healed nodular areas at the lower abdomen just above the mons pubis. RECTAL: Not performed. EXTREMITIES: Multiple excoriated tiny round lesions at the left ankle and left tibia and also right distal tibia. There is a crop of erythematous lesions at the left buttock and also a few at the right buttock and 1 prominent dried, raised, erythematous lesion at the sacrum directly overlying the vertebra. Both axillae have raised lesions with the left axillary lesion being more erythematous and more raised and more swollen. Mild tenderness on palpation of the lesion at the axilla. NEUROLOGIC: Nonfocal. PSYCHIATRIC: The patient is calm and cooperative. LABORATORY DATA: WBC 10.1, platelets 210, hemoglobin 15.3. Creatinine 0.95, BUN 16, sodium 137, AST 223, ALT 204. IMPRESSION: 1. Diffuse skin lesions which likely represents skin abscesses and very likely could be due to methicillin-resistant staphylococcus aureus. 2. Left axilla swelling, likely due to abscess. 3. Leukocytosis, improved with vancomycin. 4. History of hepatitis C. These could also be lesions related to hepatitis C as well. The patient notes previous bites from bed bugs, which led to the lesions on his legs and he says they never really went away and occasionally he scratches at these lesions. He thinks that the bedbug issue was taken care of months ago. RECOMMENDATIONS: 1. Continue vancomycin. 2. Aspiration of the left axilla lesion to be determined by surgery. 3. Obtain culture if any aspiration procedure is performed. 4. Monitor clinical status. Note that the white blood cell count has improved. If no culture information is obtained, we just may need to treat the patient empirically. He likely could be transitioned to oral antibiotic. Thank you for this consultation. I will monitor the patient's progress. MD DERICK Cochran/YUSUF , 05:25 PM , 05:54 PM
[2017-12-13] MEDS: BECLOMETHASONE DIPROPIONATE 40 MCG/ACT 8.7 GM INHALER INH SCH ×2 (21:00→21:47)
[2017-12-13] MEDS: FAMOTIDINE 20 MG TAB PO SCH ×2 (21:00→21:46)
--- NOTE | 2017-12-13 21:05 | RADRPT ---
EXAM DATE/TIME: 12/13/2017 20:10 [facility] COMPARISON: No previous studies available for comparison. INDICATIONS : Abscess. MEDICAL HISTORY : Hepatitis C. Swollen glands. Anticoagulant therapy. COPD. Melena. Diabetes. Anxiety. MRSA. Pancre atitis. SURGICAL HISTORY : Cholecystectomy. Right knee surgery. ENCOUNTER: Initial ACUITY: 1 week PAIN SCORE: 3/10 LOCATION: Left axilla. AREA EVALUATED: Left axilla. FINDINGS: There are 2 phlegmonous type masses in the left axillae measuring up to 1.8 x 1.7 cm in both lesions with peripheral vascularity. No drainable abscess. Borderline enlarged lymph node also noted. CONCLUSION: 1. Probable phlegmonous masses in the left axillary region without loculated or drainable fluid colle ctions. Scott Nevarez MD on December 13, 2017 at 21:00 Board Certified Radiologist. This report was verified electronically.
[2017-12-13] MEDS: traZODone HCL 100 MG TAB PO SCH (21:46)
[2017-12-13] MEDS: hydrOXYzine HCL 25 MG TAB PO PRN (21:48)
[2017-12-14] VITALS (15 sets, daily range): BP systolic 100–188; BP diastolic 54–79; PULSE 56–90; RESP 14–19; TEMP 97.5–98.6; O2SAT 96–100
[2017-12-14] MEDS: NS + KCL 20 MEQ INJ 1,000 ML IV SCH ×3 (00:35→12:30)
[2017-12-14] MEDS: oxyCODONE/ACETAMINOPHEN 7.5 MG/325 MG TAB PO PRN ×2 (02:26→06:11)
[2017-12-14] MEDS ORDERED: SODIUM CHLORID 0.9% 500 ML IV PRN (04:45)
[2017-12-14] MEDS ORDERED: POVIDONE IODINE 5% (ANTISEPSIS KIT) 4 APPLICATIONS EACH NARE PRN (04:45)
[2017-12-14] MEDS ORDERED: CHLORHEXIDINE GLUCONATE 2 % 1 PACK (2 CLOTHS) TOPICAL PRN (04:45)
[2017-12-14] MEDS ORDERED: PHARMACY ORDERED LAB ONE (04:45)
[2017-12-14] MEDS ORDERED: LACTATED RINGER'S 1000 ML IV PRN (04:45)
[2017-12-14] MEDS: VANCOMYCIN INJ 1,200 MG in SODIUM CHLOR 0.9% 250 ML INJ 250 ML IV SCH ×2 (04:47→17:55)
[2017-12-14] MEDS: INSULIN ASPART SUPPLEMENTAL SCALE SQ SCH ×3 (07:49→21:00)
[2017-12-14] MEDS: RESP: ALBUTEROL 2.5 MG/IPRATROPIUM 0.5 MG NEB (SCH) NEB ×3 (08:33→19:54)
[2017-12-14] MEDS: GABAPENTIN 300 MG CAP PO SCH ×2 (09:00→13:00)
[2017-12-14] MEDS: ASPIRIN 325 MG TAB PO SCH (09:00)
[2017-12-14] MEDS: BECLOMETHASONE DIPROPIONATE 40 MCG/ACT 8.7 GM INHALER INH SCH ×2 (09:00→21:00)
[2017-12-14] MEDS: SODIUM CHLORIDE 0.9% FLUSH 10 ML FLUSH IV FLUSH SCH ×3 (09:00→21:00)
[2017-12-14] MEDS: FAMOTIDINE 20 MG TAB PO SCH ×2 (09:00→21:00)
[2017-12-14] MEDS: METHOCARBAMOL 500 MG TAB PO SCH ×2 (09:00→13:00)
[2017-12-14] MEDS: SERTRALINE HCL 100 MG TAB PO SCH ×2 (09:00→21:00)
[2017-12-14 09:11] LABS: AUTOMATED NEUTROPHIL # 6.1 TH/MM3 (1.8-7.7); BASOPHIL # 0.1 TH/MM3 (0-0.2); BASOPHIL % 0.6 % (0.0-2.0); EOSINOPHIL # 0.4 TH/MM3 (0-0.4); EOSINOPHIL % 4.1 % (0.0-4.0); HEMATOCRIT 33.2 % (39.0-51.0); HEMOGLOBIN 11.5 GM/DL (13.0-17.0); LYMPH % 24.1 % (9.0-44.0); LYMPHOCYTE # 2.3 TH/MM3 (1.0-4.8); MEAN CELL VOLUME 84.9 FL (80.0-100.0); MEAN CORPUSCULAR HEMOGLOBIN 29.3 PG (27.0-34.0); MEAN CORPUSCULAR HGB CONC 34.5 % (32.0-36.0); MEAN PLATELET VOLUME 8.3 FL (7.0-11.0); MONO % 6.2 % (0.0-8.0); MONOCYTE # 0.6 TH/MM3 (0-0.9); PLATELET COUNT 181 TH/MM3 (150-450); RED BLOOD COUNT 3.91 MIL/MM3 (4.50-5.90); RED CELL DISTRIBUTION WIDTH 14.4 % (11.6-17.2); WHITE BLOOD COUNT 9.4 TH/MM3 (4.0-11.0)
[2017-12-14 09:28] LABS: ALBUMIN 3.1 GM/DL (3.4-5.0); AST (GOT) 70 U/L (15-37); BLOOD UREA NITROGEN 7 MG/DL (7-18); CALCIUM 8.2 MG/DL (8.5-10.1); CHLORIDE 107 MEQ/L (98-107); CREATININE 0.74 MG/DL (0.60-1.30); GLOMERULAR FILTRATION RATE 107 ML/MIN (>89); GLUCOSE,RANDOM 180 MG/DL (74-106); SODIUM (NA) 140 MEQ/L (136-145)
[2017-12-14 09:34] LABS: ALKALINE PHOSPHATASE 81 U/L (45-117); ALT (GPT) 161 U/L (12-78); TOTAL BILIRUBIN ADULT 0.4 MG/DL (0.2-1.0); TOTAL PROTEIN 6.5 GM/DL (6.4-8.2)
[2017-12-14] MEDS ORDERED: SODIUM BICARBONATE 8.4% INJ 50 MEQ/50 ML SYR ONE (09:51)
[2017-12-14] MEDS ORDERED: LIDOCAINE 1%/EPINEPHrine 1:100,000 SOLN 30 ML VIAL ONE (09:51)
[2017-12-14] MEDS ORDERED: KETAMINE HCL 50 MG/5 ML SYRINGE ONE (10:14)
[2017-12-14] MEDS ORDERED: SILVER SULFADIAZINE 1% CR 400 GM JAR EXTERNAL ONE (11:00)
[2017-12-14] MEDS ORDERED: ONDANSETRON HCL 4 MG/2 ML VIAL IV PUSH PRN (11:15)
[2017-12-14] MEDS ORDERED: Post-op Orders (for Pharmacy) XX ONE (11:15)
[2017-12-14] MEDS ORDERED: SODIUM CHLORIDE 0.9% FLUSH 10 ML FLUSH IV FLUSH PRN (11:15)
[2017-12-14] MEDS ORDERED: NALOXONE HCL 0.4 MG/ML AMP IV PUSH PRN (11:15)
[2017-12-14] MEDS ORDERED: PROPOFOL 1000 MG/100 ML INJ 100 ML ONE (11:17)
[2017-12-14] MEDS ORDERED: DO NOT ADM ANY ANTICOAGULANT DRUGS PRN (11:28)
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
[2017-12-14] MEDS ORDERED: fentaNYL DRIP 250 ML ONE (11:41)
[2017-12-14] MEDS ORDERED: *morphine SULFATE 4 MG/ML PERIprocedure ONLY ONE ×2 (11:47→11:50)
[2017-12-14] MEDS: LACTATED RINGER'S 1000 ML INJ 1,000 ML IV SCH ×2 (12:00→19:28)
[2017-12-14] MEDS ORDERED: SUCCINYLCHOLINE CHLORIDE 200 MG/10 ML VIAL IV ONE (12:00)
[2017-12-14] MEDS ORDERED: LIDOCAINE HCL 1% PF 5 ML SYRINGE OTHER ONE (12:00)
[2017-12-14] MEDS ORDERED: PROPOFOL 200 MG/20 ML AMP IV ONE (12:00)
[2017-12-14] MEDS ORDERED: PHENYLEPH/NS 1000 MCG/10 ML SYR IV ONE (12:00)
[2017-12-14] MEDS ORDERED: ROCURONIUM INJ 50 MG/5 ML SYRINGE IV PUSH ONE (12:00)
[2017-12-14] MEDS ORDERED: PANTOPRAZOLE SODIUM 40 MG VIAL IV PUSH SCH (12:00)
[2017-12-14] MEDS ORDERED: DEXAMETHASONE SOD PHOS 4 MG/ML VIAL IV ONE (12:00)
[2017-12-14] MEDS ORDERED: *morphine SULFATE 8 MG/ML PERIprocedure ONLY ONE ×2 (12:21→12:33)
--- NOTE | 2017-12-14 12:33 | RADRPT ---
EXAM DATE/TIME: 12/14/2017 11:51 [facility] COMPARISON: CHEST SINGLE AP, July 14, 2017, 12:06. INDICATIONS : Post intubation MEDICAL HISTORY : Chronic obstructive pulmonary disease. Cardiovascular disease. Pancreatitis. diabetic, Hep C SURGICAL HISTORY : Cholecystectomy. RT knee ENCOUNTER: Subsequent ACUITY: 1 week PAIN SCORE: Non-responsive. LOCATION: Bilateral chest FINDINGS: ET tube is 7 cm above the nyla. The heart size is normal. There is minimal suspected atelectasis at the lateral right lung base. The lungs are otherwise grossly clear. Old healed right rib fractures a re seen. CONCLUSION: ET tube in good position. There appears to be minimal atelectasis at the lateral rig ht base. Андрей Garcia MD on December 14, 2017 at 12:31 Board Certified Radiologist. This report was verified electronically.
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
[2017-12-14] MEDS ORDERED: PROPOFOL 500 MG/50 ML INJ 50 ML ONE (13:26)
[2017-12-14] MEDS ORDERED: MIDAZOLAM HCL 2 MG/2 ML VIAL ONE (13:58)
[2017-12-14] MEDS ORDERED: fentaNYL 2,500 MCG/NS 250 ML IV PRN (14:00)
[2017-12-14] MEDS ORDERED: hydrALAZINE HCL 20 MG/ML VIAL IV PRN (14:45)
[2017-12-14] MEDS: PROPOFOL 1000 MG/100 ML IV PRN ×2 (15:15→18:57)
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
[2017-12-14] MEDS: traZODone HCL 100 MG TAB PO SCH (21:00)
[2017-12-14] MEDS ORDERED: SILVER SULFADIAZINE 1% CR 400 GM JAR TOPICAL SCH (21:00)
[2017-12-15] VITALS: BP 169/70; PULSE 63; RESP 14; O2SAT 100
[2017-12-15] MEDS ORDERED: MIDAZOLAM HCL 5 MG/ML VIAL (1 ML) ONE (00:56)
[2017-12-15] MEDS ORDERED: MIDAZOLAM HCL 2 MG/2 ML VIAL IV PRN (01:15)
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
== END 2017-12-15 01:18 | disposition short-term general hospital (02) | DRG 872 ==
LOC: NEPC 13:51 → NEDA 17:58 → N05B 19:42 → N03B 12-14 11:04 → N03A 12-14 12:38
PROVIDERS: ADMIT Internal Medicine Critical Care Medicine; ATTEND Internal Medicine Critical Care Medicine
PROC: 0DB78ZX Excision of Stomach, Pylorus, Via Natural or Artificial Opening Endoscopic, Diagnostic (ICD-10-PCS; 2017-12-13)
PROC: 0DBH8ZX Excision of Cecum, Via Natural or Artificial Opening Endoscopic, Diagnostic (ICD-10-PCS; 2017-12-13)
PROC: 0DBN8ZX Excision of Sigmoid Colon, Via Natural or Artificial Opening Endoscopic, Diagnostic (ICD-10-PCS; 2017-12-13)
PROC: 0DB38ZX Excision of Lower Esophagus, Via Natural or Artificial Opening Endoscopic, Diagnostic (ICD-10-PCS; principal; 2017-12-13 12:07)
PROC: 5A1935Z Respiratory Ventilation, Less than 24 Consecutive Hours (ICD-10-PCS; 2017-12-14)
PROC: 0H98XZX Drainage of Buttock Skin, External Approach, Diagnostic (ICD-10-PCS; 2017-12-14)
PROC: 0H96XZX Drainage of Back Skin, External Approach, Diagnostic (ICD-10-PCS; 2017-12-14)
PROC: 0X953ZX Drainage of Left Axilla, Percutaneous Approach, Diagnostic (ICD-10-PCS; 2017-12-14)
PROC: 0BH17EZ Insertion of Endotracheal Airway into Trachea, Via Natural or Artificial Opening (ICD-10-PCS; 2017-12-14)
DX: A41.9 Sepsis, unspecified organism (principal); E87.2 Acidosis; T31.0 Burns involving less than 10% of body surface; K31.84 Gastroparesis; J43.9 Emphysema, unspecified; E11.43 Type 2 diabetes mellitus with diabetic autonomic (poly)neuropathy; L02.212 Cutaneous abscess of back [any part, except buttock and flank]; L02.412 Cutaneous abscess of left axilla; L02.31 Cutaneous abscess of buttock; I10 Essential (primary) hypertension; L29.9 Pruritus, unspecified; E86.0 Dehydration; F41.9 Anxiety disorder, unspecified; F32.9 Major depressive disorder, single episode, unspecified; K29.70 Gastritis, unspecified, without bleeding; K29.80 Duodenitis without bleeding; K22.70 Barrett's esophagus without dysplasia; D12.0 Benign neoplasm of cecum; D12.5 Benign neoplasm of sigmoid colon; R19.7 Diarrhea, unspecified; B19.20 Unspecified viral hepatitis C without hepatic coma; T20.29XA Burn of second degree of multiple sites of head, face, and neck, initial encounter; T22.241A Burn of second degree of right axilla, initial encounter; T22.251A Burn of second degree of right shoulder, initial encounter; E87.6 Hypokalemia; Z79.82 Long term (current) use of aspirin; Z79.84 Long term (current) use of oral hypoglycemic drugs; Z87.442 Personal history of urinary calculi; Z87.891 Personal history of nicotine dependence; Z86.14 Personal history of Methicillin resistant Staphylococcus aureus infection; X04.XXXA Exposure to ignition of highly flammable material, initial encounter; Y92.234 Operating room of hospital as the place of occurrence of the external cause
CPT/HCPCS: 31500; 36600; 71045; 74177; 76882; 76937; 80048; 80053; 80202; 81001; 82010; 82805; 82948; 83605; 83690; 83735; 85025; 86403; 87015; 87040; 87070; 87102; 87116; 87186; 87205; 87206; 88305; 88312; 93005; 94002; 94003; 94640; 94664; 96361; 96365; 96375; C9113; J0330; J0360; J1100; J1200; J1644; J1815; J2250; J2270; J2370; J2405; J2765; J3010; J3370; J3480; J7030; J7040; J7050; J7120; Q9967

== ENCOUNTER 2018-02-16 20:05 | Observation (INO) | payer MEDICAID, MEDICARE ==
[~2018-02-16] VITALS: Ht 177.8 cm; Wt 77.0 kg
[~2018-02-16 20:05] MED LIST changes: +LORA-392 PO; +MEDI220T PO; -ZOFR4TAB3 SL
[2018-02-16 20:12] VITALS: BP 215/100; PULSE 122; RESP 20; TEMP 98.6; O2SAT 100
--- NOTE | 2018-02-16 20:16 | PD ---
HPI Chief Complaint: GI Complaint Time Seen by Provider: 20:13 Travel History International Travel<30 days: No Contact w/Intl Traveler<30days: No Traveled to known affect area: No History of Present Illness HPI 62-year-old male with history of diabetes, diabetic gastroparesis, COPD, presents emergency department for evaluation of nausea and vomiting with epigastric abdominal pain since this morning. Patient states that he has been able to keep things down since his discharge from the hospital fairly well. He states he felt he is doing fine until this morning when he began vomiting and has not been able to stop. He states there has been red blood in his emesis. He reports a significant sharp epigastric abdominal pain that is been pretty constant throughout the day. It does not radiate anywhere. He has felt chilled. He is uncertain of fever. He denies any bowel or bladder changes. Patient has no other symptoms to report. PFSH Past Medical History Hx Anticoagulant Therapy: Yes (ASA) Arthritis: No Asthma: No Autoimmune Disease: No Blood Disorders: No Anxiety: Yes Depression: No Heart Rhythm Problems: No Cancer: No Cardiovascular Problems: Yes High Cholesterol: No Chemotherapy: No Chest Pain: No Congestive Heart Failure: No COPD: Yes Cerebrovascular Accident: No Diabetes: Yes Diminished Hearing: No Endocrine: No Gastrointestinal Disorders: No GERD: No Glaucoma: No Genitourinary: No Headaches: Yes Hepatitis: Yes (C) Hiatal Hernia: No Hypertension: Yes Immune Disorder: No Implanted Vascular Access Dvce: No Kidney Stones: No Musculoskeletal: No Neurologic: No Psychiatric: Yes Reproductive: No Respiratory: Yes Immunizations Current: Yes Migraines: No Myocardial Infarction: No Pancreatitis: Yes Radiation Therapy: No Renal Failure: No Seizures: No Sickle Cell Disease: No Sleep Apnea: No Thyroid Disease: No Ulcer: No PNEUMOCCOCAL Vaccine (Year): 2 Past Surgical History Abdominal Surgery: Yes (gall bladder removal 2015) AICD: No Arteriovenous Shunt: No Cardiac Surgery: No Cholecystectomy: Yes Ear Surgery: No Endocrine Surgery: No Eye Surgery: No Genitourinary Surgery: No Gynecologic Surgery: No Insulin Pump: No Joint Replacement: No Neurologic Surgery: No Oral Surgery: No Pacemaker: No Thoracic Surgery: No Other Surgery: Yes (right knee surg in 1981) Social History Alcohol Use: Yes (BEER ON WEDNESDAY) Tobacco Use: No Substance Use: Yes (MARIJUANA YESTERDAY) Allergies-Medications (Allergen,Severity, Reaction): Coded Allergies: penicillin G (Verified Allergy, Severe, RASH, 02/16/18) ketorolac (Unverified Adverse Reaction, Severe, HALLUCINATES, 02/16/18) Reported Meds & Prescriptions Reported Meds & Active Scripts Active Reported Ativan (Lorazepam) 0.5 Mg Tab 0.5 Mg PO BID PRN Naproxen Sodium 220 Mg Tab 220 Mg PO BID PRN Trazodone (Trazodone HCl) 300 Mg Tab 200 Mg PO HS Zoloft (Sertraline HCl) 100 Mg Tab 100 Mg PO BID Tagamet Hb (Cimetidine) 200 Mg Tab Unknown Dose PO BID Gabapentin 600 Mg Tab 600 Mg PO QID Albuterol Neb (Albuterol Sulfate) 2.5 Mg/3 Ml Neb 2.5 Mg NEB Q6HR PRN Proair Hfa 8.5 GM Inh (Albuterol Sulfate) 90 Mcg/Act Aer 2 Puff INH Q6H PRN 108 mcg/actuation Aspirin 325 Mg Tab 325 Mg PO DAILY Glipizide 5 Mg Tab 5 Mg PO BID Take 30 minutes before a meal Atrovent HFA 12.9 GM Inh (Ipratropium [place]) 17 Mcg/Act Aer 2 Puff INH QID Metformin (Metformin HCl) 850 Mg Tab 850 Mg PO BIDPC With meals Methocarbamol 500 Mg Tab 500 Mg PO TID Review of Systems Except as stated in HPI: all other systems reviewed are Neg Physical Exam Narrative GENERAL: Well-nourished male patient, appears nontoxic but uncomfortable and in no acute distress SKIN: Focused skin assessment warm/dry. Erythema, scarring to the left axilla and face. No blister formation. HEAD: Atraumatic. Normocephalic. EYES: Pupils equal and round. No scleral icterus. No injection or drainage. ENT: No nasal bleeding or discharge. Mucous membranes pink and moist. NECK: Trachea midline. No JVD. CARDIOVASCULAR: Tachycardic rate and rhythm. No murmur appreciated. RESPIRATORY: No accessory muscle use. Clear to auscultation. Breath sounds equal bilaterally. GASTROINTESTINAL: Abdomen soft, nondistended. Epigastric tenderness to palpation. Mild guarding.. Hepatic and splenic margins not palpable. MUSCULOSKELETAL: No obvious deformities. No clubbing. No cyanosis. No edema. NEUROLOGICAL: Awake and alert. No obvious cranial nerve deficits. Motor grossly within normal limits. Normal speech. PSYCHIATRIC: Appropriate mood and affect; insight and judgment normal. Data Data Last Documented VS Vital Signs Date Time Temp Pulse Resp B/P (MAP) Pulse Ox O2 Delivery O2 Flow Rate FiO2 02/16/18 20:54 185/91 (122) 02/16/18 20:12 98.6 122 20 100 Orders Orders Complete Blood Count With Diff (02/16/18 20:22) Comprehensive Metabolic Panel (02/16/18 20:22) Lipase (02/16/18 20:22) Prothrombin Time / Inr (Pt) (02/16/18:22) Act Partial Throm Time (Ptt) (02/16/18:22) Urinalysis - C+S If Indicated (02/16/18:) Iv Access Insert/Monitor (02/16/18:22) Ecg Monitoring (02/16/18:22) Oximetry (02/16/18 20:22) Sodium Chlor 0.9% 1000 Ml Inj (Ns 1000 M (02/16/18 20:22) Sodium Chloride 0.9% Flush (Ns Flush) (02/16/18 20:30) Metoclopramide Inj (Reglan Inj) (02/16/18 20:30) Diphenhydramine Inj (Benadryl Inj) (02/16/18 20:30) Type And Screen (02/16/18 20:23) Sodium Chlor 0.9% 1000 Ml Inj (Ns 1000 M (02/16/18 20:24) Sodium Chloride 0.9... W/Pantoprazole In (02/16/18 20:24) Sodium Chloride 0.9... W/Pantoprazole In (02/16/18 20:24) Sodium Chlor 0.9% 1000 Ml Inj (Ns 1000 M (02/16/18 21:45) Morphine Inj (Morphine Inj) (02/16/18 21:45) Labs Laboratory Tests Test 02/16/18 20:30 White Blood Count 14.8 TH/MM3 Red Blood Count 4.47 MIL/MM3 Hemoglobin 12.9 GM/DL Hematocrit 38.4 % Mean Corpuscular Volume 86.0 FL Mean Corpuscular Hemoglobin 28.8 PG Mean Corpuscular Hemoglobin Concent 33.5 % Red Cell Distribution Width 14.7 % Platelet Count 247 TH/MM3 Mean Platelet Volume 8.7 FL Neutrophils (%) (Auto) 84.1 % Lymphocytes (%) (Auto) 10.9 % Monocytes (%) (Auto) 3.5 % Eosinophils (%) (Auto) 1.0 % Basophils (%) (Auto) 0.5 % Neutrophils # (Auto) 12.4 TH/MM3 Lymphocytes # (Auto) 1.6 TH/MM3 Monocytes # (Auto) 0.5 TH/MM3 Eosinophils # (Auto) 0.1 TH/MM3 Basophils # (Auto) 0.1 TH/MM3 CBC Comment DIFF FINAL Differential Comment Prothrombin Time 10.2 SEC Prothromb Time International Ratio 1.0 RATIO Activated Partial Thromboplast Time 21.1 SEC Urine Color LIGHT-YELLOW Urine Turbidity CLEAR Urine pH 8.5 Urine Specific [place] 1.025 Urine Protein 30 mg/dL Urine Glucose (UA) 1000 mg/dL Urine Ketones 10 mg/dL Urine Occult Blood NEG Urine Nitrite NEG Urine Bilirubin NEG Urine Urobilinogen LESS THAN 2.0 MG/DL Urine Leukocyte Esterase NEG Urine RBC LESS THAN 1 /hpf Urine WBC LESS THAN 1 /hpf Microscopic Urinalysis Comment CULT NOT INDICATED Blood Urea Nitrogen 24 MG/DL Creatinine 1.57 MG/DL Random Glucose 234 MG/DL Total Protein 8.6 GM/DL Albumin 4.5 GM/DL Calcium Level 9.9 MG/DL Alkaline Phosphatase 203 U/L Aspartate Amino Transf (AST/SGOT) 61 U/L Alanine Aminotransferase (ALT/SGPT) 173 U/L Total Bilirubin 0.5 MG/DL Sodium Level 135 MEQ/L Potassium Level 3.7 MEQ/L Chloride Level 96 MEQ/L Carbon Dioxide Level 23.5 MEQ/L Anion Gap 16 MEQ/L Estimat Glomerular Filtration Rate 45 ML/MIN Lipase 240 U/L [facility] Medical Decision Making Medical Screen Exam Complete: Yes Emergency Medical Condition: Yes Medical Record Reviewed: Yes Differential Diagnosis Gastroparesis versus GI bleed upper versus lower versus esophageal varices versus gastritis Narrative Course 62-year-old male presents emergency department for evaluation of abdominal pain with associated nausea and vomiting. Patient gastric content is Hemoccult positive. His abdomen is quite tender in the epigastrium. Patient is given Reglan and Benadryl and normal saline IV bolus. Laboratory Tests Test 02/16/18 20:30 White Blood Count 14.8 TH/MM3 Red Blood Count 4.47 MIL/MM3 Hemoglobin 12.9 GM/DL Hematocrit 38.4 % Mean Corpuscular Volume 86.0 FL Mean Corpuscular Hemoglobin 28.8 PG Mean Corpuscular Hemoglobin Concent 33.5 % Red Cell Distribution Width 14.7 % Platelet Count 247 TH/MM3 Mean Platelet Volume 8.7 FL Neutrophils (%) (Auto) 84.1 % Lymphocytes (%) (Auto) 10.9 % Monocytes (%) (Auto) 3.5 % Eosinophils (%) (Auto) 1.0 % Basophils (%) (Auto) 0.5 % Neutrophils # (Auto) 12.4 TH/MM3 Lymphocytes # (Auto) 1.6 TH/MM3 Monocytes # (Auto) 0.5 TH/MM3 Eosinophils # (Auto) 0.1 TH/MM3 Basophils # (Auto) 0.1 TH/MM3 CBC Comment DIFF FINAL Differential Comment Prothrombin Time 10.2 SEC Prothromb Time International Ratio 1.0 RATIO Activated Partial Thromboplast Time 21.1 SEC Urine Color LIGHT-YELLOW Urine Turbidity CLEAR Urine pH 8.5 Urine Specific [place] 1.025 Urine Protein 30 mg/dL Urine Glucose (UA) 1000 mg/dL Urine Ketones 10 mg/dL Urine Occult Blood NEG Urine Nitrite NEG Urine Bilirubin NEG Urine Urobilinogen LESS THAN 2.0 MG/DL Urine Leukocyte Esterase NEG Urine RBC LESS THAN 1 /hpf Urine WBC LESS THAN 1 /hpf Microscopic Urinalysis Comment CULT NOT INDICATED Blood Urea Nitrogen 24 MG/DL Creatinine 1.57 MG/DL Random Glucose 234 MG/DL Total Protein 8.6 GM/DL Albumin 4.5 GM/DL Calcium Level 9.9 MG/DL Alkaline Phosphatase 203 U/L Aspartate Amino Transf (AST/SGOT) 61 U/L Alanine Aminotransferase (ALT/SGPT) 173 U/L Total Bilirubin 0.5 MG/DL Sodium Level 135 MEQ/L Potassium Level 3.7 MEQ/L Chloride Level 96 MEQ/L Carbon Dioxide Level 23.5 MEQ/L Anion Gap 16 MEQ/L Estimat Glomerular Filtration Rate 45 ML/MIN Lipase 240 U/L Patient is with a leukocytosis of 14.8, and neutrophilia of 12.4. Chemistry is with a transaminitis, moderate renal insufficiency. I discussed the patient my attending physician. Patient will be admitted observation for serial H&H. He has been started on a Protonix drip. Patient vomiting seems to have subsided. He has been given pain control as well. [facility] Primary Impression: GI bleed Qualified Codes: K92.2 - Gastrointestinal hemorrhage, unspecified Additional Impressions: Vomiting Qualified Codes: R11.2 - Nausea with vomiting, unspecified Abdominal pain Qualified Codes: R10.13 - Epigastric pain Diabetic gastroparesis Admitting Information Admitting Physician Requests: Observation Condition: Stable Sanjuana Yeboah Feb 16, 2018 20:16
[2018-02-16] MEDS ORDERED: SODIUM CHLOR 0.9% 1000 ML INJ 1,000 ML IV SCH ×2 (20:22→20:24)
[2018-02-16] MEDS ORDERED: PANTOPRAZOLE INJ 80 MG in SODIUM CHLORIDE 0.9% INJ 35 ML IV ONE (20:24)
[2018-02-16] MEDS ORDERED: diphenhydrAMINE HCL 50 MG/ML VIAL IV PUSH ONE (20:30)
[2018-02-16] MEDS ORDERED: METOCLOPRAMIDE HCL 10 MG/2 ML VIAL IV PUSH ONE (20:30)
[2018-02-16] MEDS ORDERED: SODIUM CHLORIDE 0.9% FLUSH 10 ML FLUSH IV FLUSH PRN ×2 (20:30→23:30)
[2018-02-16 20:43] LABS: AUTOMATED NEUTROPHIL # 12.4 TH/MM3 (1.8-7.7); BASOPHIL # 0.1 TH/MM3 (0-0.2); BASOPHIL % 0.5 % (0.0-2.0); EOSINOPHIL # 0.1 TH/MM3 (0-0.4); HEMATOCRIT 38.4 % (39.0-51.0); HEMOGLOBIN 12.9 GM/DL (13.0-17.0); LYMPH % 10.9 % (9.0-44.0); LYMPHOCYTE # 1.6 TH/MM3 (1.0-4.8); MEAN CORPUSCULAR HEMOGLOBIN 28.8 PG (27.0-34.0); MEAN CORPUSCULAR HGB CONC 33.5 % (32.0-36.0); MEAN PLATELET VOLUME 8.7 FL (7.0-11.0); MONO % 3.5 % (0.0-8.0); MONOCYTE # 0.5 TH/MM3 (0-0.9); NEUT % 84.1 % (16.0-70.0); PLATELET COUNT 247 TH/MM3 (150-450); RED BLOOD COUNT 4.47 MIL/MM3 (4.50-5.90); RED CELL DISTRIBUTION WIDTH 14.7 % (11.6-17.2); WHITE BLOOD COUNT 14.8 TH/MM3 (4.0-11.0)
[2018-02-16 20:51] LABS: BILIRUBIN, URINE NEG (NEG); BLOOD, URINE NEG (NEG); GLUCOSE,URINE 1000 mg/dL (NEG); KETONE, URINE 10 mg/dL (NEG); NITRITE,URINE NEG (NEG); PH, URINE 8.5 (5.0-8.5); URINE COLOR LIGHT-YELLOW (YELLW/STRAW); URINE LEUKOCYTE ESTERASE NEG (NEG)
[2018-02-16 20:52] LABS: PROTHROMBIN TIME - PATIENT 10.2 SEC (9.8-11.6)
[2018-02-16 20:54] VITALS: BP 185/91
[2018-02-16] MEDS: PANTOPRAZOLE INJ 80 MG in SODIUM CHLORIDE 0.9% INJ 100 ML IV SCH (21:02)
[2018-02-16 21:03] LABS: ALBUMIN 4.5 GM/DL (3.4-5.0); AST (GOT) 61 U/L (15-37); BICARBONATE 23.5 MEQ/L (21.0-32.0); BLOOD UREA NITROGEN 24 MG/DL (7-18); CALCIUM 9.9 MG/DL (8.5-10.1); CHLORIDE 96 MEQ/L (98-107); CREATININE 1.57 MG/DL (0.60-1.30); GLOMERULAR FILTRATION RATE 45 ML/MIN (>89); GLUCOSE,RANDOM 234 MG/DL (74-106); SODIUM (NA) 135 MEQ/L (136-145)
[2018-02-16 21:07] LABS: ALKALINE PHOSPHATASE 203 U/L (45-117); ALT (GPT) 173 U/L (12-78); TOTAL BILIRUBIN ADULT 0.5 MG/DL (0.2-1.0); TOTAL PROTEIN 8.6 GM/DL (6.4-8.2)
[2018-02-16] MEDS ORDERED: SODIUM CHLOR 0.9% 1000 ML INJ 1,000 ML IV ONE (21:45)
[2018-02-16] MEDS ORDERED: MORPHINE SULFATE 4 MG/ML INJ IV PUSH ONE (21:45)
[2018-02-16 23:00] VITALS: BP 193/88; PULSE 104; RESP 18; O2SAT 98
[2018-02-16] MEDS ORDERED: SENNOSIDES 8.6 MG TAB PO PRN (23:30)
[2018-02-16] MEDS ORDERED: ACETAMINOPHEN 325 MG TAB PO PRN (23:30)
[2018-02-16] MEDS ORDERED: LACTULOSE SYRUP 20 GM/30 ML CUP PO PRN (23:30)
[2018-02-16] MEDS ORDERED: MAGNESIUM HYDROXIDE SUSP 30 ML CUP PO PRN (23:30)
[2018-02-16] MEDS ORDERED: NALOXONE HCL 0.4 MG/ML AMP IV PUSH PRN (23:30)
[2018-02-16] MEDS ORDERED: ONDANSETRON HCL 4 MG/2 ML VIAL IVP PRN (23:30)
[2018-02-16] MEDS ORDERED: BISACODYL 10 MG SUPP RECTAL PRN (23:30)
[2018-02-17] VITALS (11 sets, daily range): BP systolic 131–202; BP diastolic 70–98; PULSE 61–111; RESP 15–20; TEMP 98.1–99.1; O2SAT 98–100
[2018-02-17] MEDS: PROCHLORPERAZINE INJ 10 MG/2 ML VIAL IV PUSH PRN ×2 (00:06→09:58)
--- NOTE | 2018-02-17 00:25 | HHI.HP ---
[facility] Unknown Admission Diagnosis GI bleed; N/V; ABD PAIN Diagnoses: Travel History International Travel<30 Days: No Contact w/Intl Traveler <30 Da: No Traveled to Known Affected Are: No History of Present Illness 62-year-old male with past medical history significant for diabetes mellitus, COPD, pancreatitis, hepatitis C and hypertension presents the emergency department for evaluation of nausea/vomiting. The patient reports that it started approximately 3 days ago when he was seen and admitted to [facility]. He reports he was discharged yesterday or the day before. He states he was feeling better upon his discharge however his nausea and vomiting returned this a.m. he states he cannot even count how many episodes of emesis he had today. He denies any fever/chills. No abdominal pain or diarrhea. No chest pain or shortness of breath. No lateralizing signs/symptoms. Review of Systems Except as stated in HPI: all other systems reviewed are Neg Past Family Social History Past Medical History COPD: emphysema, asthma, and chronic bronchitis Pancreatitis GERD Nephrolithiasis Type 2 Diabetes Mellitus Depression Anxiety Hepatitis Past Surgical History Right knee 1982 Cholecystectomy 2015 Reported Medications Reported Meds & Active Scripts Active Reported Ativan (Lorazepam) 0.5 Mg Tab 0.5 Mg PO BID PRN Naproxen Sodium 220 Mg Tab 220 Mg PO BID PRN Trazodone (Trazodone HCl) 300 Mg Tab 200 Mg PO HS Zoloft (Sertraline HCl) 100 Mg Tab 100 Mg PO BID Tagamet Hb (Cimetidine) 200 Mg Tab Unknown Dose PO BID Gabapentin 600 Mg Tab 600 Mg PO QID Albuterol Neb (Albuterol Sulfate) 2.5 Mg/3 Ml Neb 2.5 Mg NEB Q6HR PRN Proair Hfa 8.5 GM Inh (Albuterol Sulfate) 90 Mcg/Act Aer 2 Puff INH Q6H PRN 108 mcg/actuation Aspirin 325 Mg Tab 325 Mg PO DAILY Glipizide 5 Mg Tab 5 Mg PO BID Take 30 minutes before a meal Atrovent HFA 12.9 GM Inh (Ipratropium [place]) 17 Mcg/Act Aer 2 Puff INH QID Metformin (Metformin HCl) 850 Mg Tab 850 Mg PO BIDPC With meals Methocarbamol 500 Mg Tab 500 Mg PO TID Allergies: Coded Allergies: penicillin G (Verified Allergy, Severe, RASH, 02/16/18) ketorolac (Unverified Adverse Reaction, Severe, HALLUCINATES, 02/16/18) Family History Brother from complications related to MS Brother with bipolar disorder Social History Tobacco: Quit smoking at least 10 years ago Alcohol: Quit drinking alcohol 8 years ago - drinks socially now twice a year Illicit Drugs: Former marijuana use, No IVDA Physical Exam Vital Signs Vital Signs Date Time Temp Pulse Resp B/P (MAP) Pulse Ox O2 Delivery O2 Flow Rate FiO2 02/16/18 23:00 104 18 193/88 (123) 98 Room Air 02/16/18 20:54 185/91 (122) 02/16/18 20:12 98.6 122 20 215/100 (138) 100 Physical Exam GENERAL: male lying in bed SKIN: No rashes, ecchymoses or lesions. Cool and dry. HEAD: Atraumatic. Normocephalic. No temporal or scalp tenderness. EYES: Pupils equal round and reactive. Extraocular motions intact. No scleral icterus. No injection or drainage. ENT: Nose without bleeding, purulent drainage or septal hematoma. Throat without erythema, tonsillar hypertrophy or exudate. Uvula midline. Airway patent. NECK: Trachea midline. No JVD or lymphadenopathy. Supple, nontender, no meningeal signs. CARDIOVASCULAR: Regular rate and rhythm without murmurs, gallops, or rubs. RESPIRATORY: Clear to auscultation. Breath sounds equal bilaterally. No wheezes , rales, or rhonchi. GASTROINTESTINAL: Abdomen soft, non-tender, nondistended. No hepato-splenomegaly , or palpable masses. No guarding. MUSCULOSKELETAL: Extremities without clubbing, cyanosis, or edema. No joint tenderness, effusion, or edema noted. No calf tenderness. NEUROLOGICAL: Awake and alert. Cranial nerves II through XII intact. Motor and sensory grossly within normal limits. Normal speech. Laboratory Laboratory Tests Test 02/16/18 20:30 White Blood Count 14.8 Red Blood Count 4.47 Hemoglobin 12.9 Hematocrit 38.4 Mean Corpuscular Volume 86.0 Mean Corpuscular Hemoglobin 28.8 Mean Corpuscular Hemoglobin Concent 33.5 Red Cell Distribution Width 14.7 Platelet Count 247 Mean Platelet Volume 8.7 Neutrophils (%) (Auto) 84.1 Lymphocytes (%) (Auto) 10.9 Monocytes (%) (Auto) 3.5 Eosinophils (%) (Auto) 1.0 Basophils (%) (Auto) 0.5 Neutrophils # (Auto) 12.4 Lymphocytes # (Auto) 1.6 Monocytes # (Auto) 0.5 Eosinophils # (Auto) 0.1 Basophils # (Auto) 0.1 CBC Comment DIFF FINAL Differential Comment Prothrombin Time 10.2 Prothromb Time International Ratio 1.0 Activated Partial Thromboplast Time 21.1 Urine Color LIGHT-YELLOW Urine Turbidity CLEAR Urine pH 8.5 Urine Specific [place] 1.025 Urine Protein 30 Urine Glucose (UA) 1000 Urine Ketones 10 Urine Occult Blood NEG Urine Nitrite NEG Urine Bilirubin NEG Urine Urobilinogen LESS THAN 2.0 Urine Leukocyte Esterase NEG Urine RBC LESS THAN 1 Urine WBC LESS THAN 1 Microscopic Urinalysis Comment CULT NOT INDICATED Blood Urea Nitrogen 24 Creatinine 1.57 Random Glucose 234 Total Protein 8.6 Albumin 4.5 Calcium Level 9.9 Alkaline Phosphatase 203 Aspartate Amino Transf (AST/SGOT) 61 Alanine Aminotransferase (ALT/SGPT) 173 Total Bilirubin 0.5 Sodium Level 135 Potassium Level 3.7 Chloride Level 96 Carbon Dioxide Level 23.5 Anion Gap 16 Estimat Glomerular Filtration Rate 45 Lipase 240 Result Diagram: 02/16/18202902/16/182029 Caprini VTE Risk Assessment Caprini VTE Risk Assessment: Mod/High Risk (score >= 2) Caprini Risk Assessment Model Point Value = 1 Point Value = 2 Point Value = 3 Point Value = 5 Age 41-60 Minor surgery BMI > 25 kg/m2 Swollen legs Varicose veins or History of unexplained or recurrent spontaneous Oral contraceptives or hormone replacement Sepsis (< 1 month) Serious lung disease, including pneumonia (< 1 month) Abnormal pulmonary function Acute myocardial infarction Congestive heart failure (< 1 month) History of inflammatory bowel disease Medical patient at bed rest Age 61-74 Arthroscopic surgery Major open surgery (> 45 min) Laparoscopic surgery (> 45 min) Malignancy Confined to bed (> 72 hours) Immobilizing plaster cast Central venous access Age >= 75 History of VTE Family history of VTE Factor V Leiden Prothrombin [id number] Lupus anticoagulant Anticardiolipin antibodies Elevated serum homocysteine Heparin-induced thrombocytopenia Other congenital or acquired thrombophilia Stroke (< 1 month) Elective arthroplasty Hip, pelvis, or leg fracture Acute spinal cord injury (< 1 month) Prophylaxis Regimen Total Risk Factor Score Risk Level Prophylaxis Regimen 0-1 Low Early ambulation 2 Moderate Order ONE of the following: *Sequential Compression Device (SCD) *Heparin 5000 units SQ BID 3-4 Higher Order ONE of the following medications: *Heparin 5000 units SQ TID *Enoxaparin/Lovenox 40 mg SQ daily (WT < 150 kg, CrCl > 30 mL/min) *Enoxaparin/Lovenox 30 mg SQ daily (WT < 150 kg, CrCl > 10-29 mL/min) *Enoxaparin/Lovenox 30 mg SQ BID (WT < 150 kg, CrCl > 30 mL/min) AND/OR *Sequential Compression Device (SCD) 5 or more Highest Order ONE of the following medications: *Heparin 5000 units SQ TID (Preferred with Epidurals) *Enoxaparin/Lovenox 40 mg SQ daily (WT < 150 kg, CrCl > 30 mL/min) *Enoxaparin/Lovenox 30 mg SQ daily (WT < 150 kg, CrCl > 10-29 mL/min) *Enoxaparin/Lovenox 30 mg SQ BID (WT < 150 kg, CrCl > 30 mL/min) AND *Sequential Compression Device (SCD) Assessment and Plan Assessment and Plan Assessment/plan: 1. Intractable nausea/vomiting/possible GI bleed Emesis Heme positive Protonix drip Compazine Clear liquid diet Serial H&H Gastroenterology consulted, appreciate assistance 2. AK I Creatinine 1.57, baseline 0.9 IV fluid hydration Monitor renal function 3. Diabetes mellitus Holding oral anti-hyperglycemics Sliding-scale insulin Monitor blood glucose 4. History of hepatitis LFTs elevated, at baseline Monitor 5. COPD Nebulizers as needed 6. Depression/anxiety Continue home medications FEN Clear liquid diet Electrolytes: Monitor and replete as needed Holding pharmacologic anticoagulation for GI bleed NS at 100 cc/hour Kaitlin Villagomez MD Feb 17, 2018 00:25
[2018-02-17] MEDS ORDERED: GLUCAGON 1 MG/ML VIAL OTHER PRN (00:30)
[2018-02-17] MEDS ORDERED: DEXTROSE 50% IN WATER 50 ML VIAL(D50) IV PUSH PRN (00:30)
[2018-02-17] MEDS ORDERED: RESP: ALBUTEROL 2.5 MG/3 ML NEB (PRN) NEB (00:30)
[2018-02-17] MEDS: LORazepam 0.5 MG TAB PO PRN ×2 (00:47→22:15)
[2018-02-17] MEDS ORDERED: ONDANSETRON ODT 4 MG TAB PO PRN (01:00)
[2018-02-17] MEDS ORDERED: METOPROLOL TARTRATE 5 MG/5 ML VIAL IV PUSH ONE (01:30)
[2018-02-17] MEDS: cloNIDine HCL 0.1 MG TAB PO PRN ×2 (02:10→23:26)
[2018-02-17] MEDS: SODIUM CHLOR 0.9% 1000 ML INJ 1,000 ML IV SCH ×3 (02:14→20:47)
[2018-02-17 03:16] LABS: HEMATOCRIT 36.5 % (39.0-51.0); HEMOGLOBIN 12.4 GM/DL (13.0-17.0)
[2018-02-17] MEDS: PANTOPRAZOLE INJ 80 MG in SODIUM CHLORIDE 0.9% INJ 100 ML IV SCH ×2 (05:54→16:46)
[2018-02-17 07:45] LABS: AUTOMATED NEUTROPHIL # 12.3 TH/MM3 (1.8-7.7); BASOPHIL % 0.2 % (0.0-2.0); EOSINOPHIL # 0.3 TH/MM3 (0-0.4); EOSINOPHIL % 1.6 % (0.0-4.0); HEMATOCRIT 36.4 % (39.0-51.0); HEMOGLOBIN 12.1 GM/DL (13.0-17.0); LYMPH % 18.9 % (9.0-44.0); LYMPHOCYTE # 3.1 TH/MM3 (1.0-4.8); MEAN CELL VOLUME 86.7 FL (80.0-100.0); MEAN CORPUSCULAR HEMOGLOBIN 28.7 PG (27.0-34.0); MEAN CORPUSCULAR HGB CONC 33.1 % (32.0-36.0); MEAN PLATELET VOLUME 8.7 FL (7.0-11.0); MONO % 5.1 % (0.0-8.0); MONOCYTE # 0.8 TH/MM3 (0-0.9); NEUT % 74.2 % (16.0-70.0); PLATELET COUNT 226 TH/MM3 (150-450); WHITE BLOOD COUNT 16.6 TH/MM3 (4.0-11.0)
[2018-02-17 08:26] LABS: ALBUMIN 3.9 GM/DL (3.4-5.0); ALKALINE PHOSPHATASE 170 U/L (45-117); ALT (GPT) 131 U/L (12-78); AST (GOT) 37 U/L (15-37); BLOOD UREA NITROGEN 13 MG/DL (7-18); CALCIUM 8.3 MG/DL (8.5-10.1); CHLORIDE 103 MEQ/L (98-107); GLOMERULAR FILTRATION RATE 68 ML/MIN (>89); GLUCOSE,RANDOM 156 MG/DL (74-106); SODIUM (NA) 138 MEQ/L (136-145); TOTAL BILIRUBIN ADULT 0.4 MG/DL (0.2-1.0); TOTAL PROTEIN 7.7 GM/DL (6.4-8.2)
[2018-02-17] MEDS: SODIUM CHLORIDE 0.9% FLUSH 10 ML FLUSH IV FLUSH SCH ×2 (09:00→20:46)
[2018-02-17] MEDS: DOCUSATE SODIUM 50 MG/SENNA 8.6 MG TAB PO SCH ×2 (09:00→20:45)
[2018-02-17] MEDS: SERTRALINE HCL 100 MG TAB PO SCH ×2 (09:31→20:45)
[2018-02-17] MEDS: GABAPENTIN 300 MG CAP PO SCH ×2 (09:31→20:45)
[2018-02-17] MEDS: INSULIN ASPART SUPPLEMENTAL SCALE SQ SCH ×4 (09:32→23:25)
[2018-02-17 10:05] LABS: HEMATOCRIT 37.6 % (39.0-51.0); HEMOGLOBIN 12.4 GM/DL (13.0-17.0)
--- NOTE | 2018-02-17 12:10 | PD.CONS ---
HPI History of Present Illness This is a 62 year old M with PMH significant for DM, GERD, pancreatitis, COPD, treatment naive Hepatitis C who presented to the ER with complaints of intractable nausea and vomiting for the past few days. Pt was seen at [facility] for similar symptoms, pt was seen by studio operations engineer in charge GI physician, Dr. Villafuerte but has not been able to afford following up with him in the office. He had recommended an inpatient GES, however this does not seem to have been done while pt was in the hospital. Pt has also been previously evaluated by our service and had EGD and colonoscopy done in December of this year --> Short Yadav about 2cm, gastritis, gastropathy mostly in the body of the stomach, duodenitis. 8 mm polyp in the cecum, 8 mm polyp in the sigmoid. Pathology ( antrum) mildly active chronic antral gastritis with non-specific features, negative for H. Pylori (distal esophagus) gastric-type mucosa with mildly active chronic inflammation (cecum polyp) tubular adenoma (sigmoid polyp) tubular adenoma. Pt reports nausea and vomiting has been going on over a week with multiple episodes of emesis, denies any obvious BRB or coffee ground emesis. States some abdominal soreness but denies any other abdominal pain, however, he is tender on exam in the epigastric area. Reports BMs have been regular, denies hematochezia and melena. Pt denies ETOH and nicotine use. Smokes marijuana every other day. (Michelle Thomas) PFSH Past Medical History COPD: emphysema, asthma, and chronic bronchitis Pancreatitis GERD Nephrolithiasis Type 2 Diabetes Mellitus Depression Anxiety Hepatitis Past Surgical History Right knee 1982 Cholecystectomy 2016 EGD Colonoscopy (Michelle Thomas) Coded Allergies: penicillin G (Verified Allergy, Severe, RASH, 02/16/18) ketorolac (Unverified Adverse Reaction, Severe, HALLUCINATES, 02/16/18) Family History Brother from complications related to MS Brother with bipolar disorder Social History Tobacco: Quit smoking at least 10 years ago Alcohol: Quit drinking alcohol 8 years ago - drinks socially now twice a year Illicit Drugs: Former marijuana use, No IVDA (Michelle Thomas) Review of Systems Gastrointestinal: COMPLAINS OF: Nausea, Vomiting, Heartburn, DENIES: Abdominal pain, Black stools, Bloody stools, Constipation, Diarrhea, Difficulty Swallowing , Anorexia, Odynophagia, Swelling of Abdomen, Hematemesis (Michelle Thomas) GI Exam Vitals I&O Vital Signs Date Time Temp Pulse Resp B/P (MAP) Pulse Ox O2 Delivery O2 Flow Rate FiO2 02/17/18 08:49 98.1 90 20 178/84 (115) 100 02/17/18 04:17 98.3 92 17 177/84 (115) 98 02/17/18 02:03 99.1 101 16 188/88 (121) 99 02/17/18 02:02 02/17/18 01:35 89 16 168/77 (107) 98 Room Air 02/17/18 01:30 111 16 202/98 (132) 99 Room Air 02/17/18 00:15 96 16 180/89 (119) 98 Room Air 02/16/18 23:00 104 18 193/88 (123) 98 Room Air 02/16/18 20:54 185/91 (122) 02/16/18 20:12 98.6 122 20 215/100 (138) 100 I/O 02/16/18 02/16/18 02/16/18 02/17/18 02/17/18 02/17/18 07:00 15:00 23:00 07:00 15:00 23:00 Intake Total 35 ml 2000 ml Output Total 3600 ml Balance 35 ml -1600 ml Intake IV Total 35 ml 2000 ml Output Urine Total 3600 ml Laboratory Test 02/16/18 20:30 02/17/18 02:49 02/17/18 06:37 02/17/18 09:19 White Blood Count 14.8 TH/MM3 16.6 TH/MM3 Red Blood Count 4.47 MIL/MM3 4.20 MIL/MM3 Hemoglobin 12.9 GM/DL 12.4 GM/DL 12.1 GM/DL 12.4 GM/DL Hematocrit 38.4 % 36.5 % 36.4 % 37.6 % Mean Corpuscular Volume 86.0 FL 86.7 FL Mean Corpuscular Hemoglobin 28.8 PG 28.7 PG Mean Corpuscular Hemoglobin Concent 33.5 % 33.1 % Red Cell Distribution Width 14.7 % 15.0 % Platelet Count 247 TH/MM3 226 TH/MM3 Mean Platelet Volume 8.7 FL 8.7 FL Neutrophils (%) (Auto) 84.1 % 74.2 % Lymphocytes (%) (Auto) 10.9 % 18.9 % Monocytes (%) (Auto) 3.5 % 5.1 % Eosinophils (%) (Auto) 1.0 % 1.6 % Basophils (%) (Auto) 0.5 % 0.2 % Neutrophils # (Auto) 12.4 TH/MM3 12.3 TH/MM3 Lymphocytes # (Auto) 1.6 TH/MM3 3.1 TH/MM3 Monocytes # (Auto) 0.5 TH/MM3 0.8 TH/MM3 Eosinophils # (Auto) 0.1 TH/MM3 0.3 TH/MM3 Basophils # (Auto) 0.1 TH/MM3 0.0 TH/MM3 CBC Comment DIFF FINAL DIFF FINAL Differential Comment Prothrombin Time 10.2 SEC Prothromb Time International Ratio 1.0 RATIO Activated Partial Thromboplast Time 21.1 SEC Urine Color LIGHT-YELLOW Urine Turbidity CLEAR Urine pH 8.5 Urine Specific [place] 1.025 Urine Protein 30 mg/dL Urine Glucose (UA) 1000 mg/dL Urine Ketones 10 mg/dL Urine Occult Blood NEG Urine Nitrite NEG Urine Bilirubin NEG Urine Urobilinogen LESS THAN 2.0 MG/DL Urine Leukocyte Esterase NEG Urine RBC LESS THAN 1 /hpf Urine WBC LESS THAN 1 /hpf Microscopic Urinalysis Comment CULT NOT INDICATED Blood Urea Nitrogen 24 MG/DL 13 MG/DL Creatinine 1.57 MG/DL 1.10 MG/DL Random Glucose 234 MG/DL 156 MG/DL Total Protein 8.6 GM/DL 7.7 GM/DL Albumin 4.5 GM/DL 3.9 GM/DL Calcium Level 9.9 MG/DL 8.3 MG/DL Alkaline Phosphatase 203 U/L 170 U/L Aspartate Amino Transf (AST/SGOT) 61 U/L 37 U/L Alanine Aminotransferase (ALT/SGPT) 173 U/L 131 U/L Total Bilirubin 0.5 MG/DL 0.4 MG/DL Sodium Level 135 MEQ/L 138 MEQ/L Potassium Level 3.7 MEQ/L 4.0 MEQ/L Chloride Level 96 MEQ/L 103 MEQ/L Carbon Dioxide Level 23.5 MEQ/L 27.0 MEQ/L Anion Gap 16 MEQ/L 8 MEQ/L Estimat Glomerular Filtration Rate 45 ML/MIN 68 ML/MIN Lipase 240 U/L Physical Examination HEENT: Normocephalic; atraumatic CHEST: Even/unlabored CARDIAC: RRR ABDOMEN: Soft, nondistended, epigastric tenderness; bowel sounds active EXTREMITIES: No clubbing, cyanosis, or edema. SKIN: Normal; no rash; no jaundice. 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 (Michelle Thomas) Assessment and Plan Plan Assessment: - Intractable nausea and vomiting for over a week- was seen at , by studio operations engineer in charge GI Dr Villafuerte, he had ordered a GES but this was never done during hospitalization. Pt denies any obvious blood in vomit and coffee ground emesis, however, was found to heme (+ ). EGD and colonoscopy done in December of this year --> Short Yadav about 2cm, gastritis, gastropathy mostly in the body of the stomach, duodenitis. 8 mm polyp in the cecum, 8 mm polyp in the sigmoid. Pathology (antrum) mildly active chronic antral gastritis with non-specific features, negative for H. Pylori (distal esophagus) gastric-type mucosa with mildly active chronic inflammation (cecum polyp) tubular adenoma (sigmoid polyp) tubular adenoma. Smokes marijuana every other day- possible cause of cyclic vomiting . - Hepatitis C, treatment naive- Denies history of IVD use, does have tattoos US abdomen limited (02/14) Echogenic liver may be secondary to fatty replacement and/or underlying hepatocellular disease. Cholecystostomy LFTs elevated : AST-37 ALT-131 Alk phos-170 T bili-0.4 Pt needs to be NPO for 4 hours for GES, he has been having liquids today, radiology would not be able to do GES until tomorrow. Pt will need EGD tomorrow due to heme (+) emesis so this can not be done, radiology is unable to do GES within 24 hours of EGD due to possible false readings from recent anesthesia. Will start pt on Reglan and follow symptoms. ? GES over the weekend if no improvement Plan: EGD tomorrow Obtain consent NPO after MN Reglan Advised to stop smoking marijuana Follow up outpatient for hep c treatment Further recommendations based on results of above Pt has been seen and examined by myself and Dr. Kelly and this note is written on his behalf (Michelle Thomas) Physician Comments Seen and examined with Michelle, plan as above. Plan for EGD to role outlet obstruction. Supportive care. Will follow up with you. Thank you for the consult. (Niranjan Kelly MD) Michelle Thomas Feb 17, 2018 12:10 Niranjan Kelly MD Feb 18, 2018 09:47
[2018-02-17] MEDS: METOCLOPRAMIDE HCL 10 MG/2 ML VIAL IV PUSH SCH ×2 (13:41→22:16)
[2018-02-17] MEDS ORDERED: METOPROLOL TARTRATE 25 MG TAB PO PRN (14:45)
[2018-02-17] MEDS ORDERED: SODIUM CHLORID 0.9% 500 ML IV PRN (14:45)
[2018-02-17] MEDS ORDERED: LACTATED RINGER'S 1000 ML IV PRN (14:45)
[2018-02-17] MEDS ORDERED: CHLORHEXIDINE GLUCONATE 2 % 1 PACK (2 CLOTHS) TOPICAL PRN (14:45)
[2018-02-17] MEDS ORDERED: POVIDONE IODINE 5% (ANTISEPSIS KIT) 4 APPLICATIONS EACH NARE PRN (14:45)
[2018-02-17] MEDS ORDERED: INSULIN HUMAN REGULAR 1,000 UNITS/10 ML VIAL SQ PRN (14:45)
[2018-02-17 14:58] LABS: HEMATOCRIT 37.4 % (39.0-51.0); HEMOGLOBIN 12.4 GM/DL (13.0-17.0)
[2018-02-17] MEDS ORDERED: traZODone HCL 100 MG TAB PO SCH (21:00)
[2018-02-17 21:12] LABS: HEMATOCRIT 38.1 % (39.0-51.0); HEMOGLOBIN 13.2 GM/DL (13.0-17.0)
[2018-02-18 04:12] VITALS: BP 153/81; PULSE 101; RESP 18; TEMP 98.8; O2SAT 98
[2018-02-18] MEDS: PANTOPRAZOLE INJ 80 MG in SODIUM CHLORIDE 0.9% INJ 100 ML IV SCH (04:16)
[2018-02-18] MEDS: METOCLOPRAMIDE HCL 10 MG/2 ML VIAL IV PUSH SCH (07:17)
[2018-02-18 07:50] VITALS: BP 206/98; PULSE 92; RESP 18; TEMP 98.2; O2SAT 93
[2018-02-18] MEDS: INSULIN ASPART SUPPLEMENTAL SCALE SQ SCH ×2 (08:00→12:00)
[2018-02-18] MEDS: DOCUSATE SODIUM 50 MG/SENNA 8.6 MG TAB PO SCH (08:02)
[2018-02-18] MEDS: cloNIDine HCL 0.1 MG TAB PO PRN (08:02)
[2018-02-18] MEDS: SERTRALINE HCL 100 MG TAB PO SCH (08:02)
[2018-02-18] MEDS: GABAPENTIN 300 MG CAP PO SCH (08:03)
[2018-02-18] MEDS: SODIUM CHLORIDE 0.9% FLUSH 10 ML FLUSH IV FLUSH SCH (08:03)
[2018-02-18] MEDS: SODIUM CHLOR 0.9% 1000 ML INJ 1,000 ML IV SCH (08:03)
[2018-02-18 08:27] VITALS: BP 177/89
[2018-02-18 08:28] VITALS: O2SAT 96
--- NOTE | 2018-02-18 10:06 | GIPROC ---
[facility] [address] [facility]. [facility], [address] EGD PROCEDURE REPORT EXAM DATE: 02/18/2018 PATIENT NAME: Ashutosh Cortez MR #: [id number] BIRTHDATE: 1955 ATTENDING: Niranjan Kelly MD ORDER #: [id number] OFFICE HELPER CLERICAL: Abdirahman Garcia and Maria Guadalupe Sanchez STATUS: inpatient INDICATIONS: The patient is a 62 yr old male here for an EGD due to nausea and vomiting PROCEDURE PERFORMED: EGD w/ biopsy MEDICATIONS: None and Per Anesthesia. TOPICAL ANESTHETIC: none CONSENT: The patient understands the risks and benefits of the procedure and understands that these risks include, but are not limited to: sedation, allergic reaction, infection, perforation and/or bleeding. Alternative means of evaluation and treatment include, among others: physical exam, x-rays, and/or surgical intervention. The patient elects to proceed with this endoscopic procedure. medical equipment was checked for proper function. Hand hygiene and appropriate measures for infection prevention was taken. After the risks, benefits and alternatives of the procedure were thoroughly explained, Informed consent was verified, confirmed and timeout was successfully executed by the treatment team. The patient was anesthetized with topical anesthesia and the Pentax [id number] endoscope was introduced through the mouth and advanced to the second portion of the duodenum. Retroflexion was performed and was normal The gastroscope was then slowly withdrawn and removed. ESOPHAGUS: There was LA Class C esophagitis noted. STOMACH: There was acute moderate and erosive gastritis in the entire examined stomach. Multiple biopsies were performed using cold forceps. Sample sent for histology. DUODENUM: The duodenal mucosa appeared normal in the duodenal bulb and 2nd part duodenum. ADVERSE EVENTS: There were no complications. IMPRESSIONS: 1. There was LA Class C esophagitis noted 2. There was acute gastritis in the entire examined stomach; multiple biopsies were performed 3. Normal duodenal mucosa in the duodenal bulb and 2nd part duodenum 4. Retroflexion was performed and was normal RECOMMENDATIONS: 1. Await biopsy results. Biopsy results will not be ready for 7-10 days. If you don't hear from us in two weeks, call our office for biopsy results. 2. Continue PPI and prokinetics. 3. Begin feeding with frequent small meals PATIENT CONDITION: stable DISPOSITION: Observation REPEAT EXAM: NONE Niranjan Kelly MD eSigned: Niranjan Kelly MD 02/18/2018 10:06 AM cc: PATIENT NAME: Ashutosh Cortez MR#: [id number]
[2018-02-18] MEDS ORDERED: DO NOT ADM ANY ANTICOAGULANT DRUGS PRN (10:09)
[2018-02-18] MEDS ORDERED: PANT40TA3 PO (10:58)
--- NOTE | 2018-02-18 11:50 | HHI.DS ---
Discharge Summary Admission Date Feb 16, 2018 at 22:20 Discharge Date: Feb 18, 2018 Admitting Diagnosis GI bleed; N/V; ABD PAIN (1) GI bleed ICD Code: K92.2 - Gastrointestinal hemorrhage, unspecified Status: Acute (2) Vomiting ICD Code: R11.10 - Vomiting, unspecified Status: Acute Procedures EGD. Please see report. Brief History - From Admission 62-year-old male with past medical history significant for diabetes mellitus, COPD, pancreatitis, hepatitis C and hypertension presents the emergency department for evaluation of nausea/vomiting. The patient reports that it started approximately 3 days ago when he was seen and admitted to [facility]. He reports he was discharged yesterday or the day before. He states he was feeling better upon his discharge however his nausea and vomiting returned this a.m. he states he cannot even count how many episodes of emesis he had today. He denies any fever/chills. No abdominal pain or diarrhea. No chest pain or shortness of breath. No lateralizing signs/symptoms. CBC/BMP: 02/17/18 2045 02/17/18 0637 Significant Findings Laboratory Tests Test 02/16/18 20:30 02/17/18 02:49 02/17/18 06:37 02/17/18 09:19 White Blood Count 14.8 TH/MM3 (4.0-11.0) 16.6 TH/MM3 (4.0-11.0) Red Blood Count 4.47 MIL/MM3 (4.50-5.90) 4.20 MIL/MM3 (4.50-5.90) Hemoglobin 12.9 GM/DL (13.0-17.0) 12.4 GM/DL (13.0-17.0) 12.1 GM/DL (13.0-17.0) 12.4 GM/DL (13.0-17.0) Hematocrit 38.4 % (39.0-51.0) 36.5 % (39.0-51.0) 36.4 % (39.0-51.0) 37.6 % (39.0-51.0) Neutrophils (%) (Auto) 84.1 % (16.0-70.0) 74.2 % (16.0-70.0) Neutrophils # (Auto) 12.4 TH/MM3 (1.8-7.7) 12.3 TH/MM3 (1.8-7.7) Activated Partial Thromboplast Time 21.1 SEC (24.3-30.1) Urine Protein 30 mg/dL (NEG-TRACE) Urine Glucose (UA) 1000 mg/dL (NEG) Urine Ketones 10 mg/dL (NEG) Blood Urea Nitrogen 24 MG/DL (7-18) Creatinine 1.57 MG/DL (0.60-1.30) Random Glucose 234 MG/DL (74-106) 156 MG/DL (74-106) Total Protein 8.6 GM/DL (6.4-8.2) Alkaline Phosphatase 203 U/L (45-117) 170 U/L (45-117) Aspartate Amino Transf (AST/SGOT) 61 U/L (15-37) Alanine Aminotransferase (ALT/SGPT) 173 U/L (12-78) 131 U/L (12-78) Sodium Level 135 MEQ/L (136-145) Chloride Level 96 MEQ/L (98-107) Anion Gap 16 MEQ/L (5-15) Estimat Glomerular Filtration Rate 45 ML/MIN (>89) 68 ML/MIN (>89) Urine Cannabinoids Screen POS (NEG) Calcium Level 8.3 MG/DL (8.5-10.1) Test 02/17/18 14:31 02/17/18 20:45 02/18/18 10:34 Hemoglobin 12.4 GM/DL (13.0-17.0) Hematocrit 37.4 % (39.0-51.0) 38.1 % (39.0-51.0) PE at Discharge GENERAL: Patient lying in bed. Appears comfortable. Alert and oriented 3. SKIN: Warm and dry. HEAD: Normocephalic. EYES: No scleral icterus. No injection or drainage. NECK: Supple, trachea midline. CARDIOVASCULAR: Regular rate and rhythm without murmurs, gallops, or rubs. RESPIRATORY: Breath sounds equal bilaterally. No accessory muscle use. GASTROINTESTINAL: Abdomen soft, non-tender, nondistended. MUSCULOSKELETAL: No cyanosis, or edema. BACK: Nontender without obvious deformity. No CVA tenderness. Hospital Course Patient presented with nausea or vomiting. Emesis positive for blood. GI was consulted, patient underwent EGD which shows severe gastritis. Patient is to discontinue naproxen. Patient will be started on PPI. Nausea resolved. Follow -up with GI as outpatient to go over biopsy results. For problem based summary from most recent progress note, please see below. // Intractable nausea/vomiting/possible GI bleed Emesis Heme positive Protonix drip Compazine Clear liquid diet Serial H&H Gastroenterology consulted, appreciate assistance = Gastritis. Discontinue naproxen. Patient conveys understanding. Follow with GI as outpatient to go over biopsy results. Patient started on PPI. //AK I Creatinine 1.57, baseline 0.9 IV fluid hydration Monitor renal function = Resolved. // Diabetes mellitus Holding oral anti-hyperglycemics Sliding-scale insulin Monitor blood glucose = Continue outpatient regimen. //History of hepatitis LFTs elevated, at baseline Monitor //Leukocytosis. This is chronic. No signs of infection. //COPD Nebulizers as needed //Depression/anxiety Continue home medications Pt Condition on Discharge: Good Discharge Disposition: Discharge Home Discharge Time: <= 30 minutes Discharge Instructions DIET: Follow Instructions for: Diabetic Diet Activities you can perform: Regular-No Restrictions Follow up Referrals: Gastroenterology - 1 Week with Niranjan Kelly MD PCP Follow-up - 1 Week New Medications: Pantoprazole (Pantoprazole) 40 Mg Tab 40 MG PO DAILY for Reflux, #30 TAB 0 Refills Continued Medications: Albuterol 8.5 GM Inh (Proair Hfa 8.5 GM Inh) 90 Mcg/Act Aer 2 PUFF INH Q6H PRN for SHORTNESS OF BREATH, #1 INHALER 0 Refills 108 mcg/actuation Albuterol Neb (Albuterol Neb) 2.5 Mg/3 Ml Neb 2.5 MG NEB Q6HR PRN for SHORTNESS OF BREATH, #60 NEBULE 0 Refills Aspirin (Aspirin) 325 Mg Tab 325 MG PO DAILY, #30 TAB 0 Refills Gabapentin (Gabapentin) 600 Mg Tab 600 MG PO QID, #90 TAB 0 Refills Glipizide (Glipizide) 5 Mg Tab 5 MG PO BID for Blood Sugar Management, #60 TAB 0 Refills Take 30 minutes before a meal Ipratropium HFA 12.9 GM Inh (Atrovent HFA 12.9 GM Inh) 17 Mcg/Act Aer 2 PUFF INH QID for Shortness of Breath, #1 INHALER 0 Refills Lorazepam (Ativan) 0.5 Mg Tab 0.5 MG PO BID PRN for ANXIETY AND/OR AGITATION, TAB 0 Refills Metformin (Metformin) 850 Mg Tab 850 MG PO BIDPC for Blood Sugar Management, TAB 0 Refills With meals Methocarbamol (Methocarbamol) 500 Mg Tab 500 MG PO TID for Muscle Spasm, #90 TAB 0 Refills Sertraline (Zoloft) 100 Mg Tab 100 MG PO BID, #30 TAB 0 Refills Trazodone (Trazodone) 300 Mg Tab 200 MG PO HS for Control Depression, #30 TAB 0 Refills Discontinued Medications: Cimetidine (Tagamet Hb) 200 Mg Tab Unknown Dose PO BID for Heartburn Management, TAB 0 Refills Naproxen Sodium (Naproxen Sodium) 220 Mg Tab 220 MG PO BID PRN for Pain Management, TAB 0 Refills Reno Hawk MD Feb 18, 2018 11:50
[2018-02-18 12:00] VITALS: BP 128/59; PULSE 85; RESP 18; TEMP 99; O2SAT 97
[2018-02-18] MEDS ORDERED: LIDOCAINE HCL 1% PF 5 ML SYRINGE OTHER ONE (12:00)
[2018-02-18] MEDS ORDERED: PHENYLEPH/NS 1000 MCG/10 ML SYR IV ONE (12:00)
[2018-02-18] MEDS ORDERED: ROCURONIUM INJ 100 MG/10 ML VIAL IV ONE (12:00)
[2018-02-18 13:20] LABS: AUTOMATED NEUTROPHIL # 6.4 TH/MM3 (1.8-7.7); BASOPHIL # 0.1 TH/MM3 (0-0.2); BASOPHIL % 0.5 % (0.0-2.0); EOSINOPHIL # 0.2 TH/MM3 (0-0.4); EOSINOPHIL % 1.8 % (0.0-4.0); HEMATOCRIT 38.5 % (39.0-51.0); HEMOGLOBIN 12.9 GM/DL (13.0-17.0); LYMPH % 34.3 % (9.0-44.0); LYMPHOCYTE # 3.9 TH/MM3 (1.0-4.8); MEAN CELL VOLUME 85.1 FL (80.0-100.0); MEAN CORPUSCULAR HEMOGLOBIN 28.6 PG (27.0-34.0); MEAN CORPUSCULAR HGB CONC 33.6 % (32.0-36.0); MEAN PLATELET VOLUME 8.1 FL (7.0-11.0); MONO % 6.8 % (0.0-8.0); MONOCYTE # 0.8 TH/MM3 (0-0.9); NEUT % 56.6 % (16.0-70.0); PLATELET COUNT 257 TH/MM3 (150-450); RED BLOOD COUNT 4.52 MIL/MM3 (4.50-5.90); RED CELL DISTRIBUTION WIDTH 14.8 % (11.6-17.2); WHITE BLOOD COUNT 11.3 TH/MM3 (4.0-11.0)
== END 2018-02-18 15:21 | disposition home or self-care (01) ==
LOC: NEPE 20:05 → NEDA 22:20 → NEPGCP 02-17 02:10
PROVIDERS: ADMIT Internal Medicine; ATTEND Internal Medicine
DX: R11.2 Nausea with vomiting, unspecified (principal); K31.84 Gastroparesis; J43.9 Emphysema, unspecified; E11.43 Type 2 diabetes mellitus with diabetic autonomic (poly)neuropathy; Z79.82 Long term (current) use of aspirin; F41.9 Anxiety disorder, unspecified; R51 Headache; I10 Essential (primary) hypertension; B19.20 Unspecified viral hepatitis C without hepatic coma; K85.90 Acute pancreatitis without necrosis or infection, unspecified; F12.90 Cannabis use, unspecified, uncomplicated; Z79.899 Other long term (current) drug therapy; Z79.84 Long term (current) use of oral hypoglycemic drugs; D72.829 Elevated white blood cell count, unspecified; N28.9 Disorder of kidney and ureter, unspecified; K21.9 Gastro-esophageal reflux disease without esophagitis; Z87.442 Personal history of urinary calculi; Z87.891 Personal history of nicotine dependence; K20.9 Esophagitis, unspecified; K29.71 Gastritis, unspecified, with bleeding
CPT/HCPCS: 00731; 43239; 80053; 80307; 81001; 82948; 83690; 85014; 85018; 85025; 85610; 85730; 86850; 86900; 86901; 88305; 88312; 96361; 96365; 96366; 96367; 96368; 96375; 96376; 99285; C9113; G0378; J0780; J1200; J1815; J2270; J2370; J2765; J3010; J7030

== ENCOUNTER 2018-10-30 20:19 | Observation (INO) ==
[2018-10-30] MEDS ORDERED: MethylPREDNISolone Sod Succinate Inj 125 MG/2 ML Vial IV.PUSH ONE (20:45)
[2018-10-30] MEDS ORDERED: Acetaminophen 325 MG Tablet PO ONE (20:45)
--- NOTE | 2018-10-30 21:01 | XR ---
EXAM DATE: 10/30/2018 8:58 PM EST AGE/SEX: 63 years / Male INDICATIONS: Fever CLINICAL DATA: This is the patient's initial encounter. Patient reports that signs and symptoms have been present for 4 - 6 days and indicates a pain score of 0/10. MEDICAL/SURGICAL HISTORY: . Chronic obstructive pulmonary disease. Cardiovascular disease. Stoll creatitis. diabetic, Hep C . SURGICAL HISTORY : Cholecystectomy. RT knee COMPAR[place]: [facility] [place] S[place], 12/14/[place]. . FINDINGS: A single AP view of the chest demonstrates the lungs to be symmetrically aerated without evidence of mass, infiltrate or effusion. The cardiomediastinal contours are unremarkable. Osseous structures a re intact. CONCLUSION: The lungs are clear. Electronically signed by: Dennis Contreras MD Board Certified Radiologist 10/30/2018 8:59 PM EST
[2018-10-30 21:13] LABS: Baso # (Auto) 0.2 th/mm3 (0.0-0.2); Baso % (Auto) 1.9 % (0.0-2.0); Eos % (Auto) 0.6 % (0.0-4.0); Hemoglobin 13.2 gm/dL (13.0-17.0); Lymph # (Auto) 0.9 th/mm3 (1.0-4.8); Lymph % (Auto) 11.9 % (9.0-44.0); Mean Corpuscular HGB Conc 34.6 % (32.0-36.0); Mean Corpuscular Hemoglobin 30.8 pg (27.0-34.0); Mean Platelet Volume 8.9 fL (7.0-11.0); Mono # (Auto) 0.3 th/mm3 (0.0-0.9); Mono % (Auto) 4.3 % (0.0-8.0); Neut # (Auto) 6.4 th/mm3 (1.8-7.7); Neut % (Auto) 81.3 % (16.0-70.0); Platelet Count 199 th/mm3 (150-450); Red Blood Count 4.27 mil/mm3 (4.50-5.90); Red Cell Distribution Width 14.4 % (11.6-17.2); White Blood Count 7.9 th/mm3 (4.0-11.0)
[2018-10-30 21:36] LABS: Anion Gap 8 meq/L (5-15); Aspartate Aminotransferase 126 U/L (15-37); Blood Urea Nitrogen 12 mg/dL (7-18); Carbon Dioxide 27.1 meq/L (21.0-32.0); Chloride 102 meq/L (98-107); Glomerular Filtration Rate 69 mL/min (>89); Glucose,Random 78 mg/dL (74-106); Magnesium 2.1 mg/dL (1.5-2.5); Potassium 3.8 meq/L (3.5-5.1); Sodium 137 meq/L (136-145)
[2018-10-30 21:37] LABS: Alanine Aminotransferase 233 U/L (12-78)
[2018-10-30 21:40] LABS: Alkaline Phosphatase 142 U/L (45-117); Total Protein 8.6 g/dL (6.4-8.2)
[2018-10-31] MEDS ORDERED: Oseltamivir Phosphate 75 MG Capsule PO ONE (00:36)
[2018-10-31] MEDS ORDERED: Sod Chloride 0.9% Inj 1,000 ML IV.SIG SCH (01:15)
[2018-10-31] MEDS ORDERED: Bisacodyl 10 MG Supp RECTAL PRN (01:19)
[2018-10-31] MEDS ORDERED: Acetaminophen 325 MG Tablet PO PRN (01:19)
[2018-10-31] MEDS ORDERED: Enoxaparin Inj 40 MG/0.4 ML Syringe SQ SCH (01:30)
--- NOTE | 2018-10-31 02:04 | ED ---
HPI General Chief complaint: Asthma Stated complaint: Resp/Poss Asthma Attack Time Seen by Provider: 10/30/18 20:32 Source: patient Mode of arrival: EMS Limitations: no limitations History of Present Illness HPI narrative: 63-year-old man came to the emergency room with history of respiratory distress, fever and not feeling well. Patient says he has been coughing for past 2 days. Today he started running fever. He has history of asthma and COPD. Patient denies smoking and says he has quit for many years now. He says that his nebulizer machine broke and he has been using the inhaler but is not working. Patient appeared to be in distress. He says that he does not normally require oxygen at home. He did not measure his temperature at home but here it was 101.9. Related Data Home Medications Medication Instructions Recorded Confirmed No Known Home Medications 10/30/18 10/30/18 Allergies Allergy/AdvReac Type Severity Reaction Status Date / Time penicillin G Allergy Severe RASH Verified 10/30/18 23:45 ketorolac AdvReac Severe HALLUCINATE Verified 10/30/18 23:45 S Review of Systems ROS: all other systems reviewed are negative [facility] Medical History Medical History Asthma (Acute) COPD (chronic obstructive pulmonary disease) (Acute) Emphysema of lung (Acute) Fatty liver (Acute) Pancreatitis (Acute) Social History Social History Substance History: Active Abuse Second Hand Smoke Exposure: No Smoking Status: Former smoker How Often Do You Have a Drink Containing Alcohol: Never Recent Travel in [facility] within the Last 8 Weeks: No Recent Out of Country Travel within the Last 8 Weeks: No Substance Abuse Detail Marijuana: Substance Use Status: Active Route Used Substance Abuse: By Mouth Reason for Use: Calm Down Immunization History Tetanus Immunization: Unsure Exam Narrative Exam Narrative: GENERAL: Awake, alert, moderate distress SKIN: Focused skin assessment warm/dry. HEAD: Atraumatic. Normocephalic. EYES: Pupils equal and round. No scleral icterus. No injection or drainage. ENT: No nasal bleeding or discharge. Mucous membranes pink and moist. NECK: Trachea midline. No JVD. CARDIOVASCULAR: Regular rate and rhythm. No murmur appreciated. RESPIRATORY: Accessory muscles use for respiration, decreased air entry bilaterally with end expiratory wheeze GASTROINTESTINAL: Abdomen soft, non-tender, nondistended. Hepatic and splenic margins not palpable. MUSCULOSKELETAL: No obvious deformities. No clubbing. No cyanosis. No edema. NEUROLOGICAL: Awake and alert. No obvious cranial nerve deficits. Motor grossly within normal limits. Normal speech. PSYCHIATRIC: Appropriate mood and affect; insight and judgment normal. Course Initial Documented Vital Signs Temperature 101.9 F H 10/30/18 20:21 Pulse Rate 122 H 10/30/18 20:21 Respiratory Rate 24 10/30/18 20:21 Blood Pressure 183/83 H 10/30/18 20:21 Pulse Oximetry 96 10/30/18 20:21 Last Documented Vital Signs Temperature 98.3 F 10/31/18 05:25 Pulse Rate 102 H 10/31/18 09:39 Respiratory Rate 22 10/31/18 09:39 Blood Pressure 165/79 H 10/31/18 05:25 Pulse Oximetry 98 10/31/18 09:39 Critical Care Time Critical Care Time: Yes Total Critical Care Time: 45 Attestation: Aggregate critical care time was 45 minutes. Time to perform other separately billable procedures was not included in the critical care time. My time did not include minutes spent treating any other patients simultaneously or on activities that did not directly contribute to the patient's treatment. The services I provided to this patient were to treat and/or prevent clinically significant deterioration that could result in: Respiratory distress, nebulizer treatment, hypoxia I provided critical care services requiring my management, as noted below: Chart data review, documentation time, medication orders and management, vital sign assessments/reviewing monitor data, ordering and reviewing lab tests, ordering and interpreting/reviewing x-rays and diagnostic studies, care of the patient and discussion of the patient with the admitting physicians. Medical Decision Making MDM Narrative Medical decision making narrative: 1 AM blood test results are back and within acceptable limits. Influenza is positive. Chest x-ray is negative. Patient was given 2 duo nebs initially with Solu-Medrol. I have ordered Tamiflu as well as 2 more albuterol. I discussed the case with the hospitalist was accepted the patient. Medical Screen Exam Complete: Yes Emergency Medical Condition: Yes Lab Data Result diagrams: 10/30/18 20:48 10/30/18 20:48 Lab Results 02/24/19 02/24/19 02/24/19 Range/Units 20:48 20:48 20:48 WBC 7.9 (4.0-11.0) th/mm3 RBC 4.27 L (4.50-5.90) mil/mm3 Hgb 13.2 (13.0-17.0) gm/dL Hct 38.0 L (39.0-51.0) % MCV 89.0 (80.0-100.0) fL MCH 30.8 (27.0-34.0) pg MCHC 34.6 (32.0-36.0) % RDW 14.4 (11.6-17.2) % Plt Count 199 (150-450) th/mm3 MPV 8.9 (7.0-11.0) fL Prelim Diff (Auto) Slide review pending Neut % (Auto) 81.3 H (16.0-70.0) % Lymph % (Auto) 11.9 (9.0-44.0) % Phelps % (Auto) 4.3 (0.0-8.0) % Eos % (Auto) 0.6 (0.0-4.0) % Baso % (Auto) 1.9 (0.0-2.0) % Neut # (Auto) 6.4 (1.8-7.7) th/mm3 Lymph # (Auto) 0.9 L (1.0-4.8) th/mm3 Phelps # (Auto) 0.3 (0.0-0.9) th/mm3 Eos # (Auto) 0.0 (0.0-0.4) th/mm3 Baso # (Auto) 0.2 (0.0-0.2) th/mm3 WBC Differential . Diff Scan Auto diff confirmed Differential Comment . Sodium 137 (136-145) meq/L Potassium 3.8 (3.5-5.1) meq/L Chloride 102 (98-107) meq/L Carbon Dioxide 27.1 (21.0-32.0) meq/L Anion Gap 8 (5-15) meq/L BUN 12 (7-18) mg/dL Creatinine 1.08 (0.60-1.30) mg/dL Estimated GFR 69 L (>89) mL/min Random Glucose 78 (74-106) mg/dL Lactic Acid 1.7 (0.4-2.0) mmol/L Calcium 9.0 (8.5-10.1) mg/dL Magnesium 2.1 (1.5-2.5) mg/dL Total Bilirubin 0.4 (0.2-1.0) mg/dL AST 126 H (15-37) U/L ALT 233 H (12-78) U/L Alkaline Phosphatase 142 H (45-117) U/L Total Protein 8.6 H (6.4-8.2) g/dL Albumin 4.0 (3.4-5.0) g/dL Urine Color (Yellw/Straw) Urine Clarity (Clear) Urine pH (5.0-8.5) Ur Specific [place] (1.002-1.035) Urine Protein (Neg-Trace) mg/dL Urine Glucose (UA) (Negative) mg/dL Urine Ketones (Negative) mg/dL Urine Occult Blood (Negative) Urine Nitrate (Negative) Urine Bilirubin (Negative) Urine Urobilinogen (Less than 2) mg/dL Ur Leukocyte Esterase (Negative) Urine RBC (0-3) /hpf Urine WBC (0-5) /hpf Urine Mucus (Occasional) /lpf Micro UA Comment Ur Microscopic Review Urine Culture Comments 10/31/18 Range/Units 02:29 WBC (4.0-11.0) th/mm3 RBC (4.50-5.90) mil/mm3 Hgb (13.0-17.0) gm/dL Hct (39.0-51.0) % MCV (80.0-100.0) fL MCH (27.0-34.0) pg MCHC (32.0-36.0) % RDW (11.6-17.2) % Plt Count (150-450) th/mm3 MPV (7.0-11.0) fL Prelim Diff (Auto) Neut % (Auto) (16.0-70.0) % Lymph % (Auto) (9.0-44.0) % Phelps % (Auto) (0.0-8.0) % Eos % (Auto) (0.0-4.0) % Baso % (Auto) (0.0-2.0) % Neut # (Auto) (1.8-7.7) th/mm3 Lymph # (Auto) (1.0-4.8) th/mm3 Phelps # (Auto) (0.0-0.9) th/mm3 Eos # (Auto) (0.0-0.4) th/mm3 Baso # (Auto) (0.0-0.2) th/mm3 WBC Differential Diff Scan Differential Comment Sodium (136-145) meq/L Potassium (3.5-5.1) meq/L Chloride (98-107) meq/L Carbon Dioxide (21.0-32.0) meq/L Anion Gap (5-15) meq/L BUN (7-18) mg/dL Creatinine (0.60-1.30) mg/dL Estimated GFR (>89) mL/min Random Glucose (74-106) mg/dL Lactic Acid (0.4-2.0) mmol/L Calcium (8.5-10.1) mg/dL Magnesium (1.5-2.5) mg/dL Total Bilirubin (0.2-1.0) mg/dL AST (15-37) U/L ALT (12-78) U/L Alkaline Phosphatase (45-117) U/L Total Protein (6.4-8.2) g/dL Albumin (3.4-5.0) g/dL Urine Color Yellow (Yellw/Straw) Urine Clarity Clear (Clear) Urine pH 6.0 (5.0-8.5) Ur Specific [place] 1.026 (1.002-1.035) Urine Protein 100 H (Neg-Trace) mg/dL Urine Glucose (UA) Negative (Negative) mg/dL Urine Ketones 20 (Negative) mg/dL Urine Occult Blood Negative (Negative) Urine Nitrate Negative (Negative) Urine Bilirubin Negative (Negative) Urine Urobilinogen 0.2 (Less than 2) mg/dL Ur Leukocyte Esterase Negative (Negative) Urine RBC 4 H (0-3) /hpf Urine WBC Less than 1 (0-5) /hpf Urine Mucus Few H (Occasional) /lpf Micro UA Comment Culture not ind Ur Microscopic Review Not Reportable Urine Culture Comments Culture not ind Imaging Data Radiologist's impression: Chest X-Ray 10/30/18 20:46 CONCLUSION: The lungs are clear. ECG Data Attestation: I personally reviewed and interpreted this ECG as follows: Interpretation: Lead EKG was reviewed by me. Normal sinus rhythm, normal axis, nonspecific ST-T wave changes, tachycardia. Heart rate of 111 bpm. Discharge Plan Discharge Disposition Patient Disposition: ED Admit(ED Internal Use Only) Discharge Condition Condition: Fair Discharge Order Discharge Orders: AMA Discharge (Routine); Ordered 10/31/18 Ordered By: Usama Oconnor ED Use Only Admit Order (Routine); Ordered 10/31/18 Ordered By: Elisa Matias Discharge Details Anticipated Discharge Date: 10/31/18 Physicians Team ED Provider: Elisa Matias Primary Care Provider: UNKNOWN, Attending Provider: Usama Oconnor Status ED Status: Left Department Discharge Information Discharge Date/Time: 10/31/18 02:41
[2018-10-31 02:51] LABS: Bilirubin,Urine Negative (Negative); Clarity,Urine Clear (Clear); Color,Urine Yellow (Yellw/Straw); Glucose,Urine (UA) Negative (Negative); Leukocyte Esterase,Urine Negative (Negative); Mucus,Urine Few /lpf (Occasional); Nitrite,Urine Negative (Negative); Specific Gravity,Urine 1.026 (1.002-1.035)
[2018-10-31 02:54] LABS: Urobilinogen,Urine 0.2 mg/dL (Less than 2)
[2018-10-31 05:28] VITALS: BP 165/79; TEMP 98.3
--- NOTE | 2018-10-31 06:29 | P.HPIM ---
History of Present Illness Primary Care Physician: UNKNOWN Chief Complaint: Shortness of breath History of Present Illness: 63-year-old male with a history of COPD who presents with a 2-3-day history of progressively worsening shortness of breath, cough productive of foamy white sputum,, "feeling hot" however denying any fevers or chills. Review of Systems Review of Systems: all other systems reviewed are negative [facility] Medical History Medical History Asthma (Acute) COPD (chronic obstructive pulmonary disease) (Acute) Emphysema of lung (Acute) Fatty liver (Acute) Pancreatitis (Acute) Family History Family History Mother Emphysema (subcutaneous) (surgical) resulting from a procedure Father Heart disease Social History Social History Substance History: Active Abuse Second Hand Smoke Exposure: No Smoking Status: Former smoker How Often Do You Have a Drink Containing Alcohol: Never Recent Travel in [facility] within the Last 8 Weeks: No Recent Out of Country Travel within the Last 8 Weeks: No Substance Abuse Detail Marijuana: Substance Use Status: Active Route Used Substance Abuse: By Mouth Reason for Use: Calm Down Immunization History Tetanus Immunization: Unsure Medications and Allergies Allergies Allergy/AdvReac Type Severity Reaction Status Date / Time penicillin G Allergy Severe RASH Verified 10/30/18 23:45 ketorolac AdvReac Severe HALLUCINATE Verified 10/30/18 23:45 S Home Medications Medication Instructions Recorded Confirmed Type No Known Home Medications 10/30/18 10/30/18 History Active Medications: Active Medications Acetaminophen (Tylenol) 650 mg PO Q4H PRN PRN Reason: Temp > 100.4 Al Hydroxide/Mg Hydroxide (Milk Of Magncoty Liq) 30 ml PO Q12H PRN PRN Reason: Mild Constipation Albuterol (Ventolin Hfa Inh) 2 puff INH Q4H PRN PRN Reason: SHORTNESS OF BREATH/WHEEZING Bisacodyl (Dulcolax Supp) 10 mg RECTAL DAILY PRN PRN Reason: SEVERE CONSITIPATION Enoxaparin Sodium (Lovenox Inj) 40 mg SQ Q24H [facility] Last Admin: 10/31/18 04:35 Dose: 40 mg Ipratropium Floris (Atrovent Neb) 0.5 mg NEB Q6HR NEB PIO Last Admin: 10/31/18 04:00 Dose: 0.5 mg Lactulose (Lactulose Liq) 30 ml PO DAILY PRN PRN Reason: SEVERE CONSITIPATION Methylprednisolone Sodium Succinate (Solumedrol Inj) 40 mg IV.PUSH Q6H PIO Ondansetron HCl (Zofran Inj) 4 mg IV.PUSH Q6H PRN PRN Reason: NAUSEA OR VOMITING Oseltamivir Phosphate (Tamiflu) 75 mg PO BID [facility] Sennosides (Senokot) 17.2 mg PO Q12H PRN PRN Reason: Moderate Constipation Sodium Chloride (Ns Flush) 2 ml IV.FLUSH BID PIO Sodium Chloride (Ns Flush) 2 ml IV.FLUSH PRN PRN PRN Reason: FLUSH AFTER USING IV ACCESS Physical Exam Vital signs: Vital Signs 10/30/18 20:21 10/30/18 20:30 10/30/18 22:14 Temperature 101.9 F H Pulse Rate 122 H 118 H Respiratory Rate 24 16 21 Blood Pressure 183/83 H 187/85 H Pulse Oximetry 96 95 10/30/18 22:38 10/30/18 22:44 10/31/18 01:39 Temperature Pulse Rate 119 H 110 H Respiratory Rate 19 20 Blood Pressure 166/78 H Pulse Oximetry 100 97 10/31/18 02:24 10/31/18 02:40 10/31/18 04:02 Temperature 98.8 F Pulse Rate 121 H 106 H Respiratory Rate 20 18 Blood Pressure 146/76 H Pulse Oximetry 96 10/31/18 04:03 10/31/18 05:25 Temperature 98.3 F Pulse Rate 107 H Respiratory Rate 20 Blood Pressure 165/79 H Pulse Oximetry 99 Intake & Output 10/30/18 10/30/18 10/31/18 06:59 18:59 06:59 Intake Total 1000 / 1000 Output Total 700 / 700 Balance 300 / 300 Weight 71.668 kg Intake: IV 1000 / 1000 NS Inj 1,000 ML @ 1000 mls/hr 1000 / 1000 IV.SIG BOLUS [facility] Rx#:[id number] Output: Urine 700 / 700 Other: Date of Last Bowel Movement 10/30/18 Weight On Admission 76.204 kg Narrative: GENERAL: Patient lying in bed sleeping.. Moderately short of breath. No accessory muscle use. SKIN: Warm and dry. HEAD: Atraumatic. Normocephalic. EYES: Pupils equal and round. No scleral icterus. No injection or drainage. ENT: No nasal bleeding or discharge. Mucous membranes pink and moist. NECK: Trachea midline. No JVD. CARDIOVASCULAR: Regular rate and rhythm. RESPIRATORY: No accessory muscle use. Clear to auscultation. Breath sounds equal bilaterally. GASTROINTESTINAL: Abdomen soft, non-tender, nondistended. Hepatic and splenic margins not palpable. MUSCULOSKELETAL: Extremities without clubbing, cyanosis, or edema. No obvious deformities. NEUROLOGICAL: Awake and alert. No obvious cranial nerve deficits. Motor grossly within normal limits. Five out of 5 muscle strength in the arms and legs. Normal speech. PSYCHIATRIC: Appropriate mood and affect; insight and judgment normal. Results Labs CBC & Chem 7: 10/30/18 20:48 10/30/18 20:48 Imaging Impressions Chest X-Ray 10/30/18 20:46 CONCLUSION: The lungs are clear. Caprini VTE Risk Assessment Caprini VTE Risk Assessment: Moderate/High Risk (score >= 2) Caprini Risk Assessment Model: Point Value = 1 Point Value = 2 Point Value = 3 Point Value = 5 Age 41-60 Minor surgery BMI > 25 kg/m2 Swollen legs Varicose veins or History of unexplained or recurrent spontaneous Oral contraceptives or hormone replacement Sepsis (< 1 month) Serious lung disease, including pneumonia (< 1 month) Abnormal pulmonary function Acute myocardial infarction Congestive heart failure (< 1 month) History of inflammatory bowel disease Medical patient at bed rest Age 61-74 Arthroscopic surgery Major open surgery (> 45 min) Laparoscopic surgery (> 45 min) Malignancy Confined to bed (> 72 hours) Immobilizing plaster cast Central venous access Age >= 75 History of VTE Family history of VTE Factor V Leiden Prothrombin [id number] Lupus anticoagulant Anticardiolipin antibodies Elevated serum homocysteine Heparin-induced thrombocytopenia Other congenital or acquired thrombophilia Stroke (< 1 month) Elective arthroplasty Hip, pelvis, or leg fracture Acute spinal cord injury (< 1 month) Prophylaxis Regimen: Total Risk Factor Score Risk Level Prophylaxis Regimen 0-1 Low Early ambulation 2 Moderate Order ONE of the following: *Sequential Compression Device (SCD) *Heparin 5000 units SQ BID 3-4 Higher Order ONE of the following medications: *Heparin 5000 units SQ TID *Enoxaparin/Lovenox 40 mg SQ daily (WT < 150 kg, CrCl > 30 mL/min) *Enoxaparin/Lovenox 30 mg SQ daily (WT < 150 kg, CrCl > 10-29 mL/min) *Enoxaparin/Lovenox 30 mg SQ BID (WT < 150 kg, CrCl > 30 mL/min) AND/OR *Sequential Compression Device (SCD) 5 or more Highest Order ONE of the following medications: *Heparin 5000 units SQ TID (Preferred with Epidurals) *Enoxaparin/Lovenox 40 mg SQ daily (WT < 150 kg, CrCl > 30 mL/min) *Enoxaparin/Lovenox 30 mg SQ daily (WT < 150 kg, CrCl > 10-29 mL/min) *Enoxaparin/Lovenox 30 mg SQ BID (WT < 150 kg, CrCl > 30 mL/min) AND *Sequential Compression Device (SCD) Assessment and Plan Plan //Acute COPD exacerbation. //Acute influenza bronchitis -Positive influenza A Duo nebs, steroids. IV fluids. Tamiflu. observe for improvement. //Self-reported history of diabetes. Sliding scale. Check A1c H&P: Quality VTE Deep Vein Thrombosis/Pulmonary Embolism Present on Admission: No
[2018-10-31] MEDS ORDERED: Dextrose 50% in Water 50 ML Vial IV.PUSH PRN (06:31)
[2018-10-31] MEDS: MethylPREDNISolone Sod Succinate Inj 40 MG/ML Vial IV.PUSH SCH ×2 (06:33→13:15)
[2018-10-31] MEDS ORDERED: Oseltamivir Phosphate 75 MG Capsule PO SCH (09:00)
[2018-10-31 09:41] VITALS: PULSE 102; RESP 22; O2SAT 98
[2018-10-31] MEDS ORDERED: Sod Chloride 0.9% Inj 1,000 ML IV.CONT SCH (10:14)
[2018-10-31] MEDS ORDERED: Insulin NovoLIN Regular Correctional Sugar Inj SQ SCH (12:00)
--- NOTE | 2018-10-31 12:18 | ECG ---
Date Performed: 10/30/2018 Time Performed: 20:34:35 PTAGE: 63 years EKG: SINUS TACHYCARDIA POSSIBLE LEFT ATRIAL ENLARGEMENT ABNORMAL RHYTHM ECG Since the PREVIOUS TRACING , no significant change noted PREVIOUS TRACIN12/10/2017 14.36 DOCTOR: Freeman Diaz Interpretating Date/Time 10/31/2018 12:12:15
--- NOTE | 2018-10-31 13:31 | P.AMA ---
AMA Note Discharge Summary Discharge Disposition: AMA Condition at Discharge: Fair Recommended Treatment Course: Tamiflu, steroids, inhalers AMA Statement: Patient Ashutosh Cortez JR has decided to leave the hospital against medical advice. This patient has the capacity to refuse care and understands the risks of leaving, including permanent disability and/or , and has had an opportunity to ask questions about his/her condition. The patient has been informed that he/she may return for care at any time, and follow up has been arranged/advised.
== END 2018-10-31 12:08 | disposition left against medical advice (07) ==
LOC: NEPD 20:19 → NEDA 20:19 → NEPGCP 10-31 02:49
PROVIDERS: ADMIT Hospitalist; ATTEND Hospitalist
CPT/HCPCS: 71010; 71045; 80053; 81001; 83605; 83735; 85025; 87040; 87275; 87276; 87804; 90774; 90784; 93005; 94640; 94664; 94665; 96361; 96374; 96376; 99285; C8952; G0378; J1650; J2920; J2930; J7030